=== PATIENT | female | born 1945 | race Caucasian/White ===

== ENCOUNTER 2017-02-15 16:37 | Inpatient (IN) | payer OTHER ==
[~2017-02-15] VITALS: Ht 154.9 cm; Wt 73.1 kg
[~2017-02-15 16:37] MED LIST: AMIO200T4 PO; CMD/1 PO; DVN80 PO; FRS/40 PO; METO50TA16 PO; POTA10CA28 PO
[2017-02-15 17:30] LABS: BASO % 0.3 %; BASO ABS # 0.03 K/uL (0-0.2); COMPLETE YES; EOS % 2.4 %; HEMATOCRIT 31.6 % (37-47); IG% 0.2 %; LYMPH % 18.1 %; LYMPH ABS # 1.87 K/uL (1.2-3.4); MEAN CORPUSCULAR HEMOGLOBIN 28.2 pg (25-34); MEAN CORPUSCULAR HGB CONC 31.6 g/dl (32-36); MEAN PLATELET VOLUME 8.8 fL (7.4-10.4); MONO % 8.9 %; NEUT % 70.1 %; PLATELET COUNT 267 K/uL (130-400); RED BLOOD COUNT 3.55 M/uL (4.2-5.4); WHITE BLOOD COUNT 10.35 K/uL (4.8-10.8)
--- NOTE | 2017-02-15 17:34 | DIAGNOSTIC IMAGING REPORT ---
CHEST ONE VIEW PORTABLE CLINICAL HISTORY: Shortness of breath on exertion. COMPARISON STUDY: 09/08/2016 FINDINGS: There are postsurgical changes of a midline sternotomy and valvular replacement. There is a left subclavian dual-chamber central venous pacemaker present. The heart is borderline enlarged. There is no focal pulmonary consolidation. There is no overt failure. No pleural effusions are visualized..[ IMPRESSION: No active disease in the chest. Electronically signed by: Nathan Chandler M.D. 02/15/2017 5:33 PM Dictated Date/Time: 02/15/2017 5:31 PM
[2017-02-15] MEDS ORDERED: ASPI81TA28 PO (17:37)
[2017-02-15] MEDS ORDERED: WARF1TAB6 PO (17:37)
[2017-02-15] MEDS ORDERED: CMD1 PO (17:37)
[2017-02-15 17:41] LABS: INR 1.8 (0.9-1.1); PARTIAL THROMBOPLASTIN RATIO 1.5; PROTHROMBIN TIME (PATIENT) 19.3 SECONDS (9.0-12.0)
[2017-02-15 17:50] LABS: BUN/CREATININE RATIO 21.6 (10-20); CREATININE 0.81 mg/dl (0.60-1.20)
[2017-02-15] MEDS ORDERED: ONDANSETRON INJ 2 MG/ML 2 ML VIAL IV PRN (19:15)
[2017-02-15] MEDS ORDERED: NITROGLYCERIN 0.4 MG SL PER TAB CHARGE SL PRN (19:15)
--- NOTE | 2017-02-15 19:44 | History and Physical ---
History & Physical Date & Time of Service: February 15, 2017 at 19:13 Chief Complaint: Sore Leg,Black &Blue Leg,On Danica,[place] Primary Care Physician: Desean Buenrostro M.D. History of Present Illness Source: patient, family, clinic records, hospital records Patient seen and examined. 71 year old female with PMHx of bioprosthetic AVR, PAF s/p cardioversion on Coumadin, SSS s/p pacemaker, diastolic CHF and other problems listed below, presents to the ED complaining of "black and blue right leg" x 4 days. Patient reports that she woke up four days ago and noticed a small bruise to her right hip. She called the Coumadin clinic and they said if it got worse to see her PCP or go to the ED. She states since then the area has slowly gotten larger and more painful. Today she started noticing ecchymosis on her calf and her pain was more severe so she decided to come to the ED for further evaluation. She describes the pain as "tight" and rates it as a 6/10. She denies any injury to the area. Patient also reports that today she has had WEBSTER. She states she feels flushed and just doesn't quite feel right. She states that the area over her pacemaker is sometimes tender but otherwise denies chest pain. She denies fevers, chills, URI symptoms, chest pain, nausea, vomiting, diarrhea, hematochezia, hematuria, dysuria, calf pain and edema. In the ED VS were stable, EKG showed wide QRS and previously seen LBBB, Troponin was 2.5, INR was 1.8. Patient will be admitted for further workup and treatment. Past Medical/Surgical History Medical Problems: (1) CHF (congestive heart failure) Status: Chronic (2) History of cardioversion Status: Chronic (3) History of left heart catheterization (LHC) Status: Chronic (4) HTN (hypertension) Status: Chronic (5) Neuropathy Status: Chronic (6) PAF (paroxysmal atrial fibrillation) Status: Chronic Surgical Problems: (1) H/O colonoscopy Status: Chronic (2) H/O hernia repair Status: Chronic (3) H/O: hysterectomy Status: Chronic (5) History of appendectomy Status: Chronic (7) History of tonsillectomy Status: Chronic (8) S/P AVR (aortic valve replacement) (bioprosthetic) Status: Chronic (9) S/P cholecystectomy Status: Chronic (10) S/P MVR (mitral valve repair) Status: Chronic Family History Diabetes mellitus Heart disease Hypertension Social History Smoking Status: Former Smoker Alcohol Use: none Drug Use: none Marital Status: Housing status: lives with family Occupational Status: retired Allergies Coded Allergies: No Known Allergies (Unverified , 02/15/17) Home Medications Scheduled Aspirin (Aspirin Ec), 81 MG PO DAILY Furosemide (Lasix), 80 MG PO DAILY Metoprolol Tartrate (Lopressor) (Lopressor), 25 MG PO BID Potassium Chloride (Micro-K Ext Rel), 20 MEQ PO DAILY Valsartan (Diovan), 80 MG PO QAM Warfarin Sod (Jantoven), 1 MG PO 2XWK Warfarin Sod (Coumadin), 2 MG PO 5XWK Review of Systems Constitutional: No chills, No fever, No sweats ENT: No nasal symptoms Respiratory: + dyspnea on exertion, No cough, No dyspnea at rest Cardiovascular: No chest pain, No edema, No palpitations Abdomen: No GI bleeding, No constipation, No diarrhea, No nausea, No pain, No vomiting Musculoskeletal: No calf pain, No swelling Genitourinary - Female: No dysuria, No hematuria Neurologic: No numbness/tingling, No vertigo Psychiatric: No anxiety Endocrine: No fatigue Hematologic / Lymphatic: + abnormal bleeding/bruising Integumentary: No itch, No rash Allergic / Immunologic: No environmental allergies Physical Exam Vital Signs Date Time Temp Pulse Resp B/P Pulse Ox O2 Delivery O2 Flow Rate FiO2 02/15/17 18:46 37.2 90 16 142/74 100 Room Air 02/15/17 16:45 37.3 69 20 131/54 95 Room Air General Appearance: + pertinent finding (Pleasant WD/WN 71 year old female lying in bed in NAD with family at bedside ) Head: normocephalic, atraumatic Eyes: PERRL, EOMI, sclerae normal ENT: hearing grossly normal, pharynx normal Neck: supple, no JVD Respiratory/Chest: lungs clear, normal breath sounds, no respiratory distress, no accessory muscle use, + pertinent finding (tenderness over pacemaker incertion, left chest - well healing no signs of infection ) Cardiovascular: regular rate, rhythm, no edema, no gallop, no JVD, normal peripheral pulses, + systolic murmur Abdomen/GI: normal bowel sounds, non tender, soft Back: normal inspection, no muscle spasm Extremities/Musculoskelatal: no calf tenderness, normal capillary refill, no pedal edema, + pertinent finding (ecchymosis noted to the lateral aspect of the left thigh extending below the knee, minimal ecchymosis to left calf, good distal pulses ) Neurologic/Psych: no motor/sensory deficits, alert, oriented x 3 Skin: normal color, warm/dry, no rash Lymphatic: no adenopathy Diagnostics Laboratory Results Results Past 24 Hours Test 02/15/17 17:15 Range/Units White Blood Count 10.35 4.8-10.8 K/uL Red Blood Count 3.55 4.2-5.4 M/uL Hemoglobin 10.0 12.0-16.0 g/dL Hematocrit 31.6 37-47 % Mean Corpuscular Volume 89.0 80-100 fL Mean Corpuscular Hemoglobin 28.2 25-34 pg Mean Corpuscular Hemoglobin Concent 31.6 32-36 g/dl Platelet Count 267 130-400 K/uL Mean Platelet Volume 8.8 7.4-10.4 fL Neutrophils (%) (Auto) 70.1 % Lymphocytes (%) (Auto) 18.1 % Monocytes (%) (Auto) 8.9 % Eosinophils (%) (Auto) 2.4 % Basophils (%) (Auto) 0.3 % Neutrophils # (Auto) 7.26 1.4-6.5 K/uL Lymphocytes # (Auto) 1.87 1.2-3.4 K/uL Monocytes # (Auto) 0.92 0.11-0.59 K/uL Eosinophils # (Auto) 0.25 0-0.5 K/uL Basophils # (Auto) 0.03 0-0.2 K/uL RDW Standard Deviation 47.2 36.4-46.3 fL RDW Coefficient of Variation 14.4 11.5-14.5 % Immature Granulocyte % (Auto) 0.2 % Immature Granulocyte # (Auto) 0.02 0.00-0.02 K/uL Prothrombin Time 19.3 9.0-12.0 SECONDS Prothromb Time International Ratio 1.8 0.9-1.1 Activated Partial Thromboplast Time 38.1 21.0-31.0 SECONDS Partial Thromboplastin Ratio 1.5 Sodium Level 141 136-145 mmol/L Potassium Level 4.0 3.5-5.1 mmol/L Chloride Level 104 98-107 mmol/L Carbon Dioxide Level 33 21-32 mmol/L Anion Gap 4.0 3-11 mmol/L Blood Urea Nitrogen 17 7-18 mg/dl Creatinine 0.81 0.60-1.20 mg/dl Est Creatinine Clear Calc Drug Dose 61.1 ml/min Estimated GFR () 85.9 Estimated GFR (Non- 74.1 BUN/Creatinine Ratio 21.6 10-20 Random Glucose 89 70-99 mg/dl Calcium Level 9.0 8.5-10.1 mg/dl Total Creatine Kinase 37 26-192 U/L Troponin I 2.590 0-0.045 ng/ml Diagnostic Radiology CXR Per radiologist read: IMPRESSION: No active disease in the chest. EKG Wide QRS 90 BPM, LBBB, QTc 506 Impression Assessment and Plan 71 year old female presents to the ED complaining of right leg pain, ecchymosis. Also complaining of WEBSTER. INR 1.8, Troponin 2.5 ELEVATED TROPONIN -Admit to tele -? cause, had cardiac cath in April 2016 prior to AVR with normal coronaries -Serial Klarissa, EKGs -Interrogate pacemaker -update echo -cardiology consult placed for further input - follows with [facility] in [place] -Continue BB -Aspirin, Coumadin on hold at this time- defer to attending risks versus benefits of anticoagulation in setting of elevated troponin and hematoma, please see addendum -CBC,PRP, Mg in AM RIGHT THIGH HEMATOMA -while on Coumadin INR 1.8 -good distal pulses, no other signs of active bleeding, platelet count 267 -hold Aspirin, Coumadin for now for bleeding - defer resuming to attending physician H/O BIOPROSTHETIC AORTIC VALVE REPLACEMENT, MITRAL VALVE REPAIR [place] [facility] [place] H/O PAROXYSMAL AFIB -INR 1.8 -continue BB -hold Coumadin for now, defer anticoagulation to attending in setting of hematoma H/O SICK SINUS SYNDROME -s/p pacemaker -interrogate pacemaker DIASTOLIC CHF -appears euvolemic -continue Lasix, Potassium HTN -stable -continue BB, Valsartan, Lasix -monitor in tele DVT PROPHYLAXIS: defer to attending CODE STATUS: FULL CODE DISPO:In my clinical judgment this beneficiary meets acute admission criteria, established by [facility], that includes being hospitalized through two midnights. Patient seen in collaboration with Dr. Gay VTE Prophylaxis VTE Risk Assessment Done? Y/N: Yes Risk Level: Moderate Given or contraindicated: SCD's Note ATTENDING ADDENDUM Record reviewed. Patient interviewed and examined. Care coordinated with Leida Noguera PA-C. Please refer to her documentation for patient's history. Briefly, 71 YO female with history of severe aortic stenosis, mitral regurgitation, paroxysmal atrial fibrillation / flutter, pacemaker for junctional rhythm, normal coronaries per cath April 2016. Bioprosthetic AVR and mitral valve repair [place] [facility] [place]. Developed bruising and pain in her right thigh a few days ago. No associated trauma. Also experiencing dyspnea on exertion without CP that started about 2 days ago. EXAM: General- no distress VS- as noted Neck- + JVD Lungs- clear to auscultation Heart- RRR, III/ systolic murmur at base; II/ systolic murmur at apex; no gallop appreciated Abdomen- + BS, soft, nontender Extremities- trace pretibial edema; no calf tenderness; large ecchymosis right lateral thigh extending to calf Neuro- alert, oriented DATA: INR 1.8. Hgb 10. POC troponin I = 2.59. Lab studies as noted. EKG performed at 17:06 reviewed and demonstrated regular rhythm (probable NSR) at 90 / minute, LBBB with associated repolarization abnormalities. CXR reviewed and demonstrated dual chamber pacemaker, postsurgical changes, normal cardiac silhouette, no infiltrates, effusions, or CHF. ASSESSMENT AND PLAN: DYSPNEA ON EXERTION / ELEVATED TROPONIN Serum troponin = 2.59. EKG shows probable NSR @ 90 / min with pre-existing LBBB. Cardiac cath in April 2016 demonstrated normal coronary arteries. Pulmonary embolism unlikely - O2 sat 100% RA, warfarin therapy (albeit currently subtherapeutic), low Wells score (1.5). Check serial cardiac markers + fasting lipid profile. Continue aspirin and metoprolol. Consult Cardiology. RIGHT THIGH HEMATOMA Large ecchymosis / probable hematoma right lateral thigh. No associated trauma. Last INR in clinic was 2.36 on 01/27. Skipped 1 dose of warfarin due to ecchymosis right thigh. INR today 1.8. Hgb 10.0 compared to baseline of 10.1-10.7 in Sep 2016. Hold warfarin. Follow H/H. Patient is on dual anti-thrombotic therapy with aspirin and warfarin. Indication for aspirin uncertain. Consider discontinuation after current cardiac evaluation in order to reduce bleeding risk. PAROXYSMAL ATRIAL FIBRILLATION / FLUTTER Rhythm at this time probable NSR. Continue warfarin. Hold warfarin as discussed above; resume when able. VTE PROPHYLAXIS No anticoagulants due to right thigh hematoma. SCD's. Ambulate. Please refer to MADIE Noguera's documentation for discussion of other issues. Steven Gay MD .
[2017-02-15 19:51] VITALS: BP 135/59; PULSE 61; TEMP 37.4; Ht 154.9 cm; Wt 73.1 kg
[2017-02-15] MEDS: METOPROLOL TARTRATE 50 MG TAB PO SCH (20:40)
--- NOTE | 2017-02-15 22:53 | EMERGENCY ROOM VISIT NOTE ---
History Report prepared by Presley: Nicolasa Gresham Under the Supervision of: Dr. Marco Trotter M.D. First contact with patient: 16:49 Chief Complaint: LEG PAIN,LEG INJURY Stated Complaint: SORE LEG,BLACK &BLUE LEG,ON CUMIDIN,SHORT OF BREAT History of Present Illness The patient is a 71 year old female who presents to the Emergency Room with complaints of an episode of leg pain starting three days ago. She currently rates her pain as a 6/10 in severity. She states that she woke up and there was a huge bruise on her right leg and hip. She denies any falls, bumping into anything, or sleeping on her side. She states that when she stands her whole right leg hurts. She notes that she is on Coumadin and called the clinic about it. She notes that she is due for a Coumadin check next week. She states that they told her to come to ED if it got worse. She reports that her right big toe is a little more purple than usual which resolved when she lays down. Also notes that she has started to become short of breath when she walks over the last few days. No recent antibiotics. Was recently on steroids and antibiotics for hip pain. The patient denies any recent use of antibiotics, hematochezia, melena, or chest pain. The patient states that she had a valve replacement and repair eight months ago. She states that she had a pacemaker installed five months ago. Source of History: patient Onset: three days ago Position: leg (right) Symptom Intensity: 6/10 Timing: other (episode) Modifying Factors (Worsening): other (standing) Associated Symptoms: + SOB, No chest pain, No hematochezia, No melena Review of Systems See HPI for pertinent positives & negatives. A total of 10 systems reviewed and were otherwise negative. Past Medical & Surgical Medical Problems: (1) CHF (congestive heart failure) (2) Elevated troponin (3) History of cardioversion (4) History of left heart catheterization (LHC) (5) HTN (hypertension) (6) Leg pain (7) Neuropathy (8) PAF (paroxysmal atrial fibrillation) Surgical Problems: (1) H/O colonoscopy (2) H/O hernia repair (3) H/O: hysterectomy (4) History of appendectomy (5) History of tonsillectomy (6) S/P AVR (aortic valve replacement) (7) S/P cholecystectomy (8) S/P MVR (mitral valve repair) Family History Diabetes mellitus Heart disease Hypertension Social History Smoking Status: Former Smoker Drug Use: none Marital Status: Housing Status: lives with family Occupation Status: retired Current/Historical Medications Scheduled Aspirin (Aspirin Ec), 81 MG PO DAILY Furosemide (Lasix), 80 MG PO DAILY Metoprolol Tartrate (Lopressor) (Lopressor), 25 MG PO BID Potassium Chloride (Micro-K Ext Rel), 20 MEQ PO DAILY Valsartan (Diovan), 80 MG PO QAM Warfarin Sod (Jantoven), 1 MG PO 2XWK Warfarin Sod (Coumadin), 2 MG PO 5XWK Allergies Coded Allergies: No Known Allergies (Unverified , 02/15/17) Physical Exam Vital Signs Date Time Temp Pulse Resp B/P Pulse Ox O2 Delivery O2 Flow Rate FiO2 02/15/17 18:46 37.2 90 16 142/74 100 Room Air 02/15/17 16:45 37.3 69 20 131/54 95 Room Air Physical Exam GENERAL: Patient is well appearing and in no acute distress. HEENT: No acute trauma, normocephalic atraumatic, mucous membranes moist, no nasal congestion, no scleral icterus. NECK: No stridor, no adenopathy, no meningismus, trachea is midline. LUNGS: No dyspnea. Clear to auscultation and equal bilaterally. No wheeze, no rhonchi. HEART: Regular rate and rhythm. No murmurs, rubs, gallops appreciated. ABDOMEN: Soft, nontender, bowel sounds positive, no masses appreciated, no peritonitis. BACK: No midline tenderness, no CVA tenderness EXTREMITIES: Normal motion all extremities, no cyanosis, no edema. Moderate area bruising extending lateral/posterior right buttock to right lateral knee and onto lateral calf. She has equal pulses bilaterally. Mild tenderness to palpation over point area right lateral thigh. NEUROLOGIC: Alert and oriented, no acute motor or sensory deficits, no focal weakness, cranial nerves grossly intact. SKIN: No rash, no jaundice, no diaphoresis. Medical Decision & Procedures ER Provider Diagnostic Interpretation: Radiology results and stated below per my review and radiologist interpretation: CHEST ONE VIEW PORTABLE CLINICAL HISTORY: Shortness of breath on exertion. COMPARISON STUDY: 09/08/2016 FINDINGS: There are postsurgical changes of a midline sternotomy and valvular replacement. There is a left subclavian dual-chamber central venous pacemaker present. The heart is borderline enlarged. There is no focal pulmonary consolidation. There is no overt failure. No pleural effusions are visualized..[ IMPRESSION: No active disease in the chest. Electronically signed by: Nathan Chandler M.D. 02/15/2017 5:33 PM Dictated Date/Time: 02/15/2017 5:31 PM Laboratory Results 02/15/17 17:15 Red Blood Count 3.55, Mean Corpuscular Volume 89.0, Mean Corpuscular Hemoglobin 28.2, Mean Corpuscular Hemoglobin Concent 31.6, Mean Platelet Volume 8.8, Neutrophils (%) (Auto) 70.1, Lymphocytes (%) (Auto) 18.1, Monocytes (%) (Auto) 8.9, Eosinophils (%) (Auto) 2.4, Basophils (%) (Auto) 0.3, Neutrophils # (Auto) 7.26, Lymphocytes # (Auto) 1.87, Monocytes # (Auto) 0.92, Eosinophils # (Auto) 0.25, Basophils # (Auto) 0.03 02/15/17 17:15 Test 02/15/17 17:15 White Blood Count 10.35 K/uL (4.8-10.8) Red Blood Count 3.55 M/uL (4.2-5.4) Hemoglobin 10.0 g/dL (12.0-16.0) Hematocrit 31.6 % (37-47) Mean Corpuscular Volume 89.0 fL (80-100) Mean Corpuscular Hemoglobin 28.2 pg (25-34) Mean Corpuscular Hemoglobin Concent 31.6 g/dl (32-36) Platelet Count 267 K/uL (130-400) Mean Platelet Volume 8.8 fL (7.4-10.4) Neutrophils (%) (Auto) 70.1 % Lymphocytes (%) (Auto) 18.1 % Monocytes (%) (Auto) 8.9 % Eosinophils (%) (Auto) 2.4 % Basophils (%) (Auto) 0.3 % Neutrophils # (Auto) 7.26 K/uL (1.4-6.5) Lymphocytes # (Auto) 1.87 K/uL (1.2-3.4) Monocytes # (Auto) 0.92 K/uL (0.11-0.59) Eosinophils # (Auto) 0.25 K/uL (0-0.5) Basophils # (Auto) 0.03 K/uL (0-0.2) RDW Standard Deviation 47.2 fL (36.4-46.3) RDW Coefficient of Variation 14.4 % (11.5-14.5) Immature Granulocyte % (Auto) 0.2 % Immature Granulocyte # (Auto) 0.02 K/uL (0.00-0.02) Prothrombin Time 19.3 SECONDS (9.0-12.0) Prothromb Time International Ratio 1.8 (0.9-1.1) Activated Partial Thromboplast Time 38.1 SECONDS (21.0-31.0) Partial Thromboplastin Ratio 1.5 Anion Gap 4.0 mmol/L (3-11) Est Creatinine Clear Calc Drug Dose 61.1 ml/min Estimated GFR () 85.9 Estimated GFR (Non- 74.1 BUN/Creatinine Ratio 21.6 (10-20) Calcium Level 9.0 mg/dl (8.5-10.1) Total Creatine Kinase 37 U/L (26-192) Troponin I 2.590 ng/ml (0-0.045) Laboratory results as reviewed by me. ECG Indication: SOB/dyspnea Rate (beats per minute): 90 Rhythm: sinus rhythm Findings: LBBB, other (Prolonged MS interval) ED Course 1650: The patient was evaluated in room A3. A complete history and physical exam was performed. 1728: The patient denied wanting a right femur x-ray. She states that she had right hip pain a month ago that was x-rayed and injected. She states that she was started on steroids for the pain. 1818: Upon reevaluation, the patient is resting comfortably. She agrees to coming into the hospital. Discussed results and treatment plan with the patient. She verbalized understanding and agreement with the treatment plan. The patient will be evaluated for further management. 1829: Discussed the patient's case with Dr. Youngblood from [facility]. The patient will be evaluated for further treatment and disposition. Medical Decision Differential diagnoses include anemia, compartment syndrome, elevated INR, renal failure. Pleasant 71 yr old female arrives with right lateral thigh bruising consistent with hematoma from Coumadin use. Notes discolored right toes though on exam they are same bilaterally, and has normal pulses both feet with her chronic decreased sensation. She does not have compartment syndrome by exam and her CK is normal. Given her reported increased WEBSTER went ahead with CXR, EKG, and TROP. With her INR at 1.8 I do not feel that CT PE indicated at this time as not SHOB at rest nor are vitals consistent with PE> CXR OK. EKG with LBBB. Trop elevated. No chest pain and already anticoagulated. Without clear cause of Trop (which may just be due to bruising) she will need to come in for further evaluation of her WEBSTER. She is stable throughout ED stay and not requiring pain medications. Consults Time Called: 1818 Consulting Physician: Dr. Ruby sharmaine Returned Call: 1828 Discussed the patient's case with Dr. Youngblood from [facility]. The patient will be evaluated for further treatment and disposition. Impression Primary Impression: Thigh hematoma Additional Impressions: Elevated troponin Dyspnea on exertion Scribe Attestation The scribe's documentation has been prepared under my direction and personally reviewed by me in its entirety. I confirm that the note above accurately reflects all work, treatment, procedures, and medical decision making performed by me. Departure Information Dispostion Being Evaluated By Hospitalist Referrals Desean Buenrostro M.D. (PCP) Patient Instructions My [facility] Problem Qualifiers Primary Impression: Thigh hematoma Encounter type: initial encounter Laterality: right Qualified Codes: S70.11XA - Contusion of right thigh, initial encounter
[2017-02-15 23:51] LABS: CKMB/CK RATIO 3.9 (0-3.0)
[2017-02-16] VITALS (11 sets, daily range): BP systolic 91–129; BP diastolic 46–75; PULSE 60–89; TEMP 36.8–37.7; O2SAT 92–97
[2017-02-16 05:40] LABS: HEMATOCRIT 27.5 % (37-47); MEAN CELL VOLUME 87.9 fL (80-100); MEAN CORPUSCULAR HEMOGLOBIN 27.2 pg (25-34); MEAN CORPUSCULAR HGB CONC 30.9 g/dl (32-36); MEAN PLATELET VOLUME 8.5 fL (7.4-10.4); PLATELET COUNT 211 K/uL (130-400); RED BLOOD COUNT 3.13 M/uL (4.2-5.4); WHITE BLOOD COUNT 7.61 K/uL (4.8-10.8)
[2017-02-16 06:04] LABS: BUN/CREATININE RATIO 23.9 (10-20); CALCIUM 8.2 mg/dl (8.5-10.1); CREATININE 0.77 mg/dl (0.60-1.20); MAGNESIUM 2.3 mg/dl (1.8-2.4); POTASSIUM 4.4 mmol/L (3.5-5.1)
[2017-02-16 06:13] LABS: INR 1.7 (0.9-1.1); PROTHROMBIN TIME (PATIENT) 18.4 SECONDS (9.0-12.0)
[2017-02-16 06:19] LABS: CHOLESTEROL/HDL RATIO 3.4; CKMB/CK RATIO 3.5 (0-3.0)
--- NOTE | 2017-02-16 07:11 | Progress Note ---
Internal Med Progress Note Date of Service: February 16, 2017. Provider Documentation: Made aware by RN of Hg drop from 10 to 8.5 px admitted for RLE ecchymosis as per records. trend HH hold home ASA for now resume ASA when Hg stable Will relay to AM provider. Vital Signs: Date Time Temp Pulse Resp B/P Pulse Ox O2 Delivery O2 Flow Rate FiO2 02/16/17 07:26 37.0 86 20 129/75 95 Room Air 02/16/17 04:00 36.8 80 18 116/69 96 Room Air 02/16/17 04:00 Room Air 02/16/17 00:04 37.0 60 18 122/67 96 Room Air 02/15/17 23:59 Room Air 02/15/17 20:10 Room Air 02/15/17 19:51 37.4 61 17 135/59 Room Air 02/15/17 18:46 37.2 90 16 142/74 100 Room Air 02/15/17 16:45 37.3 69 20 131/54 95 Room Air Lab Results: Results Past 24 Hours Test 02/15/17 17:15 02/15/17 23:07 02/16/17 05:23 Range/Units White Blood Count 10.35 7.61 4.8-10.8 K/uL Red Blood Count 3.55 3.13 4.2-5.4 M/uL Hemoglobin 10.0 8.5 12.0-16.0 g/dL Hematocrit 31.6 27.5 37-47 % Mean Corpuscular Volume 89.0 87.9 80-100 fL Mean Corpuscular Hemoglobin 28.2 27.2 25-34 pg Mean Corpuscular Hemoglobin Concent 31.6 30.9 32-36 g/dl Platelet Count 267 211 130-400 K/uL Mean Platelet Volume 8.8 8.5 7.4-10.4 fL Neutrophils (%) (Auto) 70.1 % Lymphocytes (%) (Auto) 18.1 % Monocytes (%) (Auto) 8.9 % Eosinophils (%) (Auto) 2.4 % Basophils (%) (Auto) 0.3 % Neutrophils # (Auto) 7.26 1.4-6.5 K/uL Lymphocytes # (Auto) 1.87 1.2-3.4 K/uL Monocytes # (Auto) 0.92 0.11-0.59 K/uL Eosinophils # (Auto) 0.25 0-0.5 K/uL Basophils # (Auto) 0.03 0-0.2 K/uL RDW Standard Deviation 47.2 46.4 36.4-46.3 fL RDW Coefficient of Variation 14.4 14.5 11.5-14.5 % Immature Granulocyte % (Auto) 0.2 % Immature Granulocyte # (Auto) 0.02 0.00-0.02 K/uL Prothrombin Time 19.3 18.4 9.0-12.0 SECONDS Prothromb Time International Ratio 1.8 1.7 0.9-1.1 Activated Partial Thromboplast Time 38.1 21.0-31.0 SECONDS Partial Thromboplastin Ratio 1.5 Sodium Level 141 144 136-145 mmol/L Potassium Level 4.0 4.4 3.5-5.1 mmol/L Chloride Level 104 107 98-107 mmol/L Carbon Dioxide Level 33 34 21-32 mmol/L Anion Gap 4.0 3.0 3-11 mmol/L Blood Urea Nitrogen 17 18 7-18 mg/dl Creatinine 0.81 0.77 0.60-1.20 mg/dl Est Creatinine Clear Calc Drug Dose 61.1 62.7 ml/min Estimated GFR () 85.9 91.3 Estimated GFR (Non- 74.1 78.8 BUN/Creatinine Ratio 21.6 23.9 10-20 Random Glucose 89 83 70-99 mg/dl Calcium Level 9.0 8.2 8.5-10.1 mg/dl Total Creatine Kinase 37 28 17 26-192 U/L Troponin I 2.590 2.370 2.220 0-0.045 ng/ml Creatine Kinase MB 1.1 0.6 0.5-3.6 ng/ml Creatine Kinase MB Ratio 3.9 3.5 0-3.0 Magnesium Level 2.3 1.8-2.4 mg/dl Triglycerides Level 78 0-150 mg/dl Cholesterol Level 141 0-200 mg/dl HDL Cholesterol 42 mg/dl LDL Cholesterol, Calculated 83 mg/dl VLDL Cholesterol, Calculated 16 mg/dl Cholesterol/HDL Ratio 3.4
[2017-02-16] MEDS: FUROSEMIDE 40 MG TAB PO SCH (08:06)
[2017-02-16] MEDS: VALSARTAN 80 MG TAB PO SCH (08:07)
[2017-02-16] MEDS: METOPROLOL TARTRATE 50 MG TAB PO SCH ×2 (08:07→19:58)
[2017-02-16] MEDS: POTASSIUM CHLORIDE 10 MEQ TABCR PO SCH (08:07)
[2017-02-16] MEDS ORDERED: ASPIRIN 81 MG ECTAB PO SCH (09:00)
--- NOTE | 2017-02-16 09:10 | ECHOCARDIOGRAM REPORT ---
*NOTICE TO RECEIVING DEMOCRAT AGENCY This information is strictly Confidential and protected under [place] law. [place] law prohibits you from making any further disclosure of this information unless further disclosure is expressly permitted by the written consent of the person to whom it pertains or is authorized by law. A general authorization for the release of medical or other information is not sufficient for this purpose. Hospital accepts no responsibility if the information is made available to any other person, INCLUDING THE PATIENT. Interpretation Summary * Name: MARCO A MOLINA Study Date: 02/16/2017 06:17 AM BP: 116/69 mmHg * Patient Location: C.2T\S\S236\S\1 HR: 80 * : 1945 (M/d/yyyy) Gender: Female Height: 61 in * Age: 71 yrs Ethnicity: CA Weight: 167 lb * Ordering Physician: Leida Noguera * Referring Physician: Self, Referred * Performed By: Jeanie Caldwell RDCS * * Reason For Study: Dyspnea, elevated troponin * BSA: 1.7 m2 * -- Conclusions -- * Normal LV chamber size with mild concentric LVH * Abnormal septal wall motion consistent with LBBB pattern, otherwise, no segmental left ventricular wall motion abnormalities are noted, EF 55-60%. * There is a bioprosthetic aortic valve. * The gradient is normal for this prosthetic aortic valve. * Doppler evidence of regurgitation is probably normal for this prosthetic aortic valve. * There is no mitral regurgitation noted. * There is no mitral valve stenosis. * An annuloplasty ring is noted in the mitral position. * . Procedure Details * A complete two-dimensional transthoracic echocardiogram was performed (2D, M-mode, Doppler and color flow Doppler). Left Ventricle * The left ventricle is normal in size. * There is mild concentric left ventricular hypertrophy. * Ejection Fraction = 55-60%. * Left ventricular systolic function is normal. * No segmental left ventricular wall motion abnormalities are noted. * The left ventricular wall motion is normal. * Septal motion is consistent with conduction abnormality. Right Ventricle * The right ventricular cavity size is normal (basal dimension <4.2 cm in right ventricular apical 4-chamber view). * There is a pacemaker lead in the right ventricle. * The right ventricular systolic function is normal as assessed by tricuspid annular plane systolic excursion (TAPSE) (normal >1.5 cm). Atria * The left atrial size is normal. * Right atrial size is normal. * No ASD detected; PFO is not assessed. Mitral Valve * There is no mitral valve stenosis. * There is no mitral regurgitation noted. * An annuloplasty ring is noted in the mitral position. Tricuspid Valve * The tricuspid valve is normal in structure and function. Aortic Valve * There is a bioprosthetic aortic valve. * The gradient is normal for this prosthetic aortic valve. * Doppler evidence of regurgitation is probably normal for this prosthetic aortic valve. Pulmonic Valve * The pulmonary valve is not well seen, but the Doppler examination is normal without significant regurgitation or stenosis. Great Vessels * The aortic root is normal size. Pericardium/Pleural * There is no pericardial effusion. MMode 2D Measurements and Calculations IVSd 1.3 cm LVIDd 4.5 cm LVIDs 3.1 cm LVPWd 1.2 cm IVS/LVPW 1.1 FS 31.3 % EDV(Teich) 91.3 ml ESV(Teich) 37.3 ml EF(Teich) 59.2 % EDV(cubed) 89.7 ml ESV(cubed) 29.2 ml EF(cubed) 67.5 % LV mass(C)d 201.3 grams LV mass(C)dI 115.0 grams/m\S\2 CO(Teich) 4.5 l/min CI(Teich) 2.6 l/min/m\S\2 SV(Teich) 54.1 ml SI(Teich) 30.9 ml/m\S\2 CO(cubed) 5.0 l/min CI(cubed) 2.9 l/min/m\S\2 SV(cubed) 60.6 ml SI(cubed) 34.6 ml/m\S\2 LA dimension 3.8 cm asc Aorta Diam 3.4 cm LVAd ap4 26.9 cm\S\2 LVLd ap4 6.8 cm EDV(MOD-sp4) 86.4 ml LVAs ap4 15.9 cm\S\2 LVLs ap4 5.6 cm ESV(MOD-sp4) 39.0 ml EF(MOD-sp4) 54.9 % LVAd ap2 35.5 cm\S\2 LVLd ap2 7.8 cm EDV(MOD-sp2) 142.0 ml LVAs ap2 22.5 cm\S\2 LVLs ap2 7.0 cm ESV(MOD-sp2) 61.2 ml EF(MOD-sp2) 56.9 % CO(MOD-sp4) 3.9 l/min CI(MOD-sp4) 2.2 l/min/m\S\2 SV(MOD-sp4) 47.4 ml SI(MOD-sp4) 27.1 ml/m\S\2 CO(MOD-sp2) 6.7 l/min CI(MOD-sp2) 3.8 l/min/m\S\2 SV(MOD-sp2) 80.8 ml SI(MOD-sp2) 46.2 ml/m\S\2 Doppler Measurements and Calculations MV E max francesco 173.8 cm/sec MV dec time 0.27 sec Ao V2 max 234.1 cm/sec Ao max PG 21.9 mmHg Ao max PG (full) 16.6 mmHg Ao V2 mean 165.3 cm/sec Ao mean PG 12.2 mmHg Ao V2 VTI 44.5 cm LV V1 max PG 5.3 mmHg LV V1 max 115.1 cm/sec PA V2 max 109.9 cm/sec PA max PG 4.8 mmHg PA acc slope 898.2 cm/sec\S\2 PA acc time 0.09 sec PI end-d francesco 179.2 cm/sec TR max francesco 180.5 cm/sec PA pr(Accel) 39.4 mmHg
--- NOTE | 2017-02-16 09:44 | Clinical Documentation Query ---
[facility]. [facility] : CLINICAL DOCUMENTATION QUERY Patient is a 71 year old female admitted for a right thigh hematoma in the setting of ASA and Coumadin and elevated troponin. Hemoglobin and hematocrit this a.m. (02/16) were 8.5 g/dl and 27.5%. Values 09/17 were 11.7 g/dl and 37.1%. She is being monitored with serial hematology. In your clinical opinion is this patient being managed for: ( + ) Acute blood loss anemia ( ) Other explanation of clinical findings (Please Explain) ( ) Unable to determine (Please Define) ( ) Need to Discuss ( ) Not Agree The medical record reflects the following clinical findings, treatment, and risk factors. Clinical Indicators: As above Treatment: Serial hematology, holding of ASA, Coumadin Risk Factors: ASA, Coumadin Please clarify and document your clinical opinion in the progress notes and discharge summary. Terms such as "probable", "suspected", "likely", "questionable", "possible", or "still to be ruled out" are acceptable. IF IN AGREEMENT, YOU MUST DOCUMENT ABOVE DIAGNOSTIC STATEMENT IN DAILY PROGRESS NOTES AND DISCHARGE SUMMARY. This document is not part of the patient's record. Thank You, Wil Johnson, NICKI [phone]
--- NOTE | 2017-02-16 11:21 | Cardiology Consultation ---
Cardiology Consultation Date of Consultation: February 16, 2017 Requesting Physician: Trena Attending Emergency Service Worker: J Luis (Quinton Neves PA-C) History of Present Illness Ms. Cardona is a pleasant 71 year old female who is being seen at the request of Dr. Gay. Reasons for consultation include elevated troponin and dyspnea. Ms. Cardona states "I came in because my leg got all black and blue." She notes first observing spontaneous ecchymosis of her right posterolateral hip three or four days ago. She called the [facility] and was advised to "keep an eye on it over the weekend." She notes that towards the end of the weekend the hematoma increased in size and became more painful. She eventually called her PCP and was referred to the ER for further evaluation and treatment. She denies injury. She was seen at the [place] ER on 01/22/2017 secondary to right hip pain and was prescribed Methylprednisolone and Tramadol on 01/25/2017 for acute low back pain with right-sided sciatica. Because of the increased dyspnea that patient underwent further cardiopulmonary evaluation in the ER. CXR showed no active disease in the chest as per Dr. Chandler. EKG revealed probable sinus with a left bundle branch block that is chronic. Troponin was elevated, trending down serially. The patient describes chronic stable dyspnea that may have increased somewhat over the past two days. She was not particularly concerned regarding the dyspnea, attributing it to the leg issue. She notes that her chest "feels weird," with her left chest/breast noted to be tender with palpation. No exertional chest pain. No pleuritic chest pain. She has chronic stable palpitations that she describes as "Feeling like my heart is beating fasting." (Quinton Neves PA-C) History Past Medical and Surgical History: ? Bicuspid aortic valve with severe aortic valve stenosis and mitral regurgitation April 12, 2016 Diagnostic Cardiac Catheterization ([facility]): The coronary arteries are angiographically normal. The right atrial pressures measured were normal. Pulmonary hypertension is not present. Pulmonary saturation is normal. The pulmonary wedge pressure was normal. The cardiac output was normal. Status post June 10, 2016 aortic valve replacement with a 23 Allan II bioprosthesis and mitral valve repair with a 26 physio II annuloplasty ring. 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 Chronic left bundle branch block. Hypertension Hyperlipidemia Migraine headaches GERD [id number] Neuropathy Osteoporosis Appendectomy Cholecystectomy T/A as a child. Lumbar spine surgery in 1995 Total hysterectomy Umbilical hernia repair, 06/2013 Family History: Father at 87. Mother at 90. She has three brothers and two sisters, one brother with CAD. Social History: Reformed smoker. Quit in 1985 after smoking 1/2 ppd x ~5 years. No alcohol. No illegal drug use. in 2006, (Lorenzo) with an NC at the age of 64. Three children. 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 (Quinton Neves PA-C) Review Of Systems General: No fevers. No chills. No night sweats. No trauma. HEENT: + headaches. No head trauma. Cardiovascular: See above. Pulmonary: See above. Gastrointestinal: No nausea, vomiting, or diarrhea. Skin: See above. No rash. Musculoskeletal: See above. Decreased mobility. Ambulation is via a cane. Arthritis. Neurological: Denies history of TIA, CVA, or seizures Complete review of systems is as stated above, negative, or noncontributory. (Quinton Neves PA-C) Allergies Coded Allergies: No Known Allergies (Unverified , 02/15/17) Medications Reported Home Medications Medications Dose Route/Sig Max Daily Dose Days Date Category Dose Instructions Aspirin Ec (Aspirin) 81 Mg Tab 81 Mg PO DAILY 02/15/17 Reported Coumadin (Warfarin Sod) 1 Mg Tab 2 Mg PO 5XWK 02/15/17 Reported TUESDAY,TUESDAY,TUESDAY,TUESDAY,TUESDAY Jantoven (Warfarin Sodium) 1 Mg Tab 1 Mg PO 2XWK 02/15/17 Reported TUESDAY AND TUESDAY Diovan (Valsartan) 80 Mg Tab 80 Mg PO QAM 30 09/08/16 Rx Lopressor (Metoprolol Tartrate) 50 Mg Tab 25 Mg PO BID 09/05/16 Reported Lasix (Furosemide) 40 Mg Tab 80 Mg PO DAILY 09/05/16 Reported Micro-K Ext Rel (Potassium Chloride) 10 Meq Capcr 20 Meq PO DAILY 09/05/16 Reported (Quinton Neves PA-C) Physical Exam Vital Signs (Last 8hrs): Last 8 Hrs Date Time Temp Pulse Resp B/P Pulse Ox O2 Delivery O2 Flow Rate FiO2 02/16/17 08:00 95 Room Air 02/16/17 07:26 37.0 86 20 129/75 95 Room Air 02/16/17 04:00 36.8 80 18 116/69 96 Room Air 02/16/17 04:00 Room Air General Appearance: Alert and Oriented x3. NAD. HEENT: Normocephalic Atraumatic. PER, EOMI, conjunctiva and sclera clear Neck: Supple. No carotid bruits noted. No JVD. No HJD. Respiratory: Breath sounds clear to auscultation bilaterally. No w/r/r. Cardiovascular: RRR, 80 bpm. + Gallop. Chest: Medial sternotomy. There is reproducible left breast and left chest wall discomfort with palpation. Abdomen: +BS. No abdominal bruits. Soft. Nontender. Extremities: There is a large hematoma/ecchymosis of the right lateral thigh extending to the knee. No distal edema. No clubbing. No cyanosis. Distal pulses 2/4 bilaterally. Neuro: No focal deficits. Psychiatric: Normal affect. (Quinton Neves PA-C) Data Last 24 Hours Test 02/15/17 17:15 02/15/17 23:07 02/16/17 05:23 White Blood Count 10.35 K/uL 7.61 K/uL Red Blood Count 3.55 M/uL 3.13 M/uL Hemoglobin 10.0 g/dL 8.5 g/dL Hematocrit 31.6 % 27.5 % Mean Corpuscular Volume 89.0 fL 87.9 fL Mean Corpuscular Hemoglobin 28.2 pg 27.2 pg Mean Corpuscular Hemoglobin Concent 31.6 g/dl 30.9 g/dl Platelet Count 267 K/uL 211 K/uL Mean Platelet Volume 8.8 fL 8.5 fL Neutrophils (%) (Auto) 70.1 % Lymphocytes (%) (Auto) 18.1 % Monocytes (%) (Auto) 8.9 % Eosinophils (%) (Auto) 2.4 % Basophils (%) (Auto) 0.3 % Neutrophils # (Auto) 7.26 K/uL Lymphocytes # (Auto) 1.87 K/uL Monocytes # (Auto) 0.92 K/uL Eosinophils # (Auto) 0.25 K/uL Basophils # (Auto) 0.03 K/uL RDW Standard Deviation 47.2 fL 46.4 fL RDW Coefficient of Variation 14.4 % 14.5 % Immature Granulocyte % (Auto) 0.2 % Immature Granulocyte # (Auto) 0.02 K/uL Prothrombin Time 19.3 SECONDS 18.4 SECONDS Prothromb Time International Ratio 1.8 1.7 Activated Partial Thromboplast Time 38.1 SECONDS Partial Thromboplastin Ratio 1.5 Sodium Level 141 mmol/L 144 mmol/L Potassium Level 4.0 mmol/L 4.4 mmol/L Chloride Level 104 mmol/L 107 mmol/L Carbon Dioxide Level 33 mmol/L 34 mmol/L Anion Gap 4.0 mmol/L 3.0 mmol/L Blood Urea Nitrogen 17 mg/dl 18 mg/dl Creatinine 0.81 mg/dl 0.77 mg/dl Est Creatinine Clear Calc Drug Dose 61.1 ml/min 62.7 ml/min Estimated GFR () 85.9 91.3 Estimated GFR (Non- 74.1 78.8 BUN/Creatinine Ratio 21.6 23.9 Random Glucose 89 mg/dl 83 mg/dl Calcium Level 9.0 mg/dl 8.2 mg/dl Total Creatine Kinase 37 U/L 28 U/L 17 U/L Troponin I 2.590 ng/ml 2.370 ng/ml 2.220 ng/ml Creatine Kinase MB 1.1 ng/ml 0.6 ng/ml Creatine Kinase MB Ratio 3.9 3.5 Magnesium Level 2.3 mg/dl Triglycerides Level 78 mg/dl Cholesterol Level 141 mg/dl HDL Cholesterol 42 mg/dl LDL Cholesterol, Calculated 83 mg/dl VLDL Cholesterol, Calculated 16 mg/dl Cholesterol/HDL Ratio 3.4 EKG dated and timed 15-FEB-2017 @ 17:06:17: Possible Sinus rhythm. Left bundle branch block. EKG dated and timed 16-FEB-2017 @ 06:14:34: Normal sinus rhythm. Left bundle branch block. February 16, 2017 TTE Interpretation Summary ([facility], Dr. Dietz): Normal LV chamber size with mild concentric LVH. Abnormal septal wall motion consistent with LBBB pattern, otherwise, no segmental left ventricular wall motion abnormalities are noted, EF 55-60%. There is a bioprosthetic aortic valve. The gradient is normal for this prosthetic aortic valve. Doppler evidence of regurgitation is probably normal for this prosthetic aortic valve. There is no mitral regurgitation noted. There is no mitral valve stenosis. An annuloplasty ring is noted in the mitral position. (Quinton Neves PA-C) Assessment & Plan Presentation with a large spontaneous painful right thigh hematoma See above. ASA and Coumadin held. H&H followed. Further management/treatment as per hospitalist. Exertional dyspnea Elevated troponin concentration Catheterization in April 2016 with normal coronaries. Symptoms and presentation not suggestive of an acute coronary syndrome PE appears unlikely. Volume status appears normovolemic No trauma. No symptoms to suggest pericarditis/myocarditis. Chart reviewed. Troponin elevated in June 2016, September 2016, and with this admission. ? Demand ischemia from an arrhythmia Interrogate device today Status post June 10, 2016 aortic valve replacement with a 23 Allan II bioprosthesis and mitral valve repair with a 26 physio II annuloplasty ring. 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 (Quinton Neves PA-C) Cardiology attending: Pt seen and examined, agree with findings and assessment as per Quinton Britt. Pt denies trauma to the area. Pedal pulse intact. No sign of vascular incident but would have a low threshold to have vascular surgery evaluate should clinical course change. Coumadin and asa on hold, on coumadin for PAF, currently in sinus. (Markos Dietz D.O.)
[2017-02-16 12:08] LABS: HEMATOCRIT 30.6 % (37-47)
--- NOTE | 2017-02-16 15:04 | Progress Note ---
Internal Med Progress Note Date of Service: February 16, 2017. Provider Documentation: SUBJECTIVE: The patient was seen and examined Spontaneous bleeding right lateral and posterior hip Increase overnight with stephenson Also SOB on exertion OBJECTIVE: Vital Signs-as noted below Exam: General-no distress at rest Eyes-normal ENT-normal Neck-supple Lungs-Clear to ausucltate bilaterally Heart-Regular,Prosthetic valve sound,2/6 ESM precordial area Abdomen-Benign,no masses Trace edema bilaterally Right Lower Extremity-Swelling with extensive bruising upper lateral and posterior part with Bruising going down as low as lateral calf Neuro-AAOx3 Lab data as noted below. ASSESSMENT & PLAN: SPONTANEOUS RIGHT UPPER THIGH HEMATOMA -while on Coumadin (INR 1.8 ) and on Aspirin -no hemodynamic instability -Normal platelet -Coumadin and Aspirin are on Hold -Repeat Hb 9.8 and will monitor -INR down to 1.7 ELEVATED TROPONIN -Doubt any ACS -Admit to tele -Likely cause, had cardiac cath in April 2016 prior to AVR with normal coronaries -Serial Klarissa,-minimally high EKGs -Interrogate pacemaker -ECHO::Normal LV chamber size with mild concentric LVH * Abnormal septal wall motion consistent with LBBB pattern, otherwise, no segmental left ventricular wall motion abnormalities are noted, EF 55-60%. * There is a bioprosthetic aortic valve. * The gradient is normal for this prosthetic aortic valve. * Doppler evidence of regurgitation is probably normal for this prosthetic aortic valve. * There is no mitral regurgitation noted. * There is no mitral valve stenosis. * An annuloplasty ring is noted in the mitral position. Appreciate cardiology input Likely to d/c Coumadin in future Will await further input H/O BIOPROSTHETIC AORTIC VALVE REPLACEMENT, MITRAL VALVE REPAIR -at [facility] in Jun 2016 -Inial advice was to continue Coumadin for 3 months -likely to be continued due to PAF -Now in SR H/O PAROXYSMAL AFIB -INR 1.8 -continue BB -hold Coumadin for now, defer anticoagulation to attending in setting of hematoma -Now in SR H/O SICK SINUS SYNDROME -s/p pacemaker -interrogate pacemaker DIASTOLIC CHF -appears euvolemic -continue Lasix, Potassium HTN -stable -continue BB, Valsartan, Lasix -monitor in tele DVT PROPHYLAXIS: defer to attending CODE STATUS: FULL CODE DISPO: Awaited Vital Signs: Date Time Temp Pulse Resp B/P Pulse Ox O2 Delivery O2 Flow Rate FiO2 02/16/17 12:00 96 Room Air 02/16/17 11:01 36.9 80 20 121/72 96 Room Air 02/16/17 08:00 95 Room Air 02/16/17 07:26 37.0 86 20 129/75 95 Room Air 02/16/17 04:00 36.8 80 18 116/69 96 Room Air 02/16/17 04:00 Room Air 02/16/17 00:04 37.0 60 18 122/67 96 Room Air 02/15/17 23:59 Room Air 02/15/17 20:10 Room Air 02/15/17 19:51 37.4 61 17 135/59 Room Air 02/15/17 18:46 37.2 90 16 142/74 100 Room Air 02/15/17 16:45 37.3 69 20 131/54 95 Room Air Lab Results: Results Past 24 Hours Test 02/15/17 17:15 02/15/17 23:07 02/16/17 05:23 02/16/17 11:44 Range/Units White Blood Count 10.35 7.61 4.8-10.8 K/uL Red Blood Count 3.55 3.13 4.2-5.4 M/uL Hemoglobin 10.0 8.5 9.8 12.0-16.0 g/dL Hematocrit 31.6 27.5 30.6 37-47 % Mean Corpuscular Volume 89.0 87.9 80-100 fL Mean Corpuscular Hemoglobin 28.2 27.2 25-34 pg Mean Corpuscular Hemoglobin Concent 31.6 30.9 32-36 g/dl Platelet Count 267 211 130-400 K/uL Mean Platelet Volume 8.8 8.5 7.4-10.4 fL Neutrophils (%) (Auto) 70.1 % Lymphocytes (%) (Auto) 18.1 % Monocytes (%) (Auto) 8.9 % Eosinophils (%) (Auto) 2.4 % Basophils (%) (Auto) 0.3 % Neutrophils # (Auto) 7.26 1.4-6.5 K/uL Lymphocytes # (Auto) 1.87 1.2-3.4 K/uL Monocytes # (Auto) 0.92 0.11-0.59 K/uL Eosinophils # (Auto) 0.25 0-0.5 K/uL Basophils # (Auto) 0.03 0-0.2 K/uL RDW Standard Deviation 47.2 46.4 36.4-46.3 fL RDW Coefficient of Variation 14.4 14.5 11.5-14.5 % Immature Granulocyte % (Auto) 0.2 % Immature Granulocyte # (Auto) 0.02 0.00-0.02 K/uL Prothrombin Time 19.3 18.4 9.0-12.0 SECONDS Prothromb Time International Ratio 1.8 1.7 0.9-1.1 Activated Partial Thromboplast Time 38.1 21.0-31.0 SECONDS Partial Thromboplastin Ratio 1.5 Sodium Level 141 144 136-145 mmol/L Potassium Level 4.0 4.4 3.5-5.1 mmol/L Chloride Level 104 107 98-107 mmol/L Carbon Dioxide Level 33 34 21-32 mmol/L Anion Gap 4.0 3.0 3-11 mmol/L Blood Urea Nitrogen 17 18 7-18 mg/dl Creatinine 0.81 0.77 0.60-1.20 mg/dl Est Creatinine Clear Calc Drug Dose 61.1 62.7 ml/min Estimated GFR () 85.9 91.3 Estimated GFR (Non- 74.1 78.8 BUN/Creatinine Ratio 21.6 23.9 10-20 Random Glucose 89 83 70-99 mg/dl Calcium Level 9.0 8.2 8.5-10.1 mg/dl Total Creatine Kinase 37 28 17 26-192 U/L Troponin I 2.590 2.370 2.220 0-0.045 ng/ml Creatine Kinase MB 1.1 0.6 0.5-3.6 ng/ml Creatine Kinase MB Ratio 3.9 3.5 0-3.0 Magnesium Level 2.3 1.8-2.4 mg/dl Triglycerides Level 78 0-150 mg/dl Cholesterol Level 141 0-200 mg/dl HDL Cholesterol 42 mg/dl LDL Cholesterol, Calculated 83 mg/dl VLDL Cholesterol, Calculated 16 mg/dl Cholesterol/HDL Ratio 3.4
[2017-02-16] MEDS: ACETAMINOPHEN 325 MG TAB PO PRN (19:57)
[2017-02-17] VITALS (9 sets, daily range): BP systolic 109–130; BP diastolic 64–73; PULSE 57–83; TEMP 36.5–37.1; O2SAT 93–98
[2017-02-17] MEDS: VALSARTAN 80 MG TAB PO SCH (07:50)
[2017-02-17] MEDS: POTASSIUM CHLORIDE 10 MEQ TABCR PO SCH (07:51)
[2017-02-17] MEDS: METOPROLOL TARTRATE 50 MG TAB PO SCH ×2 (07:51→20:56)
[2017-02-17] MEDS: FUROSEMIDE 40 MG TAB PO SCH (07:51)
[2017-02-17] MEDS: ACETAMINOPHEN 325 MG TAB PO PRN ×3 (08:24→23:41)
--- NOTE | 2017-02-17 10:09 | Cardiology Follow-Up ---
Subjective General Date of Service: February 17, 2017. Chief Complaint: Right thigh pain Pt evaluation today including: conversation w/ patient, physical exam, chart review, lab review, review of studies, review of inpatient medication list History of Present Illness Patient seen and examined. Slept well She does not believe there has been further propagation of the hematoma. Discomfort controlled with PRN acetaminophen. No chest pain. No palpitations. No dyspnea. No cough, orthopnea, PND, or lower extremity peripheral edema. EKG: ? Atrial fibrillation, left bundle branch block Telemetry: Currently irregular with a left bundle branch block pattern and intermittent ventricular pacing. Intermittently with AP-JAVA PROGRAMMING PROFESSOR. ? intermittent inappropriate pacing, ? undersensing atrial fibrillation/flutter. Pacemaker interrogation requested, completed by [employer] 02/16 (report not available for review) February 16, 2017 TTE Interpretation Summary ([facility], Dr. Dietz): Normal LV chamber size with mild concentric LVH. Abnormal septal wall motion consistent with LBBB pattern, otherwise, no segmental left ventricular wall motion abnormalities are noted, EF 55-60%. There is a bioprosthetic aortic valve. The gradient is normal for this prosthetic aortic valve. Doppler evidence of regurgitation is probably normal for this prosthetic aortic valve. There is no mitral regurgitation noted. There is no mitral valve stenosis. An annuloplasty ring is noted in the mitral position. Allergies Coded Allergies: No Known Allergies (Unverified , 02/15/17) Social History Smoking Status: Former Smoker Hx Tobacco Use In Past Year?: No Hx Alcohol Use - Type And Amou: No Hx Substance Use - Type And Am: No Problem List Medical Problems: (1) Acute coronary syndrome Status: Acute (2) Dyspnea on exertion Status: Acute (3) Thigh hematoma Status: Acute Physical Exam Vital Signs Last Vital Signs Documentation Date Time Temp Pulse Resp B/P Pulse Ox O2 Delivery O2 Flow Rate FiO2 02/17/17 08:00 Room Air 02/17/17 07:53 36.5 83 18 122/73 96 Physical Exam Constitutional: Level of Distress: NAD Psychiatric: Mental Status: active & alert Orientation: to time, to place, to person Memory: recent memory normal, remote memory normal Head: normocephalic, atraumatic Eyes: Pupils: PERRLA Neck: pertinent finding (Normal JVP) Lungs: Respiratory effort: no dyspnea Auscultation: breath sounds normal, no wheezing, no rales/crackles, no rhonchi Cardiovascular: Heart Auscultation: no rubs, II/ RICK, gallop, irregular rate rhythm Peripheral Pulses: Carotid Pulse: normal on the left, normal on the right Radial Pulse: normal on the left, normal on the right Dorsalis Pedis Pulse: normal on the left, normal on the right Abdomen: Bowel Sounds: normal Inspection & Palpation: soft, no tenderness, guarding & rebound, no masses Extremities: pertinent finding (There is a large right posterolateral thigh ecchymosis/hematoma with ecchymosis below the knee) Neurologic: Cranial Nerves: grossly intact Assessment and Plan Assessment and Plan Presentation with a large spontaneous painful right thigh hematoma ASA and Coumadin held. Hgb 10.0 -> 8.5 -> 9.8 Pain controlled with as needed acetaminophen No further propagation as per patient and examination. Exertional dyspnea Elevated troponin concentration Cardiac Catheterization in April 2016 with normal coronaries. Symptoms and presentation not suggestive of an acute coronary syndrome PE unlikely. Volume status is normovolemic No trauma. No symptoms to suggest pericarditis/myocarditis. Chart reviewed. Troponin elevated in June 2016, September 2016, and with this admission. ? Demand from paroxysmal atrial arrhythmias ? Paroxysmal atrial fibrillation. Will discuss with Dr. Dietz. Status post June 10, 2016 aortic valve replacement with a 23 Allan II bioprosthesis and mitral valve repair with a 26 physio II annuloplasty ring. 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 Cardiology attending: Pt seen and examined, agree with findings and assessment as per Quinton Britt. Hgb has remained stable, ecg reviewed believe it to be sinus. Coumadin held. would not restart but follow up with primary cardiology team as scheduled next week for further recommendation. Unclear troponin elevation source, does not appear to be ischemic and if peripheral muscle damage would expect cpk to be elevated as well. No further cardiac testing or intervention at this time. Laboratory Results Last 24 Hours Test 02/16/17 11:44 Hemoglobin 9.8 g/dL Hematocrit 30.6 %
--- NOTE | 2017-02-17 17:11 | Progress Note ---
Internal Med Progress Note Date of Service: February 17, 2017. Provider Documentation: SUBJECTIVE: The patient was seen and examined Spontaneous bleeding right lateral and posterior hip Increase overnight with pain and got admitted Also SOB on exertion Feels a lot better Leg pain is better and no increase in size OBJECTIVE: Vital Signs-as noted below Exam: General-no distress at rest Eyes-normal ENT-normal Neck-supple Lungs-Clear to ausucltate bilaterally Heart-Regular,Prosthetic valve sound,2/6 ESM precordial area Abdomen-Benign,no masses Trace edema bilaterally Right Lower Extremity-Swelling with extensive bruising upper lateral and posterior part with Bruising going down as low as lateral calf Swelling and tenseness are improved Bruising stable Neuro-AAOx3 Lab data as noted below. ASSESSMENT & PLAN: SPONTANEOUS RIGHT UPPER THIGH HEMATOMA -while on Coumadin (INR 1.8 ) and on Aspirin -no hemodynamic instability -Normal platelet -Coumadin and Aspirin are on Hold -Repeat Hb 9.8 and will monitor -INR down to 1.7 -Bleeding seems to be stable -will start PT/OT -No more Coumadin until evaluated by her E Commerce Marketing Analyst as an OP -Continue Aspirin on discharge -likely home tomorrow ELEVATED TROPONIN -Doubt any ACS -Admit to tele -Likely cause, had cardiac cath in April 2016 prior to AVR with normal coronaries -Serial Klarissa,-minimally high EKGs -Interrogate pacemaker -ECHO::Normal LV chamber size with mild concentric LVH * Abnormal septal wall motion consistent with LBBB pattern, otherwise, no segmental left ventricular wall motion abnormalities are noted, EF 55-60%. * There is a bioprosthetic aortic valve. * The gradient is normal for this prosthetic aortic valve. * Doppler evidence of regurgitation is probably normal for this prosthetic aortic valve. * There is no mitral regurgitation noted. * There is no mitral valve stenosis. * An annuloplasty ring is noted in the mitral position. Appreciate cardiology input Likely to d/c Coumadin in future Only Aspirin on discharge with OP cardiology follow up to decide further use of Coumadin H/O BIOPROSTHETIC AORTIC VALVE REPLACEMENT, MITRAL VALVE REPAIR -at [facility] [place] in Jun 2016 -Inial advice was to continue Coumadin for 3 months -likely to be continued due to PAF -Now in SR H/O PAROXYSMAL AFIB -INR 1.8 -continue BB -hold Coumadin for now, defer anticoagulation to attending in setting of hematoma -Now in SR H/O SICK SINUS SYNDROME -s/p pacemaker -interrogate pacemaker DIASTOLIC CHF -appears euvolemic -continue Lasix, Potassium HTN -stable -continue BB, Valsartan, Lasix -monitor in tele DVT PROPHYLAXIS: defer to attending CODE STATUS: FULL CODE DISPO: PT/OT eval Likely home tomorrow Vital Signs: Date Time Temp Pulse Resp B/P Pulse Ox O2 Delivery O2 Flow Rate FiO2 02/17/17 12:00 Room Air 02/17/17 11:00 37.1 63 20 122/69 93 Room Air 02/17/17 08:00 Room Air 02/17/17 07:53 36.5 83 18 122/73 96 02/17/17 04:15 96 Room Air 02/17/17 04:11 36.5 57 18 109/66 96 Room Air 02/17/17 00:00 94 Room Air 02/16/17 23:55 37.0 62 18 91/46 94 Room Air 02/16/17 20:00 93 Room Air 02/16/17 19:30 37.7 75 20 113/67 93 Room Air
[2017-02-18 04:00] VITALS: BP 116/56; PULSE 54; TEMP 37.1; O2SAT 98
[2017-02-18 06:20] LABS: HEMATOCRIT 26.5 % (37-47); MEAN CELL VOLUME 88.3 fL (80-100); MEAN CORPUSCULAR HEMOGLOBIN 28.3 pg (25-34); MEAN CORPUSCULAR HGB CONC 32.1 g/dl (32-36); MEAN PLATELET VOLUME 9.4 fL (7.4-10.4); PLATELET COUNT 174 K/uL (130-400); WHITE BLOOD COUNT 5.56 K/uL (4.8-10.8)
[2017-02-18 06:27] LABS: INR 1.2 (0.9-1.1); PROTHROMBIN TIME (PATIENT) 12.4 SECONDS (9.0-12.0)
[2017-02-18 06:48] LABS: BUN/CREATININE RATIO 26.3 (10-20); CALCIUM 8.2 mg/dl (8.5-10.1); CREATININE 0.81 mg/dl (0.60-1.20); POTASSIUM 3.7 mmol/L (3.5-5.1)
[2017-02-18 08:29] VITALS: BP 146/73; PULSE 86; TEMP 36.7; O2SAT 96
[2017-02-18] MEDS: METOPROLOL TARTRATE 50 MG TAB PO SCH (08:51)
[2017-02-18] MEDS: FUROSEMIDE 40 MG TAB PO SCH (08:51)
[2017-02-18] MEDS: POTASSIUM CHLORIDE 10 MEQ TABCR PO SCH (08:52)
[2017-02-18] MEDS: VALSARTAN 80 MG TAB PO SCH (08:52)
[2017-02-18 12:04] VITALS: BP 117/71; PULSE 61; TEMP 37; O2SAT 98
--- NOTE | 2017-02-18 12:10 | Progress Note ---
Medicine Progress Note Date & Time of Visit: February 18, 2017 at 11:50. Subjective Pt was seen and examined. Sitting in chair with no distress Pt said that she feels fine She said that her right upper thigh tenderness improved significantly Denies any chest pain, palpitation, dizziness and SOB Objective Last 8 Hrs Date Time Temp Pulse Resp B/P Pulse Ox O2 Delivery O2 Flow Rate FiO2 02/18/17 08:29 36.7 86 20 146/73 96 Room Air 02/18/17 08:15 Room Air 02/18/17 04:00 37.1 54 18 116/56 98 Room Air Physical Exam: General- No acute distress Head- atraumatic Eyes- PERRL, EOMI ENT- oropharynx clear Neck- supple, no JVD Lungs- clear to auscultation and percussion Heart- regular rhythm; no murmur Abdomen- normal bowel sounds, soft Extremities- no calf tenderness Neuro- alert, oriented x 3; PERRL, EOMI; no facial palsy Skin- warm & dry Laboratory Results: Last 24 Hours Test 02/18/17 05:55 White Blood Count 5.56 K/uL Red Blood Count 3.00 M/uL Hemoglobin 8.5 g/dL Hematocrit 26.5 % Mean Corpuscular Volume 88.3 fL Mean Corpuscular Hemoglobin 28.3 pg Mean Corpuscular Hemoglobin Concent 32.1 g/dl RDW Standard Deviation 47.0 fL RDW Coefficient of Variation 14.4 % Platelet Count 174 K/uL Mean Platelet Volume 9.4 fL Prothrombin Time 12.4 SECONDS Prothromb Time International Ratio 1.2 Sodium Level 142 mmol/L Potassium Level 3.7 mmol/L Chloride Level 106 mmol/L Carbon Dioxide Level 32 mmol/L Anion Gap 4.0 mmol/L Blood Urea Nitrogen 21 mg/dl Creatinine 0.81 mg/dl Est Creatinine Clear Calc Drug Dose 59.9 ml/min Estimated GFR () 85.9 Estimated GFR (Non- 74.1 BUN/Creatinine Ratio 26.3 Random Glucose 81 mg/dl Calcium Level 8.2 mg/dl Assessment & Plan SPONTANEOUS RIGHT UPPER THIGH HEMATOMA -while on Coumadin (INR 1.8 ) and on Aspirin -no hemodynamic instability -Normal platelet -Coumadin and Aspirin are on Hold -Hgb 8.5 -INR down to 1.2 -will start PT/OT -No Coumadin until evaluated by her Electrotyper as an OP -Continue Aspirin on discharge - Will check h/h at 1600 ELEVATED TROPONIN -Doubt any ACS -Likely cause, had cardiac cath in April 2016 prior to AVR with normal coronaries - Denies any Chest Pain - Troponin increased to 2.5 and trending down -Interrogate pacemaker -ECHO::Normal LV chamber size with mild concentric LVH * Abnormal septal wall motion consistent with LBBB pattern, otherwise, no segmental left ventricular wall motion abnormalities are noted, EF 55-60%. * There is a bioprosthetic aortic valve. * The gradient is normal for this prosthetic aortic valve. * Doppler evidence of regurgitation is probably normal for this prosthetic aortic valve. * There is no mitral regurgitation noted. * There is no mitral valve stenosis. * An annuloplasty ring is noted in the mitral position. Appreciate cardiology input Only Aspirin on discharge with OP cardiology follow up to decide further use of Coumadin H/O BIOPROSTHETIC AORTIC VALVE REPLACEMENT, MITRAL VALVE REPA[place] [facility] [place]Inial advice was to continue Coumadin for 3 months -likely to be continued due to PAF -Now in SR H/O PAROXYSMAL AFIB -INR 1.2 -continue BB -Continue holding Coumadin for now until seeing her cardiology -Now in SR H/O SICK SINUS SYNDROME -s/p pacemaker -interrogate pacemaker DIASTOLIC CHF -appears euvolemic -continue Lasix, Potassium HTN -stable -continue BB, Valsartan, Lasix -monitor in tele DVT PROPHYLAXIS:On SCDs CODE STATUS: FULL CODE Consultants: cardiology Current Inpatient Medications: Current Inpatient Medications Medications (Trade) Dose Ordered Sig/Jagdish Route Start Time Stop Time Status Last Admin Dose Admin Acetaminophen (Tylenol Tab) 650 mg Q4H PRN PO 02/15/17 19:15 03/17/17 19:14 02/17/17 23:41 650 MG Ondansetron HCl (Zofran Inj) 4 mg Q6H PRN IV 02/15/17 19:15 03/17/17 19:14 Nitroglycerin (Nitrostat Tab) 0.4 mg UD PRN SL 02/15/17 19:15 03/17/17 19:14 Furosemide (Lasix Tab) 80 mg DAILY PO 02/16/17 09:00 03/18/17 08:59 02/18/17 08:51 80 MG Metoprolol Tartrate (Lopressor Tab) 25 mg BID PO 02/15/17 21:00 03/17/17 20:59 02/18/17 08:51 25 MG Potassium Chloride (Klor-Con M10) 20 meq DAILY PO 02/16/17 09:00 03/18/17 08:59 02/18/17 08:52 20 MEQ Valsartan (Diovan Tab) 80 mg QAM PO 02/16/17 09:00 03/18/17 08:59 02/18/17 08:52 80 MG
[2017-02-18 15:22] LABS: HEMATOCRIT 28.6 % (37-47)
[2017-02-18 15:28] VITALS: BP 123/73; PULSE 60; TEMP 37.4; O2SAT 95
--- NOTE | 2017-02-18 19:16 | Discharge Instructions ---
Discharge Instructions Date of Service February 18, 2017. Admission Reason for Admission: Elevated Troponin, Leg Pain Discharge Discharge Diagnosis / Problem: SPONTANEOUS RIGHT UPPER THIGH HEMATOMA, ELEVATED TROPONIN, H/O P. AFIB Discharge Goals Goal(s): Decrease discomfort, Improve function, Improve disease control Activity Recommendations Activity Limitations: resume your previous activity ( TOLERATED) . Instructions / Follow-Up Instructions / Follow-Up Follow up appointment with your primary care physician Dr. Esquivel on 02/23 @ 1: 30 pm Follow up with your Cardiology on 02/22 Hold Coumadin for now until you see your cardiology. Your cardiology will decide if you need to restart the Coumadin. Ok to resume aspirin 81mg tomorrow Check BMP within 1 week Current Hospital Diet Patient's current hospital diet: AHA Diet (Heart Healthy) Discharge Diet Recommended Diet: AHA Diet (Heart Healthy) Pending Studies Studies pending at discharge: no Laboratory Results Lipid Panel Test 02/16/17 05:23 Range/Units Triglycerides Level 78 0-150 mg/dl Cholesterol Level 141 0-200 mg/dl HDL Cholesterol 42 mg/dl Cholesterol/HDL Ratio 3.4 LDL Cholesterol, Calculated 83 mg/dl Medical Emergencies . Who to Call and When: Medical Emergencies: If at any time you feel your situation is an emergency, please call 911 immediately. . Non-Emergent Contact Non-Emergency issues call your: Primary Care Provider Call Non-Emergent contact if: you have a fever, your pain is not controlled, you have any medication questions . . "Provider Documentation" section prepared by Beatriz Melo. . VTE Core Measure Inpt VTE Proph given/why not?: SCD's
[2017-02-18 19:23] VITALS: BP 123/73; PULSE 60; TEMP 37.4; O2SAT 95
--- NOTE | 2017-02-21 00:56 | Discharge Summary ---
Discharge Summary Date of Service February 21, 2017. Discharge Summary Admission Date: February 15, 2017 at 19:07 Discharge Date: February 18, 2017 Discharge Disposition: Home Principal Diagnosis: SPONTANEOUS RIGHT UPPER THIGH HEMATOMA Secondary Diagnoses/Problems: ELEVATED TROPONIN H/O P. AFIB DIASTOLIC CHF HTN H/O SICK SINUS SYNDROME Procedures: CHEST ONE VIEW PORTABLE CLINICAL HISTORY: Shortness of breath on exertion. COMPARISON STUDY: 09/08/2016 FINDINGS: There are postsurgical changes of a midline sternotomy and valvular replacement. There is a left subclavian dual-chamber central venous pacemaker present. The heart is borderline enlarged. There is no focal pulmonary consolidation. There is no overt failure. No pleural effusions are visualized..[ IMPRESSION: No active disease in the chest. Electronically signed by: Nathan Chandler M.D. 02/15/2017 5:33 PM Dictated Date/Time: 02/15/2017 5:31 PM Consultations: cardiology Medication Reconciliation Continued Medications: Aspirin (Aspirin Ec) 81 Mg Tab 81 MG PO DAILY Furosemide (Lasix) 40 Mg Tab 80 MG PO DAILY, TAB Metoprolol Tartrate (Lopressor) (Lopressor) 50 Mg Tab 25 MG PO BID, TAB Potassium Chloride (Micro-K Ext Rel) 10 Meq Capcr 20 MEQ PO DAILY, CAP Valsartan (Diovan) 80 Mg Tab 80 MG PO QAM for 30 Days, #30 TAB Discontinued Medications: Warfarin Sod (Jantoven) 1 Mg Tab 1 MG PO 2XWK, TAB TUESDAY AND TUESDAY Warfarin Sod (Coumadin) 1 Mg Tab 2 MG PO 5XWK TUESDAY,TUESDAY,TUESDAY,TUESDAY,TUESDAY Admission Information HPI (per Admitting provider): Patient seen and examined. 71 year old female with PMHx of bioprosthetic AVR, PAF s/p cardioversion on Coumadin, SSS s/p pacemaker, diastolic CHF and other problems listed below, presents to the ED complaining of "black and blue right leg" x 4 days. Patient reports that she woke up four days ago and noticed a small bruise to her right hip. She called the Coumadin clinic and they said if it got worse to see her PCP or go to the ED. She states since then the area has slowly gotten larger and more painful. Today she started noticing ecchymosis on her calf and her pain was more severe so she decided to come to the ED for further evaluation. She describes the pain as "tight" and rates it as a 6/10. She denies any injury to the area. Patient also reports that today she has had WEBSTER. She states she feels flushed and just doesn't quite feel right. She states that the area over her pacemaker is sometimes tender but otherwise denies chest pain. She denies fevers, chills, URI symptoms, chest pain, nausea, vomiting, diarrhea, hematochezia, hematuria, dysuria, calf pain and edema. In the ED VS were stable, EKG showed wide QRS and previously seen LBBB, Troponin was 2.5, INR was 1.8. Patient will be admitted for further workup and treatment. Physical Exam (per Admitting): General Appearance: + pertinent finding (Pleasant WD/WN 71 year old female lying in bed in NAD with family at bedside ) Head: normocephalic, atraumatic Eyes: PERRL, EOMI, sclerae normal ENT: hearing grossly normal, pharynx normal Neck: supple, no JVD Respiratory/Chest: lungs clear, normal breath sounds, no respiratory distress, no accessory muscle use, + pertinent finding (tenderness over pacemaker incertion, left chest - well healing no signs of infection ) Cardiovascular: regular rate, rhythm, no edema, no gallop, no JVD, normal peripheral pulses, + systolic murmur Abdomen/GI: normal bowel sounds, non tender, soft Back: normal inspection, no muscle spasm Extremities/Musculoskelatal: no calf tenderness, normal capillary refill, no pedal edema, + pertinent finding (ecchymosis noted to the lateral aspect of the left thigh extending below the knee, minimal ecchymosis to left calf, good distal pulses ) Neurologic/Psych: no motor/sensory deficits, alert, oriented x 3 Skin: normal color, warm/dry, no rash Lymphatic: no adenopathy Hospital Course SPONTANEOUS RIGHT UPPER THIGH HEMATOMA -while on Coumadin (INR 1.8 ) and on Aspirin -no hemodynamic instability -Normal platelet -Coumadin and Aspirin are on Hold -Hgb 8.5 -INR down to 1.2 -will start PT/OT -No Coumadin until evaluated by her Lubricating Machine Tender as an OP -Continue Aspirin on discharge - Will check h/h at 1600 ELEVATED TROPONIN -Doubt any ACS -Likely cause, had cardiac cath in April 2016 prior to AVR with normal coronaries - Denies any Chest Pain - Troponin increased to 2.5 and trending down -Interrogate pacemaker -ECHO::Normal LV chamber size with mild concentric LVH * Abnormal septal wall motion consistent with LBBB pattern, otherwise, no segmental left ventricular wall motion abnormalities are noted, EF 55-60%. * There is a bioprosthetic aortic valve. * The gradient is normal for this prosthetic aortic valve. * Doppler evidence of regurgitation is probably normal for this prosthetic aortic valve. * There is no mitral regurgitation noted. * There is no mitral valve stenosis. * An annuloplasty ring is noted in the mitral position. Appreciate cardiology input Only Aspirin on discharge with OP cardiology follow up to decide further use of Coumadin H/O BIOPROSTHETIC AORTIC VALVE REPLACEMENT, MITRAL VALVE REPAIR -at [place] in Jun 2016 -Inial advice was to continue Coumadin for 3 months -likely to be continued due to PAF -Now in SR H/O PAROXYSMAL AFIB -INR 1.2 -continue BB -Continue holding Coumadin for now until seeing her cardiology -Now in SR H/O SICK SINUS SYNDROME -s/p pacemaker -interrogate pacemaker DIASTOLIC CHF -appears euvolemic -continue Lasix, Potassium HTN -stable -continue BB, Valsartan, Lasix -monitor in tele DVT PROPHYLAXIS:On SCDs CODE STATUS: FULL CODE Total time spent on discharge = 35 MINUTES This includes examination of the patient, discharge planning, medication reconciliation, and communication with other providers. Discharge Instructions Discharge Instructions Date of Service February 18, 2017. Admission Reason for Admission: Elevated Troponin, Leg Pain Discharge Discharge Diagnosis / Problem: SPONTANEOUS RIGHT UPPER THIGH HEMATOMA, ELEVATED TROPONIN, H/O P. AFIB Discharge Goals Goal(s): Decrease discomfort, Improve function, Improve disease control Activity Recommendations Activity Limitations: resume your previous activity ( TOLERATED) . Instructions / Follow-Up Instructions / Follow-Up Follow up appointment with your primary care physician Dr. Esquivel on 02/23 @ 1: 30 pm Follow up with your Cardiology on 02/22 Hold Coumadin for now until you see your cardiology. Your cardiology will decide if you need to restart the Coumadin. Ok to resume aspirin 81mg tomorrow Check BMP within 1 week Current Hospital Diet Patient's current hospital diet: AHA Diet (Heart Healthy) Discharge Diet Recommended Diet: AHA Diet (Heart Healthy) Pending Studies Studies pending at discharge: no Laboratory Results Lipid Panel Test 02/16/17 05:23 Range/Units Triglycerides Level 78 0-150 mg/dl Cholesterol Level 141 0-200 mg/dl HDL Cholesterol 42 mg/dl Cholesterol/HDL Ratio 3.4 LDL Cholesterol, Calculated 83 mg/dl Medical Emergencies . Who to Call and When: Medical Emergencies: If at any time you feel your situation is an emergency, please call 911 immediately. . Non-Emergent Contact Non-Emergency issues call your: Primary Care Provider Call Non-Emergent contact if: you have a fever, your pain is not controlled, you have any medication questions . . "Provider Documentation" section prepared by Beatriz Melo. Discharge Goals Goal(s): Decrease discomfort, Improve function, Improve disease control Activity Recommendations Activity Limitations: resume your previous activity ( TOLERATED) . Additional Copies To Desean Buenrostro M.D.
== END 2017-02-18 19:40 | disposition home or self-care (01) | DRG 556 ==
LOC: ENRESERVTM → ENRESERVDT → C.EDB 16:40 → C.2T 19:07
PROVIDERS: ADMIT Hospitalist; ATTEND Internal Medicine
DX: M79.81 Nontraumatic hematoma of soft tissue (principal); I50.30 Unspecified diastolic (congestive) heart failure; Q23.1 Congenital insufficiency of aortic valve; T45.515A Adverse effect of anticoagulants, initial encounter; Z79.01 Long term (current) use of anticoagulants; I10 Essential (primary) hypertension; Z87.891 Personal history of nicotine dependence; I48.0 Paroxysmal atrial fibrillation; Z82.49 Family history of ischemic heart disease and other diseases of the circulatory system; R79.89 Other specified abnormal findings of blood chemistry; I44.7 Left bundle-branch block, unspecified; E78.5 Hyperlipidemia, unspecified; Z95.2 Presence of prosthetic heart valve; G60.0 Hereditary motor and sensory neuropathy; Z95.0 Presence of cardiac pacemaker; Y92.009 Unspecified place in unspecified non-institutional (private) residence as the place of occurrence of the external cause

== ENCOUNTER 2018-11-06 20:42 | Inpatient (IN) ==
[2018-11-06] MEDS ORDERED: ACETAMINOPHEN 325 MG TAB PO STA (21:12)
[2018-11-06] MEDS ORDERED: SODIUM CHLORIDE 0.9% 1000ML 1,000 ML IV ONE ×2 (21:12→23:33)
--- NOTE | 2018-11-06 21:35 | XRay Report ---
XR chest 1V portable HISTORY: 73 years-old Female Sepsis acute sepsis COMPARISON: Chest radiograph 09/06/2018 TECHNIQUE: Portable AP view of the chest FINDINGS: Cardiac silhouette is enlarged, unchanged. Prior median sternotomy with cardiac valvular prosthesis. Right subclavian pacer is new in the interval. Status post removal of the previously noted left subcl eyad pacer. No pneumothorax, pleural effusion or overt pulmonary edema. No focal airspace consolidat ion to suggest pneumonia. Degenerative changes of the shoulders and spine. Partially imaged fusion hardware about the lumbar sp ine. IMPRESSION: Cardiomegaly without acute process. The above report was generated using voice recognition software. It may contain grammatical, syntax o r spelling errors. Electronically signed by: Jace Petit M.D. 11/06/2018 9:34 PM
[2018-11-06 21:36] LABS: Basophils # (auto) 0.05 K/uL (0-0.2); Basophils % (auto) 0.2 %; Eosinophils # (auto) 1.01 K/uL (0-0.5); Eosinophils % (auto) 4.3 %; Hematocrit (blood only) 30.8 % (37-47); Hemoglobin 9.3 g/dL (12.0-16.0); Immature Granulocytes % (auto) 0.4 %; Lymphocytes # (auto) 1.93 K/uL (1.2-3.4); Lymphocytes % (auto) 8.3 %; Mean Corpuscular Hgb Conc 30.2 g/dL (32-36); Monocytes # (auto) 1.68 K/uL (0.11-0.59); Monocytes % (auto) 7.2 %; Neutrophils # (auto) 18.58 K/uL (1.4-6.5); Neutrophils % (auto) 79.6 %; Platelet Count 267 K/uL (130-400); RDW Coefficient of Variation 18.3 % (11.5-14.5); RDW Standard Deviation 58.4 fL (36.4-46.3); Red Blood Count 3.54 M/uL (4.2-5.4); White Blood Count 23.35 K/uL (4.8-10.8)
[2018-11-06 21:38] LABS: Appearance Urine Cloudy (Clear); Bacteria Urine Automated Negative (Negative); Bilirubin Urine Negative (Negative); Color Urine Yellow; Epithelial Cell Urine Auto >30 /lpf (0-5); Glucose Urine UA Negative (Negative); Ketones Urine Negative (Negative); Leukocyte Esterase Urine Negative (Negative); Nitrite Urine Negative (Negative); Protein Urine Negative (Negative); Specific Gravity Urine 1.018 (1.000-1.030); Urobilinogen Urine Negative (Negative)
[2018-11-06 21:42] LABS: INR 1.1 (0.9-1.1); Partial Thromboplastin Time 26.4 Seconds (21.0-31.0); Prothrombin Time 10.7 Seconds (9.0-12.0)
[2018-11-06 21:47] LABS: Albumin Level 3.1 gm/dl (3.4-5.0); BUN Creatinine Ratio 27.1 (10-20); Calcium 8.2 mg/dl (8.5-10.1); Creatinine Clr Calc Pharmacy 31.8 ml/min; Est GFR (African American) 42.2; Est GFR (Non-African American) 36.4
[2018-11-06 22:00] LABS: Albumin Globulin Ratio 0.7 (0.9-2); Bilirubin,Total 0.6 mg/dl (0.2-1); Globulin 4.5 gm/dl (2.5-4.0); Total Protein 7.6 gm/dl (6.4-8.2); Troponin I 0.139 ng/ml (0-0.045)
[2018-11-06] MEDS ORDERED: VANCOMYCIN CONSULT ACTIVE PRN (22:01)
[2018-11-06] MEDS ORDERED: VANCOMYCIN HCL 1,500 MG in SODIUM CHLORIDE 0.9% 500 ML IV ONE (22:01)
[2018-11-06] MEDS ORDERED: PIPERACILL/TAZOBAC CONSULT ACTIVE PRN (22:01)
[2018-11-06] MEDS ORDERED: PIPERACILLIN/TAZOBACTAM 4.5 GM/120 ML BAG IV ONE (22:01)
[2018-11-06 22:07] LABS: Influenza A virus by PCR Neg for Influ A (Neg); Influenza B virus by PCR Neg for Influ B (Neg)
[2018-11-06] MEDS ORDERED: IOVERSOL 100ml IV PRN (22:21)
--- NOTE | 2018-11-06 22:43 | CT Scan Report ---
ABDOMEN AND PELVIS CT WITH IV CONTRAST CT DOSE: 332.40 mGy.cm HISTORY: Acute low back and lower abdominal pain back pain TECHNIQUE: Multiaxial CT images of the abdomen and pelvis were performed following the use of intrave nous contrast. A dose lowering technique was utilized adhering to the principles of ALARA. COMPARISON STUDY: Ultrasound of the gallbladder 02/23/2018, CTA chest 09/07/2018 FINDINGS: Subsegmental bibasilar atelectasis. No pneumatosis or pneumoperitoneum. Imaged inferior car diac chambers are moderately enlarged. Partially imaged pacer leads. Prosthetic mitral valve. Prior cholecystectomy. Mild dilation of the common bile duct is likely on a postsurgical basis. Liver appears unremarkable. The hepatic and portal veins. Spleen, pancreas and right adrenal gland are unr emarkable. Mild thickening about the left adrenal gland. Kidneys and ureters are unremarkable. Partia lly decompressed bladder with mild wall thickening. Prior hysterectomy. No adnexal mass lesions. Exte nsive mixed plaque formation about the abdominal aorta without aneurysm. IVC is unremarkable. Mildly prominent iliac chain lymph nodes measure up to 7 mm in short axis, likely physiologic. No small bowel obstruction. Multiple scattered air-fluid levels noted within nondilated loops of smal l bowel are likely on a physiologic basis. Large bowel is also unremarkable. The appendix appears nor mal within the abdominal right lower quadrant. A lower right anterior abdominal wall hernia suggestiv e of Spigelian hernia noted with diastases 1.8 cm containing mesenteric fat and nonobstructed loop of ileum. No ascites or mesenteric inflammation. Soft tissues appear unremarkable. Bones appear mildly demineralized. Laminectomy changes with posterior interbody ericka and screw fusion L4-L5. 4 mm anteroli sthesis L4 on L5. Advanced intervertebral disc space narrowing is seen at several levels. Interverteb ral disc space narrowing with endplate lucencies and erosive changes at T11-T12 are new from 8. Moderate inflammatory stranding of the adjacent paraspinal tissues. Additionally, severe intervert ebral disc space narrowing with mild endplate irregularity at 2-L3, age-indeterminate without surroun ding inflammation. IMPRESSION: 1. Endplate erosive/lytic changes at the T11-T12 level are new from 09/07/2018 compatible with acute t o subacute discitis osteomyelitis. Moderate infiltration of the adjacent prevertebral tissues without drainable fluid collection identified. Infectious disease consultation is needed. 2. No acute intra-abdominal or intrapelvic abnormality identified. 3. Right-sided Spigelian hernia contains mesenteric fat and a nonobstructed loop of ileum. 4. Additional findings as above. Electronically signed by: Jace Petit M.D. 11/06/2018 10:41 PM
[2018-11-06 23:54] LABS: Magnesium 2.3 mg/dl (1.8-2.4)
[2018-11-07] MEDS ORDERED: SODIUM CHLORIDE 0.9% 1000ML 1,000 ML IV SCH (00:30)
[2018-11-07] MEDS ORDERED: DiphenhydrAMINE HCL 50 MG/ML VIAL IV STA ×2 (02:09→10:41)
[2018-11-07] MEDS ORDERED: EPINEPHrine INJ 1 MG/ML AMP IM STA (02:10)
[2018-11-07] MEDS ORDERED: DiphenhydrAMINE HCL 50 MG/ML VIAL ONE (02:11)
[2018-11-07] MEDS ORDERED: EPINEPHrine INJ 1 MG/ML AMP ONE (02:13)
[2018-11-07] MEDS ORDERED: methylPREDNISolone 125 MG/2 ML VIAL ONE (02:13)
[2018-11-07] MEDS ORDERED: METOPROLOL TARTRATE 50 MG TAB PO STA (02:45)
[2018-11-07] MEDS ORDERED: METOPROLOL TARTRATE 50 MG TAB PO ONE (02:47)
--- NOTE | 2018-11-07 03:08 | History & Physical Report ---
Date of Service November 07, 2018 Assessment & Plan (1) Severe sepsis: SIRS plus lactic acid elevation plus ARF Secondary to spinal osteomyelitis hx septic arthritis right shoulder, left knee, PPM infection (MSSA as per records) status post completion of recent antibiotic Rx chronic diastolic heart failure (EF 50%, DAYANA 2018), patient on the dry side SSS sp PPM placement status post Watchman device implantation currently off anticoagulation due to bleeding concerns as per records Paced rhythm chronic left bundle branch block history CAD as per records hx of bioprosthetic AVR/MVR hypertension, slight elevated Troponin elevation secondary to elevated BP and sepsis Chronic anemia, postop hemoglobin of 9 patient's new baseline History Bzegtwa-Ujgfc-Yifje neuropathy Medical telemetry CS, IV Daptomycin IVF, follow lactic acid ID consult RE spinal osteomyelitis Orthopedic spine consult RE spinal osteomyelitis (ER provider already in touch with Dr. Ramos. ) Lidoderm patch for back pain Daily renal function, hold home ARB until creatinine at baseline basal insulin, ISS BG goal 140-180 PT OT eval DVT prophylaxis. Heparin subcu Full code Total critical time was 45 minutes. History of Present Illness Chief Complaint: Back pain Primary Care Provider: Maria Del Carmen Matos, History obtained from patient and records. Medical history significant for chronic diastolic heart failure (EF 50%, DAYANA 2018) SSS sp PPM status post Watchman device implantation currently off anticoagulation due to bleeding concerns as per records, recent history septic arthritis (right shoulder, left knee)/PPM pocket infection status post PPM replacement (MSSA sp IV antibiotic Rx), chronic left bundle branch block, history CAD as per records, hx of bioprosthetic AVR/MVR, hypertension, Charcot- Megan-Tooth disease as per records Recent confinement September 2018 for MSSA bacteremia, possible endocarditis. Patient transferred to [facility] [place]. Patient confined at [facility] [place] from September 07, 2018 to October 06, 2018. Patient found to have a septic right shoulder, PPM pocket infection, septic left knee during confinement. Patient had right shoulder, left knee wash out procedures. PPM removed and subsequently replaced. Cultures grew MSSA. Patient eventually developed reactions to IV Cefazolin later outpatient IV vancomycin course. Subsequently completed IV Daptomycin Rx outpatient. Total treatment duration for MSSA infection with multiple antibiotics totaling 5 weeks (last dose 10/30/2018). PICC line removed at [facility] [place] last week after treatment completion. 2 days history of achy low back pain worse on lying down. Patient noted fever chills today. Denies incontinence, lower extremity numbness, weakness. Patient denies chest pain, SOB. At the ER, IV Vancomycin and Zosyn given for possible osteomyelitis of the spine. Patient developed respiratory distress and a truncal/back rash at the completion of IV vancomycin infusion. O2 sats 80s. IV Solu-Medrol, Benadryl; IM epinephrine given for presumptive anaphylactic reaction. Patient currently comfortable. 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 Allergies Allergy/AdvReac Type Severity Reaction Status Date / Time vancomycin Allergy Severe rash, Verified 11/07/18 02:25 shortness of breath cefazolin Allergy rash Verified 11/07/18 03:28 Home Medications Home Medications Medication Instructions Recorded Confirmed Type metoprolol tartrate 50 mg PO BID 09/06/18 11/06/18 History valsartan 80 mg PO QAM 09/06/18 11/06/18 History aspirin 325 mg PO QAM 11/06/18 11/06/18 History diphenhydramine HCl [Benadryl] 25 mg PO Q6 PRN 11/06/18 11/06/18 History ferrous sulfate 325 mg PO BID 11/06/18 11/06/18 History fexofenadine 180 mg PO DAILY 11/06/18 11/06/18 History furosemide 80 mg PO QAM 11/06/18 11/06/18 History potassium chloride [Klor-Con M10] 10 meq PO BID 11/06/18 11/06/18 History Past Med/Surg History Medical History Elevated troponin PAF (paroxysmal atrial fibrillation) (Chronic) CHF (congestive heart failure) (Chronic) HTN (hypertension) (Chronic) Neuropathy (Chronic) History of left heart catheterization (LHC) (Chronic) History of cardioversion (Chronic) Leg pain Surgical History History of appendectomy (Chronic) H/O colonoscopy (Chronic) S/P cholecystectomy (Chronic) History of tonsillectomy (Chronic) S/P AVR (aortic valve replacement) (Chronic) S/P MVR (mitral valve repair) (Chronic) H/O: hysterectomy (Chronic) H/O hernia repair (Chronic) Family History Other No significant family history Social History Current Living Situation: Family Current Living Situation Comment: "my son lives with me" Other Information That Helps Us Care for You: No Feels Safe at Home: Yes Safety Concerns: Feels Safe At This Time Smoking Status: Former smoker Do You Dip or Chew Tobacco: No Smoking End Date: 30 years ago Second Hand Exposure: No Tobacco Cessation Education Requested by Patient: No Hx Alcohol Use: No Hx Substance Use: No Beliefs That Will Affect Care: None Communication Ability: Effective Review of Systems As per HPI, all 10 systems reviewed, all other ROS negative Physical Exam 2 Vital Signs (Past 24 Hours): Last Vital Signs Temp 37.5 C 11/06/18 22:48 Pulse 86 11/07/18 02:19 Resp 24 11/07/18 02:19 BP 163/79 H 11/07/18 02:19 Pulse Ox 92 11/07/18 02:19 Physical Exam: GENERAL: uncomfortable, no respiratory distress, slightly anxious SKIN: Erythematous rash on the back, pallor , warm HEENT: Bespectacled, pale palpebral conjunctivae, no ptosis, dry buccal mucosa NECK : Supple, short, no tenderness CHEST : Decreased breath sounds, no tenderness HEART : RRR, systolic murmur ABDOMEN: Some distention, nontender BACK low back tenderness, negative straight leg raise test EXTREMITIES : minimal LE swelling, no tenderness, no other conspicuous deformities noted NEUROLOGIC : Coherent, no facial asymmetry, no other gross focality Results & Data Laboratory Results Laboratory Results WBC 23.35 K/uL (4.8-10.8) H 11/06/18 21:13 RBC 3.54 M/uL (4.2-5.4) L 11/06/18 21:13 Hgb 9.3 g/dL (12.0-16.0) L 11/06/18 21:13 Hct 30.8 % (37-47) L 11/06/18 21:13 MCV 87.0 fL (80-100) 11/06/18 21:13 MCH 26.3 pg (25-34) 11/06/18 21:13 MCHC 30.2 g/dL (32-36) L 11/06/18 21:13 RDW Std Deviation 58.4 fL (36.4-46.3) H 11/06/18 21:13 RDW Coeff of Christian 18.3 % (11.5-14.5) H 11/06/18 21:13 Plt Count 267 K/uL (130-400) 11/06/18 21:13 MPV 9.0 fL (7.4-10.4) 11/06/18 21:13 Immature Gran % (Auto) 0.4 % 11/06/18 21:13 Neut % (Auto) 79.6 % 11/06/18 21:13 Lymph % (Auto) 8.3 % 11/06/18 21:13 [place] % (Auto) 7.2 % 11/06/18 21:13 Eos % (Auto) 4.3 % 11/06/18 21:13 Baso % (Auto) 0.2 % 11/06/18 21:13 Immature Gran # (Auto) 0.10 K/uL (0.00-0.02) H 11/06/18 21:13 Neut # (Auto) 18.58 K/uL (1.4-6.5) H 11/06/18 21:13 Lymph # (Auto) 1.93 K/uL (1.2-3.4) 11/06/18 21:13 [place] # (Auto) 1.68 K/uL (0.11-0.59) H 11/06/18 21:13 Eos # (Auto) 1.01 K/uL (0-0.5) H 11/06/18 21:13 Baso # (Auto) 0.05 K/uL (0-0.2) 11/06/18 21:13 PT 10.7 Seconds (9.0-12.0) 11/06/18 21:13 INR 1.1 (0.9-1.1) 11/06/18 21:13 APTT 26.4 Seconds (21.0-31.0) 11/06/18 21:13 PTT Ratio 1.0 11/06/18 21:13 Sodium 136 mmol/L (136-145) 11/06/18 21:13 Potassium 4.0 mmol/L (3.5-5.1) 11/06/18 21:13 Chloride 101 mmol/L (98-107) 11/06/18 21:13 Carbon Dioxide 24 mmol/L (21-32) 11/06/18 21:13 Anion Gap 11.0 (3-11) 11/06/18 21:13 BUN 39 mg/dl (7-18) H 11/06/18 21:13 Creatinine 1.44 mg/dl (0.6-1.2) H 11/06/18 21:13 Est Cr Clr Drug Dosing 31.8 ml/min 11/06/18 21:13 Est GFR ( Amer) 42.2 11/06/18 21:13 Est GFR (Non-Af Amer) 36.4 11/06/18 21:13 BUN/Creatinine Ratio 27.1 (10-20) H 11/06/18 21:13 Glucose 147 mg/dl (70-99) H 11/06/18 21:13 Lactate 2.0 mmol/L (0.4-2.0) 11/06/18 23:59 Calcium 8.2 mg/dl (8.5-10.1) L 11/06/18 21:13 Magnesium 2.3 mg/dl (1.8-2.4) 11/06/18 21:13 Total Bilirubin 0.6 mg/dl (0.2-1) 11/06/18 21:13 AST 12 U/L (15-37) L 11/06/18 21:13 ALT 17 U/L (12-78) 11/06/18 21:13 Alkaline Phosphatase 69 U/L (45-117) 11/06/18 21:13 Troponin I 0.139 ng/ml (0-0.045) H* 11/06/18 21:13 Total Protein 7.6 gm/dl (6.4-8.2) 11/06/18 21:13 Albumin 3.1 gm/dl (3.4-5.0) L 11/06/18 21:13 Globulin 4.5 gm/dl (2.5-4.0) H 11/06/18 21:13 Albumin/Globulin Ratio 0.7 (0.9-2) L 11/06/18 21:13 Procalcitonin 0.14 ng/ml (0-0.5) 11/06/18 21:13 Urine Color Yellow 11/06/18 21:25 Urine Appearance Cloudy (Clear) H 11/06/18 21:25 Urine pH 5.0 (4.5-7.5) 11/06/18 21:25 Ur Specific [place] 1.018 (1.000-1.030) 11/06/18 21:25 Urine Protein Negative (Negative) 11/06/18 21:25 Urine Glucose (UA) Negative (Negative) 11/06/18 21: Urine Ketones Negative (Negative) 11/06/18 21:25 Urine Blood 3+ (Negative) H 11/06/18 21:25 Urine Nitrite Negative (Negative) 11/06/18 21:25 Urine Bilirubin Negative (Negative) 11/06/18 21:25 Urine Urobilinogen Negative (Negative) 11/06/18 21:25 Ur Leukocyte Esterase Negative (Negative) 11/06/18 21:25 Urine WBC (Auto) 1-5 /hpf (0-5) 11/06/18 21:25 Urine RBC (Auto) 10-30 /hpf (0-4) H 11/06/18 21:25 U Hyaline Cast (Auto) 1-5 /lpf (0-5) 11/06/18 21:25 U Epithel Cells (Auto) >30 /lpf (0-5) H 11/06/18 21:25 Urine Bacteria (Auto) Negative (Negative) 11/06/18 21:25 Influenza Type A (PCR) Neg for Influ A (Neg) 11/06/18 21:13 Influenza Type B (PCR) Neg for Influ B (Neg) 11/06/18 21:[address] Abdomen pelvis: 1. Endplate erosive/lytic changes at the T11-T12 level are new from 09/07/2018 compatible with acute to subacute discitis osteomyelitis. Moderate infiltration of the adjacent prevertebral tissues without drainable fluid collection identified. Infectious disease consultation is needed. 2. No acute intra-abdominal or intrapelvic abnormality identified. 3. Right-sided Spigelian hernia contains mesenteric fat and a nonobstructed loop of ileum. Chest x-ray: Cardiomegaly EKG as per my interpretation: Rate 65, paced rhythm
[2018-11-07] MEDS ORDERED: NITROGLYCERIN SL 0.4 MG/TAB TAB SL PRN (04:20)
[2018-11-07] MEDS ORDERED: PROCHLORPERAZINE 5 MG in SYRINGE 4 ML IV PRN (04:20)
[2018-11-07] MEDS ORDERED: SODIUM CHLORIDE 0.9% 1000ML 1,000 ML IV STA (04:20)
[2018-11-07] MEDS ORDERED: MoRPHine SULFATE 4 MG/ML 1 ML CARP\\VIAL IV PRN (04:20)
[2018-11-07] MEDS: LIDOCAINE 5% 1 PATCH TD SCH (05:49)
[2018-11-07] MEDS: DAPTOmycin 300 MG in SYRINGE 0 ML IV SCH (05:50)
[2018-11-07] MEDS ORDERED: KETOROLAC TROMETHAMINE 15 MG/ML VIAL IV STA (06:07)
[2018-11-07] MEDS ORDERED: ACETAMINOPHEN 325 MG TAB PO STA (06:08)
[2018-11-07 06:43] LABS: Hematocrit (blood only) 28.5 % (37-47); Hemoglobin 8.8 g/dL (12.0-16.0); Mean Corpuscular Hgb Conc 30.9 g/dL (32-36); Mean Corpuscular Volume 87.7 fL (80-100); Mean Platelet Volume 8.9 fL (7.4-10.4); Platelet Count 198 K/uL (130-400); RDW Coefficient of Variation 18.4 % (11.5-14.5); RDW Standard Deviation 58.9 fL (36.4-46.3); Red Blood Count 3.25 M/uL (4.2-5.4); White Blood Count 30.93 K/uL (4.8-10.8)
[2018-11-07 06:44] LABS: Basophils # (auto) 0.01 K/uL (0-0.2); Eosinophils # (auto) 0.06 K/uL (0-0.5); Eosinophils % (auto) 0.2 %; Immature Granulocytes # (auto) 0.19 K/uL (0.00-0.02); Immature Granulocytes % (auto) 0.6 %; Lymphocytes # (auto) 0.52 K/uL (1.2-3.4); Lymphocytes % (auto) 1.7 %; Monocytes # (auto) 0.57 K/uL (0.11-0.59); Monocytes % (auto) 1.8 %; Neutrophils # (auto) 29.58 K/uL (1.4-6.5); Neutrophils % (auto) 95.7 %; RBC Morphology Unremarkable
[2018-11-07 06:50] LABS: BUN Creatinine Ratio 27.7 (10-20); Calcium 7.8 mg/dl (8.5-10.1); Creatinine Clr Calc Pharmacy 37.4 ml/min; Est GFR (African American) 51.1; Est GFR (Non-African American) 44.1; Potassium 3.7 mmol/L (3.5-5.1)
[2018-11-07 06:58] LABS: Troponin I 0.146 ng/ml (0-0.045)
--- NOTE | 2018-11-07 07:07 | XRay Report ---
SINGLE VIEW CHEST CLINICAL HISTORY: Dyspnea. FINDINGS: An AP, portable, upright chest radiograph is compared to chest x-ray dictated 11/06/2018 and correlated with chest CT dated 09/07/2018. The examination is degraded by portable technique and patie nt rotation. A 2-lead cardiac pacemaker is unchanged in position and partially obscures the right up per chest. The patient is status post midline sternotomy and cardiac valve surgery. The heart is enla rged and there is atherosclerotic calcification of the thoracic aorta. The pulmonary vasculature is n oncongested. Chronic interstitial thickening is similar to previous. No airspace consolidation or lar ge pleural effusion is identified. Bibasilar atelectasis is noted. No pneumothorax is seen. The skele kylie structures are osteopenic. The bony thorax is grossly intact. IMPRESSION: 1. Cardiomegaly and cardiac pacemaker. There is no radiographic evidence of congestive failure. 2. No airspace consolidation or large pleural effusion is identified. Electronically signed by: Chadwick Alcaraz M.D. 11/07/2018 7:05 AM
--- NOTE | 2018-11-07 08:46 | CT Scan Report ---
CT SCAN OF THE THORACIC SPINE WITHOUT IV CONTRAST CLINICAL HISTORY: Thoracic back pain. COMPARISON STUDY: Chest CT dated 09/07/2018. Abdominal CT dated 11/06/2018. TECHNIQUE: CT scan of the thoracic spine is performed from the lower cervical spine to the upper lum bar spine. Images are reviewed in the axial, sagittal, and coronal planes. IV contrast was not admini stered for this examination. A dose lowering technique was utilized adhering to the principles of AL BROOKE. CT DOSE: 811.82 mGy.cm FINDINGS: The skeletal structures are osteopenic. There is no evidence of acute fracture or malalignm ent involving the thoracic spine. There is a minimal superior endplate compression deformity of T2. V ertebral body height is otherwise maintained throughout the thoracic spine. Mild scoliosis is observe d. There is endplate erosion seen at T11-T12, and this represents a significant change from the [address] There is significant paravertebral edema at this level, and the appearance is consiste nt with discitis/osteomyelitis. No similar appearing changes are seen at the remaining thoracic level s. No lytic or blastic lesion is identified. There is no evidence of large disc herniation or high-gr oliverio central canal stenosis by CT. A posterior disc osteophyte complex is noted at L1-L2. Disc bulge e ccentric to the right is suggested at T11-T12. As noted above, there is significant paravertebral doug ma at T11-T12. The paraspinous soft tissues are otherwise normal as imaged. There is no airspace cons olidation or pleural effusion. Scarring/atelectasis is noted at the left lung base. The heart appears enlarged. Pacemaker leads are noted. Postoperative change is also suggested in the left atrial appen dage. A small hiatal hernia is identified. Excreted IV contrast is present within the renal collectin g systems. IMPRESSION: 1. Again seen are findings of discitis/osteophytosis at T11-T12 with surrounding paravertebral edema. This is similar in appearance to the 11/06/[address], but new from 09/07/2018. 2. No similar-appearing findings are seen at the remaining thoracic levels. 3. Osteopenia and mild spondylotic change as above. Electronically signed by: Chadwick Alcaraz M.D. 11/07/2018 8:44 AM
[2018-11-07] MEDS: FERROUS SULFATE 325 MG TAB PO SCH ×2 (08:51→20:58)
[2018-11-07] MEDS: METOPROLOL TARTRATE 50 MG TAB PO SCH ×2 (08:51→20:58)
[2018-11-07] MEDS: ASPIRIN 325 MG ECTAB PO SCH (08:51)
[2018-11-07] MEDS ORDERED: HYDROmorphone INJ 0.5 MG/0.5 ML SYR IV PRN (08:52)
[2018-11-07] MEDS ORDERED: ENOXAPARIN INJ 30 MG/0.3 ML SYR SQ SCH (09:00)
[2018-11-07] MEDS ORDERED: FEXOFENADINE HCL 180 MG TAB PO SCH (09:00)
[2018-11-07] MEDS ORDERED: VALSARTAN 80 MG TAB PO SCH (09:00)
[2018-11-07] MEDS ORDERED: DAPTOMYCIN CONSULT ACTIVE PRN (09:00)
[2018-11-07] MEDS ORDERED: DiphenhydrAMINE HCL 50 MG/ML VIAL IV PRN (10:03)
--- NOTE | 2018-11-07 10:06 | Hospitalist Progress Note ---
Date of Service November 07, 2018 delayed entry date of service as noted above Assessment & Plan (1) Severe sepsis: SIRS plus lactic acid elevation plus ARF Secondary to spinal osteomyelitis hx septic arthritis right shoulder, left knee, PPM infection (MSSA as per records) status post completion of recent antibiotic Rx -- blood cultures: pending -- Ortho and ID consulted -- on empiric Dapto IV Vancomycin Reaction -- received 1 dose at the ER developed erythema, pruritis- epi, solumedrol, etc given -- still has diffuse erythema, pruritus -- continue Solumedrol at 40mg q12h change Mary to Cetirizine PRN Benadryl chronic diastolic heart failure (EF 50%, DAYANA 2018), patient on the dry side SSS sp PPM placement status post Watchman device implantation Atrial Fibrillation currently off anticoagulation due to bleeding concerns as per records Paced rhythm -- HR in the low 100s likey from infection -- pacemaker interrogation ordered -- on Metoprolol and Aspirin chronic left bundle branch block history CAD as per records -- no cardiac symptoms hx of bioprosthetic AVR/MVR hypertension, slight elevated -- monitor Troponin elevation secondary to elevated BP and sepsis Chronic anemia, postop hemoglobin of 9 patient's new baseline -- monitor History Nfmtpgu-Unado-Zrncc neuropathy PT OT eval DVT prophylaxis. Heparin subcu Full code Subjective ff up for sepsis, lumbar discitis seen resting in bed, not in distress states she still has back pain- worse with moving - manageable denies weakness/numbness, focal neuro deficits still has pruritis, redness on chest and face no other symptoms Physical Exam 2 Vital Signs (Past 24 Hours): Last Vital Signs Temp 36.4 C L 11/07/18 07:33 Pulse 104 H 11/07/18 07:33 Resp 16 11/07/18 07:33 BP 121/72 11/07/18 07:33 Pulse Ox 90 11/07/18 07:33 Physical Exam: General- oriented x 3, not in distress, speaks in sentences with no effort or accessory muscle use Face- (+) mild erythema Head- atraumatic Eyes- PERRL, EOMI, anicteric ENT- oropharynx clear Neck- supple, no JVD, no adenopathy, no thyromegaly; carotids +2/2, no bruits appreciated Lungs- (+) mild chest erythema- anterior clear to auscultation bilaterally, no rales/wheezes Heart- normal rate, regular rhythm; no murmur, no gallop, no rub appreciated Abdomen- normal bowel sounds, nondistended, soft, nontender, no masses or hepatosplenomegaly Extremities- (+) erythema on the arms-moderate (+) erythem on the lower extremities- mild no pretibial edema, no calf tenderness; peripheral pulses intact Neuro- alert, oriented x 3; CN 2-12 grossly intact; motor 5/5 bilaterally; sensation 100% on all extremities; no other gross focal neurologic deficits Skin- warm & dry Results & Data Laboratory Results all noted and reviewed
--- NOTE | 2018-11-07 10:42 | Infectious Disease Consult ---
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 Not clear whether this is seeding from previous infection, incomplete therapy, or new infection. Pending further culture results, patient to be continued on daptomycin and have added ertapenem to cover potential new infection. Await orthopedic evaluation but does not appear to have drainable collection. Will discuss with all involved. Will follow. (2) Discitis thoracic region: History of Present Illness Reason for Consultation: Osteomyelitis Attending Physician: Jeb Ling MD History of Present Illness 73-year-old female with history of heart block status post permanent pacemaker, aortic valve replacement, hypertension, who was hospitalized in September with staph aureus sepsis eventually transferred to [facility] where she had removal of pacemaker. Course complicated by development of septic arthritis of the right shoulder and left knee requiring washout procedures. Patient was initially treated with IV cefazolin, developed allergic reaction, changed to vancomycin but again had what appeared to be allergic reaction and so completed course of treatment October 30 with IV daptomycin. Over the last several days, patient has developed progressively worsening mid back pain making it impossible for her to lie down. Then developed fever and chills and was brought to the hospital for further management. CT scanning has revealed evidence of discitis and associated vertebral osteomyelitis involving the T11- 12 area. Patient currently on IV daptomycin. Blood cultures are pending. Allergies Allergy/AdvReac Type Severity Reaction Status Date / Time vancomycin Allergy Severe rash, Verified 11/07/18 02:25 shortness of breath cefazolin Allergy rash Verified 11/07/18 03:28 Home Medications Home Medications Medication Instructions Recorded Confirmed Type metoprolol tartrate 50 mg PO BID 09/06/18 11/06/18 History valsartan 80 mg PO QAM 09/06/18 11/06/18 History aspirin 325 mg PO QAM 11/06/18 11/06/18 History diphenhydramine HCl [Benadryl] 25 mg PO Q6 PRN 11/06/18 11/06/18 History ferrous sulfate 325 mg PO BID 11/06/18 11/06/18 History fexofenadine 180 mg PO DAILY 11/06/18 11/06/18 History furosemide 80 mg PO QAM 11/06/18 11/06/18 History potassium chloride [Klor-Con M10] 10 meq PO BID 11/06/18 11/06/18 History Patient History Medical History Elevated troponin PAF (paroxysmal atrial fibrillation) (Chronic) CHF (congestive heart failure) (Chronic) HTN (hypertension) (Chronic) Neuropathy (Chronic) History of left heart catheterization (LHC) (Chronic) History of cardioversion (Chronic) Leg pain Surgical History History of appendectomy (Chronic) H/O colonoscopy (Chronic) S/P cholecystectomy (Chronic) History of tonsillectomy (Chronic) S/P AVR (aortic valve replacement) (Chronic) S/P MVR (mitral valve repair) (Chronic) H/O: hysterectomy (Chronic) H/O hernia repair (Chronic) Family History Other No significant family history Social History Current Living Situation: Family Current Living Situation Comment: "my son lives with me" Other Information That Helps Us Care for You: No Feels Safe at Home: Yes Safety Concerns: Feels Safe At This Time Smoking Status: Former smoker Do You Dip or Chew Tobacco: No Smoking End Date: 30 years ago Second Hand Exposure: No Tobacco Cessation Education Requested by Patient: No Hx Alcohol Use: No Hx Substance Use: No Beliefs That Will Affect Care: None Preferred Language: Belarusian Communication Ability: Effective 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 Review of Systems All systems were reviewed and are negative except as per HPI Physical Exam 2 Vital Signs (Past 24 Hours): Last Vital Signs Temp 36.4 C L 11/07/18 07:33 Pulse 104 H 11/07/18 07:33 Resp 16 11/07/18 07:33 BP 121/72 11/07/18 07:33 Pulse Ox 90 11/07/18 07:33 Constitutional: WD/WN, vitals as above comfortable; no acute distress Eyes: PERRL, conjunctivae normal, anicteric sclerae ENMT: external ear and nose normal, oropharynx normal Neck: trachea midline, no thyromegaly neck nontender Respiratory: normal respiratory effort, lungs clear to auscultation normal percussion; does not use accessory muscles Cardiovascular: Rate/Rhythm: regular rate and regular rhythm Heart Sounds: normal S1, normal S2 and + murmur; no gallop and no cardiac rub Vessels: normal peripheral pulses; no JVD Gastrointestinal (Abdomen): normal bowel sounds, soft, nontender, no hepatosplenomegaly Musculoskeletal: Head/Neck/Chest: normocephalic, head atraumatic and neck supple Spine: + thoracic spinal tenderness Skin: no rashes, warm and dry normal turgor; no lesions Neurologic: patellar DTR's 2+ bilat, sensation intact no focal motor deficits Psychiatric: A+Ox3, euthymic affect Orientation: cooperative Lymphatic: no cervical or axillary lymphadenopathy no inguinal lymphadenopathy Results & Data Laboratory Results Short CBC 11/06/18 11/07/18 Range/Units 21:13 05:52 WBC 23.35 H 30.93 H* (4.8-10.8) K/uL Hgb 9.3 L 8.8 L (12.0-16.0) g/dL Hct 30.8 L 28.5 L (37-47) % Plt Count 267 198 (130-400) K/uL BMP 11/06/18 11/07/18 21:13 05:52 Sodium 136 138 Potassium 4.0 3.7 Chloride 101 105 Carbon Dioxide 24 25 BUN 39 H 34 H Creatinine 1.44 H 1.23 H Glucose 147 H 128 H Calcium 8.2 L 7.8 L Cardiac Enzymes 11/06/18 11/07/18 Range/Units 21:13 05:52 Total Creatine Kinase 20 L (26-192) U/L Troponin I 0.139 H* 0.146 H* (0-0.045) ng/ml Liver Function 11/06/18 Range/Units 21:13 Total Bilirubin 0.6 (0.2-1) mg/dl AST 12 L (15-37) U/L ALT 17 (12-78) U/L Alkaline Phosphatase 69 (45-117) U/L Albumin 3.1 L (3.4-5.0) gm/dl Urine 11/06/18 Range/Units 21:25 Urine Color Yellow Urine Appearance Cloudy H (Clear) Urine pH 5.0 (4.5-7.5) Ur Specific [place] 1.018 (1.000-1.030) Urine Protein Negative (Negative) Urine Glucose (UA) Negative (Negative) Diagnostic Findings CT SCAN OF THE THORACIC SPINE WITHOUT IV CONTRAST CLINICAL HISTORY: Thoracic back pain. COMPARISON STUDY: Chest CT dated 09/07/2018. Abdominal CT dated 11/06/2018. TECHNIQUE: CT scan of the thoracic spine is performed from the lower cervical spine to the upper lumbar spine. Images are reviewed in the axial, sagittal, and coronal planes. IV contrast was not administered for this examination. A dose lowering technique was utilized adhering to the principles of ALARA. CT DOSE: 811.82 mGy.cm FINDINGS: The skeletal structures are osteopenic. There is no evidence of acute fracture or malalignment involving the thoracic spine. There is a minimal superior endplate compression deformity of T2. Vertebral body height is otherwise maintained throughout the thoracic spine. Mild scoliosis is observed. There is endplate erosion seen at T11-T12, and this represents a significant change from the 09/07/[address] There is significant paravertebral edema at this level, and the appearance is consistent with discitis/osteomyelitis. No similar appearing changes are seen at the remaining thoracic levels. No lytic or blastic lesion is identified. There is no evidence of large disc herniation or high-grade central canal stenosis by CT. A posterior disc osteophyte complex is noted at L1-L2. Disc bulge eccentric to the right is suggested at T11-T12. As noted above, there is significant paravertebral edema at T11-T12. The paraspinous soft tissues are otherwise normal as imaged. There is no airspace consolidation or pleural effusion. Scarring/atelectasis is noted at the left lung base. The heart appears enlarged. Pacemaker leads are noted. Postoperative change is also suggested in the left atrial appendage. A small hiatal hernia is identified. Excreted IV contrast is present within the renal collecting systems. IMPRESSION: 1. Again seen are findings of discitis/osteophytosis at T11-T12 with surrounding paravertebral edema. This is similar in appearance to the 11/06/[address], but new from 09/07/2018. 2. No similar-appearing findings are seen at the remaining thoracic levels. 3. Osteopenia and mild spondylotic change as above. Electronically signed by: Chadwick Alcaraz M.D. 11/07/2018 8:44 AM Dictated: 11/07/18 0832 Transcribed: 11/07/18 0832
[2018-11-07] MEDS: methylPREDNISolone 40 MG in SYRINGE 0 ML IV SCH ×2 (11:32→22:38)
[2018-11-07] MEDS: ERTAPENEM SODIUM 1,000 MG in SODIUM CHLORIDE 0.9% 50 ML IV SCH (11:32)
--- NOTE | 2018-11-07 12:23 | Orthopedic Consultation ---
Date of Consultation November 07, 2018 Assessment & Plan (1) Discitis thoracic region: At this time she seems relatively comfortable. I would continue with observation only. Ideally antibiotics will eradicate the infection she will go on to autofusion across the levels of interest T11-T12. And states she will require serial imaging as we progressed. If it appears that she has not responded antibiotics throughout the thoracic spine she may require transfer to tertiary care facility for possible open debridement. In the interim she does not want to trial her brace. She should not lift to lift more than 5 pounds. Present on Admission?: Yes (2) Osteomyelitis of thoracic spine: Present on Admission?: Yes History of Present Illness Reason for Consultation: Thoracic back pain Attending Physician: Jeb Ling MD History of Present Illness This very pleasant 73-year-old female that is undergone a significant course after suffering an infection from a cardiac pacemaker. She presents to the ER yesterday with worsening pain and rule out infection imaging this suggests possible osteomyelitis involving T11 and T12. Today during our discussion she is sitting in the chair at the bedside. She denies any significant back pain unless she is lying perfectly supine. She tolerate sitting up in bed. She is tolerate standing and walking. She denies any loss of bowel or bladder function. She denies any numbness tingling or weakness to lower extremities. Allergies Allergy/AdvReac Type Severity Reaction Status Date / Time vancomycin Allergy Severe rash, Verified 11/07/18 02:25 shortness of breath cefazolin Allergy rash Verified 11/07/18 03:28 Home Medications Home Medications Medication Instructions Recorded Confirmed Type metoprolol tartrate 50 mg PO BID 09/06/18 11/06/18 History valsartan 80 mg PO QAM 09/06/18 11/06/18 History aspirin 325 mg PO QAM 11/06/18 11/06/18 History diphenhydramine HCl [Benadryl] 25 mg PO Q6 PRN 11/06/18 11/06/18 History ferrous sulfate 325 mg PO BID 11/06/18 11/06/18 History fexofenadine 180 mg PO DAILY 11/06/18 11/06/18 History furosemide 80 mg PO QAM 11/06/18 11/06/18 History potassium chloride [Klor-Con M10] 10 meq PO BID 11/06/18 11/06/18 History Patient History Medical History Elevated troponin PAF (paroxysmal atrial fibrillation) (Chronic) CHF (congestive heart failure) (Chronic) HTN (hypertension) (Chronic) Neuropathy (Chronic) History of left heart catheterization (LHC) (Chronic) History of cardioversion (Chronic) Leg pain Surgical History History of appendectomy (Chronic) H/O colonoscopy (Chronic) S/P cholecystectomy (Chronic) History of tonsillectomy (Chronic) S/P AVR (aortic valve replacement) (Chronic) S/P MVR (mitral valve repair) (Chronic) H/O: hysterectomy (Chronic) H/O hernia repair (Chronic) Family History Other No significant family history Social History Current Living Situation: Family Current Living Situation Comment: "my son lives with me" Other Information That Helps Us Care for You: No Feels Safe at Home: Yes Safety Concerns: Feels Safe At This Time Smoking Status: Former smoker Do You Dip or Chew Tobacco: No Smoking End Date: 30 years ago Second Hand Exposure: No Tobacco Cessation Education Requested by Patient: No Hx Alcohol Use: No Hx Substance Use: No Beliefs That Will Affect Care: None Preferred Language: Romanian Communication Ability: Effective 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 She has reasonable strength testing bilateral lower extremities. Sensory symmetric and intact. She appears comfortable.
[2018-11-07] MEDS: HEPARIN SOD 5,000 UNIT/0.5 ML VIAL SQ SCH ×2 (13:24→20:59)
--- NOTE | 2018-11-07 16:11 | Emergency Department Note ---
Entered by Yaniv Vega acting as a scribe for Huber Azul MD History of Present Illness General Chief complaint: Back Injury/Pain Stated complaint: BACK PAIN Time Seen by Provider: 11/06/18 20:47 Source: patient and old records reviewed History of Present Illness Onset (ago): day(s) (past couple) Location: back Pain Consistency: + intermittent Quality: + other ("horrible" lower back pain) Relieved By: + medication (Tylenol) Exacerbated By: + other (lying down) Associated symptoms: + other (fatigue, neck pain, fever of 103); no cough and no nausea/vomiting The patient is a 73 year old white female with a history of NSTEMI, CHF, and s/ p valve replacement who presents to the Emergency Room with complaints of intermittent �horrible� lower back pain beginning in the past couple of days. The patient reports that she her pain is exacerbated by lying down, stating that it is worst at night. She notes that it feels improved during the day and is alleviated with Tylenol, last taken at 13:00 today. She reports some neck pain, recent fatigue, and a fever of 103 today prior to arrival. She denies recent twisting/heavy lifting, changes in bowel movements or urination, cough, abdominal pain, or nausea/vomiting. She reports that she was recently hospitalized at [facility] for a month, and she had a pacemaker replaced , temporary infection of the right shoulder, and was placed on antibiotics as an outpatient that she finished six days ago. She states that she received a flu shot. Review of records shows that the patient was admitted for 29 days and discharged on October 06 with MSSA, bacteremia, as well as a septic right shoulder and left knee requiring wash-outs. She also had a pacemaker pocket infection, and the pacemaker was removed and replaced. The patient has been treated with outpatient antibiotics. Home Medications Home Medications Medication Instructions Recorded Confirmed Type metoprolol tartrate 50 mg PO BID 09/06/18 11/06/18 History valsartan 80 mg PO QAM 09/06/18 11/06/18 History aspirin 325 mg PO QAM 11/06/18 11/06/18 History diphenhydramine HCl [Benadryl] 25 mg PO Q6 PRN 11/06/18 11/06/18 History ferrous sulfate 325 mg PO BID 11/06/18 11/06/18 History fexofenadine 180 mg PO DAILY 11/06/18 11/06/18 History furosemide 80 mg PO QAM 11/06/18 11/06/18 History potassium chloride [Klor-Con M10] 10 meq PO BID 11/06/18 11/06/18 History Allergies Allergy/AdvReac Type Severity Reaction Status Date / Time vancomycin Allergy Severe rash, Verified 11/07/18 02:25 shortness of breath cefazolin Allergy rash Verified 11/07/18 03:28 Past Med/Surg History Medical History Elevated troponin PAF (paroxysmal atrial fibrillation) (Chronic) CHF (congestive heart failure) (Chronic) HTN (hypertension) (Chronic) Neuropathy (Chronic) History of left heart catheterization (LHC) (Chronic) History of cardioversion (Chronic) Leg pain Surgical History History of appendectomy (Chronic) H/O colonoscopy (Chronic) S/P cholecystectomy (Chronic) History of tonsillectomy (Chronic) S/P AVR (aortic valve replacement) (Chronic) S/P MVR (mitral valve repair) (Chronic) H/O: hysterectomy (Chronic) H/O hernia repair (Chronic) Family History Other No significant family history Social History Current Living Situation: Family Current Living Situation Comment: "my son lives with me" Other Information That Helps Us Care for You: No Feels Safe at Home: Yes Safety Concerns: Feels Safe At This Time Smoking Status: Former smoker Do You Dip or Chew Tobacco: No Smoking End Date: 30 years ago Second Hand Exposure: No Tobacco Cessation Education Requested by Patient: No Hx Alcohol Use: No Hx Substance Use: No Beliefs That Will Affect Care: None Communication Ability: Effective Review of Systems See HPI for pertinent positives & negatives. and A total of 10 systems reviewed and were otherwise negative Physical Exam Vital Signs Vital Signs - 24 hr 11/06/18 20:44 11/06/18 21:28 11/06/18 21:31 Temperature 37.5 C Temperature Source Oral Sepsis Recent Fever Within 48 Hours Yes Sepsis New/Unexplained Change in Mental Status Yes Sepsis Action Taken by Nursing No Action Required Pulse Rate - Sitting Pulse Rate 81 Pulse Rate [Right Finger] 64 63 Pulse Rhythm [Right Finger] Regular Regular Pulse Strength [Right Finger] Normal Normal Respiratory Rate 20 18 18 Respiratory Effort / Characteristics Non-Labored Non-Labored Spontaneous Non-Labored Spontaneous Respiratory Depth Normal Normal Normal Respiratory Pattern Blood Pressure 114/57 L Blood Pressure [Left Arm] Blood Pressure [Right Arm] 122/54 L 122/54 L Blood Pressure Mean 76 Blood Pressure Mean [Left Arm] Blood Pressure Mean [Right Arm] 76 76 Blood Pressure Position Sitting Blood Pressure Position [Left Arm] Blood Pressure Position [Right Arm] Pulse Oximetry 94 95 94 Oxygen Delivery Method Room Air Room Air Room Air Oxygen Flow Rate 11/06/18 22:48 11/07/18 00:35 11/07/18 02:19 Temperature 37.5 C Temperature Source Oral Sepsis Recent Fever Within 48 Hours Sepsis New/Unexplained Change in Mental Status Sepsis Action Taken by Nursing Pulse Rate - Sitting Pulse Rate Pulse Rate [Right Finger] 60 86 Pulse Rhythm [Right Finger] Regular Regular Pulse Strength [Right Finger] Normal Normal Respiratory Rate 18 18 24 Respiratory Effort / Characteristics Non-Labored Spontaneous Non-Labored Spontaneous Spontaneous Labored Respiratory Depth Normal Normal Normal Respiratory Pattern Regular Blood Pressure Blood Pressure [Left Arm] Blood Pressure [Right Arm] 111/46 L 128/60 163/79 H Blood Pressure Mean Blood Pressure Mean [Left Arm] Blood Pressure Mean [Right Arm] 67 82 107 Blood Pressure Position Blood Pressure Position [Left Arm] Blood Pressure Position [Right Arm] Pulse Oximetry 95 98 92 Oxygen Delivery Method Room Air Room Air Nasal Cannula Oxygen Flow Rate 3 11/07/18 03:40 11/07/18 04:50 11/07/18 07:33 Temperature 37.0 C 38 C H 36.4 C L Temperature Source Oral Oral Oral Sepsis Recent Fever Within 48 Hours Sepsis New/Unexplained Change in Mental Status Sepsis Action Taken by Nursing Pulse Rate - Sitting Pulse Rate Pulse Rate [Right Finger] 85 132 H 104 H Pulse Rhythm [Right Finger] Regular Regular Pulse Strength [Right Finger] Normal Normal Respiratory Rate 22 20 16 Respiratory Effort / Characteristics Spontaneous Labored Non-Labored Spontaneous Non-Labored Spontaneous Respiratory Depth Normal Normal Normal Respiratory Pattern Regular Regular Regular Blood Pressure Blood Pressure [Left Arm] 121/72 Blood Pressure [Right Arm] 104/52 L 122/54 L Blood Pressure Mean Blood Pressure Mean [Left Arm] 88 Blood Pressure Mean [Right Arm] 69 76 Blood Pressure Position Blood Pressure Position [Left Arm] Blood Pressure Position [Right Arm] Sitting Pulse Oximetry 96 90 Oxygen Delivery Method Nasal Cannula Nasal Cannula Room Air Oxygen Flow Rate 2 2 11/07/18 08:43 11/07/18 10:51 11/07/18 11:46 Temperature 36.8 C Temperature Source Oral Sepsis Recent Fever Within 48 Hours Sepsis New/Unexplained Change in Mental Status Sepsis Action Taken by Nursing Pulse Rate - Sitting Pulse Rate Pulse Rate [Right Finger] 61 Pulse Rhythm [Right Finger] Pulse Strength [Right Finger] Respiratory Rate 20 Respiratory Effort / Characteristics Non-Labored Respiratory Depth Normal Respiratory Pattern Regular Blood Pressure Blood Pressure [Left Arm] 122/68 Blood Pressure [Right Arm] Blood Pressure Mean Blood Pressure Mean [Left Arm] 86 Blood Pressure Mean [Right Arm] Blood Pressure Position Blood Pressure Position [Left Arm] Blood Pressure Position [Right Arm] Pulse Oximetry 94 Oxygen Delivery Method Room Air Room Air Oxygen Flow Rate 11/07/18 14:39 11/07/18 15:16 Temperature 36.9 C Temperature Source Oral Sepsis Recent Fever Within 48 Hours Sepsis New/Unexplained Change in Mental Status Sepsis Action Taken by Nursing Pulse Rate - Sitting 74 Pulse Rate Pulse Rate [Right Finger] 60 Pulse Rhythm [Right Finger] Pulse Strength [Right Finger] Respiratory Rate 18 Respiratory Effort / Characteristics Respiratory Depth Respiratory Pattern Blood Pressure Blood Pressure [Left Arm] 124/70 Blood Pressure [Right Arm] Blood Pressure Mean Blood Pressure Mean [Left Arm] 88 Blood Pressure Mean [Right Arm] Blood Pressure Position Blood Pressure Position [Left Arm] Left Lateral Blood Pressure Position [Right Arm] Pulse Oximetry 96 95 Oxygen Delivery Method Room Air Oxygen Flow Rate GENERAL: Well appearing, well nourished, NAD, non-toxic. EYE EXAM: Normal conjunctiva. PERRL, no anisocoria and EOM's grossly intact w/o pain. OROPHARYNX: No exudate, posterior pharynx is clear, no tonsillar/uvular deviation or swelling. CHEST: Right mid-clavicle pain, no overlying skin changes, crepitus, or fluctuance. Device in right chest, incisional site well-healed without overlying skin changes or crepitus. Scar in left chest is well-healed without overlying skin changes or crepitus. NECK: Supple, no nuchal rigidity, no adenopathy, non-tender. No signs of meningismus. LUNGS: Clear to auscultation bilaterally. Normal chest wall mechanics. HEART: NSR, no MRG. ABDOMEN: Abdomen soft, non-tender, normo-active bowel sounds, no masses, no rebound or guarding. BACK: No CVA TTP. No reproducible right lower back pain. SKIN: No rashes and no bruising. UPPER EXTREMITIES: Upper extremities are grossly normal. LOWER EXTREMITIES: No pitting edema. No calf pain. NEURO EXAM: Cranial nerves II-XII grossly intact, normal speech, 5/5 strength in b/l upper and lower extremities, moves all 4 extremities without issue on command, no saddle anesthesia. Course 2052: Past medical records reviewed. The patient was evaluated in room B7, and a complete history and physical examination were performed. 2300: I consulted Dr. Drea Muro. He states that he will see the patient if orthopedics is agreeable. 2305: I consulted Dr. Ramos � Orthopedics. He states that he will be happy to see the patient tomorrow and believes it is suitable for her to stay the night here. 2310: I spoke with the patient and her family, and they are agreeable to the plan. 2325: I consulted Dr. Drea Muro. He will reevaluate the patient for hospitalization. Consultations Consultation #1: I consulted Dr. Drea Muro. He states that he will see the patient if orthopedics is agreeable. Time: 23:00 Consultation #2: I consulted Dr. Ramos [facility]. He states that he will be happy to see the patient tomorrow and believes it is suitable for her to stay the night here. Time: 23:05 Consultation #3: I consulted Dr. Drea Muro. He will reevaluate the patient for hospitalization. Time: 23:25 Administered Medications Aspirin (Ecotrin) 325 mg PO QAM [facility] Stop: 12/07/18 08:59 Last Admin: 11/07/18 08:51 Dose: 325 mg Ferrous Sulfate (Feosol) 325 mg PO BID [facility] Stop: 12/07/18 08:59 Last Admin: 11/07/18 08:51 Dose: 325 mg Heparin Sodium (Porcine) (Heparin Sodium (Porcine)) 5,000 units SQ Q8 SIA Stop: 12/07/18 13:59 Last Admin: 11/07/18 13:24 Dose: 5,000 units Sodium Chloride (Nss 1000ml) 1,000 mls @ 75 mls/hr IV .[id number] STA Stop: 11/07/18 17:39 Last Admin: 11/07/18 05:46 Dose: 75 mls/hr Daptomycin 300 mg/ Syringe 6 mls @ 0 mls/min IV Q24H [facility]; Protocol Stop: 12/19/18 05:59 Last Admin: 11/07/18 05:50 Dose: 3 mls/min Methylprednisolone 40 mg/ (Syringe) 0.64 mls @ 1.5 mls/min IV Q12H [facility] Stop: 12/07/18 10:14 Last Admin: 11/07/18 11:32 Dose: 1.5 mls/min Ertapenem 1,000 mg/ Sodium (Chloride) 60 mls @ 100 mls/hr IV Q24H SIA Stop: 12/19/18 10:44 Last Infusion: 11/07/18 13:25 Dose: Admin: 11/07/18 11:32 Dose: 100 mls/hr Lidocaine (Lidoderm 5%) 1 patch TD QAM [facility] Stop: 12/07/18 04:19 Last Admin: 11/07/18 05:49 Dose: 1 patch Metoprolol Tartrate (Lopressor) 50 mg PO BID SIA Stop: 12/07/18 08:59 Last Admin: 11/07/18 08:51 Dose: 50 mg Discontinued Medications Acetaminophen (Tylenol) 650 mg PO NOW STA Stop: 11/06/18 21:13 Last Admin: 11/06/18 21:23 Dose: 650 mg Acetaminophen (Tylenol) 650 mg PO NOW STA Stop: 11/07/18 06:09 Last Admin: 11/07/18 06:35 Dose: 650 mg Diphenhydramine HCl (Benadryl) 12.5 mg IV NOW STA Stop: 11/07/18 02:10 Last Admin: 11/07/18 02:22 Dose: 12.5 mg Diphenhydramine HCl (Benadryl) Confirm Administered Dose 50 mg .ROUTE .STK-MED ONE Stop: 11/07/18 02:12 Last Admin: 11/07/18 02:23 Dose: Not Given Diphenhydramine HCl (Benadryl) 25 mg IV NOW STA Stop: 11/07/18 10:42 Last Admin: 11/07/18 11:34 Dose: 25 mg Epinephrine HCl (Epinephrine) 0.3 mg IM NOW STA Stop: 11/07/18 02:11 Last Admin: 11/07/18 02:22 Dose: 0.3 mg Epinephrine HCl (Epinephrine) Confirm Administered Dose 1 mg .ROUTE .STK-MED ONE Stop: 11/07/18 02:14 Last Admin: 11/07/18 02:23 Dose: Not Given Fexofenadine HCl (Mary) 180 mg PO DAILY SIA Stop: 12/07/18 08:59 Last Admin: 11/07/18 08:51 Dose: 180 mg Sodium Chloride (Nss 1000ml) 1,000 mls @ 999 mls/hr IV .Q1H1M ONE Stop: 11/06/18 22:12 Last Infusion: 11/06/18 22:32 Dose: 0 mls/hr Admin: 11/06/18 21:23 Dose: 999 mls/hr Vancomycin HCl 1,500 mg/ (Sodium Chloride) 530 mls @ 200 mls/hr IV NOW ONE Stop: 11/07/18 00:39 Last Infusion: 11/07/18 01:29 Dose: 0 mls/hr Admin: 11/06/18 22:46 Dose: 200 mls/hr Piperacillin Sod/Tazobactam Sod (Zosyn) 4.5 gm in 120 mls @ 240 mls/hr IV NOW ONE Stop: 11/06/18 22:30 Last Infusion: 11/06/18 22:43 Dose: 0 mls/hr Admin: 11/06/18 22:12 Dose: 240 mls/hr Sodium Chloride (Nss 1000ml) 1,000 mls @ 999 mls/hr IV .Q1H1M ONE Stop: 11/07/18 00:33 Last Infusion: 11/07/18 00:43 Dose: 0 mls/hr Admin: 11/06/18 23:41 Dose: 999 mls/hr Sodium Chloride (Nss 1000ml) 1,000 mls @ 80 mls/hr IV .[id number] SIA Stop: 12/07/18 00:29 Last Infusion: 11/07/18 13:59 Dose: 0 mls/hr Admin: 11/07/18 01:29 Dose: 80 mls/hr Ioversol (Optiray 320 100ml) 90 ml IV ONCE PRN PRN Reason: Interaction Checking Stop: 11/10/18 22:20 Last Admin: 11/06/18 22:21 Dose: 90 ml Methylprednisolone (Solumedrol) 20 mg IV NOW STA Stop: 11/07/18 02:11 Last Admin: 11/07/18 02:23 Dose: Not Given Methylprednisolone (Solumedrol) Confirm Administered Dose 125 mg .ROUTE .STK- MED ONE Stop: 11/07/18 02:14 Last Admin: 11/07/18 02:23 Dose: 20 mg Metoprolol Tartrate (Lopressor) 50 mg PO NOW STA Stop: 11/07/18 02:46 Last Admin: 11/07/18 02:51 Dose: Not Given Metoprolol Tartrate (Lopressor) Confirm Administered Dose 50 mg PO .STK-MED ONE Stop: 11/07/18 02:48 Last Admin: 11/07/18 02:48 Dose: 50 mg Medical Decision Making Medical Records Attestation: I reviewed the patient's medical records. Home Medications Current Medication List: was personally reviewed by me Laboratory Data Attestation: I reviewed the patient's lab results. Result diagrams: 11/07/18 05:52 11/07/18 05:52 Lab Results 11/06/18 11/06/18 11/06/18 Range/Units 21:13 21:13 21:13 WBC 23.35 H (4.8-10.8) K/uL RBC 3.54 L (4.2-5.4) M/uL Hgb 9.3 L (12.0-16.0) g/dL Hct 30.8 L (37-47) % MCV 87.0 (80-100) fL MCH 26.3 (25-34) pg MCHC 30.2 L (32-36) g/dL RDW Std Deviation 58.4 H (36.4-46.3) fL RDW Coeff of Christian 18.3 H (11.5-14.5) % Plt Count 267 (130-400) K/uL MPV 9.0 (7.4-10.4) fL Immature Gran % (Auto) 0.4 % Neut % (Auto) 79.6 % Lymph % (Auto) 8.3 % [place] % (Auto) 7.2 % Eos % (Auto) 4.3 % Baso % (Auto) 0.2 % Immature Gran # (Auto) 0.10 H (0.00-0.02) K/uL Neut # (Auto) 18.58 H (1.4-6.5) K/uL Lymph # (Auto) 1.93 (1.2-3.4) K/uL [place] # (Auto) 1.68 H (0.11-0.59) K/uL Eos # (Auto) 1.01 H (0-0.5) K/uL Baso # (Auto) 0.05 (0-0.2) K/uL RBC Morphology PT 10.7 (9.0-12.0) Seconds INR 1.1 (0.9-1.1) APTT 26.4 (21.0-31.0) Seconds PTT Ratio 1.0 Sodium 136 (136-145) mmol/L Potassium 4.0 (3.5-5.1) mmol/L Chloride 101 (98-107) mmol/L Carbon Dioxide 24 (21-32) mmol/L Anion Gap 11.0 (3-11) BUN 39 H (7-18) mg/dl Creatinine 1.44 H (0.6-1.2) mg/dl Est Cr Clr Drug Dosing 31.8 ml/min Est GFR ( Amer) 42.2 Est GFR (Non-Af Amer) 36.4 BUN/Creatinine Ratio 27.1 H (10-20) Glucose 147 H (70-99) mg/dl Lactate (0.4-2.0) mmol/L Calcium 8.2 L (8.5-10.1) mg/dl Magnesium 2.3 (1.8-2.4) mg/dl Total Bilirubin 0.6 (0.2-1) mg/dl AST 12 L (15-37) U/L ALT 17 (12-78) U/L Alkaline Phosphatase 69 (45-117) U/L Total Creatine Kinase (26-192) U/L Troponin I 0.139 H* (0-0.045) ng/ml Total Protein 7.6 (6.4-8.2) gm/dl Albumin 3.1 L (3.4-5.0) gm/dl Globulin 4.5 H (2.5-4.0) gm/dl Albumin/Globulin Ratio 0.7 L (0.9-2) Procalcitonin (0-0.5) ng/ml TSH 1.590 (0.300-4.500) uIu/ml Urine Color Urine Appearance (Clear) Urine pH (4.5-7.5) Ur Specific [place] (1.000-1.030) Urine Protein (Negative) Urine Glucose (UA) (Negative) Urine Ketones (Negative) Urine Blood (Negative) Urine Nitrite (Negative) Urine Bilirubin (Negative) Urine Urobilinogen (Negative) Ur Leukocyte Esterase (Negative) Urine WBC (Auto) (0-5) /hpf Urine RBC (Auto) (0-4) /hpf U Hyaline Cast (Auto) (0-5) /lpf U Epithel Cells (Auto) (0-5) /lpf Urine Bacteria (Auto) (Negative) Influenza Type A (PCR) (Neg) Influenza Type B (PCR) (Neg) Bld Cult Staph aureus PCR (Negative) Blood Culture MRSA PCR (Negative) 11/06/18 11/06/18 11/06/18 Range/Units 21:13 21:13 21:13 WBC (4.8-10.8) K/uL RBC (4.2-5.4) M/uL Hgb (12.0-16.0) g/dL Hct (37-47) % MCV (80-100) fL MCH (25-34) pg MCHC (32-36) g/dL RDW Std Deviation (36.4-46.3) fL RDW Coeff of Christian (11.5-14.5) % Plt Count (130-400) K/uL MPV (7.4-10.4) fL Immature Gran % (Auto) % Neut % (Auto) % Lymph % (Auto) % [place] % (Auto) % Eos % (Auto) % Baso % (Auto) % Immature Gran # (Auto) (0.00-0.02) K/uL Neut # (Auto) (1.4-6.5) K/uL Lymph # (Auto) (1.2-3.4) K/uL [place] # (Auto) (0.11-0.59) K/uL Eos # (Auto) (0-0.5) K/uL Baso # (Auto) (0-0.2) K/uL RBC Morphology PT (9.0-12.0) Seconds INR (0.9-1.1) APTT (21.0-31.0) Seconds PTT Ratio Sodium (136-145) mmol/L Potassium (3.5-5.1) mmol/L Chloride (98-107) mmol/L Carbon Dioxide (21-32) mmol/L Anion Gap (3-11) BUN (7-18) mg/dl Creatinine (0.6-1.2) mg/dl Est Cr Clr Drug Dosing ml/min Est GFR ( Amer) Est GFR (Non-Af Amer) BUN/Creatinine Ratio (10-20) Glucose (70-99) mg/dl Lactate 4.6 H* (0.4-2.0) mmol/L Calcium (8.5-10.1) mg/dl Magnesium (1.8-2.4) mg/dl Total Bilirubin (0.2-1) mg/dl AST (15-37) U/L ALT (12-78) U/L Alkaline Phosphatase (45-117) U/L Total Creatine Kinase (26-192) U/L Troponin I (0-0.045) ng/ml Total Protein (6.4-8.2) gm/dl Albumin (3.4-5.0) gm/dl Globulin (2.5-4.0) gm/dl Albumin/Globulin Ratio (0.9-2) Procalcitonin 0.14 (0-0.5) ng/ml TSH (0.300-4.500) uIu/ml Urine Color Urine Appearance (Clear) Urine pH (4.5-7.5) Ur Specific [place] (1.000-1.030) Urine Protein (Negative) Urine Glucose (UA) (Negative) Urine Ketones (Negative) Urine Blood (Negative) Urine Nitrite (Negative) Urine Bilirubin (Negative) Urine Urobilinogen (Negative) Ur Leukocyte Esterase (Negative) Urine WBC (Auto) (0-5) /hpf Urine RBC (Auto) (0-4) /hpf U Hyaline Cast (Auto) (0-5) /lpf U Epithel Cells (Auto) (0-5) /lpf Urine Bacteria (Auto) (Negative) Influenza Type A (PCR) Neg for Influ A (Neg) Influenza Type B (PCR) Neg for Influ B (Neg) Bld Cult Staph aureus PCR (Negative) Blood Culture MRSA PCR (Negative) 11/06/18 11/06/18 11/07/18 Range/Units 21:25 23:59 05:52 WBC (4.8-10.8) K/uL RBC (4.2-5.4) M/uL Hgb (12.0-16.0) g/dL Hct (37-47) % MCV (80-100) fL MCH (25-34) pg MCHC (32-36) g/dL RDW Std Deviation (36.4-46.3) fL RDW Coeff of Christian (11.5-14.5) % Plt Count (130-400) K/uL MPV (7.4-10.4) fL Immature Gran % (Auto) % Neut % (Auto) % Lymph % (Auto) % [place] % (Auto) % Eos % (Auto) % Baso % (Auto) % Immature Gran # (Auto) (0.00-0.02) K/uL Neut # (Auto) (1.4-6.5) K/uL Lymph # (Auto) (1.2-3.4) K/uL [place] # (Auto) (0.11-0.59) K/uL Eos # (Auto) (0-0.5) K/uL Baso # (Auto) (0-0.2) K/uL RBC Morphology PT (9.0-12.0) Seconds INR (0.9-1.1) APTT (21.0-31.0) Seconds PTT Ratio Sodium 138 (136-145) mmol/L Potassium 3.7 (3.5-5.1) mmol/L Chloride 105 (98-107) mmol/L Carbon Dioxide 25 (21-32) mmol/L Anion Gap 8.0 (3-11) BUN 34 H (7-18) mg/dl Creatinine 1.23 H (0.6-1.2) mg/dl Est Cr Clr Drug Dosing 37.4 ml/min Est GFR ( Amer) 51.1 Est GFR (Non-Af Amer) 44.1 BUN/Creatinine Ratio 27.7 H (10-20) Glucose 128 H (70-99) mg/dl Lactate 2.0 (0.4-2.0) mmol/L Calcium 7.8 L (8.5-10.1) mg/dl Magnesium (1.8-2.4) mg/dl Total Bilirubin (0.2-1) mg/dl AST (15-37) U/L ALT (12-78) U/L Alkaline Phosphatase (45-117) U/L Total Creatine Kinase 20 L (26-192) U/L Troponin I 0.146 H* (0-0.045) ng/ml Total Protein (6.4-8.2) gm/dl Albumin (3.4-5.0) gm/dl Globulin (2.5-4.0) gm/dl Albumin/Globulin Ratio (0.9-2) Procalcitonin (0-0.5) ng/ml TSH (0.300-4.500) uIu/ml Urine Color Yellow Urine Appearance Cloudy H (Clear) Urine pH 5.0 (4.5-7.5) Ur Specific [place] 1.018 (1.000-1.030) Urine Protein Negative (Negative) Urine Glucose (UA) Negative (Negative) Urine Ketones Negative (Negative) Urine Blood 3+ H (Negative) Urine Nitrite Negative (Negative) Urine Bilirubin Negative (Negative) Urine Urobilinogen Negative (Negative) Ur Leukocyte Esterase Negative (Negative) Urine WBC (Auto) 1-5 (0-5) /hpf Urine RBC (Auto) 10-30 H (0-4) /hpf U Hyaline Cast (Auto) 1-5 (0-5) /lpf U Epithel Cells (Auto) >30 H (0-5) /lpf Urine Bacteria (Auto) Negative (Negative) Influenza Type A (PCR) (Neg) Influenza Type B (PCR) (Neg) Bld Cult Staph aureus PCR (Negative) Blood Culture MRSA PCR (Negative) 11/07/18 11/07/18 Range/Units 05:52 21:13 WBC 30.93 H* (4.8-10.8) K/uL RBC 3.25 L (4.2-5.4) M/uL Hgb 8.8 L (12.0-16.0) g/dL Hct 28.5 L (37-47) % MCV 87.7 (80-100) fL MCH 27.1 (25-34) pg MCHC 30.9 L (32-36) g/dL RDW Std Deviation 58.9 H (36.4-46.3) fL RDW Coeff of Christian 18.4 H (11.5-14.5) % Plt Count 198 (130-400) K/uL MPV 8.9 (7.4-10.4) fL Immature Gran % (Auto) 0.6 % Neut % (Auto) 95.7 % Lymph % (Auto) 1.7 % [place] % (Auto) 1.8 % Eos % (Auto) 0.2 % Baso % (Auto) 0.0 % Immature Gran # (Auto) 0.19 H (0.00-0.02) K/uL Neut # (Auto) 29.58 H (1.4-6.5) K/uL Lymph # (Auto) 0.52 L (1.2-3.4) K/uL [place] # (Auto) 0.57 (0.11-0.59) K/uL Eos # (Auto) 0.06 (0-0.5) K/uL Baso # (Auto) 0.01 (0-0.2) K/uL RBC Morphology Unremarkable PT (9.0-12.0) Seconds INR (0.9-1.1) APTT (21.0-31.0) Seconds PTT Ratio Sodium (136-145) mmol/L Potassium (3.5-5.1) mmol/L Chloride (98-107) mmol/L Carbon Dioxide (21-32) mmol/L Anion Gap (3-11) BUN (7-18) mg/dl Creatinine (0.6-1.2) mg/dl Est Cr Clr Drug Dosing ml/min Est GFR ( Amer) Est GFR (Non-Af Amer) BUN/Creatinine Ratio (10-20) Glucose (70-99) mg/dl Lactate (0.4-2.0) mmol/L Calcium (8.5-10.1) mg/dl Magnesium (1.8-2.4) mg/dl Total Bilirubin (0.2-1) mg/dl AST (15-37) U/L ALT (12-78) U/L Alkaline Phosphatase (45-117) U/L Total Creatine Kinase (26-192) U/L Troponin I (0-0.045) ng/ml Total Protein (6.4-8.2) gm/dl Albumin (3.4-5.0) gm/dl Globulin (2.5-4.0) gm/dl Albumin/Globulin Ratio (0.9-2) Procalcitonin (0-0.5) ng/ml TSH (0.300-4.500) uIu/ml Urine Color Urine Appearance (Clear) Urine pH (4.5-7.5) Ur Specific [place] (1.000-1.030) Urine Protein (Negative) Urine Glucose (UA) (Negative) Urine Ketones (Negative) Urine Blood (Negative) Urine Nitrite (Negative) Urine Bilirubin (Negative) Urine Urobilinogen (Negative) Ur Leukocyte Esterase (Negative) Urine WBC (Auto) (0-5) /hpf Urine RBC (Auto) (0-4) /hpf U Hyaline Cast (Auto) (0-5) /lpf U Epithel Cells (Auto) (0-5) /lpf Urine Bacteria (Auto) (Negative) Influenza Type A (PCR) (Neg) Influenza Type B (PCR) (Neg) Bld Cult Staph aureus PCR Positive A (Negative) Blood Culture MRSA PCR Negative (Negative) Imaging Data Radiologist's Impression: Radiology results as stated below per my review and the radiologist's interpretation: ABDOMEN AND PELVIS CT WITH IV CONTRAST CT DOSE: 332.40 mGy.cm HISTORY: Acute low back and lower abdominal pain back pain TECHNIQUE: Multiaxial CT images of the abdomen and pelvis were performed following the use of intravenous contrast. A dose lowering technique was utilized adhering to the principles of ALARA. COMPARISON STUDY: Ultrasound of the gallbladder 02/23/2018, CTA chest 09/07/2018 FINDINGS: Subsegmental bibasilar atelectasis. No pneumatosis or pneumoperitoneum. Imaged inferior cardiac chambers are moderately enlarged. Partially imaged pacer leads. Prosthetic mitral valve. Prior cholecystectomy. Mild dilation of the common bile duct is likely on a postsurgical basis. Liver appears unremarkable. The hepatic and portal veins. Spleen, pancreas and right adrenal gland are unremarkable. Mild thickening about the left adrenal gland. Kidneys and ureters are unremarkable. Partially decompressed bladder with mild wall thickening. Prior hysterectomy. No adnexal mass lesions. Extensive mixed plaque formation about the abdominal aorta without aneurysm. IVC is unremarkable. Mildly prominent iliac chain lymph nodes measure up to 7 mm in short axis, likely physiologic. No small bowel obstruction. Multiple scattered air-fluid levels noted within nondilated loops of small bowel are likely on a physiologic basis. Large bowel is also unremarkable. The appendix appears normal within the abdominal right lower quadrant. A lower right anterior abdominal wall hernia suggestive of Spigelian hernia noted with diastases 1.8 cm containing mesenteric fat and nonobstructed loop of ileum. No ascites or mesenteric inflammation. Soft tissues appear unremarkable. Bones appear mildly demineralized. Laminectomy changes with posterior interbody ericka and screw fusion L4-L5. 4 mm anterolisthesis L4 on L5. Advanced intervertebral disc space narrowing is seen at several levels. Intervertebral disc space narrowing with endplate lucencies and erosive changes at T11-T12 are new from 09/07/2018. Moderate inflammatory stranding of the adjacent paraspinal tissues. Additionally, severe intervertebral disc space narrowing with mild endplate irregularity at 2-L3, age -indeterminate without surrounding inflammation. IMPRESSION: 1. Endplate erosive/lytic changes at the T11-T12 level are new from 09/07/2018 compatible with acute to subacute discitis osteomyelitis. Moderate infiltration of the adjacent prevertebral tissues without drainable fluid collection identified. Infectious disease consultation is needed. 2. No acute intra-abdominal or intrapelvic abnormality identified. 3. Right-sided Spigelian hernia contains mesenteric fat and a nonobstructed loop of ileum. 4. Additional findings as above. Electronically signed by: Jace Petit M.D. 11/06/2018 10:41 PM XR chest 1V portable HISTORY: 73 years-old Female Sepsis acute sepsis COMPARISON: Chest radiograph 09/06/2018 TECHNIQUE: Portable AP view of the chest FINDINGS: Cardiac silhouette is enlarged, unchanged. Prior median sternotomy with cardiac valvular prosthesis. Right subclavian pacer is new in the interval. Status post removal of the previously noted left subclavian pacer. No pneumothorax, pleural effusion or overt pulmonary edema. No focal airspace consolidation to suggest pneumonia. Degenerative changes of the shoulders and spine. Partially imaged fusion hardware about the lumbar spine. IMPRESSION: Cardiomegaly without acute process. The above report was generated using voice recognition software. It may contain grammatical, syntax or spelling errors. Electronically signed by: Jace Petit M.D. 11/06/2018 9:34 PM ECG Data Attestation: I personally reviewed and interpreted this ECG as follows: Indication: back/shoulder pain Rate (beats per minute): 63 Rhythm: other (atrial paced) Findings: + other (wide QRS) and + LBBB Blood Pressure Blood Pressure Findings: Low blood pressure Blood Pressure Disposition: further management by hospitalist [facility] Narrative Prior records/ancillary studies reviewed. Triage nursing notes reviewed. The patient is a 73 year old white female with a history of NSTEMI, CHF, and s/ p valve replacement who presents to the Emergency Room with complaints of intermittent lower back pain beginning in the past couple of days. Differential diagnosis: Etiologies such as musculoskeletal, disc herniation, fracture, aortic disease, metastatic disease, cord compression, discitis, infection, renal colic, gastrointestinal, acute exacerbation of chronic back pain, sciatica, cauda equina, as well as others were entertained. Patient was seen and evaluated the bedside. The patient was presenting with complaints of back pain and associated fever. The patient did have a recent admission which is approximately 1 month's time after being admitted here in transfer to [facility]. Patient subsequently suffered from a pacemaker pocket infection, septic right shoulder as well as a septic knee status post washout. The patient did have replacement of her pacemaker. Patient was sent home with IV antibiotics which is she self describes her likely administered via a tunneled subclavian catheter. Patient does complain of some back pain which is not elicited on exam. The patient does not have any distal lower extremity deficits and denies any saddle anesthesia recent heavy lifting or trauma. Patient did have blood work completed. The patient did have an elevated lactate and white count. The patient did have an elevated troponin but this appears chronic and is actually improved compared to prior. Patient does not complain of any chest pain or shortness of breath. The patient's chest x-ray was clear. The patient's urinalysis and this does not show evidence of infection. Patient is flu swab negative. Patient does have some mild AK I and was given fluids. The patient was feeling improved. The patient was started on broad-spectrum and ask as the patient had had MSSA bacteremia in the past. I did discuss with the patient as to whether or not they found any acute issues with the heart given her valve replacements. I did review the patient's prior discharge summary which made no mention of endocarditis. I did speak with the on-call spinal surgeon who agreed that the patient would be suitable for this hospital given that the patient does not have any drainable fluid collection but only evidence of osteomyelitis of the thoracic spine. I did speak with on- call hospitalist who agreed to further evaluate treat the patient. The patient was admitted to medicine service. Impression & Plan Osteomyelitis of thoracic spine, Fever, Back pain, Sepsis Critical Care Time I have personally spent greater than 75 minutes of critical care time in direct management of this patient. This includes bedside care, interpretation of diagnostic studies, and testing, discussion with consultants, patient, and family members, and other require inpatient management activities. This 75 minutes is in excess of all separately billable procedures. Critical Care Time: Yes Total Critical Care Time: 75 Discharge Plan Visit Data *Final* Discharge Date/Time: 11/07/18 03:39 Chief Complaint: Back Injury/Pain Stated Complaint: BACK PAIN ED Provider: Huber Azul Discharge Problem: Osteomyelitis of thoracic spine, Fever, Back pain, Sepsis Patient Disposition: Admitted As Inpatient Discharge Instructions Interventions: ED Discharge Assessment Last Done: 11/07/18 03:39 The scribe's documentation has been prepared under my direction and personally reviewed by me in its entirety. I confirm that the note above accurately reflects all work, treatment, procedures, and medical decision making performed by me.
[2018-11-08] MEDS: HEPARIN SOD 5,000 UNIT/0.5 ML VIAL SQ SCH ×3 (06:19→20:51)
[2018-11-08] MEDS: DAPTOmycin 300 MG in SYRINGE 0 ML IV SCH (06:20)
[2018-11-08] MEDS: METOPROLOL TARTRATE 50 MG TAB PO SCH ×2 (08:09→20:51)
[2018-11-08] MEDS: ASPIRIN 325 MG ECTAB PO SCH (08:10)
[2018-11-08] MEDS: CETIRIZINE HCL 10 MG TABLET PO SCH (08:10)
[2018-11-08] MEDS: LIDOCAINE 5% 1 PATCH TD SCH (08:10)
[2018-11-08] MEDS: FERROUS SULFATE 325 MG TAB PO SCH ×2 (08:10→20:51)
[2018-11-08] MEDS: ACETAMINOPHEN 325 MG TAB PO PRN (09:21)
[2018-11-08] MEDS: methylPREDNISolone 40 MG in SYRINGE 0 ML IV SCH ×2 (10:41→22:30)
[2018-11-08] MEDS: ERTAPENEM SODIUM 1,000 MG in SODIUM CHLORIDE 0.9% 50 ML IV SCH (10:41)
[2018-11-08 12:13] LABS: Hematocrit (blood only) 26.9 % (37-47); Hemoglobin 8.2 g/dL (12.0-16.0); Mean Corpuscular Hgb Conc 30.5 g/dL (32-36); Mean Corpuscular Volume 85.4 fL (80-100); Platelet Count 172 K/uL (130-400); RDW Coefficient of Variation 17.9 % (11.5-14.5); RDW Standard Deviation 55.8 fL (36.4-46.3); Red Blood Count 3.15 M/uL (4.2-5.4); White Blood Count 14.72 K/uL (4.8-10.8)
[2018-11-08 12:44] LABS: Immature Granulocytes # (auto) 0.04 K/uL (0.00-0.02); Immature Granulocytes % (auto) 0.3 %; Lymphocytes # (auto) 1.03 K/uL (1.2-3.4); Monocytes # (auto) 0.59 K/uL (0.11-0.59); Neutrophils # (auto) 13.06 K/uL (1.4-6.5); Neutrophils % (auto) 88.7 %
[2018-11-08 12:47] LABS: Albumin Level 2.7 gm/dl (3.4-5.0); BUN Creatinine Ratio 35.5 (10-20); Calcium 8.4 mg/dl (8.5-10.1); Creatinine Clr Calc Pharmacy 45.2 ml/min; Est GFR (African American) 64.9; Magnesium 2.6 mg/dl (1.8-2.4)
[2018-11-08 12:50] LABS: Albumin Globulin Ratio 0.6 (0.9-2); Bilirubin,Total 0.2 mg/dl (0.2-1); Globulin 4.3 gm/dl (2.5-4.0)
--- NOTE | 2018-11-08 19:17 | Hospitalist Progress Note ---
Date of Service November 08, 2018 Assessment & Plan (1) Sepsis: SIRS plus lactic acid elevation plus ARF Secondary to spinal osteomyelitis hx septic arthritis right shoulder, left knee, PPM infection (MSSA as per records) status post completion of recent antibiotic Rx (2) Osteomyelitis of thoracic spine: ID consult RE spinal osteomyelitis-appreciate input and recommendation Orthopedic spine consult RE spinal osteomyelitis-appreciate input and recommendation For conservative management Patient seems to be free of pain at rest (3) Staphylococcal sepsis: Has been on intravenous daptomycin and ertapenem as per ID Remains afebrile Blood culture is positive for staph (4) PAF (paroxysmal atrial fibrillation): SSS sp PPM placement status post Watchman device implantation currently off anticoagulation due to bleeding concerns as per records Paced rhythm Rate is controlled now and off any anticoagulation (5) HTN (hypertension): Has been getting metoprolol 50 mg twice daily Blood pressure is elevated Associated with headache We will add amlodipine 5 mg daily (6) CHF (congestive heart failure): chronic diastolic heart failure (EF 50%, DAYANA 2018), patient on the dry side chronic left bundle branch block history CAD as per records hx of bioprosthetic AVR/MVR (7) S/P AVR (aortic valve replacement): No acute symptoms PT OT eval DVT prophylaxis. Heparin subcu Full code Subjective She is a 73-year-old female with significant past medical history medical history of chronic diastolic heart failure (EF 50%, DAYANA 2018) SSS sp PPM status post Watchman device implantation currently off anticoagulation due to bleeding concerns as per records, recent history septic arthritis (right shoulder, left knee)/PPM pocket infection status post PPM replacement (MSSA sp IV antibiotic Rx ), chronic left bundle branch block, history CAD as per records, hx of bioprosthetic AVR/MVR, hypertension, Qkfvbgp-Izzsx-Xnsgr disease as per records was admitted with back pain and noted to have thoracic spine discitis secondary to infection. 11/08 The patient was seen and examined She has been complaining of episodic headache likely secondary to strong perfume induced by fellow patient Blood pressure noted to be high Back pain seems to be stable when she is not moving her Denies any other symptoms Physical Exam 2 Vital Signs (Past 24 Hours): Last Vital Signs Temp 36.6 C 11/08/18 18:47 Pulse 60 11/08/18 18:47 Resp 18 11/08/18 18:47 BP 175/81 H 11/08/18 18:47 Pulse Ox 96 11/08/18 18:47 Constitutional: WD/WN, vitals as above Eyes: PERRL, conjunctivae normal, anicteric sclerae ENMT: external ear and nose normal, oropharynx normal Neck: trachea midline, no thyromegaly Respiratory: normal respiratory effort; no respiratory distress Auscultation: lungs clear to auscultation bilaterally Cardiovascular: Rate/Rhythm: regular rate and regular rhythm Heart Sounds: normal S1 and normal S2 Gastrointestinal (Abdomen): Inspection/Auscultation: abdomen normal to inspection and + significant pannus Percussion/Palpation: abdomen soft Musculoskeletal: Spine: + thoracic spinal tenderness Neurologic: Alert, awake and oriented x3 Results & Data Laboratory Results Short CBC 11/08/18 Range/Units 12:03 WBC 14.72 H (4.8-10.8) K/uL Hgb 8.2 L (12.0-16.0) g/dL Hct 26.9 L (37-47) % Plt Count 172 (130-400) K/uL BMP 11/08/18 12:03 Sodium 138 Potassium 4.0 Chloride 107 Carbon Dioxide 23 BUN 36 H Creatinine 1.01 Glucose 174 H Calcium 8.4 L Liver Function 11/08/18 Range/Units 12:03 Total Bilirubin 0.2 (0.2-1) mg/dl AST 18 (15-37) U/L ALT 28 (12-78) U/L Alkaline Phosphatase 63 (45-117) U/L Albumin 2.7 L (3.4-5.0) gm/dl Medications Administered Current Inpatient Medications Acetaminophen (Tylenol) 650 mg PO Q4H PRN PRN Reason: Pain or Fever Stop: 12/07/18 04:19 Last Admin: 11/08/18 09:21 Dose: 650 mg Amlodipine Besylate (Norvasc) 5 mg PO [facility] Stop: 12/08/18 19:14 Aspirin (Ecotrin) [facility] [place] Stop: 12/07/18 08:59 Last Admin: 11/08/18 08:10 Dose: 325 mg Cetirizine HCl (Zyrtec) 10 mg PO [facility] Stop: 12/08/18 08:59 Last Admin: 11/08/18 08:10 Dose: 10 mg Diphenhydramine HCl (Benadryl) 12.5 mg IV Q6H PRN PRN Reason: Itching Stop: 12/07/18 10:02 Ferrous Sulfate (Feosol) 325 mg PO BID [facility] Stop: 12/07/18 08:59 Last Admin: 11/08/18 08:10 Dose: 325 mg Heparin Sodium (Porcine) (Heparin Sodium (Porcine)) 5,000 units SQ Q8 [facility] Stop: 12/07/18 13:59 Last Admin: 11/08/18 14:22 Dose: Not Given Hydromorphone HCl (Dilaudid) 0.5 mg IV Q3H PRN PRN Reason: Pain Stop: 11/21/18 08:51 Prochlorperazine 5 mg/ Syringe 5 mls @ 5 mls/min IV Q6H PRN PRN Reason: Nausea And Vomiting Stop: 12/07/18 04:19 Methylprednisolone 40 mg/ (Syringe) 0.64 mls @ 1.5 mls/min IV Q12H [facility] Stop: 12/07/18 10:14 Last Admin: 11/08/18 10:41 Dose: 1.5 mls/min Ertapenem 1,000 mg/ Sodium (Chloride) 60 mls @ 100 mls/hr IV Q24H [facility] Stop: 12/19/18 10:44 Last Infusion: 11/08/18 11:34 Dose: Infused Lidocaine (Lidoderm 5%) 1 patch TD QAM [facility] Stop: 12/07/18 04:19 Last Admin: 11/08/18 08:10 Dose: 1 patch Metoprolol Tartrate (Lopressor) 50 mg PO BID [facility] Stop: 12/07/18 08:59 Last Admin: 11/08/18 08:09 Dose: 50 mg Miscellaneous (Remove Lidoderm Patch) 1 ea N/A DAILY@2100 [facility] Stop: 12/07/18 20:59 Last Admin: 11/07/18 20:59 Dose: 1 ea Nitroglycerin (Nitrostat) 0.4 mg SL UD PRN PRN Reason: Chest Pain Stop: 12/07/18 04:19 Tramadol HCl (Ultram) 25 - 50 mg PO Q4H PRN PRN Reason: Pain Stop: 12/07/18 04:19 _ (1) Sepsis Sepsis type: sepsis due to unspecified organism Qualified Code(s): A41.9 - Sepsis, unspecified organism
[2018-11-08] MEDS: AMLODIPINE BESYLATE 5 MG TAB PO SCH (19:48)
--- NOTE | 2018-11-08 21:22 | Infectious Disease Progress Nt ---
Date of Service November 08, 2018 Assessment & Plan (1) Discitis thoracic region: Patient with thoracic diskitis and vertebral osteomyelitis with methicillin sensitive Staph aureus. Given allergies to vancomycin and cefazolin and tolerance of ertapenem, patient to be continued on IV ertapenem to allow easiest outpatient therapy. Will follow. (2) Osteomyelitis of thoracic spine: (3) Staphylococcal sepsis: Subjective Patient seen in follow-up for thoracic diskitis. Pain better controlled today. Blood cultures growing methicillin sensitive Staph aureus as before. Review of Systems All systems reviewed & are unremarkable except as noted in HPI & below Physical Exam 2 Vital Signs (Past 24 Hours): Last Vital Signs Temp 36.6 C 11/08/18 18:47 Pulse 60 11/08/18 18:47 Resp 18 11/08/18 18:47 BP 175/81 H 11/08/18 18:47 Pulse Ox 96 11/08/18 18:47 Results & Data Laboratory Results Short CBC 11/08/18 Range/Units 12:03 WBC 14.72 H (4.8-10.8) K/uL Hgb 8.2 L (12.0-16.0) g/dL Hct 26.9 L (37-47) % Plt Count 172 (130-400) K/uL BMP 11/08/18 12:03 Sodium 138 Potassium 4.0 Chloride 107 Carbon Dioxide 23 BUN 36 H Creatinine 1.01 Glucose 174 H Calcium 8.4 L Liver Function 11/08/18 Range/Units 12:03 Total Bilirubin 0.2 (0.2-1) mg/dl AST 18 (15-37) U/L ALT 28 (12-78) U/L Alkaline Phosphatase 63 (45-117) U/L Albumin 2.7 L (3.4-5.0) gm/dl Diagnostic Findings Microbiology 11/06/18 21:15 Blood Blood Culture - Preliminary Staphylococcus aureus 11/06/18 21:13 Blood Blood Culture - Preliminary Staphylococcus aureus
[2018-11-09] MEDS: HydrALAZINE 10 MG TAB PO PRN ×2 (00:14→16:13)
[2018-11-09] MEDS: HEPARIN SOD 5,000 UNIT/0.5 ML VIAL SQ SCH ×3 (05:48→22:24)
[2018-11-09 06:39] LABS: Mean Platelet Volume 9.3 fL (7.4-10.4); Platelet Count 226 K/uL (130-400)
[2018-11-09 06:44] LABS: Hematocrit (blood only) 26.1 % (37-47); Hemoglobin 8.1 g/dL (12.0-16.0); Mean Corpuscular Volume 85.6 fL (80-100); RDW Standard Deviation 56.2 fL (36.4-46.3); Red Blood Count 3.05 M/uL (4.2-5.4); White Blood Count 8.42 K/uL (4.8-10.8)
[2018-11-09 06:45] LABS: Immature Granulocytes # (auto) 0.02 K/uL (0.00-0.02); Immature Granulocytes % (auto) 0.2 %; Lymphocytes # (auto) 0.76 K/uL (1.2-3.4); Monocytes # (auto) 0.29 K/uL (0.11-0.59); Monocytes % (auto) 3.4 %; Neutrophils # (auto) 7.35 K/uL (1.4-6.5); Neutrophils % (auto) 87.4 %; Ovalocytes 1+
[2018-11-09 06:56] LABS: Alanine Aminotransferase 27 U/L (12-78); Albumin Level 2.7 gm/dl (3.4-5.0); Aspartate Aminotransferase 12 U/L (15-37); BUN Creatinine Ratio 36.6 (10-20); Bilirubin Direct < 0.1 mg/dl (0-0.2); Blood Urea Nitrogen 38 mg/dl (7-18); Calcium 8.2 mg/dl (8.5-10.1); Carbon Dioxide 24 mmol/L (21-32); Chloride 109 mmol/L (98-107); Creatinine Clr Calc Pharmacy 44.5 ml/min; Est GFR (African American) 63.3; Est GFR (Non-African American) 54.6; Glucose 163 mg/dl (70-99); Potassium 3.9 mmol/L (3.5-5.1); Sodium 140 mmol/L (136-145)
[2018-11-09 06:59] LABS: Alkaline Phosphatase 54 U/L (45-117); Bilirubin,Total 0.3 mg/dl (0.2-1); Phosphorus 2.8 mg/dl (2.5-4.9); Total Protein 6.9 gm/dl (6.4-8.2)
[2018-11-09] MEDS: LIDOCAINE 5% 1 PATCH TD SCH (08:30)
[2018-11-09] MEDS: FERROUS SULFATE 325 MG TAB PO SCH ×2 (08:30→22:22)
[2018-11-09] MEDS: AMLODIPINE BESYLATE 5 MG TAB PO SCH (08:30)
[2018-11-09] MEDS: CETIRIZINE HCL 10 MG TABLET PO SCH (08:30)
[2018-11-09] MEDS: ASPIRIN 325 MG ECTAB PO SCH (08:30)
[2018-11-09] MEDS: METOPROLOL TARTRATE 50 MG TAB PO SCH ×2 (08:31→22:22)
[2018-11-09] MEDS: methylPREDNISolone 40 MG in SYRINGE 0 ML IV SCH ×2 (10:42→22:24)
[2018-11-09] MEDS: ERTAPENEM SODIUM 1,000 MG in SODIUM CHLORIDE 0.9% 50 ML IV SCH (10:42)
[2018-11-09] MEDS: ACETAMINOPHEN 325 MG TAB PO PRN (15:15)
--- NOTE | 2018-11-09 17:02 | Hospitalist Progress Note ---
Date of Service November 09, 2018 Assessment & Plan (1) Severe sepsis: SIRS plus lactic acid elevation plus ARF Secondary to spinal osteomyelitis hx septic arthritis right shoulder, left knee, PPM infection (MSSA as per records) status post completion of recent antibiotic Rx -- blood cultures: pending -- Ortho and ID consulted -- on empiric Dapto IV Vancomycin Reaction -- received 1 dose at the ER developed erythema, pruritis- epi, solumedrol, etc given -- still has diffuse erythema, pruritus -- continue Solumedrol at 40mg q12h change Mary to Cetirizine PRN Benadryl chronic diastolic heart failure (EF 50%, DAYANA 2018), patient on the dry side SSS sp PPM placement status post Watchman device implantation Atrial Fibrillation currently off anticoagulation due to bleeding concerns as per records Paced rhythm -- HR in the low 100s likey from infection -- pacemaker interrogation ordered -- on Metoprolol and Aspirin chronic left bundle branch block history CAD as per records -- no cardiac symptoms hx of bioprosthetic AVR/MVR hypertension, slight elevated -- monitor Troponin elevation secondary to elevated BP and sepsis Chronic anemia, postop hemoglobin of 9 patient's new baseline -- monitor History Vnknoml-Xgmrs-Gpgyz neuropathy PT OT eval DVT prophylaxis. Heparin subcu Full code Subjective ff up for sepsis, lumbar discitis seen resting in bed, not in distress states she still has back pain- worse with moving - manageable denies weakness/numbness, focal neuro deficits still has pruritis, redness on chest and face no other symptoms Physical Exam 2 Vital Signs (Past 24 Hours): Last Vital Signs Temp 36.6 C 11/09/18 15:25 Pulse 60 11/09/18 15:36 Resp 18 11/09/18 15:36 BP 173/68 H 11/09/18 15:36 Pulse Ox 97 11/09/18 15:25 Constitutional: WD/WN, vitals as above Eyes: PERRL, conjunctivae normal, anicteric sclerae ENMT: external ear and nose normal, oropharynx normal Neck: trachea midline, no thyromegaly Respiratory: normal respiratory effort; no respiratory distress Auscultation: lungs clear to auscultation bilaterally Cardiovascular: Rate/Rhythm: regular rate and regular rhythm Heart Sounds: normal S1 and normal S2 Gastrointestinal (Abdomen): Inspection/Auscultation: abdomen normal to inspection and + significant pannus Percussion/Palpation: abdomen soft Musculoskeletal: Spine: + thoracic spinal tenderness
--- NOTE | 2018-11-09 17:18 | Hospitalist Progress Note ---
Date of Service November 09, 2018 Assessment & Plan (1) Sepsis: SIRS plus lactic acid elevation plus ARF Secondary to spinal osteomyelitis hx septic arthritis right shoulder, left knee, PPM infection (MSSA as per records) status post completion of recent antibiotic Rx Clinically better denies any fever and/or chills (2) Discitis thoracic region: (3) Osteomyelitis of thoracic spine: ID consult RE spinal osteomyelitis-appreciate input and recommendation Orthopedic spine consult RE spinal osteomyelitis-appreciate input and recommendation For conservative management Patient seems to be free of pain at rest We will continue current antibiotic as per ID recommendation (4) Staphylococcal sepsis: Has been on intravenous daptomycin and ertapenem as per ID Remains afebrile Blood culture is positive for staph Continue with intravenous ertapenem (5) PAF (paroxysmal atrial fibrillation): SSS sp PPM placement status post Watchman device implantation currently off anticoagulation due to bleeding concerns as per records Paced rhythm Rate is controlled now and off any anticoagulation (6) CHF (congestive heart failure): Chronic diastolic heart failure (EF 50%, DAYANA 2018), patient on the dry side chronic left bundle branch block history CAD as per records hx of bioprosthetic AVR/MVR (7) HTN (hypertension): Has been getting metoprolol 50 mg twice daily Blood pressure is elevated Associated with headache We will add amlodipine 5 mg daily Blood pressure remains in the upper side of normal (8) S/P AVR (aortic valve replacement): No symptoms reported DVT prophylaxis. Heparin subcu (9) Right lower quadrant abdominal pain: Has been complaining of right lower quadrant pain since this morning No associated symptoms of nausea and/or vomiting or diarrhea Has had colonoscopy prior to cardiac surgery about 2-3 years ago An ill-defined palpable mass noted on examination of the right lower quadrant We will get CT of the abdomen and pelvis without contrast to evaluate Subjective She is a 73-year-old female with significant past medical history medical history of chronic diastolic heart failure (EF 50%, DAYANA 2018) SSS sp PPM status post Watchman device implantation currently off anticoagulation due to bleeding concerns as per records, recent history septic arthritis (right shoulder, left knee)/PPM pocket infection status post PPM replacement (MSSA sp IV antibiotic Rx ), chronic left bundle branch block, history CAD as per records, hx of bioprosthetic AVR/MVR, hypertension, Arlwyqz-Npkyv-Jzmjb disease as per records was admitted with back pain and noted to have thoracic spine discitis secondary to infection. 11/08 The patient was seen and examined She has been complaining of episodic headache likely secondary to strong perfume induced by fellow patient Blood pressure noted to be high Back pain seems to be stable when she is not moving her Denies any other symptoms 11/09 The patient was seen and examined the medical unit She has been complaining of right lower quadrant pain since this morning Denies any nausea and/or vomiting associated with it No diarrhea Has had colonoscopy prior to cardiac surgery about 2-3 years ago Physical Exam 2 Vital Signs (Past 24 Hours): Last Vital Signs Temp 36.6 C 11/09/18 15:25 Pulse 60 11/09/18 15:36 Resp 18 11/09/18 15:36 BP 173/68 H 11/09/18 15:36 Pulse Ox 97 11/09/18 15:25 Physical Exam: Minimal distress at rest Constitutional: WD/WN, vitals as above + acute distress (Complains of minimal pain right lower quadrant) and + ill appearing Eyes: PERRL, conjunctivae normal, anicteric sclerae ENMT: external ear and nose normal, oropharynx normal Neck: trachea midline, no thyromegaly Respiratory: normal respiratory effort; no respiratory distress Auscultation: lungs clear to auscultation bilaterally Cardiovascular: Heart Sounds: normal S1, normal S2 and + abnormal opening sounds (Prosthetic valve sound) Gastrointestinal (Abdomen): Inspection/Auscultation: + abdomen distended ( Minimally distended) and normal bowel sounds Percussion/Palpation: + abdomen tender (Right lower quadrant with a palpable mass) Neurologic: PERRL, EOMI, accommodation nl, no face palsy, no dysarthria Results & Data Laboratory Results Short CBC 11/09/18 Range/Units 06:02 WBC 8.42 (4.8-10.8) K/uL Hgb 8.1 L (12.0-16.0) g/dL Hct 26.1 L (37-47) % Plt Count 226 (130-400) K/uL BMP 11/09/18 06:02 Sodium 140 Potassium 3.9 Chloride 109 H Carbon Dioxide 24 BUN 38 H Creatinine 1.03 Glucose 163 H Calcium 8.2 L Liver Function 11/09/18 Range/Units 06:02 Total Bilirubin 0.3 (0.2-1) mg/dl Direct Bilirubin < 0.1 (0-0.2) mg/dl AST 12 L (15-37) U/L ALT 27 (12-78) U/L Alkaline Phosphatase 54 (45-117) U/L Albumin 2.7 L (3.4-5.0) gm/dl Medications Administered Current Inpatient Medications Acetaminophen (Tylenol) 650 mg PO Q4H PRN PRN Reason: Pain or Fever Stop: 12/07/18 04:19 Last Admin: 11/09/18 15:15 Dose: 650 mg Amlodipine Besylate (Norvasc) 5 mg PO [facility] Stop: 12/08/18 19:14 Last Admin: 11/09/18 08:30 Dose: 5 mg Aspirin (Ecotrin) 325 mg PO [facility] Stop: 12/07/18 08:59 Last Admin: 11/09/18 08:30 Dose: 325 mg Cetirizine HCl (Zyrtec) 10 mg PO [facility] Stop: 12/08/18 08:59 Last Admin: 11/09/18 08:30 Dose: 10 mg Diphenhydramine HCl (Benadryl) 12.5 mg IV Q6H PRN PRN Reason: Itching Stop: 12/07/18 10:02 Ferrous Sulfate (Feosol) 325 mg PO BID [facility] Stop: 12/07/18 08:59 Last Admin: 11/09/18 08:30 Dose: 325 mg Heparin Sodium (Porcine) (Heparin Sodium (Porcine)) 5,000 units SQ Q8 [facility] Stop: 12/07/18 13:59 Last Admin: 11/09/18 13:53 Dose: Not Given Hydralazine HCl (Apresoline) 10 mg PO QID PRN PRN Reason: Hypertension Stop: 12/09/18 08:59 Last Admin: 11/09/18 16:13 Dose: 10 mg Hydromorphone HCl (Dilaudid) 0.5 mg IV Q3H PRN PRN Reason: Pain Stop: 11/21/18 08:51 Prochlorperazine 5 mg/ Syringe 5 mls @ 5 mls/min IV Q6H PRN PRN Reason: Nausea And Vomiting Stop: 12/07/18 04:19 Methylprednisolone 40 mg/ (Syringe) 0.64 mls @ 1.5 mls/min IV Q12H [facility] Stop: 12/07/18 10:14 Last Admin: 11/09/18 10:42 Dose: 1.5 mls/min Ertapenem 1,000 mg/ Sodium (Chloride) 60 mls @ 100 mls/hr IV Q24H [facility] Stop: 12/19/18 10:44 Last Infusion: 11/09/18 11:20 Dose: Infused Lidocaine (Lidoderm 5%) 1 patch TD QAM [facility] Stop: 12/07/18 04:19 Last Admin: 11/09/18 08:30 Dose: Not Given Metoprolol Tartrate (Lopressor) 50 mg PO BID [facility] Stop: 12/07/18 08:59 Last Admin: 11/09/18 08:31 Dose: Not Given Miscellaneous (Remove Lidoderm Patch) 1 ea N/A DAILY@2100 [facility] Stop: 12/07/18 20:59 Last Admin: 11/08/18 20:51 Dose: 1 ea Nitroglycerin (Nitrostat) 0.4 mg SL UD PRN PRN Reason: Chest Pain Stop: 12/07/18 04:19 Tramadol HCl (Ultram) 25 - 50 mg PO Q4H PRN PRN Reason: Pain Stop: 12/07/18 04:19 _ (1) Sepsis Sepsis type: sepsis due to unspecified organism Qualified Code(s): A41.9 - Sepsis, unspecified organism
--- NOTE | 2018-11-09 17:53 | CT Scan Report ---
CT abd pelvis wo con CT DOSE: 703.02 mGycm HISTORY: Pain. Mass. r/o RLQ mass TECHNIQUE: Multiaxial CT images of the abdomen and pelvis were performed without contrast. A dose lo wering technique was utilized adhering to the principles of ALARA. COMPARISON STUDY: 11/06/2017 FINDINGS: Lung bases are considered clear. Minimal dependent basilar atelectasis. Erosive changes of the T11-T12 level are similar. Discitis and secondary osteomyelitis is considered. Similar but less prominent findings are seen at L2-L3. Configuration of liver spleen and pancreas are unremarkable. Laminectomy and fusion changes of the lumbar spine are again noted. Bowel pattern is nonobstructive. There is a right-sided spiculation hernia which has been described p reviously. A mildly distended loop of terminal ileum is present. The distention is an interval findin g. Bladder is midline. No significant free fluid within the pelvic cul-de-sac. There are several scattered colonic diverticu li. IMPRESSION: 1. Right anterior/lateral spigelian hernia containing a moderately distended loop of small bowel. 2. This distention represents an interval change compared to the prior study. 3. Findings of discitis and underlying osteomyelitis again noted at T11-T12 with potential early king tional changes at L2-L3. The above report was generated using voice recognition software. It may contain grammatical, syntax or spelling errors. Electronically signed by: Quinton Monte M.D. 11/09/2018 5:52 PM
[2018-11-09] MEDS ORDERED: CLINDAMYCIN 900 MG in DEXTROSE 5% 100 ML IV STA (18:35)
--- NOTE | 2018-11-09 18:47 | Surgery Consultation ---
Date of Consultation November 09, 2018 Assessment & Plan (1) Incarcerated ventral hernia: Patient has an incarcerated Spigelian hernia with a loop of bowel which is dilated. My concern would be for continued strangulation. I do feel she requires urgent repair of this hernia. I would normally use mesh however with her positive blood culture think she is at risk for infection. We will proceed with primary open repair. She does understand potential complications of bleeding infection bowel resection. History of Present Illness Attending Physician: Girish Perez MD History of Present Illness Called to see patient for persistent right lower quadrant pain. CAT scan ordered and shows a dilated loop of small bowel within a spit Spigelian hernia with more proximal bowel dilated. Patient with evidence of an incarcerated hernia. Patient was admitted to the hospital and is being treated with IV antibiotics for spinal osteomyelitis. She apparently has had prostatic valves placed. He is not on any anticoagulants at this time. She has had a recent positive blood cultures for MSSA in the past 2 days. Allergies Allergy/AdvReac Type Severity Reaction Status Date / Time vancomycin Allergy Severe rash, Verified 11/07/18 02:25 shortness of breath cefazolin Allergy rash Verified 11/07/18 03:28 Home Medications Home Medications Medication Instructions Recorded Confirmed Type metoprolol tartrate 50 mg PO BID 09/06/18 11/06/18 History valsartan 80 mg PO QAM 09/06/18 11/06/18 History aspirin 325 mg PO QAM 11/06/18 11/06/18 History diphenhydramine HCl [Benadryl] 25 mg PO Q6 PRN 11/06/18 11/06/18 History ferrous sulfate 325 mg PO BID 11/06/18 11/06/18 History fexofenadine 180 mg PO DAILY 11/06/18 11/06/18 History furosemide 80 mg PO QAM 11/06/18 11/06/18 History potassium chloride [Klor-Con M10] 10 meq PO BID 11/06/18 11/06/18 History Patient History Medical History Elevated troponin PAF (paroxysmal atrial fibrillation) (Chronic) CHF (congestive heart failure) (Chronic) HTN (hypertension) (Chronic) Neuropathy (Chronic) History of left heart catheterization (LHC) (Chronic) History of cardioversion (Chronic) Leg pain Surgical History History of appendectomy (Chronic) H/O colonoscopy (Chronic) S/P cholecystectomy (Chronic) History of tonsillectomy (Chronic) S/P AVR (aortic valve replacement) (Chronic) S/P MVR (mitral valve repair) (Chronic) H/O: hysterectomy (Chronic) H/O hernia repair (Chronic) Family History Other No significant family history Social History Current Living Situation: Family Current Living Situation Comment: "my son lives with me" Other Information That Helps Us Care for You: No Feels Safe at Home: Yes Safety Concerns: Feels Safe At This Time Smoking Status: Former smoker Do You Dip or Chew Tobacco: No Smoking End Date: 30 years ago Second Hand Exposure: No Tobacco Cessation Education Requested by Patient: No Hx Alcohol Use: No Hx Substance Use: No Beliefs That Will Affect Care: None Communication Ability: Effective Physical Exam 2 Vital Signs (Past 24 Hours): Last Vital Signs Temp 36.6 C 11/09/18 15:25 Pulse 60 11/09/18 17:22 Resp 18 11/09/18 15:36 BP 184/76 H 11/09/18 17:22 Pulse Ox 97 11/09/18 15:25 On examination she is awake and alert she is in no distress but does complain of right lower quadrant pain and tenderness. Her neck is supple head atraumatic sclera anicteric. Her lungs show no evidence of respiratory distress. Her abdomen is soft he does have a palpable mass in the right lower quadrant which is extremely tender to palpation extremities are warm with no rashes
[2018-11-09] MEDS ORDERED: BUPIVACAINE 0.5 % 5 MG/1 ML MPF 30ML VIAL ONE (19:08)
[2018-11-09] MEDS ORDERED: CEFAZOLIN 250 MG/ML 1 GM VIAL ONE (19:08)
[2018-11-09] MEDS ORDERED: fentaNYL citrate 100 MCG/2 ML VIAL ONE ×3 (19:18→20:54)
--- NOTE | 2018-11-09 19:24 | Anesthesiology Consultation ---
Date of Service November 09, 2018 Assessment & Plan (1) Encounter for pre-operative examination: Chart Review Chart Review: Acceptable Risk for Surgery Consults Requested none NPO Date Last Intake of Fluids: 11/09/18 Time Last Intake of Fluids: 18:30 Date Last Intake of Solids: 11/09/18 Time Last Intake of Solids: 18:30 History Surgery Operation Date: 11/09/18 18:45 Proposed Procedures p Ventral Hernia Repair - Oswaldo Moyer MD, FACS Height/Weight Height: 5 ft 1 in Weight: 69.1 kg Allergies Allergy/AdvReac Type Severity Reaction Status Date / Time vancomycin Allergy Severe rash, Verified 11/07/18 02:25 shortness of breath cefazolin Allergy rash Verified 11/07/18 03:28 Medications Home Medications Medication Instructions Recorded Confirmed Last Taken metoprolol tartrate 50 mg PO BID 09/06/18 11/06/18 Unknown valsartan 80 mg PO QAM 09/06/18 11/06/18 Unknown aspirin 325 mg PO QAM 11/06/18 11/06/18 Unknown diphenhydramine HCl [Benadryl] 25 mg PO Q6 PRN 11/06/18 11/06/18 Unknown ferrous sulfate 325 mg PO BID 11/06/18 11/06/18 Unknown fexofenadine 180 mg PO DAILY 11/06/18 11/06/18 Unknown furosemide 80 mg PO QAM 11/06/18 11/06/18 Unknown potassium chloride [Klor-Con M10] 10 meq PO BID 11/06/18 11/06/18 Unknown Active Medications Generic Name Dose Route Start Last Admin Trade Name Freq PRN Reason Stop Dose Admin Acetaminophen 650 mg 11/07/18 04:20 11/09/18 15:15 Tylenol PO 12/07/18 04:19 650 mg Q4H PRN Administration Pain or Fever Amlodipine Besylate 5 mg 11/08/18 19:15 11/09/18 08:30 Norvasc PO 12/08/18 19:14 5 mg QAM SIA Administration Aspirin 325 mg 11/07/18 09:00 11/09/18 08:30 Ecotrin PO 12/07/18 08:59 325 mg QAM SIA Administration Cetirizine HCl 10 mg 11/08/18 09:00 11/09/18 08:30 Zyrtec PO 12/08/18 08:59 10 mg QAM SIA Administration Ferrous Sulfate 325 mg 11/07/18 09:00 11/09/18 08:30 Feosol PO 12/07/18 08:59 325 mg BID SIA Administration Heparin Sodium (Porcine) 5,000 units 11/07/18 14:00 11/09/18 13:53 Heparin Sodium (Porcine) SQ 12/07/18 13:59 Not Given Q8 SIA Hydralazine HCl 10 mg 11/08/18 22:47 11/09/18 16:13 Apresoline PO 12/09/18 08:59 10 mg QID PRN Administration Hypertension Methylprednisolone 40 mg/ 0.64 mls @ 1.5 mls/min 11/07/18 11:00 11/09/18 10: 42 Syringe IV 12/07/18 10:14 1.5 mls/min Q12H SIA Administration Ertapenem 1,000 mg/ Sodium 60 mls @ 100 mls/hr 11/07/18 11:00 11/09/18 11:20 Chloride IV 12/19/18 10:44 Infused Q24H SIA Infusion Lidocaine 1 patch 11/07/18 04:20 11/09/18 08:30 Lidoderm 5% TD 12/07/18 04:19 Not Given QAM SIA Metoprolol Tartrate 50 mg 11/07/18 09:00 11/09/18 08:31 Lopressor PO 12/07/18 08:59 Not Given BID SIA Miscellaneous 1 ea 11/07/18 21:00 11/08/18 20:51 Remove Lidoderm Patch N/A 12/07/18 20:59 1 ea DAILY@2100 SIA Administration Past Medical History Medical History Elevated troponin PAF (paroxysmal atrial fibrillation) (Chronic) CHF (congestive heart failure) (Chronic) HTN (hypertension) (Chronic) Neuropathy (Chronic) History of left heart catheterization (LHC) (Chronic) History of cardioversion (Chronic) Leg pain Past Family History Family History Other No significant family history Past Surgical History Surgical History History of appendectomy (Chronic) H/O colonoscopy (Chronic) S/P cholecystectomy (Chronic) History of tonsillectomy (Chronic) S/P AVR (aortic valve replacement) (Chronic) S/P MVR (mitral valve repair) (Chronic) H/O: hysterectomy (Chronic) H/O hernia repair (Chronic) Social History Smoking Status: Former smoker Do You Dip or Chew Tobacco: No Smoking End Date: 30 years ago Hx Alcohol Use: No Hx Substance Use: No substance use type: does not use Physical Exam Vital Signs Last Vital Signs Temp 36.6 C 11/09/18 15:25 Pulse 60 11/09/18 17:22 Resp 18 11/09/18 15:36 BP 184/76 H 11/09/18 17:22 Pulse Ox 97 11/09/18 15:25 Testing Laboratory Results 11/09/18 06:02 11/09/18 06:02 PT 10.7 Seconds (9.0-12.0) 11/06/18 21:13 INR 1.1 (0.9-1.1) 11/06/18 21:13 APTT 26.4 Seconds (21.0-31.0) 11/06/18 21:13 Urine Color Yellow 11/06/18 21:25 Urine Appearance Cloudy (Clear) H 11/06/18 21:25 Urine pH 5.0 (4.5-7.5) 11/06/18 21:25 Ur Specific Bath 1.018 (1.000-1.030) 11/06/18 21:25 Urine Protein Negative (Negative) 11/06/18 21:25 Urine Glucose (UA) Negative (Negative) 11/06/18 21:25 Urine Ketones Negative (Negative) 11/06/18 21:25 Urine Nitrite Negative (Negative) 11/06/18 21:25 Ur Leukocyte Esterase Negative (Negative) 11/06/18 21:25 Urine WBC (Auto) 1-5 /hpf (0-5) 11/06/18 21:25 Urine RBC (Auto) 10-30 /hpf (0-4) H 11/06/18 21:25 U Hyaline Cast (Auto) 1-5 /lpf (0-5) 11/06/18 21:25 U Epithel Cells (Auto) >30 /lpf (0-5) H 11/06/18 21:25 Urine Bacteria (Auto) Negative (Negative) 11/06/18 21:25 11/06/18 21:13 Blood Culture - Preliminary Blood Staphylococcus aureus 11/06/18 21:15 Blood Culture - Preliminary Blood Staphylococcus aureus 11/09/18 15:21 POC Glucose 250 H
[2018-11-09] MEDS ORDERED: ePHEDrine sulfate 50 MG/ML AMP IV PRN (19:27)
[2018-11-09] MEDS ORDERED: DEXAMETHASONE SOD INJ 4 MG/ML VIAL IV PRN (19:27)
[2018-11-09] MEDS ORDERED: ATROPINE SULFATE 0.1 MG/ML 10ML SYR IV PRN (19:27)
[2018-11-09] MEDS ORDERED: fentaNYL citrate 100 MCG/2 ML VIAL IV PRN (19:27)
[2018-11-09] MEDS ORDERED: ONDANSETRON INJ 2 MG/ML 2 ML VIAL IV PRN ×2 (19:27→20:21)
[2018-11-09] MEDS ORDERED: LIDOCAINE HCL 2% 2 ML VIAL/AMP(20MG/ML) INFIL ONE (19:55)
[2018-11-09] MEDS ORDERED: SUCCINYLCHOLINE 100MG/5ML SYR ONE (19:55)
[2018-11-09] MEDS ORDERED: PROPOFOL IV EMULSION 10 MG/ML 20 ML VIAL IV ONE (19:55)
[2018-11-09] MEDS ORDERED: ROCURONIUM BROMIDE 10 MG/ML 5 ML VIAL ONE (20:09)
[2018-11-09] MEDS ORDERED: ACETAMINOPHEN 1,000 MG/100 ML VIAL IV ONE (20:17)
--- NOTE | 2018-11-09 20:17 | Operative Report ---
Post Operative Report Pre & Post Diagnosis Operation Date: 11/09/18 18:45 Pre-Op Diagnosis: Right-sided Spigelian hernia contains mesenteric fat Post-Op Diagnosis: Right-sided Spigelian hernia contains mesenteric fat - incarcerated Spigelian hernia Procedure Operation Date: 11/09/18 18:45 Actual Procedures p Open Right Ventral Hernia Repair(Right) - Oswaldo Moyer MD, FACS same- Spigelian hernia repair Surgeon Oswaldo Moyer MD, FACS [employer] nurses Estimated Blood Loss 10 Findings Consistent with Post-Op Diagnosis Specimens sac Description of Procedure see dictated note I attest to the content of the Intraoperative Record and any orders documented therein. Any exceptions are noted below.
[2018-11-09] MEDS ORDERED: MoRPHine SULFATE 4 MG/ML 1 ML CARP\\VIAL IV PRN (20:20)
[2018-11-09] MEDS ORDERED: MoRPHine SULFATE 2 MG/ML CARP IV PRN (20:20)
[2018-11-09] MEDS ORDERED: PROMETHAZINE HCL 12.5 MG in SODIUM CHLORIDE 0.9% 50 ML IV PRN (20:21)
--- NOTE | 2018-11-09 20:41 | Infectious Disease Progress Nt ---
Date of Service November 09, 2018 Assessment & Plan (1) Discitis thoracic region: Patient with thoracic diskitis and vertebral osteomyelitis with methicillin sensitive Staph aureus. Patient now status post repair of incarcerated hernia. Patient continue on IV antibiotics as before. Will follow. (2) Staphylococcal sepsis: Subjective Patient seen in follow-up for thoracic diskitis and osteomyelitis with Staph. Patient developed acute abdominal pain, had evidence of incarcerated hernia, now status post repair. Patient awake postop, no obvious distress. Review of Systems All systems reviewed & are unremarkable except as noted in HPI & below Physical Exam 2 Vital Signs (Past 24 Hours): Last Vital Signs Temp 36.7 C 11/09/18 18:55 Pulse 60 11/09/18 18:55 Resp 18 11/09/18 18:55 BP 173/60 H 11/09/18 18:55 Pulse Ox 96 11/09/18 18:55 Constitutional: WD/WN, vitals as above comfortable; no acute distress Eyes: PERRL, conjunctivae normal, anicteric sclerae ENMT: external ear and nose normal, oropharynx normal Neck: trachea midline, no thyromegaly neck nontender Respiratory: normal respiratory effort, lungs clear to auscultation normal percussion; does not use accessory muscles Cardiovascular: Rate/Rhythm: regular rate and regular rhythm Heart Sounds: normal S1, normal S2 and + murmur; no gallop and no cardiac rub Vessels: normal peripheral pulses; no JVD Gastrointestinal (Abdomen): Inspection/Auscultation: + abdomen distended and + hypoactive bowel sounds Percussion/Palpation: + abdomen tender; no hepatosplenomegaly Surgical dressing intact Musculoskeletal: Head/Neck/Chest: normocephalic, head atraumatic and neck supple Spine: + thoracic spinal tenderness Skin: no rashes, warm and dry normal turgor; no lesions Neurologic: patellar DTR's 2+ bilat, sensation intact no focal motor deficits Psychiatric: A+Ox3, euthymic affect Orientation: cooperative Lymphatic: no cervical or axillary lymphadenopathy no inguinal lymphadenopathy Results & Data Laboratory Results Short CBC 11/09/18 Range/Units 06:02 WBC 8.42 (4.8-10.8) K/uL Hgb 8.1 L (12.0-16.0) g/dL Hct 26.1 L (37-47) % Plt Count 226 (130-400) K/uL BMP 11/09/18 06:02 Sodium 140 Potassium 3.9 Chloride 109 H Carbon Dioxide 24 BUN 38 H Creatinine 1.03 Glucose 163 H Calcium 8.2 L Liver Function 11/09/18 Range/Units 06:02 Total Bilirubin 0.3 (0.2-1) mg/dl Direct Bilirubin < 0.1 (0-0.2) mg/dl AST 12 L (15-37) U/L ALT 27 (12-78) U/L Alkaline Phosphatase 54 (45-117) U/L Albumin 2.7 L (3.4-5.0) gm/dl Diagnostic Findings Microbiology 11/06/18 21:13 Blood Blood Culture - Preliminary Staphylococcus aureus 11/06/18 21:15 Blood Blood Culture - Preliminary Staphylococcus aureus
[2018-11-09] MEDS ORDERED: ONDANSETRON INJ 2 MG/ML 2 ML VIAL ONE (20:49)
[2018-11-09] MEDS ORDERED: NEOSTIGMINE METHYLSULFATE 5 MG/5 ML SYR ONE (20:49)
[2018-11-09] MEDS ORDERED: GLYCOPYRROLATE 0.2 MG/ML VIAL ONE (20:50)
[2018-11-09] MEDS ORDERED: HYDROmorphone INJ 1 MG/ML SYRINGE ONE (21:13)
[2018-11-09] MEDS: HYDROmorphone INJ 1 MG/ML SYRINGE IV PRN ×3 (21:14→21:29)
--- NOTE | 2018-11-09 21:39 | Anesthesiology Progress Note ---
Date of Service November 09, 2018 Anesthesia Post Procedure Vital Signs Vital Signs: Temp Pulse Pulse Resp BP BP Pulse Ox 11/09/18 21:25 60 21 164/86 H 93 11/09/18 21:15 60 20 169/63 H 93 11/09/18 21:05 55 L 17 163/67 H 99 11/09/18 20:55 59 L 17 140/81 99 11/09/18 20:45 61 17 163/86 H 99 11/09/18 20:36 36.6 C 64 24 179/76 H 99 11/09/18 18:55 36.7 C 60 18 173/60 H 96 11/09/18 17:22 60 184/76 H 11/09/18 15:36 60 18 173/68 H 11/09/18 15:25 36.6 C 61 18 189/76 H 97 11/09/18 11:10 60 18 175/70 H 95 11/09/18 07:15 36.5 C 59 L 18 157/75 H 96 11/09/18 04:27 36.5 C 60 18 162/71 H 98 11/09/18 00:11 160/73 H 11/08/18 22:44 63 160/71 H 163/70 H 95 11/08/18 22:41 36.6 C 57 L 18 162/72 H 93 Pain Intensity Head: Pain Intensity: 4 Notes Mental Status: alert / awake / arousable and participated in evaluation Patient Amnestic to Procedure: Yes Nausea / Vomiting: adequately controlled Pain: adequately controlled Airway Patency, RR, SpO2: stable & adequate BP & HR: stable & adequate Hydration State: stable & adequate Anesthetic Complications: no major complications apparent
[2018-11-09] MEDS: SODIUM CHLORIDE 0.9% 1000ML 1,000 ML IV SCH (22:21)
--- NOTE | 2018-11-09 23:09 | Operative Report ---
DATE OF OPERATION: 11/09/2018 NAME OF OPERATION: Repair of incarcerated spigelian hernia. PREOPERATIVE DIAGNOSIS: Incarcerated spigelian hernia, right lower quadrant. POSTOPERATIVE DIAGNOSIS: Incarcerated spigelian hernia, right lower quadrant. STAFF SURGEON: Oswaldo Moyer MD MAKE UP EDITOR: Nurses. ANESTHESIA: General. DESCRIPTION OF PROCEDURE: The patient was brought in the operating room and placed on the operating table in supine position. Her right lower quadrant and lower abdomen were prepped and draped in usual fashion. Initially, she had a palpable mass in the right lower quadrant. After a paralyzing anesthesia, this did reduce. On CAT scan, there appeared to be a loop of bowel. Transverse incision was made over the area carrying dissection down through the external oblique fibers, identifying the hernia sac. The sac was opened and followed down to the fascia. The fascial defect was approximately 2 cm in diameter. The sac and surrounding tissue were dissected free and then the fascia reapproximated using interrupted #1 Ethibond suture. The external oblique fibers were then closed over the site using two #1 Ethibond sutures. Subcutaneous tissue reapproximated using 2-0 plain suture and the skin reapproximated using rosetta. There is some clear serous fluid, but no bloody ascites. I attest to the content of the Intraoperative Record and any orders documented therein. Any exception s are noted below.
[2018-11-10] MEDS: HEPARIN SOD 5,000 UNIT/0.5 ML VIAL SQ SCH ×3 (05:16→20:30)
[2018-11-10 06:03] LABS: Albumin Level 2.6 gm/dl (3.4-5.0); BUN Creatinine Ratio 39.6 (10-20); Calcium 8.3 mg/dl (8.5-10.1); Creatinine Clr Calc Pharmacy 54.6 ml/min; Est GFR (Non-African American) 69.9; Potassium 4.1 mmol/L (3.5-5.1)
[2018-11-10 06:06] LABS: Albumin Globulin Ratio 0.7 (0.9-2); Bilirubin,Total 0.3 mg/dl (0.2-1); Globulin 3.8 gm/dl (2.5-4.0); Phosphorus 3.2 mg/dl (2.5-4.9); Total Protein 6.4 gm/dl (6.4-8.2)
[2018-11-10] MEDS: ACETAMINOPHEN 325 MG TAB PO PRN (06:18)
--- NOTE | 2018-11-10 06:18 | Progress Note ---
Date of Service November 10, 2018 Assessment & Plan (1) Incarcerated ventral hernia: s/p repair incarcerated Spigelian hernia- no mesh with recent positive blood cultures. Cont prior atbx, adv diet as tolerated has rosetta- will remove in office Subjective pt feels better- had incarcerated small bowel w/n hernia some incisional pain Physical Exam 2 Vital Signs (Past 24 Hours): Last Vital Signs Temp 36.6 C 11/10/18 03:20 Pulse 60 11/10/18 03:20 Resp 16 11/10/18 03:20 BP 132/62 11/10/18 03:20 Pulse Ox 94 11/10/18 03:20 dressing intact- dry
--- NOTE | 2018-11-10 07:46 | Anesthesiology Progress Note ---
Date of Service November 10, 2018 Anesthesia Post Procedure Vital Signs Vital Signs: Temp Pulse Pulse Pulse Resp BP BP 11/10/18 06:46 36.6 C 60 18 154/68 H 11/10/18 03:20 36.6 C 60 16 132/62 11/10/18 01:15 36.3 C L 92 H 22 144/75 H 11/10/18 00:08 36.3 C L 60 20 148/72 H 11/09/18 23:10 36.5 C 60 18 149/67 H 11/09/18 23:00 60 11/09/18 22:40 36.4 C L 71 18 183/75 H 11/09/18 22:14 60 11/09/18 22:10 36.5 C 60 18 182/65 H 11/09/18 21:45 36.6 C 60 16 167/77 H 11/09/18 21:35 60 16 178/73 H 11/09/18 21:25 60 21 164/86 H 11/09/18 21:15 60 20 169/63 H 11/09/18 21:05 55 L 17 163/67 H 11/09/18 20:55 59 L 17 140/81 11/09/18 20:45 61 17 163/86 H 11/09/18 20:36 36.6 C 64 24 179/76 H 11/09/18 18:55 36.7 C 60 18 173/60 H 11/09/18 17:22 60 184/76 H 11/09/18 15:36 60 18 173/68 H 11/09/18 15:25 36.6 C 61 18 189/76 H 11/09/18 11:10 60 18 175/70 H Pulse Ox 11/10/18 06:46 94 11/10/18 03:20 94 11/10/18 01:15 94 11/10/18 00:08 98 11/09/18 23:10 95 11/09/18 23:00 11/09/18 22:40 95 11/09/18 22:14 11/09/18 22:10 96 11/09/18 21:45 100 11/09/18 21:35 100 11/09/18 21:25 93 11/09/18 21:15 93 11/09/18 21:05 99 11/09/18 20:55 99 11/09/18 20:45 99 11/09/18 20:36 99 11/09/18 18:55 96 11/09/18 17:22 11/09/18 15:36 11/09/18 15:25 97 11/09/18 11:10 95 Pain Intensity Head: Pain Intensity: 2 Notes Mental Status: alert / awake / arousable and participated in evaluation Patient Amnestic to Procedure: Yes Nausea / Vomiting: adequately controlled Pain: adequately controlled Airway Patency, RR, SpO2: stable & adequate BP & HR: stable & adequate Hydration State: stable & adequate Anesthetic Complications: no major complications apparent and Pt Satisfied with anesthetic care
[2018-11-10] MEDS: METOPROLOL TARTRATE 50 MG TAB PO SCH ×2 (08:05→20:30)
[2018-11-10] MEDS: LIDOCAINE 5% 1 PATCH TD SCH (08:05)
[2018-11-10] MEDS: CETIRIZINE HCL 10 MG TABLET PO SCH (08:05)
[2018-11-10] MEDS: ASPIRIN 325 MG ECTAB PO SCH (08:06)
[2018-11-10] MEDS: FERROUS SULFATE 325 MG TAB PO SCH ×2 (08:06→20:31)
[2018-11-10] MEDS: AMLODIPINE BESYLATE 5 MG TAB PO SCH (08:06)
[2018-11-10] MEDS: ERTAPENEM SODIUM 1,000 MG in SODIUM CHLORIDE 0.9% 50 ML IV SCH (10:46)
[2018-11-10] MEDS: TRAMADOL HCL 50 MG TABLET PO PRN ×2 (11:48→20:29)
[2018-11-10] MEDS: methylPREDNISolone 40 MG in SYRINGE 0 ML IV SCH ×2 (11:49→21:55)
--- NOTE | 2018-11-10 13:38 | Hospitalist Progress Note ---
Date of Service November 09, 2018 Assessment & Plan (1) Incarcerated ventral hernia: Noted to have obstructed spigelian hernia right lower quadrant in CT scan Appreciate surgery input and recommendation Status post surgical reduction of the ventral hernia Clinically much better today Management as per surgery (2) Sepsis: SIRS plus lactic acid elevation plus ARF Secondary to spinal osteomyelitis hx septic arthritis right shoulder, left knee, PPM infection (MSSA as per records) status post completion of recent antibiotic Rx Clinically better denies any fever and/or chills We will continue current antibiotic (3) Discitis thoracic region: (4) Osteomyelitis of thoracic spine: ID consult RE spinal osteomyelitis-appreciate input and recommendation Orthopedic spine consult RE spinal osteomyelitis-appreciate input and recommendation For conservative management Patient seems to be free of pain at rest We will continue current antibiotic as per ID recommendation Will need PICC line and possible placement on discharge (5) Staphylococcal sepsis: Has been on intravenous daptomycin and ertapenem as per ID Remains afebrile Blood culture is positive for staph Continue with intravenous ertapenem (6) PAF (paroxysmal atrial fibrillation): SSS sp PPM placement status post Watchman device implantation currently off anticoagulation due to bleeding concerns as per records Paced rhythm Rate is controlled now and off any anticoagulation Heart rate is controlled (7) CHF (congestive heart failure): Chronic diastolic heart failure (EF 50%, DAYANA 2018), patient on the dry side chronic left bundle branch block history CAD as per records hx of bioprosthetic AVR/MVR (8) HTN (hypertension): Has been getting metoprolol 50 mg twice daily Blood pressure is elevated Associated with headache We will add amlodipine 5 mg daily Blood pressure remains in the upper side of normal (9) S/P AVR (aortic valve replacement): No symptoms reported DVT prophylaxis. Heparin subcu (10) Right lower quadrant abdominal pain: Has been complaining of right lower quadrant pain since this morning No associated symptoms of nausea and/or vomiting or diarrhea Has had colonoscopy prior to cardiac surgery about 2-3 years ago An ill-defined palpable mass noted on examination of the right lower quadrant We will get CT of the abdomen and pelvis without contrast to evaluate As above Subjective She is a 73-year-old female with significant past medical history medical history of chronic diastolic heart failure (EF 50%, DAYANA 2018) SSS sp PPM status post Watchman device implantation currently off anticoagulation due to bleeding concerns as per records, recent history septic arthritis (right shoulder, left knee)/PPM pocket infection status post PPM replacement (MSSA sp IV antibiotic Rx ), chronic left bundle branch block, history CAD as per records, hx of bioprosthetic AVR/MVR, hypertension, Mmkljzu-Ncmuf-Hioxz disease as per records was admitted with back pain and noted to have thoracic spine discitis secondary to infection. 11/08 The patient was seen and examined She has been complaining of episodic headache likely secondary to strong perfume induced by fellow patient Blood pressure noted to be high Back pain seems to be stable when she is not moving her Denies any other symptoms 11/09 The patient was seen and examined the medical unit She has been complaining of right lower quadrant pain since this morning Denies any nausea and/or vomiting associated with it No diarrhea Has had colonoscopy prior to cardiac surgery about 2-3 years ago 11/10 The patient was seen and examined in telemetry Status post surgery for obstructed spigelian hernia Has been feeling a lot better with minimal pain at the operation site Physical Exam 2 Vital Signs (Past 24 Hours): Last Vital Signs Temp 36.6 C 11/09/18 15:25 Pulse 60 11/09/18 17:22 Resp 18 11/09/18 15:36 BP 184/76 H 11/09/18 17:22 Pulse Ox 97 11/09/18 15:25 Constitutional: WD/WN, vitals as above + ill appearing Eyes: PERRL, conjunctivae normal, anicteric sclerae ENMT: external ear and nose normal, oropharynx normal Neck: trachea midline, no thyromegaly Respiratory: normal respiratory effort; no respiratory distress Auscultation: lungs clear to auscultation bilaterally Cardiovascular: Heart Sounds: normal S1, normal S2 and + abnormal opening sounds (Prosthetic valve sound) Gastrointestinal (Abdomen): Inspection/Auscultation: + abdomen distended ( Minimally distended) and normal bowel sounds Percussion/Palpation: + abdomen tender (Right lower quadrant with a palpable mass) Neurologic: PERRL, EOMI, accommodation nl, no face palsy, no dysarthria Results & Data Laboratory Results [facility] 11/10/18 05:13 Sodium 141 Potassium 4.1 Chloride 111 H Carbon Dioxide 23 BUN 33 H Creatinine 0.84 Glucose 146 H Calcium 8.3 L Liver Function 11/10/18 Range/Units 05:13 Total Bilirubin 0.3 (0.2-1) mg/dl AST 8 L (15-37) U/L ALT 21 (12-78) U/L Alkaline Phosphatase 49 (45-117) U/L Albumin 2.6 L (3.4-5.0) gm/dl Medications Administered Current Inpatient Medications Acetaminophen (Tylenol) 650 mg PO Q4H PRN PRN Reason: Pain or Fever Stop: 12/07/18 04:19 Last Admin: 11/10/18 06:18 Dose: 650 mg [facility]ine [facility] Stop: 12/08/18 19:14 Last Admin: 11/10/18 08:06 Dose: 5 mg Aspirin (Ecotrin) 325 mg PO [facility] Stop: 12/07/18 08:59 Last Admin: 11/10/18 08:06 Dose: 325 mg Cetirizine HCl (Zyrtec) [facility] Stop: 12/08/18 08:59 Last Admin: 11/10/18 08:05 Dose: 10 mg Diphenhydramine HCl (Benadryl) 12.5 mg IV Q6H PRN PRN Reason: Itching Stop: 12/07/18 10:02 Ferrous Sulfate (Feosol) 325 mg PO BID [facility] Stop: 12/07/18 08:59 Last Admin: 11/10/18 08:06 Dose: 325 mg Heparin Sodium (Porcine) (Heparin Sodium (Porcine)) 5,000 units SQ Q8 [facility] Stop: 12/07/18 13:59 Last Admin: 11/10/18 05:16 Dose: 5,000 units Hydralazine HCl (Apresoline) 10 mg PO QID PRN PRN Reason: Hypertension Stop: 12/09/18 08:59 Last Admin: 11/09/18 16:13 Dose: 10 mg Hydromorphone HCl (Dilaudid) 0.5 mg IV Q3H PRN PRN Reason: Pain Stop: 11/21/18 08:51 Prochlorperazine 5 mg/ Syringe 5 mls @ 5 mls/min IV Q6H PRN PRN Reason: Nausea And Vomiting Stop: 12/07/18 04:19 Methylprednisolone 40 mg/ (Syringe) 0.64 mls @ 1.5 mls/min IV Q12H [facility] Stop: 12/07/18 10:14 Last Admin: 11/10/18 11:49 Dose: 1.5 mls/min Ertapenem 1,000 mg/ Sodium (Chloride) 60 mls @ 100 mls/hr IV Q24H [facility] Stop: 12/19/18 10:44 Last Infusion: 11/10/18 11:23 Dose: Infused Sodium Chloride (Nss 1000ml) 1,000 mls @ 50 mls/hr IV .Q20H [facility] Stop: 12/09/18 20:29 Last Infusion: 11/10/18 12:44 Dose: 50 mls/hr Promethazine HCl 12.5 mg/ (Sodium Chloride) 50.5 mls @ 204 mls/hr IV Q6H PRN PRN Reason: Nausea And Vomiting Stop: 12/09/18 20:20 Lidocaine (Lidoderm 5%) 1 patch TD QAM [facility] Stop: 12/07/18 04:19 Last Admin: 11/10/18 08:05 Dose: 1 patch Metoprolol Tartrate (Lopressor) 50 mg PO BID [facility] Stop: 12/07/18 08:59 Last Admin: 11/10/18 08:05 Dose: 50 mg Miscellaneous (Remove Lidoderm Patch) 1 ea N/A DAILY@2100 [facility] Stop: 12/07/18 20:59 Last Admin: 11/09/18 22:24 Dose: 1 ea Morphine Sulfate (Morphine Sulfate) 2 mg IV 4XDQ3H PRN PRN Reason: Pain Stop: 11/23/18 20:19 Nitroglycerin (Nitrostat) 0.4 mg SL UD PRN PRN Reason: Chest Pain Stop: 12/07/18 04:19 Ondansetron HCl (Zofran) 4 mg IV 4XDQ4H PRN PRN Reason: Nausea Stop: 12/09/18 20:20 Tramadol HCl (Ultram) 25 - 50 mg PO Q4H PRN PRN Reason: Pain Stop: 12/07/18 04:19 Last Admin: 11/10/18 11:48 Dose: 50 mg _ (1) Sepsis Sepsis type: sepsis due to unspecified organism Qualified Code(s): A41.9 - Sepsis, unspecified organism
[2018-11-11 05:58] LABS: Hemoglobin 7.6 g/dL (12.0-16.0); Immature Granulocytes # (auto) 0.07 K/uL (0.00-0.02); Immature Granulocytes % (auto) 1.2 %; Lymphocytes # (auto) 0.85 K/uL (1.2-3.4); Lymphocytes % (auto) 14.1 %; Mean Corpuscular Hgb Conc 30.4 g/dL (32-36); Mean Corpuscular Volume 86.5 fL (80-100); Mean Platelet Volume 9.2 fL (7.4-10.4); Monocytes # (auto) 0.29 K/uL (0.11-0.59); Monocytes % (auto) 4.8 %; Neutrophils # (auto) 4.83 K/uL (1.4-6.5); Neutrophils % (auto) 79.9 %; Platelet Count 203 K/uL (130-400); RDW Coefficient of Variation 17.4 % (11.5-14.5); RDW Standard Deviation 54.6 fL (36.4-46.3); Red Blood Count 2.89 M/uL (4.2-5.4); White Blood Count 6.04 K/uL (4.8-10.8)
[2018-11-11 06:23] LABS: BUN Creatinine Ratio 34.8 (10-20); Calcium 8.5 mg/dl (8.5-10.1); Creatinine Clr Calc Pharmacy 57.9 ml/min; Est GFR (African American) 84.7; Est GFR (Non-African American) 73.1; Magnesium 2.3 mg/dl (1.8-2.4); Potassium 4.1 mmol/L (3.5-5.1)
[2018-11-11 07:03] LABS: Estimated Average Glucose 108 mg/dl
[2018-11-11] MEDS: HEPARIN SOD 5,000 UNIT/0.5 ML VIAL SQ SCH ×3 (07:12→20:25)
[2018-11-11] MEDS: FERROUS SULFATE 325 MG TAB PO SCH ×2 (07:25→20:25)
[2018-11-11] MEDS: ASPIRIN 325 MG ECTAB PO SCH (07:26)
[2018-11-11] MEDS: METOPROLOL TARTRATE 50 MG TAB PO SCH ×2 (07:26→20:24)
[2018-11-11] MEDS: CETIRIZINE HCL 10 MG TABLET PO SCH (07:26)
[2018-11-11] MEDS: LIDOCAINE 5% 1 PATCH TD SCH (07:27)
[2018-11-11] MEDS: AMLODIPINE BESYLATE 5 MG TAB PO SCH (07:27)
[2018-11-11] MEDS: ACETAMINOPHEN 325 MG TAB PO PRN ×2 (08:09→17:09)
[2018-11-11] MEDS ORDERED: SODIUM CHLORIDE 0.9% 250 ML IV PRN (08:52)
[2018-11-11] MEDS: HydrALAZINE 10 MG TAB PO PRN (10:52)
[2018-11-11] MEDS ORDERED: HydrALAZINE HCL 20 MG/ML VIAL IV STA (11:30)
[2018-11-11] MEDS: methylPREDNISolone 40 MG in SYRINGE 0 ML IV SCH (11:49)
[2018-11-11] MEDS: ERTAPENEM SODIUM 1,000 MG in SODIUM CHLORIDE 0.9% 50 ML IV SCH (12:50)
[2018-11-11] MEDS: SODIUM CHLORIDE 0.9% 1000ML 1,000 ML IV SCH ×2 (12:50→14:52)
--- NOTE | 2018-11-11 15:12 | Hospitalist Progress Note ---
Date of Service November 11, 2018 Assessment & Plan (1) Incarcerated ventral hernia: Noted to have obstructed spigelian hernia right lower quadrant in CT scan Appreciate surgery input and recommendation Status post surgical reduction of the ventral hernia Management as per surgery Minimal pain at the surgery site Denies any other symptoms (2) Sepsis: SIRS plus lactic acid elevation plus ARF Secondary to spinal osteomyelitis hx septic arthritis right shoulder, left knee, PPM infection (MSSA as per records) status post completion of recent antibiotic Rx Clinically better denies any fever and/or chills We will continue current antibiotic (3) Discitis thoracic region: (4) Osteomyelitis of thoracic spine: ID consult RE spinal osteomyelitis-appreciate input and recommendation Orthopedic spine consult RE spinal osteomyelitis-appreciate input and recommendation For conservative management Patient seems to be free of pain at rest We will continue current antibiotic as per ID recommendation Will need PICC line and possible placement on discharge Denies any pain at rest No tenderness along the thoracic and lumbar spine (5) Staphylococcal sepsis: Has been on intravenous daptomycin and ertapenem as per ID Remains afebrile Blood culture is positive for staph Continue with intravenous ertapenem (6) PAF (paroxysmal atrial fibrillation): SSS sp PPM placement status post Watchman device implantation currently off anticoagulation due to bleeding concerns as per records Paced rhythm Rate is controlled now and off any anticoagulation Heart rate is controlled (7) CHF (congestive heart failure): Chronic diastolic heart failure (EF 50%, DAYANA 2018), patient on the dry side chronic left bundle branch block history CAD as per records hx of bioprosthetic AVR/MVR (8) HTN (hypertension): Has been getting metoprolol 50 mg twice daily Blood pressure is elevated Associated with headache We will add amlodipine 5 mg daily Blood pressure remains in the upper side of normal Blood pressure has been elevated Likely in part due to use of steroids for recent vancomycin allergy Will DC Solu-Medrol Hydralazine 25 mg 3 times daily added (9) S/P AVR (aortic valve replacement): No symptoms reported DVT prophylaxis. Heparin subcu (10) Right lower quadrant abdominal pain: Has been complaining of right lower quadrant pain since this morning No associated symptoms of nausea and/or vomiting or diarrhea Has had colonoscopy prior to cardiac surgery about 2-3 years ago An ill-defined palpable mass noted on examination of the right lower quadrant We will get CT of the abdomen and pelvis without contrast to evaluate As above Subjective She is a 73-year-old female with significant past medical history medical history of chronic diastolic heart failure (EF 50%, DAYANA 2018) SSS sp PPM status post Watchman device implantation currently off anticoagulation due to bleeding concerns as per records, recent history septic arthritis (right shoulder, left knee)/PPM pocket infection status post PPM replacement (MSSA sp IV antibiotic Rx ), chronic left bundle branch block, history CAD as per records, hx of bioprosthetic AVR/MVR, hypertension, Izvlypv-Cnwth-Pzcpa disease as per records was admitted with back pain and noted to have thoracic spine discitis secondary to infection. 11/08 The patient was seen and examined She has been complaining of episodic headache likely secondary to strong perfume induced by fellow patient Blood pressure noted to be high Back pain seems to be stable when she is not moving her Denies any other symptoms 11/09 The patient was seen and examined the medical unit She has been complaining of right lower quadrant pain since this morning Denies any nausea and/or vomiting associated with it No diarrhea Has had colonoscopy prior to cardiac surgery about 2-3 years ago 11/10 The patient was seen and examined in telemetry Status post surgery for obstructed spigelian hernia Has been feeling a lot better with minimal pain at the operation site 11/11 She has been feeling little better today She is out of bed on a chair without any acute symptoms Noted to have very high blood pressure Denies any chest pain and/or palpitation Physical Exam 2 Vital Signs (Past 24 Hours): Last Vital Signs Temp 36.7 C 11/11/18 14:44 Pulse 91 H 11/11/18 14:44 Resp 24 11/11/18 14:44 BP 186/70 H 11/11/18 14:44 Pulse Ox 98 11/11/18 14:44 Constitutional: WD/WN, vitals as above + acute distress (Complains of minimal pain right lower quadrant) and + ill appearing Eyes: PERRL, conjunctivae normal, anicteric sclerae ENMT: external ear and nose normal, oropharynx normal Neck: trachea midline, no thyromegaly Respiratory: normal respiratory effort; no respiratory distress Auscultation: lungs clear to auscultation bilaterally Cardiovascular: Heart Sounds: normal S1, normal S2 and + abnormal opening sounds (Prosthetic valve sound) Gastrointestinal (Abdomen): Inspection/Auscultation: + abdomen distended ( Minimally distended) and normal bowel sounds Percussion/Palpation: + abdomen tender (Right lower quadrant with a palpable mass) Neurologic: PERRL, EOMI, accommodation nl, no face palsy, no dysarthria Results & Data Laboratory Results Short CBC 11/11/18 Range/Units 05:35 WBC 6.04 (4.8-10.8) K/uL Hgb 7.6 L (12.0-16.0) g/dL Hct 25.0 L (37-47) % Plt Count 203 (130-400) K/uL BMP 11/11/18 05:35 Sodium 138 Potassium 4.1 Chloride 110 H Carbon Dioxide 25 BUN 28 H Creatinine 0.81 Glucose 149 H Calcium 8.5 Medications Administered Current Inpatient Medications Acetaminophen (Tylenol) 650 mg PO Q4H PRN PRN Reason: Pain or Fever Stop: 12/07/18 04:19 Last Admin: 11/11/18 08:09 Dose: 650 mg Amlodipine Besylate (Norvasc) 5 mg PO QAM [facility] Stop: 12/08/18 19:14 Last Admin: 11/11/18 07:27 Dose: 5 mg Aspirin (Ecotrin) 325 mg PO QAM [facility] Stop: 12/07/18 08:59 Last Admin: 11/11/18 07:26 Dose: 325 mg Cetirizine HCl (Zyrtec) 10 mg PO QAM [facility] Stop: 12/08/18 08:59 Last Admin: 11/11/18 07:26 Dose: 10 mg Diphenhydramine HCl (Benadryl) 12.5 mg IV Q6H PRN PRN Reason: Itching Stop: 12/07/18 10:02 Ferrous Sulfate (Feosol) 325 mg PO BID [facility] Stop: 12/07/18 08:59 Last Admin: 11/11/18 07:25 Dose: 325 mg Heparin Sodium (Porcine) (Heparin Sodium (Porcine)) 5,000 units SQ Q8 [facility] Stop: 12/07/18 13:59 Last Admin: 11/11/18 14:51 Dose: 5,000 units Hydralazine HCl (Apresoline) 25 mg PO TID [facility] Stop: 12/11/18 13:59 Last Admin: 11/11/18 14:51 Dose: 25 mg Hydromorphone HCl (Dilaudid) 0.5 mg IV Q3H PRN PRN Reason: Pain Stop: 11/21/18 08:51 Prochlorperazine 5 mg/ Syringe 5 mls @ 5 mls/min IV Q6H PRN PRN Reason: Nausea And Vomiting Stop: 12/07/18 04:19 Ertapenem 1,000 mg/ Sodium (Chloride) 60 mls @ 100 mls/hr IV Q24H [facility] Stop: 12/19/18 10:44 Last Infusion: 11/11/18 13:26 Dose: Infused Sodium Chloride (Nss 1000ml) 1,000 mls @ 50 mls/hr IV .Q20H [facility] Stop: 12/09/18 20:29 Last Admin: 11/11/18 14:52 Dose: Not Given Promethazine HCl 12.5 mg/ (Sodium Chloride) 50.5 mls @ 204 mls/hr IV Q6H PRN PRN Reason: Nausea And Vomiting Stop: 12/09/18 20:20 Sodium Chloride (Nss 250ml) 250 mls @ 15 mls/hr IV .[id number] PRN PRN Reason: For Transfusion Stop: 11/11/18 23:59 Lidocaine (Lidoderm 5%) 1 patch TD QAM [facility] Stop: 12/07/18 04:19 Last Admin: 11/11/18 07:27 Dose: 1 patch Metoprolol Tartrate (Lopressor) 50 mg PO BID [facility] Stop: 12/07/18 08:59 Last Admin: 11/11/18 07:26 Dose: 50 mg Miscellaneous (Remove Lidoderm Patch) 1 ea N/A DAILY@2100 [facility] Stop: 12/07/18 20:59 Last Admin: 11/10/18 20:31 Dose: 1 ea Morphine Sulfate (Morphine Sulfate) 2 mg IV 4XDQ3H PRN PRN Reason: Pain Stop: 11/23/18 20:19 Nitroglycerin (Nitrostat) 0.4 mg SL UD PRN PRN Reason: Chest Pain Stop: 12/07/18 04:19 Ondansetron HCl (Zofran) 4 mg IV 4XDQ4H PRN PRN Reason: Nausea Stop: 12/09/18 20:20 Tramadol HCl (Ultram) 25 - 50 mg PO Q4H PRN PRN Reason: Pain Stop: 12/07/18 04:19 Last Admin: 02 20:29 Dose: 50 mg _ (1) Sepsis Sepsis type: sepsis due to unspecified organism Qualified Code(s): A41.9 - Sepsis, unspecified organism
--- NOTE | 2018-11-11 15:23 | Surgery Progress Note ---
Date of Service November 11, 2018 Assessment & Plan (1) Incarcerated ventral hernia: POD # 2 s/p repair of incarcerated spigelian hernia -vitals stable, afebrile - H&H 7.6/25.0 this morning, s/p 1 unit of PRBCs - post op pain controlled - tolerating diet Plan: Continue heart healthy diet Continue pain mangement prn Continue medical management repeat cbc , monitor H&H s/p transfusion OOB to chair/ambulate SCDs for DVT prophylaxis Dr. Cartwright has seen and examined pt, agrees with above Subjective feeling well had one unit of blood earlier no nausea or vomiting, tolerating heart healthy diet + flatus but no bowel movement minimal pain, mostly when up and moving or walking Physical Exam 2 Vital Signs (Past 24 Hours): Last Vital Signs Temp 36.7 C 11/11/18 14:44 Pulse 91 H 11/11/18 14:44 Resp 24 11/11/18 14:44 BP 186/70 H 11/11/18 14:44 Pulse Ox 98 11/11/18 14:44 Constitutional: WD/WN, vitals as above + obese; not ill appearing Respiratory: no respiratory distress Gastrointestinal (Abdomen): Inspection/Auscultation: abdomen not distended and + abnormal bowel sounds Percussion/Palpation: + abdomen tender (RLQ at incision site, appropriate post op) and abdomen soft; no guarding and abdomen not rigid Skin: no rashes, warm and dry Psychiatric: A+Ox3, euthymic affect Results & Data Laboratory Results 11/11/18 11/11/18 11/11/18 Range/Units 05:35 05:35 05:35 WBC 6.04 (4.8-10.8) K/uL RBC 2.89 L (4.2-5.4) M/uL Hgb 7.6 L (12.0-16.0) g/dL Hct 25.0 L (37-47) % MCV 86.5 (80-100) fL MCH 26.3 (25-34) pg MCHC 30.4 L (32-36) g/dL RDW Std Deviation 54.6 H (36.4-46.3) fL RDW Coeff of Christian 17.4 H (11.5-14.5) % Plt Count 203 (130-400) K/uL MPV 9.2 (7.4-10.4) fL Immature Gran % (Auto) 1.2 % Neut % (Auto) 79.9 % Lymph % (Auto) 14.1 % Jasper % (Auto) 4.8 % Eos % (Auto) 0.0 % Baso % (Auto) 0.0 % Immature Gran # (Auto) 0.07 H (0.00-0.02) K/uL Neut # (Auto) 4.83 (1.4-6.5) K/uL Lymph # (Auto) 0.85 L (1.2-3.4) K/uL Jasper # (Auto) 0.29 (0.11-0.59) K/uL Eos # (Auto) 0.00 (0-0.5) K/uL Baso # (Auto) 0.00 (0-0.2) K/uL Sodium 138 (136-145) mmol/L Potassium 4.1 (3.5-5.1) mmol/L Chloride 110 H (98-107) mmol/L Carbon Dioxide 25 (21-32) mmol/L Anion Gap 3.0 (3-11) BUN 28 H (7-18) mg/dl Creatinine 0.81 (0.6-1.2) mg/dl Est Cr Clr Drug Dosing 57.9 ml/min Est GFR ( Amer) 84.7 Est GFR (Non-Af Amer) 73.1 BUN/Creatinine Ratio 34.8 H (10-20) Glucose 149 H (70-99) mg/dl Estimat Average Glucose 108 mg/dl Hemoglobin A1c 5.4 (4.5-5.6) % Calcium 8.5 (8.5-10.1) mg/dl Magnesium 2.3 (1.8-2.4) mg/dl Blood Type Antibody Screen Crossmatch 11/09/18 Range/Units 19:09 WBC (4.8-10.8) K/uL RBC (4.2-5.4) M/uL Hgb (12.0-16.0) g/dL Hct (37-47) % MCV (80-100) fL MCH (25-34) pg MCHC (32-36) g/dL RDW Std Deviation (36.4-46.3) fL RDW Coeff of Christian (11.5-14.5) % Plt Count (130-400) K/uL MPV (7.4-10.4) fL Immature Gran % (Auto) % Neut % (Auto) % Lymph % (Auto) % Jasper % (Auto) % Eos % (Auto) % Baso % (Auto) % Immature Gran # (Auto) (0.00-0.02) K/uL Neut # (Auto) (1.4-6.5) K/uL Lymph # (Auto) (1.2-3.4) K/uL Jasper # (Auto) (0.11-0.59) K/uL Eos # (Auto) (0-0.5) K/uL Baso # (Auto) (0-0.2) K/uL Sodium (136-145) mmol/L Potassium (3.5-5.1) mmol/L Chloride (98-107) mmol/L Carbon Dioxide (21-32) mmol/L Anion Gap (3-11) BUN (7-18) mg/dl Creatinine (0.6-1.2) mg/dl Est Cr Clr Drug Dosing ml/min Est GFR ( Amer) Est GFR (Non-Af Amer) BUN/Creatinine Ratio (10-20) Glucose (70-99) mg/dl Estimat Average Glucose mg/dl Hemoglobin A1c (4.5-5.6) % Calcium (8.5-10.1) mg/dl Magnesium (1.8-2.4) mg/dl Blood Type A Negative Antibody Screen NEGATIVE Crossmatch See Detail
[2018-11-11] MEDS: TRAMADOL HCL 50 MG TABLET PO PRN (20:23)
[2018-11-12] MEDS ORDERED: HydrALAZINE HCL 20 MG/ML VIAL IV STA (01:03)
[2018-11-12] MEDS: HEPARIN SOD 5,000 UNIT/0.5 ML VIAL SQ SCH (05:08)
[2018-11-12 06:24] LABS: Basophils # (auto) 0.01 K/uL (0-0.2); Basophils % (auto) 0.1 %; Hematocrit (blood only) 29.2 % (37-47); Hemoglobin 9.1 g/dL (12.0-16.0); Immature Granulocytes % (auto) 2.2 %; Lymphocytes # (auto) 1.45 K/uL (1.2-3.4); Lymphocytes % (auto) 16.3 %; Mean Corpuscular Hgb Conc 31.2 g/dL (32-36); Mean Corpuscular Volume 86.9 fL (80-100); Monocytes # (auto) 0.95 K/uL (0.11-0.59); Monocytes % (auto) 10.7 %; Neutrophils % (auto) 70.7 %; Nucleated RBC # (auto) 0.02 K/uL (0-0); Nucleated RBC % (auto) 0.2 %; Platelet Count 210 K/uL (130-400); RDW Coefficient of Variation 17.5 % (11.5-14.5); RDW Standard Deviation 54.9 fL (36.4-46.3); Red Blood Count 3.36 M/uL (4.2-5.4); White Blood Count 8.91 K/uL (4.8-10.8)
[2018-11-12 06:56] LABS: BUN Creatinine Ratio 35.4 (10-20); Calcium 8.4 mg/dl (8.5-10.1); Creatinine Clr Calc Pharmacy 68.6 ml/min; Est GFR (African American) 101.5; Est GFR (Non-African American) 87.6; Magnesium 2.2 mg/dl (1.8-2.4)
[2018-11-12] MEDS: ACETAMINOPHEN 325 MG TAB PO PRN ×2 (07:54→20:38)
[2018-11-12] MEDS: FERROUS SULFATE 325 MG TAB PO SCH ×2 (07:55→20:35)
[2018-11-12] MEDS: ASPIRIN 325 MG ECTAB PO SCH (07:55)
[2018-11-12] MEDS: AMLODIPINE BESYLATE 5 MG TAB PO SCH (07:55)
[2018-11-12] MEDS: LIDOCAINE 5% 1 PATCH TD SCH (07:56)
[2018-11-12] MEDS: METOPROLOL TARTRATE 50 MG TAB PO SCH ×2 (07:56→20:35)
[2018-11-12] MEDS: CETIRIZINE HCL 10 MG TABLET PO SCH (07:56)
[2018-11-12] MEDS: SODIUM CHLORIDE 0.9% 1000ML 1,000 ML IV SCH (09:43)
--- NOTE | 2018-11-12 09:49 | Hospitalist Progress Note ---
Date of Service November 12, 2018 Assessment & Plan (1) Incarcerated ventral hernia: Noted to have obstructed spigelian hernia right lower quadrant in CT scan Status post surgical reduction of the ventral hernia Hg improved to 9.1 after pRBC transfusion HOLD heparin for now until Hg stable, active bleeding ruled out, check FOBT add Protonix also on ASA 325mg daily has history of bleeding in the past with coumadin resume DVT proph tomorrow, consider Lovenox SC daily overall stable post surgery except for HTN management noted below (2) Sepsis: SIRS plus lactic acid elevation plus ARF Secondary to spinal osteomyelitis hx septic arthritis right shoulder, left knee, PPM infection (MSSA as per records) status post completion of recent antibiotic Rx -- afebrile continue Ertapenem (3) Discitis thoracic region: (4) Osteomyelitis of thoracic spine: no back pain continue Ertapenem (5) Staphylococcal sepsis: Blood culture is positive for staph Continue with intravenous ertapenem (6) PAF (paroxysmal atrial fibrillation): SSS sp PPM placement status post Watchman device implantation currently off anticoagulation due to bleeding concerns as per records Paced rhythm Heart rate is controlled (7) CHF (congestive heart failure): Chronic diastolic heart failure (EF 50%, DAYANA 2018), patient on the dry side chronic left bundle branch block history CAD as per records hx of bioprosthetic AVR/MVR -- patient is positive 9 liters fluid balance usually on Lasix 80mg daily, held initially for acute renal failure will d/c fluids give Lasix 40mg IV if crea stable, resume usual Lasix 80mg po tomorrow (8) HTN (hypertension): likely from volume overload, IV steroids Lasix 40mg IV ordered Amlodipine and Hydralazine PO started yesterday on usual Metoprolol monitor (9) S/P AVR (aortic valve replacement): No symptoms reported DVT prophylaxis. hold Heparin Subcu until Hg consistently stable, FOBT negative also, patient considered not a good coumadin candidate due to history of bleeding in the past Subjective ff up for s/p hernia surgery, discitis seen resting in bed, comfortable required IV Hydralazine overnight reports post surgical pain on the RLQ, improving gradually denies nausea, vomiting no back pain, fever/chills reports arm/legs are more edematous no chest pain, dyspnea, palpitations, dizziness no other symptoms Physical Exam 2 Vital Signs (Past 24 Hours): Last Vital Signs Temp 36.4 C L 11/12/18 04:20 Pulse 60 11/12/18 04:20 Resp 21 11/12/18 04:20 BP 145/67 H 11/12/18 04:20 Pulse Ox 97 11/12/18 04:20 Physical Exam: General- oriented x 3, not in distress, speaks in sentences with no effort or accessory muscle use Eyes- anicteric Neck- no JVD Lungs- clear breath sounds bilaterally, no rales/wheezes Heart- normal rate, regular rhythm; no murmurs Abdomen- normal bowel sounds, nondistended, soft, nontender RLQ: rosetta intact, wound healing well, no discharge/bleeding Extremities-grade 1 lower leg edema, no calf tenderness/erythema/warmth Neuro- alert, oriented x 3; no gross focal neurologic deficits Skin- warm & dry Results & Data Laboratory Results Laboratory Results - last 24 hr 11/09/18 11/12/18 11/12/18 19:09 05:47 05:47 WBC 8.91 RBC 3.36 L Hgb 9.1 L Hct 29.2 L MCV 86.9 MCH 27.1 MCHC 31.2 L RDW Std Deviation 54.9 H RDW Coeff of Christian 17.5 H Plt Count 210 MPV 9.0 Immature Gran % (Auto) 2.2 Neut % (Auto) 70.7 Lymph % (Auto) 16.3 Arthur % (Auto) 10.7 Eos % (Auto) 0.0 Baso % (Auto) 0.1 Immature Gran # (Auto) 0.20 H Neut # (Auto) 6.30 Lymph # (Auto) 1.45 Arthur # (Auto) 0.95 H Eos # (Auto) 0.00 Baso # (Auto) 0.01 Absolute Nucleated RBC 0.02 H Nucleated RBC % (auto) 0.2 Sodium 139 Potassium 4.0 Chloride 111 H Carbon Dioxide 25 Anion Gap 3.0 BUN 24 H Creatinine 0.69 Est Cr Clr Drug Dosing 68.6 Est GFR ( Amer) 101.5 Est GFR (Non-Af Amer) 87.6 BUN/Creatinine Ratio 35.4 H Glucose 108 H Calcium 8.4 L Magnesium 2.2 Blood Type A Negative Antibody Screen NEGATIVE Crossmatch See Detail _ (1) Sepsis Sepsis type: sepsis due to unspecified organism Qualified Code(s): A41.9 - Sepsis, unspecified organism
[2018-11-12] MEDS ORDERED: FUROSEMIDE 20 MG in SYRINGE 0 ML IV ONE (10:00)
[2018-11-12] MEDS ORDERED: FUROSEMIDE 40 MG in SYRINGE 0 ML IV ONE (10:15)
[2018-11-12] MEDS: ERTAPENEM SODIUM 1,000 MG in SODIUM CHLORIDE 0.9% 50 ML IV SCH (10:37)
--- NOTE | 2018-11-12 10:48 | Surgery Progress Note ---
Date of Service November 12, 2018 Assessment & Plan (1) Incarcerated ventral hernia: POD # 3 s/p repair of incarcerated spigelian hernia H&H of 9.1 and 29.2 noted after 1 unit blood transfusion Continue heart healthy diet Continue pain mangement prn OOB to chair/ambulate SCDs for DVT prophylaxis Present on Admission?: Yes Subjective Postoperative day #3 feeling well no nausea or vomiting, tolerating heart healthy diet Passing flatus and had bowel movement minimal pain, mostly when up and moving or walking Physical Exam 2 Vital Signs (Past 24 Hours): Last Vital Signs Temp 36.4 C L 11/12/18 04:20 Pulse 60 11/12/18 04:20 Resp 21 11/12/18 04:20 BP 145/67 H 11/12/18 04:20 Pulse Ox 97 11/12/18 04:20 Gastrointestinal (Abdomen): Inspection/Auscultation: normal bowel sounds and + abdominal surgical incision (Clean, dry and intact); abdomen not distended Percussion/Palpation: + abdomen tender (Incisional only) and abdomen soft
[2018-11-12] MEDS ORDERED: PANTOprazole 40 MG in SYRINGE 0 ML IV SCH (11:00)
[2018-11-12 13:18] LABS: Hematocrit (blood only) 31.9 % (37-47)
[2018-11-12] MEDS: PANTOprazole 40 MG in SYRINGE 0 ML IV SCH (20:36)
[2018-11-13] MEDS: ACETAMINOPHEN 325 MG TAB PO PRN ×2 (04:39→11:29)
[2018-11-13] MEDS: AMLODIPINE BESYLATE 5 MG TAB PO SCH (08:48)
[2018-11-13] MEDS: PANTOprazole 40 MG in SYRINGE 0 ML IV SCH ×2 (08:48→20:24)
[2018-11-13] MEDS: FERROUS SULFATE 325 MG TAB PO SCH ×2 (08:49→20:25)
[2018-11-13] MEDS: CETIRIZINE HCL 10 MG TABLET PO SCH (08:49)
[2018-11-13] MEDS: ASPIRIN 325 MG ECTAB PO SCH (08:49)
[2018-11-13] MEDS: LIDOCAINE 5% 1 PATCH TD SCH (08:49)
[2018-11-13] MEDS: METOPROLOL TARTRATE 50 MG TAB PO SCH ×2 (08:49→20:25)
[2018-11-13] MEDS: ERTAPENEM SODIUM 1,000 MG in SODIUM CHLORIDE 0.9% 50 ML IV SCH (12:27)
--- NOTE | 2018-11-13 13:24 | Gastrointestinal Consultation ---
Date of Consultation November 13, 2018 Assessment & Plan (1) Sepsis: Present on Admission?: Yes (2) Osteomyelitis of thoracic spine: Present on Admission?: Yes (3) Incarcerated ventral hernia: Present on Admission?: Yes (4) Fecal occult blood test positive: Present on Admission?: Yes (5) Anemia: Pt is a 73 y/o female currently admitted w sepsis, osteomyelitis of spine and 4 days s/p ventral hernia repair; seen for anemia and FOBT positive result. Noted pt's blood ct had been improving since her 1U PRBC transfusion on 11/09/18. She hasn't had any s/s of carlos GI bleeding. + abd pain but on surgical site. No N/V, tolerating diet well. - Monitor H/H and transfuse prn - No current indication for endoscopic evaluation for active GI bleed. If continues to be anemic, recommend EGD/colonoscopy evaluation in outpt setting eventually after DC to r/o source of GI bleeding. - Antibx management for osteomyelitis per primary team and Infectious Disease. - F/U per Surgery after ventral hernia repair - GI will monitor peripherally, call if new questions/concerns arise. Present on Admission?: Yes Supervising Physician Co-Signing Physician Notes Patient with a history of a recent ventral hernia repair for an incarcerated hernia. We are consulted with regard to a positive fecal occult blood. This most likely related to her presentation with a in a car serrated ventral hernia. We certainly could perform an outpatient colonoscopy in 8-12 weeks once she has recovered from her recent surgical procedure. Physical examination No obvious distress Scleral icterus Impression: Patient with a recent bowel obstruction requiring a ventral hernia repair. We are consulted for fecal occult blood being positive. We could certainly performed a colonoscopy as an outpatient. Please call to any distal shins or concerns during the remainder of the hospital admission. GI to sign off for the present time. History of Present Illness Reason for Consultation: Anemia, GI bleed Requesting Physician: Dr. Girish Perez Attending Physician: Dr. Marilia Wallis History of Present Illness Pt is a 73 y/o female w PMHx of chronic diastolic HF, s/p AVR and MVR, hx of internal bleeding while on anticoagulation now has an implantation of Watchmann device and on ASA 325mg daily, hx of septic arthritis, L BBB, CAD, HTN, MSSA endocarditis, Charcot Megan Tooth disease currently admitted for sepsis, osteomyelitis of spine. She is currently covered w Ertapenem IV antibx. She has an incarcerated ventral hernia s/p repair by Dr. Moyer on 11/09/18. GI consulted as she was anemic w H/H 7.03/27 s/p 1U PRBC transfusion , now 08/02. She also tested positive in her FOBT. She denies any abd pain other than on surgical site , but no n/v, last BM last night. She denies any signs of blood per rectum or dark tarry stools. Last colonoscopy 2011 w hx of diverticulosis. Never had EGD before. Allergies Allergy/AdvReac Type Severity Reaction Status Date / Time vancomycin Allergy Severe rash, Verified 11/07/18 02:25 shortness of breath cefazolin Allergy rash Verified 11/07/18 03:28 Home Medications Home Medications Medication Instructions Recorded Confirmed Type metoprolol tartrate 50 mg PO BID 09/06/18 11/06/18 History valsartan 80 mg PO QAM 09/06/18 11/06/18 History aspirin 325 mg PO QAM 11/06/18 11/06/18 History diphenhydramine HCl [Benadryl] 25 mg PO Q6 PRN 11/06/18 11/06/18 History ferrous sulfate 325 mg PO BID 11/06/18 11/06/18 History fexofenadine 180 mg PO DAILY 11/06/18 11/06/18 History furosemide 80 mg PO QAM 11/06/18 11/06/18 History potassium chloride [Klor-Con M10] 10 meq PO BID 11/06/18 11/06/18 History Patient History Medical History Elevated troponin PAF (paroxysmal atrial fibrillation) (Chronic) CHF (congestive heart failure) (Chronic) HTN (hypertension) (Chronic) Neuropathy (Chronic) History of left heart catheterization (LHC) (Chronic) History of cardioversion (Chronic) Leg pain Surgical History History of appendectomy (Chronic) H/O colonoscopy (Chronic) S/P cholecystectomy (Chronic) History of tonsillectomy (Chronic) S/P AVR (aortic valve replacement) (Chronic) S/P MVR (mitral valve repair) (Chronic) H/O: hysterectomy (Chronic) H/O hernia repair (Chronic) Family History Other No significant family history Social History Current Living Situation: Family Current Living Situation Comment: "my son lives with me" Other Information That Helps Us Care for You: No Feels Safe at Home: Yes Safety Concerns: Feels Safe At This Time Smoking Status: Former smoker Do You Dip or Chew Tobacco: No Smoking End Date: 30 years ago Hx Alcohol Use: No Hx Substance Use: No Beliefs That Will Affect Care: None Communication Ability: Effective Review of Systems Constitutional: as per Subjective / HPI Respiratory: no cough and no dyspnea Cardiovascular: no chest pain, no lightheadedness and no edema Gastrointestinal: as per Subjective / HPI and + abdominal pain; no nausea, no vomiting, no pain with swallowing and no melena Physical Exam 2 Vital Signs (Past 24 Hours): Last Vital Signs Temp 36.6 C 11/13/18 11:59 Pulse 66 11/13/18 11:59 Resp 19 11/13/18 11:59 BP 180/68 H 11/13/18 11:59 Pulse Ox 96 11/13/18 11:59 Constitutional: WD/WN, vitals as above well groomed, cooperative and comfortable Eyes: PERRL, conjunctivae normal, anicteric sclerae ENMT: external ear and nose normal, oropharynx normal Respiratory: normal respiratory effort, lungs clear to auscultation Cardiovascular: RRR, no murmur, no edema Gastrointestinal (Abdomen): Inspection/Auscultation: normal bowel sounds Percussion/Palpation: + abdomen tender (generalized; s/p ventral hernia repair, RLQ surgical wounds with rosetta intact. ) and abdomen soft Skin: no rashes, warm and dry no jaundice Neurologic: Motor/Sensory: no asterixis Psychiatric: A+Ox3, euthymic affect Lymphatic: no lymphedema Results & Data Laboratory Results Laboratory Results - last 48 hr 11/12/18 11/12/18 11/12/18 05:47 05:47 11:30 WBC 8.91 RBC 3.36 L Hgb 9.1 L Hct 29.2 L MCV 86.9 MCH 27.1 MCHC 31.2 L RDW Std Deviation 54.9 H RDW Coeff of Christian 17.5 H Plt Count 210 MPV 9.0 Immature Gran % (Auto) 2.2 Neut % (Auto) 70.7 Lymph % (Auto) 16.3 [place] % (Auto) 10.7 Eos % (Auto) 0.0 Baso % (Auto) 0.1 Immature Gran # (Auto) 0.20 H Neut # (Auto) 6.30 Lymph # (Auto) 1.45 [place] # (Auto) 0.95 H Eos # (Auto) 0.00 Baso # (Auto) 0.01 Absolute Nucleated RBC 0.02 H Nucleated RBC % (auto) 0.2 Sodium 139 Potassium 4.0 Chloride 111 H Carbon Dioxide 25 Anion Gap 3.0 BUN 24 H Creatinine 0.69 Est Cr Clr Drug Dosing 68.6 Est GFR ( Amer) 101.5 Est GFR (Non-Af Amer) 87.6 BUN/Creatinine Ratio 35.4 H Glucose 108 H Calcium 8.4 L Magnesium 2.2 Stool Occult Bld Scrn Positive H 11/12/18 13:02 WBC RBC Hgb 10.0 L Hct 31.9 L MCV MCH MCHC RDW Std Deviation RDW Coeff of Christian Plt Count MPV Immature Gran % (Auto) Neut % (Auto) Lymph % (Auto) [place] % (Auto) Eos % (Auto) Baso % (Auto) Immature Gran # (Auto) Neut # (Auto) Lymph # (Auto) [place] # (Auto) Eos # (Auto) Baso # (Auto) Absolute Nucleated RBC Nucleated RBC % (auto) Sodium Potassium Chloride Carbon Dioxide Anion Gap BUN Creatinine Est Cr Clr Drug Dosing Est GFR ( Amer) Est GFR (Non-Af Amer) BUN/Creatinine Ratio Glucose Calcium Magnesium Stool Occult Bld Scrn Diagnostic Findings CT abd/pelvis w contrast 11/06/18: CT DOSE: 332.40 mGy.cm HISTORY: Acute low back and lower abdominal pain back pain TECHNIQUE: Multiaxial CT images of the abdomen and pelvis were performed following the use of intravenous contrast. A dose lowering technique was utilized adhering to the principles of ALARA. COMPARISON STUDY: Ultrasound of the gallbladder 02/23/2018, CTA chest 09/07/2018 FINDINGS: Subsegmental bibasilar atelectasis. No pneumatosis or pneumoperitoneum. Imaged inferior cardiac chambers are moderately enlarged. Partially imaged pacer leads. Prosthetic mitral valve. Prior cholecystectomy. Mild dilation of the common bile duct is likely on a postsurgical basis. Liver appears unremarkable. The hepatic and portal veins. Spleen, pancreas and right adrenal gland are unremarkable. Mild thickening about the left adrenal gland. Kidneys and ureters are unremarkable. Partially decompressed bladder with mild wall thickening. Prior hysterectomy. No adnexal mass lesions. Extensive mixed plaque formation about the abdominal aorta without aneurysm. IVC is unremarkable. Mildly prominent iliac chain lymph nodes measure up to 7 mm in short axis, likely physiologic. No small bowel obstruction. Multiple scattered air-fluid levels noted within nondilated loops of small bowel are likely on a physiologic basis. Large bowel is also unremarkable. The appendix appears normal within the abdominal right lower quadrant. A lower right anterior abdominal wall hernia suggestive of Spigelian hernia noted with diastases 1.8 cm containing mesenteric fat and nonobstructed loop of ileum. No ascites or mesenteric inflammation. Soft tissues appear unremarkable. Bones appear mildly demineralized. Laminectomy changes with posterior interbody ericka and screw fusion L4-L5. 4 mm anterolisthesis L4 on L5. Advanced intervertebral disc space narrowing is seen at several levels. Intervertebral disc space narrowing with endplate lucencies and erosive changes at T11-T12 are new from 09/07/2018. Moderate inflammatory stranding of the adjacent paraspinal tissues. Additionally, severe intervertebral disc space narrowing with mild endplate irregularity at 2-L3, age -indeterminate without surrounding inflammation. IMPRESSION: 1. Endplate erosive/lytic changes at the T11-T12 level are new from 09/07/2018 compatible with acute to subacute discitis osteomyelitis. Moderate infiltration of the adjacent prevertebral tissues without drainable fluid collection identified. Infectious disease consultation is needed. 2. No acute intra-abdominal or intrapelvic abnormality identified. 3. Right-sided Spigelian hernia contains mesenteric fat and a nonobstructed loop of ileum. 4. Additional findings as above. _ (1) Sepsis Sepsis type: sepsis due to unspecified organism Qualified Code(s): A41.9 - Sepsis, unspecified organism
--- NOTE | 2018-11-13 15:12 | Hospitalist Progress Note ---
Date of Service November 13, 2018 Assessment & Plan (1) Incarcerated ventral hernia: Noted to have obstructed spigelian hernia right lower quadrant in CT scan Appreciate surgery input and recommendation Status post surgical reduction of the ventral hernia Management as per surgery Minimal pain at the surgery site Denies any other symptoms A lot better clinically, has been tolerating diet denies any significant symptoms (2) Sepsis: SIRS plus lactic acid elevation plus ARF Secondary to spinal osteomyelitis hx septic arthritis right shoulder, left knee, PPM infection (MSSA as per records) status post completion of recent antibiotic Rx Clinically better denies any fever and/or chills We will continue current antibiotic Staph aureus bacteremia Discussed with ID specialist-will need intravenous ertapenem for 6 weeks in total (3) Discitis thoracic region: (4) Osteomyelitis of thoracic spine: ID consult RE spinal osteomyelitis-appreciate input and recommendation Orthopedic spine consult RE spinal osteomyelitis-appreciate input and recommendation For conservative management Patient seems to be free of pain at rest We will continue current antibiotic as per ID recommendation Will need PICC line and possible placement on discharge Faint PICC line placement x2 Double Corner Cutter consulted per possible JACC line (5) Staphylococcal sepsis: Has been on intravenous daptomycin and ertapenem as per ID Remains afebrile Blood culture is positive for staph Continue with intravenous ertapenem Intravenous ertapenem for a total of 6 weeks (6) PAF (paroxysmal atrial fibrillation): SSS sp PPM placement status post Watchman device implantation currently off anticoagulation due to bleeding concerns as per records Paced rhythm Rate is controlled now and off any anticoagulation Heart rate is controlled (7) CHF (congestive heart failure): Chronic diastolic heart failure (EF 50%, DAYANA 2018), patient on the dry side chronic left bundle branch block history CAD as per records hx of bioprosthetic AVR/MVR (8) HTN (hypertension): Has been getting metoprolol 50 mg twice daily Blood pressure is elevated Associated with headache We will add amlodipine 5 mg daily Blood pressure remains in the upper side of normal Blood pressure has been elevated Likely in part due to use of steroids for recent vancomycin allergy Will DC Solu-Medrol Hydralazine 25 mg 3 times daily added (9) S/P AVR (aortic valve replacement): No symptoms reported DVT prophylaxis. Heparin subcu Likely to need placement following central line placement (10) Right lower quadrant abdominal pain: Has been complaining of right lower quadrant pain since this morning No associated symptoms of nausea and/or vomiting or diarrhea Has had colonoscopy prior to cardiac surgery about 2-3 years ago An ill-defined palpable mass noted on examination of the right lower quadrant We will get CT of the abdomen and pelvis without contrast to evaluate As above (11) Anemia: Hemoglobin dropped below 8 Multifactorial etiology including chronic disease contributed by acute infection and surgery Status post 2 units of blood transfusion so far Subjective She is a 73-year-old female with significant past medical history medical history of chronic diastolic heart failure (EF 50%, DAYANA 2018) SSS sp PPM status post Watchman device implantation currently off anticoagulation due to bleeding concerns as per records, recent history septic arthritis (right shoulder, left knee)/PPM pocket infection status post PPM replacement (MSSA sp IV antibiotic Rx ), chronic left bundle branch block, history CAD as per records, hx of bioprosthetic AVR/MVR, hypertension, Wllhehe-Ygywa-Zzgka disease as per records was admitted with back pain and noted to have thoracic spine discitis secondary to infection. 11/08 The patient was seen and examined She has been complaining of episodic headache likely secondary to strong perfume induced by fellow patient Blood pressure noted to be high Back pain seems to be stable when she is not moving her Denies any other symptoms 11/09 The patient was seen and examined the medical unit She has been complaining of right lower quadrant pain since this morning Denies any nausea and/or vomiting associated with it No diarrhea Has had colonoscopy prior to cardiac surgery about 2-3 years ago 11/10 The patient was seen and examined in telemetry Status post surgery for obstructed spigelian hernia Has been feeling a lot better with minimal pain at the operation site 11/11 She has been feeling little better today She is out of bed on a chair without any acute symptoms Noted to have very high blood pressure Denies any chest pain and/or palpitation 11/13-the patient was seen by Dr. Ling on The patient was seen and examined in telemetry unit Remains stable as of today Denies any symptoms and the back pain is much improved Minimal abdominal pain at the surgery site Physical Exam 2 Vital Signs (Past 24 Hours): Last Vital Signs Temp 36.6 C 11/13/18 11:59 Pulse 66 11/13/18 11:59 Resp 19 11/13/18 11:59 BP 180/68 H 11/13/18 11:59 Pulse Ox 96 11/13/18 11:59 Physical Exam: Out of bed on a chair without any symptoms Constitutional: WD/WN, vitals as above Eyes: PERRL, conjunctivae normal, anicteric sclerae ENMT: external ear and nose normal, oropharynx normal Neck: trachea midline, no thyromegaly Respiratory: normal respiratory effort; no respiratory distress Auscultation: lungs clear to auscultation bilaterally Cardiovascular: Heart Sounds: normal S1, normal S2 and + abnormal opening sounds (Prosthetic valve sound) Gastrointestinal (Abdomen): Inspection/Auscultation: normal bowel sounds Percussion/Palpation: + abdomen tender (At the surgical incision site) and abdomen soft Neurologic: PERRL, EOMI, accommodation nl, no face palsy, no dysarthria Results & Data Medications Administered Current Inpatient Medications Acetaminophen (Tylenol) 650 mg PO Q4H PRN PRN Reason: Pain or Fever Stop: 12/07/18 04:19 Last Admin: 11/13/18 11:29 Dose: 650 mg Amlodipine Besylate (Norvasc) 5 mg PO QAM [facility] Stop: 12/08/18 19:14 Last Admin: 11/13/18 08:48 Dose: 5 mg Aspirin (Ecotrin) 325 mg PO QAM [facility] Stop: 12/07/18 08:59 Last Admin: 11/13/18 08:49 Dose: 325 mg Cetirizine HCl (Zyrtec) 10 mg PO QAM [facility] Stop: 12/08/18 08:59 Last Admin: 11/13/18 08:49 Dose: 10 mg Diphenhydramine HCl (Benadryl) 12.5 mg IV Q6H PRN PRN Reason: Itching Stop: 12/07/18 10:02 Ferrous Sulfate (Feosol) 325 mg PO BID [facility] Stop: 12/07/18 08:59 Last Admin: 11/13/18 08:49 Dose: 325 mg Heparin Sodium (Porcine) (Heparin Sodium (Porcine)) 5,000 units SQ Q8 [facility] Stop: 12/07/18 13:59 Last Admin: 11/12/18 05:08 Dose: Not Given Hydralazine HCl (Apresoline) 25 mg PO TID [facility] Stop: 12/11/18 13:59 Last Admin: 11/13/18 14:33 Dose: 25 mg Hydromorphone HCl (Dilaudid) 0.5 mg IV Q3H PRN PRN Reason: Pain Stop: 11/21/18 08:51 Prochlorperazine 5 mg/ Syringe 5 mls @ 5 mls/min IV Q6H PRN PRN Reason: Nausea And Vomiting Stop: 12/07/18 04:19 Ertapenem 1,000 mg/ Sodium (Chloride) 60 mls @ 100 mls/hr IV Q24H [facility] Stop: 12/19/18 10:44 Last Infusion: 11/13/18 13:04 Dose: Infused Promethazine HCl 12.5 mg/ (Sodium Chloride) 50.5 mls @ 204 mls/hr IV Q6H PRN PRN Reason: Nausea And Vomiting Stop: 12/09/18 20:20 Pantoprazole Sodium 40 mg/ (Syringe) 10 mls @ 5 mls/min IV BID [facility] Stop: 12/12/18 20:59 Last Admin: 11/13/18 08:48 Dose: 5 mls/min Lidocaine (Lidoderm 5%) 1 patch TD QAM [facility] Stop: 12/07/18 04:19 Last Admin: 11/13/18 08:49 Dose: 1 patch Metoprolol Tartrate (Lopressor) 50 mg PO BID [facility] Stop: 12/07/18 08:59 Last Admin: 11/13/18 08:49 Dose: 50 mg Miscellaneous (Remove Lidoderm Patch) 1 ea N/A DAILY@2100 [facility] Stop: 12/07/18 20:59 Last Admin: 11/12/18 20:35 Dose: 1 ea Morphine Sulfate (Morphine Sulfate) 2 mg IV 4XDQ3H PRN PRN Reason: Pain Stop: 11/23/18 20:19 Nitroglycerin (Nitrostat) 0.4 mg SL UD PRN PRN Reason: Chest Pain Stop: 12/07/18 04:19 Ondansetron HCl (Zofran) 4 mg IV 4XDQ4H PRN PRN Reason: Nausea Stop: 12/09/18 20:20 Tramadol HCl (Ultram) 25 - 50 mg PO Q4H PRN PRN Reason: Pain Stop: 12/07/18 04:19 Last Admin: 11/11/18 20:23 Dose: 50 mg _ (1) Sepsis Sepsis type: sepsis due to unspecified organism Qualified Code(s): A41.9 - Sepsis, unspecified organism
[2018-11-13] MEDS ORDERED: LIDOCAINE HCL 1% 20 ML VIAL ONE (15:47)
--- NOTE | 2018-11-13 20:09 | Infectious Disease Progress Nt ---
Date of Service November 13, 2018 Assessment & Plan (1) Discitis thoracic region: Patient with thoracic diskitis and vertebral osteomyelitis with methicillin sensitive Staph aureus. Now status post repair of incarcerated hernia. Patient will be continued on IV antibiotics, minimum of 6 weeks. Will follow. (2) Staphylococcal sepsis: Subjective Patient seen in follow-up for thoracic diskitis and osteomyelitis with Methicillin sensitive Staph aureus. Patient developed acute abdominal pain, had evidence of incarcerated hernia, now status post repair. Patient appears comfortable, pain improved. Remains afebrile. Review of Systems All systems reviewed & are unremarkable except as noted in HPI & below Physical Exam 2 Vital Signs (Past 24 Hours): Last Vital Signs Temp 36.6 C 11/13/18 11:59 Pulse 69 11/13/18 15:15 Resp 19 11/13/18 11:59 BP 180/68 H 11/13/18 11:59 Pulse Ox 96 11/13/18 11:59 Constitutional: WD/WN, vitals as above comfortable; no acute distress Eyes: PERRL, conjunctivae normal, anicteric sclerae ENMT: external ear and nose normal, oropharynx normal Neck: trachea midline, no thyromegaly neck nontender Respiratory: normal respiratory effort, lungs clear to auscultation normal percussion; does not use accessory muscles Cardiovascular: Rate/Rhythm: regular rate and regular rhythm Heart Sounds: normal S1, normal S2 and + murmur; no gallop and no cardiac rub Vessels: normal peripheral pulses; no JVD Gastrointestinal (Abdomen): Inspection/Auscultation: abdomen normal to inspection and normal bowel sounds Percussion/Palpation: + abdomen tender; no hepatosplenomegaly and no abdominal mass Musculoskeletal: Head/Neck/Chest: normocephalic, head atraumatic and neck supple Spine: + thoracic spinal tenderness Skin: no rashes, warm and dry normal turgor; no lesions Surgical site without evidence of infection Neurologic: patellar DTR's 2+ bilat, sensation intact no focal motor deficits Psychiatric: A+Ox3, euthymic affect Orientation: cooperative Lymphatic: no cervical or axillary lymphadenopathy no inguinal lymphadenopathy Results & Data Laboratory Results Laboratory Results - last 48 hr 11/12/18 11/12/18 11/12/18 05:47 05:47 11:30 WBC 8.91 RBC 3.36 L Hgb 9.1 L Hct 29.2 L MCV 86.9 MCH 27.1 MCHC 31.2 L RDW Std Deviation 54.9 H RDW Coeff of Christian 17.5 H Plt Count 210 MPV 9.0 Immature Gran % (Auto) 2.2 Neut % (Auto) 70.7 Lymph % (Auto) 16.3 [place] % (Auto) 10.7 Eos % (Auto) 0.0 Baso % (Auto) 0.1 Immature Gran # (Auto) 0.20 H Neut # (Auto) 6.30 Lymph # (Auto) 1.45 [place] # (Auto) 0.95 H Eos # (Auto) 0.00 Baso # (Auto) 0.01 Absolute Nucleated RBC 0.02 H Nucleated RBC % (auto) 0.2 Sodium 139 Potassium 4.0 Chloride 111 H Carbon Dioxide 25 Anion Gap 3.0 BUN 24 H Creatinine 0.69 Est Cr Clr Drug Dosing 68.6 Est GFR ( Amer) 101.5 Est GFR (Non-Af Amer) 87.6 BUN/Creatinine Ratio 35.4 H Glucose 108 H Calcium 8.4 L Magnesium 2.2 Stool Occult Bld Scrn Positive H 11/12/18 13:02 WBC RBC Hgb 10.0 L Hct 31.9 L MCV MCH MCHC RDW Std Deviation RDW Coeff of Christian Plt Count MPV Immature Gran % (Auto) Neut % (Auto) Lymph % (Auto) [place] % (Auto) Eos % (Auto) Baso % (Auto) Immature Gran # (Auto) Neut # (Auto) Lymph # (Auto) [place] # (Auto) Eos # (Auto) Baso # (Auto) Absolute Nucleated RBC Nucleated RBC % (auto) Sodium Potassium Chloride Carbon Dioxide Anion Gap BUN Creatinine Est Cr Clr Drug Dosing Est GFR ( Amer) Est GFR (Non-Af Amer) BUN/Creatinine Ratio Glucose Calcium Magnesium Stool Occult Bld Scrn Diagnostic Findings Microbiology 11/06/18 21:15 Blood Blood Culture - Final Staphylococcus aureus 11/06/18 21:13 Blood Blood Culture - Final Staphylococcus aureus
[2018-11-14 05:42] LABS: Basophils # (auto) 0.01 K/uL (0-0.2); Basophils % (auto) 0.1 %; Eosinophils # (auto) 0.54 K/uL (0-0.5); Eosinophils % (auto) 5.9 %; Hematocrit (blood only) 31.3 % (37-47); Hemoglobin 9.6 g/dL (12.0-16.0); Immature Granulocytes % (auto) 2.2 %; Lymphocytes # (auto) 1.81 K/uL (1.2-3.4); Lymphocytes % (auto) 19.8 %; Mean Corpuscular Hgb Conc 30.7 g/dL (32-36); Mean Corpuscular Volume 88.2 fL (80-100); Mean Platelet Volume 8.9 fL (7.4-10.4); Monocytes # (auto) 0.43 K/uL (0.11-0.59); Monocytes % (auto) 4.7 %; Neutrophils # (auto) 6.17 K/uL (1.4-6.5); Neutrophils % (auto) 67.3 %; Platelet Count 209 K/uL (130-400); RDW Coefficient of Variation 19.2 % (11.5-14.5); RDW Standard Deviation 61.7 fL (36.4-46.3); Red Blood Count 3.55 M/uL (4.2-5.4); White Blood Count 9.16 K/uL (4.8-10.8)
[2018-11-14 06:15] LABS: BUN Creatinine Ratio 27.6 (10-20); Creatinine Clr Calc Pharmacy 66.8 ml/min; Est GFR (Non-African American) 87.2; Magnesium 2.1 mg/dl (1.8-2.4); Potassium 4.2 mmol/L (3.5-5.1)
--- NOTE | 2018-11-14 07:52 | Procedure Note ---
Procedure Note Date of Service November 13, 2018 Procedure date: Noted above Procedure: Central venous access Pre-procedure Diagnosis: Need for long-term IV antibiotics secondary to MSSA bacteremia Post-procedure Diagnosis: same as above Prior to Procedure: Informed Consent: The risks, benefits, indications, potential complications, and alternatives were explained to the patient and informed consent obtained. Attending Staff: Veronica Perales DO Resident/APC: Deepak Moyer Skin Prep: Chlorhexidine Anesthesia: 5 mL 1% lidocaine without epinephrine The identity of the patient was confirmed and a bedside time out was performed. Description of Procedure: After sterile prep and sterile drape utilizing standard sterile technique the superficial skin of the right internal jugular area was anesthetized. The target vessel was identified and entered with an 20- gauge needle. Significant difficulty was noted in passing a needle into the vessel. The vessel was entered 3 times, dark venous blood return was noted with each pass. A guidewire was inserted through the needle and into the vessel. The guidewire was not able to be inserted beyond 5 cm and significant pain was noted with each insertion so further attempts were discontinued. Complications: None Estimated blood loss: Trace Patient tolerated the procedure well. Impression: Patient has pacemaker in right chest, previous pacemaker in the left chest which had been removed due to infected wire. I was unable to pass a JACC catheter through the right IJ. We are temporary out of additional catheters therefore I did not attempt in the left internal jugular however given the history and the appearance under ultrasound I suspect the patient likely has a stenosis and would benefit from vascular surgery evaluation for temporary venous access. Procedure Date: November 13, 2018 Procedure: Procedural Ultrasound Indication: Central venous access Attending: Veronica Perales DO Resident/Physician Gaggerman: Deepak: Artery visualized: Yes Vein visualized: Yes Compressible Vein: Yes Vein patent: Yes Lung Sliding on side of attempt (if applicable): Present Impression: Positive lung sliding on right chest Images obtained are saved for permanent record
[2018-11-14] MEDS: FERROUS SULFATE 325 MG TAB PO SCH ×2 (09:11→19:54)
[2018-11-14] MEDS: CETIRIZINE HCL 10 MG TABLET PO SCH (09:11)
[2018-11-14] MEDS: AMLODIPINE BESYLATE 5 MG TAB PO SCH (09:11)
[2018-11-14] MEDS: METOPROLOL TARTRATE 50 MG TAB PO SCH ×2 (09:11→19:54)
[2018-11-14] MEDS: ASPIRIN 325 MG ECTAB PO SCH (09:11)
[2018-11-14] MEDS: PANTOprazole 40 MG in SYRINGE 0 ML IV SCH ×2 (09:12→19:54)
[2018-11-14] MEDS: LIDOCAINE 5% 1 PATCH TD SCH (09:12)
[2018-11-14] MEDS: ERTAPENEM SODIUM 1,000 MG in SODIUM CHLORIDE 0.9% 50 ML IV SCH (12:14)
--- NOTE | 2018-11-14 13:36 | Hospitalist Progress Note ---
Date of Service November 14, 2018 Assessment & Plan (1) Incarcerated ventral hernia: Noted to have obstructed spigelian hernia right lower quadrant in CT scan Appreciate surgery input and recommendation Status post surgical reduction of the ventral hernia Management as per surgery Minimal pain at the surgery site Denies any other symptoms A lot better clinically, has been tolerating diet denies any significant symptoms Surgery site remains stable (2) Sepsis: SIRS plus lactic acid elevation plus ARF Secondary to spinal osteomyelitis hx septic arthritis right shoulder, left knee, PPM infection (MSSA as per records) status post completion of recent antibiotic Rx Clinically better denies any fever and/or chills We will continue current antibiotic Staph aureus bacteremia Discussed with ID specialist-will need intravenous ertapenem for 6 weeks in total Will need intravenous antibiotic for a total of 6 weeks (3) Discitis thoracic region: As below (4) Osteomyelitis of thoracic spine: ID consult RE spinal osteomyelitis-appreciate input and recommendation Orthopedic spine consult RE spinal osteomyelitis-appreciate input and recommendation For conservative management Patient seems to be free of pain at rest We will continue current antibiotic as per ID recommendation Will need PICC line and possible placement on discharge Failed PICC line placement x2 Clinical [facility]etics [facility] Chief consulted per possible JACC line Failed JACC line placement by the filteration operator Vascular surgery consulted for vascular access to provide intravenous antibiotic as an outpatient (5) Staphylococcal sepsis: Has been on intravenous daptomycin and ertapenem as per ID Remains afebrile Blood culture is positive for staph Continue with intravenous ertapenem Intravenous ertapenem for a total of 6 weeks (6) PAF (paroxysmal atrial fibrillation): SSS sp PPM placement status post Watchman device implantation currently off anticoagulation due to bleeding concerns as per records Paced rhythm Rate is controlled now and off any anticoagulation Heart rate is controlled and denies any symptoms (7) CHF (congestive heart failure): Chronic diastolic heart failure (EF 50%, DAYANA 2018), patient on the dry side chronic left bundle branch block history CAD as per records hx of bioprosthetic AVR/MVR (8) HTN (hypertension): Has been getting metoprolol 50 mg twice daily Blood pressure is elevated Associated with headache We will add amlodipine 5 mg daily Blood pressure remains in the upper side of normal Blood pressure has been elevated Likely in part due to use of steroids for recent vancomycin allergy Will DC Solu-Medrol Hydralazine 25 mg 3 times daily added (9) S/P AVR (aortic valve replacement): No symptoms reported DVT prophylaxis. Heparin subcu Likely to need placement following central line placement (10) Right lower quadrant abdominal pain: Has been complaining of right lower quadrant pain since this morning No associated symptoms of nausea and/or vomiting or diarrhea Has had colonoscopy prior to cardiac surgery about 2-3 years ago An ill-defined palpable mass noted on examination of the right lower quadrant We will get CT of the abdomen and pelvis without contrast to evaluate As above (11) Anemia: Hemoglobin dropped below 8 Multifactorial etiology including chronic disease contributed by acute infection and surgery Status post 2 units of blood transfusion so far Hemoglobin remains stable more than 9 Appreciate GI input and recommendation-no EGD now Awaiting IV access and placement Subjective She is a 73-year-old female with significant past medical history medical history of chronic diastolic heart failure (EF 50%, DAYANA 2018) SSS sp PPM status post Watchman device implantation currently off anticoagulation due to bleeding concerns as per records, recent history septic arthritis (right shoulder, left knee)/PPM pocket infection status post PPM replacement (MSSA sp IV antibiotic Rx ), chronic left bundle branch block, history CAD as per records, hx of bioprosthetic AVR/MVR, hypertension, Kqpfmxn-Sqhxc-Ogtgc disease as per records was admitted with back pain and noted to have thoracic spine discitis secondary to infection. 11/08 The patient was seen and examined She has been complaining of episodic headache likely secondary to strong perfume induced by fellow patient Blood pressure noted to be high Back pain seems to be stable when she is not moving her Denies any other symptoms 11/09 The patient was seen and examined the medical unit She has been complaining of right lower quadrant pain since this morning Denies any nausea and/or vomiting associated with it No diarrhea Has had colonoscopy prior to cardiac surgery about 2-3 years ago 11/10 The patient was seen and examined in telemetry Status post surgery for obstructed spigelian hernia Has been feeling a lot better with minimal pain at the operation site 11/11 She has been feeling little better today She is out of bed on a chair without any acute symptoms Noted to have very high blood pressure Denies any chest pain and/or palpitation 11/13-the patient was seen by Dr. Ling on The patient was seen and examined in telemetry unit Remains stable as of today Denies any symptoms and the back pain is much improved Minimal abdominal pain at the surgery site 11/14 She has been stable for the last few days She generally weak but does not have any other symptoms Has been waiting for venous access to provide IV antibiotic as an outpatient Physical Exam 2 Vital Signs (Past 24 Hours): Last Vital Signs Temp 37.2 C 11/14/18 11:03 Pulse 60 11/14/18 11:03 Resp 20 11/14/18 11:03 BP 143/61 H 11/14/18 11:03 Pulse Ox 93 11/14/18 11:03 Constitutional: WD/WN, vitals as above + acute distress (Complains of minimal pain right lower quadrant) and + ill appearing Eyes: PERRL, conjunctivae normal, anicteric sclerae ENMT: external ear and nose normal, oropharynx normal Neck: trachea midline, no thyromegaly Respiratory: normal respiratory effort; no respiratory distress Auscultation: lungs clear to auscultation bilaterally Cardiovascular: Heart Sounds: normal S1, normal S2 and + abnormal opening sounds (Prosthetic valve sound) Gastrointestinal (Abdomen): Inspection/Auscultation: + abdomen distended ( Minimally distended) and normal bowel sounds Percussion/Palpation: + abdomen tender (At the surgical incision site) and abdomen soft Neurologic: PERRL, EOMI, accommodation nl, no face palsy, no dysarthria Results & Data Laboratory Results Short CBC 11/14/18 Range/Units 05:19 WBC 9.16 (4.8-10.8) K/uL Hgb 9.6 L (12.0-16.0) g/dL Hct 31.3 L (37-47) % Plt Count 209 (130-400) K/uL BMP 11/14/18 05:19 Sodium 140 Potassium 4.2 Chloride 109 H Carbon Dioxide 27 BUN 19 H Creatinine 0.70 Glucose 72 Calcium 8.0 L Medications Administered Current Inpatient Medications Acetaminophen (Tylenol) 650 mg PO Q4H PRN PRN Reason: Pain or Fever Stop: 12/07/18 04:19 Last Admin: 11/13/18 11:29 Dose: 650 mg Amlodipine Besylate (Norvasc) 5 mg PO [facility] Stop: 12/08/18 19:14 Last Admin: 11/14/18 09:11 Dose: 5 mg Aspirin (Ecotrin) 325 mg PO [facility] Stop: 12/07/18 08:59 Last Admin: 11/14/18 09:11 Dose: 325 mg Cetirizine HCl (Zyrtec) 10 mg PO QAM [facility] Stop: 12/08/18 08:59 Last Admin: 11/14/18 09:11 Dose: 10 mg Diphenhydramine HCl (Benadryl) 12.5 mg IV Q6H PRN PRN Reason: Itching Stop: 12/07/18 10:02 Ferrous Sulfate (Feosol) 325 mg PO BID [facility] Stop: 12/07/18 08:59 Last Admin: 11/14/18 09:11 Dose: 325 mg Heparin Sodium (Porcine) (Heparin Sodium (Porcine)) 5,000 units SQ Q8 [facility] Stop: 12/07/18 13:59 Last Admin: 11/12/18 05:08 Dose: Not Given Hydralazine HCl (Apresoline) 25 mg PO TID [facility] Stop: 12/11/18 13:59 Last Admin: 11/14/18 09:11 Dose: 25 mg Hydromorphone HCl (Dilaudid) 0.5 mg IV Q3H PRN PRN Reason: Pain Stop: 11/21/18 08:51 Last Admin: 11/13/18 17:27 Dose: 0.5 mg Prochlorperazine 5 mg/ Syringe 5 mls @ 5 mls/min IV Q6H PRN PRN Reason: Nausea And Vomiting Stop: 12/07/18 04:19 Ertapenem 1,000 mg/ Sodium (Chloride) 60 mls @ 100 mls/hr IV Q24H [facility] Stop: 12/19/18 10:44 Last Infusion: 11/14/18 13:01 Dose: Infused Promethazine HCl 12.5 mg/ (Sodium Chloride) 50.5 mls @ 204 mls/hr IV Q6H PRN PRN Reason: Nausea And Vomiting Stop: 12/09/18 20:20 Pantoprazole Sodium 40 mg/ (Syringe) 10 mls @ 5 mls/min IV BID [facility] Stop: 12/12/18 20:59 Last Admin: 11/14/18 09:12 Dose: 5 mls/min Lidocaine (Lidoderm 5%) 1 patch TD QAM [facility] Stop: 12/07/18 04:19 Last Admin: 11/14/18 09:12 Dose: 1 patch Metoprolol Tartrate (Lopressor) 50 mg PO BID [facility]IA Stop: 12/07/18 08:59 Last Admin: 11/14/18 09:11 Dose: 50 mg Miscellaneous (Remove Lidoderm Patch) 1 ea N/A DAILY@2100 [facility]IA Stop: 12/07/18 20:59 Last Admin: 11/13/18 20:24 Dose: 1 ea Morphine Sulfate (Morphine Sulfate) 2 mg IV 4XDQ3H PRN PRN Reason: Pain Stop: 11/23/18 20:19 Nitroglycerin (Nitrostat) 0.4 mg SL UD PRN PRN Reason: Chest Pain Stop: 12/07/18 04:19 Ondansetron HCl (Zofran) 4 mg IV 4XDQ4H PRN PRN Reason: Nausea Stop: 12/09/18 20:20 Tramadol HCl (Ultram) 25 - 50 mg PO Q4H PRN PRN Reason: Pain Stop: 12/07/18 04:19 Last Admin: 11/11/18 20:23 Dose: 50 mg _ (1) Sepsis Sepsis type: sepsis due to unspecified organism Qualified Code(s): A41.9 - Sepsis, unspecified organism
[2018-11-14] MEDS: ACETAMINOPHEN 325 MG TAB PO PRN (19:58)
[2018-11-15] MEDS: ASPIRIN 325 MG ECTAB PO SCH (08:24)
[2018-11-15] MEDS: PANTOprazole 40 MG in SYRINGE 0 ML IV SCH (08:25)
[2018-11-15] MEDS: FERROUS SULFATE 325 MG TAB PO SCH ×2 (08:25→19:55)
[2018-11-15] MEDS: AMLODIPINE BESYLATE 5 MG TAB PO SCH (08:25)
[2018-11-15] MEDS: CETIRIZINE HCL 10 MG TABLET PO SCH (08:25)
[2018-11-15] MEDS: METOPROLOL TARTRATE 50 MG TAB PO SCH ×2 (08:25→19:55)
[2018-11-15] MEDS: LIDOCAINE 5% 1 PATCH TD SCH (08:26)
[2018-11-15 11:13] LABS: BUN Creatinine Ratio 25.3 (10-20); Calcium 7.8 mg/dl (8.5-10.1); Creatinine Clr Calc Pharmacy 60.1 ml/min; Est GFR (African American) 88.6; Est GFR (Non-African American) 76.5; Potassium 4.1 mmol/L (3.5-5.1)
[2018-11-15] MEDS: ERTAPENEM SODIUM 1,000 MG in SODIUM CHLORIDE 0.9% 50 ML IV SCH (11:55)
--- NOTE | 2018-11-15 13:12 | Hospitalist Progress Note ---
Date of Service November 15, 2018 Assessment & Plan (1) Incarcerated ventral hernia: per Dr. Perez's notes: Has been complaining of right lower quadrant pain No associated symptoms of nausea and/or vomiting or diarrhea Has had colonoscopy prior to cardiac surgery about 2-3 years ago An ill-defined palpable mass noted on examination of the right lower quadrant Noted to have obstructed spigelian hernia right lower quadrant in CT scan Appreciate surgery input and recommendation Status post surgical reduction of the ventral hernia 11/09/18 -- wound healing well will request for Gen Surg routine re-eval (2) Sepsis: per Dr. Perez's note SIRS plus lactic acid elevation plus ARF Secondary to Vertebral osteomyelitis, Staph Bactermia hx septic arthritis right shoulder, left knee, PPM infection (MSSA as per records) status post completion of recent antibiotic Rx Discussed with ID specialist-will need intravenous ertapenem for 6 weeks in total Will need intravenous antibiotic for a total of 6 weeks (3) Discitis thoracic region: As below (4) Staphylococcus aureus bacteremia: (5) Osteomyelitis of thoracic spine: per Dr. Perez's notes: ID consult RE spinal osteomyelitis-appreciate input and recommendation Orthopedic spine consult RE spinal osteomyelitis-appreciate input and recommendation conservative management recommended ID consulted: recommend IV Ertepanem x 6 weeks difficult to obtain IV access for the course of IV abx treatment PICC line not successful Dr. Perales to attempt central line again today another option would be port placement discussed with Dr. Cam as Case Management reports patient's copay would be too expensive for the patient he will review the case and make further recommendations (6) Anemia: Hemoglobin dropped below 8 Multifactorial etiology including chronic disease contributed by acute infection and surgery Status post 2 units of blood transfusion so far Hemoglobin remains stable more than 9 Appreciate GI input and recommendation-no EGD now continue Protonix daily (7) PAF (paroxysmal atrial fibrillation): SSS sp PPM placement status post Watchman device implantation currently off anticoagulation due to bleeding concerns as per records Paced rhythm Rate is controlled now and off any anticoagulation Heart rate is controlled and denies any symptoms (8) CHF (congestive heart failure): Chronic diastolic heart failure (EF 50%, DAYANA 2018), patient on the dry side chronic left bundle branch block history CAD as per records hx of bioprosthetic AVR/MVR (9) HTN (hypertension): usual Valsartan held Hydralazine and Amlodipine ordered usual Metoprolol continued BP improving monitor (10) S/P AVR (aortic valve replacement): No symptoms reported DVT prophylaxis. Heparin subcu Likely to need placement following central line placement Subjective ff up with osteomyelitis, s/p hernia repair sitting up in chair, comfortable not in distress states she continues to feel better less RLQ pain no back pain denies abdominal pain no other symptoms Physical Exam 2 Vital Signs (Past 24 Hours): Last Vital Signs Temp 36.6 C 11/15/18 11:41 Pulse 60 11/15/18 11:41 Resp 19 11/15/18 11:41 BP 170/63 H 11/15/18 11:41 Pulse Ox 95 11/15/18 11:41 Physical Exam: General- oriented x 3, not in distress, speaks in sentences with no effort or accessory muscle use Eyes- anicteric Neck- no JVD Lungs- clear breath sounds bilaterally, no rales/wheezes Heart- normal rate, regular rhythm; no murmurs Abdomen- normal bowel sounds, nondistended, soft, nontender surgical site RLQ: rosetta in place, no discharge/bleeding, ecchymoses surrounding wound - fading Extremities- no pretibial edema, no calf tenderness Neuro- alert, oriented x 3; no gross focal neurologic deficits Skin- warm & dry Results & Data Laboratory Results Laboratory Results - last 24 hr 11/15/18 10:38 Sodium 137 Potassium 4.1 Chloride 107 Carbon Dioxide 27 Anion Gap 3.0 BUN 20 H Creatinine 0.78 Est Cr Clr Drug Dosing 60.1 Est GFR ( Amer) 88.6 Est GFR (Non-Af Amer) 76.5 BUN/Creatinine Ratio 25.3 H Glucose 96 Calcium 7.8 L _ (1) Sepsis Sepsis type: sepsis due to unspecified organism Qualified Code(s): A41.9 - Sepsis, unspecified organism
[2018-11-15] MEDS: FUROSEMIDE 40 MG TAB PO SCH (14:37)
[2018-11-15] MEDS: ACETAMINOPHEN 325 MG TAB PO PRN (19:54)
--- NOTE | 2018-11-16 06:50 | Progress Note ---
Date of Service November 16, 2018 Assessment & Plan (1) Incarcerated ventral hernia: overall - stable from incarcerated hernia- leave rosetta until next week- can remove in office or outside nurses I would not attempt port with difficulty by Dr Perales and prior access (Pacers) - possibly Dr Jacobsen could help or pt will need catheter placed via IR at [facility] or [place] Subjective pt tolerating diet some "pulling" sensation RLQ Physical Exam 2 Vital Signs (Past 24 Hours): Last Vital Signs Temp 36.6 C 11/16/18 04:01 Pulse 60 11/16/18 04:01 Resp 16 11/16/18 04:01 BP 138/60 11/16/18 04:01 Pulse Ox 97 11/16/18 04:01 incision intact- rosetta intact surrounding ecchymosis- no hematoma or evidence of active bleeding
[2018-11-16] MEDS: AMLODIPINE BESYLATE 5 MG TAB PO SCH (08:05)
[2018-11-16] MEDS: FUROSEMIDE 40 MG TAB PO SCH (08:06)
[2018-11-16] MEDS: CETIRIZINE HCL 10 MG TABLET PO SCH (08:06)
[2018-11-16] MEDS: METOPROLOL TARTRATE 50 MG TAB PO SCH ×2 (08:06→19:54)
[2018-11-16] MEDS: ASPIRIN 325 MG ECTAB PO SCH (08:06)
[2018-11-16] MEDS: FERROUS SULFATE 325 MG TAB PO SCH ×2 (08:06→19:54)
[2018-11-16] MEDS: PANTOprazole 40 MG TAB PO SCH (08:06)
--- NOTE | 2018-11-16 10:40 | Hospitalist Progress Note ---
Date of Service November 16, 2018 Assessment & Plan (1) Incarcerated ventral hernia: per Dr. Perez's notes: Has been complaining of right lower quadrant pain No associated symptoms of nausea and/or vomiting or diarrhea Has had colonoscopy prior to cardiac surgery about 2-3 years ago An ill-defined palpable mass noted on examination of the right lower quadrant Noted to have obstructed spigelian hernia right lower quadrant in CT scan Appreciate surgery input and recommendation Status post surgical reduction of the ventral hernia 11/09/18 -- wound healing well monitor closely (2) Sepsis: per Dr. Perez's note SIRS plus lactic acid elevation plus ARF Secondary to Vertebral osteomyelitis, Staph Bactermia hx septic arthritis right shoulder, left knee, PPM infection (MSSA as per records) status post completion of recent antibiotic Rx Discussed with ID specialist-will need intravenous ertapenem for 6 weeks in total Will need intravenous antibiotic for a total of 6 weeks -- discussed with Dr. Jacobsen who will eval patient for possible Abreu cath insertion (3) Discitis thoracic region: As below (4) Staphylococcus aureus bacteremia: (5) Osteomyelitis of thoracic spine: per Dr. Perez's notes: ID consult RE spinal osteomyelitis-appreciate input and recommendation Orthopedic spine consult RE spinal osteomyelitis-appreciate input and recommendation conservative management recommended ID consulted: recommend IV Ertepanem x 6 weeks difficult to obtain IV access for the course of IV abx treatment PICC line not successful evaluated by Gen Surg, recommended Vascular consult discussed with Dr. Jacobsen, he will eval patient for possible abreu cath placement (6) Anemia: Hemoglobin dropped below 8 Multifactorial etiology including chronic disease contributed by acute infection and surgery Status post 2 units of blood transfusion so far Hemoglobin remains stable more than 9 Appreciate GI input and recommendation-no EGD now continue Protonix daily (7) PAF (paroxysmal atrial fibrillation): SSS sp PPM placement status post Watchman device implantation currently off anticoagulation due to bleeding concerns as per records Paced rhythm Rate is controlled now and off any anticoagulation Heart rate is controlled and denies any symptoms (8) CHF (congestive heart failure): Chronic diastolic heart failure (EF 50%, DAYANA 2018), patient on the dry side chronic left bundle branch block history CAD as per records hx of bioprosthetic AVR/MVR (9) HTN (hypertension): usual Valsartan held Hydralazine and Amlodipine ordered usual Metoprolol continued BP improving monitor (10) S/P AVR (aortic valve replacement): No symptoms reported DVT prophylaxis. Heparin subcu Likely to need placement following central line placement Subjective ff up with osteomyelitis, s/p hernia repair resting in bed, comfortable RLQ Pain improving no back pain denies dyspnea, chest pain, palpitations no other symptoms Physical Exam 2 Vital Signs (Past 24 Hours): Last Vital Signs Temp 36.6 C 11/16/18 07:05 Pulse 60 11/16/18 08:03 Resp 21 11/16/18 07:05 BP 135/59 L 11/16/18 08:03 Pulse Ox 96 11/16/18 07:05 Physical Exam: General- oriented x 3, not in distress, speaks in sentences with no effort or accessory muscle use Eyes- anicteric Neck- no JVD small hematoma on the right anterolateral neck area no tenderness/edema Lungs- clear breath sounds bilaterally no rales Heart- normal rate, regular rhythm; no murmurs Abdomen- normal bowel sounds, nondistended, soft, nontender incision site: rosetta in place, no bleeding Extremities- no pretibial edema, no calf tenderness Neuro- alert, oriented x 3; no gross focal neurologic deficits Skin- warm & dry _ (1) Sepsis Sepsis type: sepsis due to unspecified organism Qualified Code(s): A41.9 - Sepsis, unspecified organism
[2018-11-16] MEDS: ERTAPENEM SODIUM 1,000 MG in SODIUM CHLORIDE 0.9% 50 ML IV SCH (11:43)
[2018-11-16] MEDS: LIDOCAINE 5% 1 PATCH TD SCH (11:44)
--- NOTE | 2018-11-16 14:36 | Infectious Disease Progress Nt ---
Date of Service November 16, 2018 Assessment & Plan (1) Discitis thoracic region: Patient with thoracic diskitis and vertebral osteomyelitis with methicillin sensitive Staph aureus. Now status post repair of incarcerated hernia. Patient will be continued on IV antibiotics, minimum of 6 weeks. Will follow. (2) Staphylococcal sepsis: Subjective Patient seen in follow-up for thoracic diskitis and osteomyelitis with Methicillin sensitive Staph aureus. Patient developed acute abdominal pain, had evidence of incarcerated hernia, now status post repair. Patient appears comfortable, pain improved. Remains afebrile. Physical Exam 2 Vital Signs (Past 24 Hours): Last Vital Signs Temp 36.9 C 11/16/18 11:47 Pulse 62 11/16/18 11:47 Resp 19 11/16/18 11:47 BP 154/54 H 11/16/18 13:27 Pulse Ox 98 11/16/18 11:47 Constitutional: WD/WN, vitals as above comfortable; no acute distress Eyes: PERRL, conjunctivae normal, anicteric sclerae ENMT: external ear and nose normal, oropharynx normal Neck: trachea midline, no thyromegaly neck nontender Respiratory: normal respiratory effort, lungs clear to auscultation normal percussion; does not use accessory muscles Cardiovascular: Rate/Rhythm: regular rate and regular rhythm Heart Sounds: normal S1, normal S2 and + murmur; no gallop and no cardiac rub Vessels: normal peripheral pulses; no JVD Gastrointestinal (Abdomen): normal bowel sounds, soft, nontender, no hepatosplenomegaly Inspection/Auscultation: abdomen normal to inspection, + abdomen distended, normal bowel sounds and + hypoactive bowel sounds Percussion/Palpation: + abdomen tender; no hepatosplenomegaly and no abdominal mass Musculoskeletal: Head/Neck/Chest: normocephalic, head atraumatic and neck supple Spine: + thoracic spinal tenderness Skin: no rashes, warm and dry normal turgor; no lesions Neurologic: patellar DTR's 2+ bilat, sensation intact no focal motor deficits Psychiatric: A+Ox3, euthymic affect Orientation: cooperative Lymphatic: no cervical or axillary lymphadenopathy no inguinal lymphadenopathy Results & Data Laboratory Results Laboratory Results - last 48 hr 11/15/18 10:38 Sodium 137 Potassium 4.1 Chloride 107 Carbon Dioxide 27 Anion Gap 3.0 BUN 20 H Creatinine 0.78 Est Cr Clr Drug Dosing 60.1 Est GFR ( Amer) 88.6 Est GFR (Non-Af Amer) 76.5 BUN/Creatinine Ratio 25.3 H Glucose 96 Calcium 7.8 L Diagnostic Findings Microbiology 11/06/18 21:15 Blood Blood Culture - Final Staphylococcus aureus 11/06/18 21:13 Blood Blood Culture - Final Staphylococcus aureus
--- NOTE | 2018-11-16 20:08 | Consultation ---
Date of Consultation November 16, 2018 Assessment & Plan (1) Lack of intravenous access: Will plan on placement of a abreu catheter on Tuesday. Will image her int jug veins prior to placement. I have discussed the risks options and benefits of the procedure with the patient. The patient understands the risks options and benefits and agrees to the procedure. History of Present Illness Reason for Consultation: Thoracic diskitits with methicillin reisistant staph. Attending Physician: Jeb Ling MD History of Present Illness This patient is a 73 year old female with thoracic diskitis with methicillin resistant staph. She needs 6 weeks of antibiotics and needs an access for this treatment. She had an infected pacer taken out of the left subclavian vein and a temporary followed by a permanent pacer placed on the right side. Allergies Allergy/AdvReac Type Severity Reaction Status Date / Time vancomycin Allergy Severe rash, Verified 11/07/18 02:25 shortness of breath cefazolin Allergy rash Verified 11/07/18 03:28 Home Medications Home Medications Medication Instructions Recorded Confirmed Type metoprolol tartrate 50 mg PO BID 09/06/18 11/06/18 History valsartan 80 mg PO QAM 09/06/18 11/06/18 History aspirin 325 mg PO QAM 11/06/18 11/06/18 History diphenhydramine HCl [Benadryl] 25 mg PO Q6 PRN 11/06/18 11/06/18 History ferrous sulfate 325 mg PO BID 11/06/18 11/06/18 History fexofenadine 180 mg PO DAILY 11/06/18 11/06/18 History furosemide 80 mg PO QAM 11/06/18 11/06/18 History potassium chloride [Klor-Con M10] 10 meq PO BID 11/06/18 11/06/18 History Patient History Medical History Elevated troponin PAF (paroxysmal atrial fibrillation) (Chronic) CHF (congestive heart failure) (Chronic) HTN (hypertension) (Chronic) Neuropathy (Chronic) History of left heart catheterization (LHC) (Chronic) History of cardioversion (Chronic) Leg pain Surgical History History of appendectomy (Chronic) H/O colonoscopy (Chronic) S/P cholecystectomy (Chronic) History of tonsillectomy (Chronic) S/P AVR (aortic valve replacement) (Chronic) S/P MVR (mitral valve repair) (Chronic) H/O: hysterectomy (Chronic) H/O hernia repair (Chronic) Family History Other No significant family history Social History Current Living Situation: Family Current Living Situation Comment: "my son lives with me" Other Information That Helps Us Care for You: No Feels Safe at Home: Yes Safety Concerns: Feels Safe At This Time Smoking Status: Former smoker Do You Dip or Chew Tobacco: No Smoking End Date: 30 years ago Hx Alcohol Use: No Hx Substance Use: No Beliefs That Will Affect Care: None Communication Ability: Effective Review of Systems Constitutional: no problem reported Respiratory: no problem reported Gastrointestinal: no problem reported Musculoskeletal: no problem reported Integumentary: no problem reported Neurologic: no problem reported Psychiatric: no problem reported Physical Exam 2 Vital Signs (Past 24 Hours): Last Vital Signs Temp 37.2 C 11/16/18 15:07 Pulse 60 11/16/18 16:00 Resp 19 11/16/18 15:07 BP 134/54 L 11/16/18 15:07 Pulse Ox 96 11/16/18 15:07 Constitutional: WD/WN, vitals as above no acute distress Respiratory: normal respiratory effort, lungs clear to auscultation Cardiovascular: RRR, no murmur, no edema Gastrointestinal (Abdomen): Inspection/Auscultation: abdomen normal to inspection; abdomen not distended Percussion/Palpation: abdomen soft; abdomen nontender Musculoskeletal: no cyanosis or clubbing, extremities motor strength 5/5 Neurologic: CN's II-XI intact bilaterally, moves all extremities and awake Psychiatric: A+Ox3, euthymic affect
--- NOTE | 2018-11-16 22:23 | Ultrasound Report ---
US venous doppler bilateral upper extremity CLINICAL HISTORY: checking patency of int jug veins and subclavian v. Preoperative evaluation. COMPARISON STUDY: None. FINDINGS: The visualized bilateral internal jugular veins and right subclavian vein are patent. Of no te, the distal right internal jugular vein was nonvisualized and may be hypoplastic. Linear echogenic focus within the proximal mid left subclavian vein best seen on image 50 which raises the possibilit y of chronic thrombus. No acute thrombus identified. Pacemaker wires are identified within the right subclavian and brachiocephalic vein. IMPRESSION: 1. No acute DVT within the internal jugular or subclavian veins. 2. Linear echogenic focus within the proximal to mid left subclavian vein which may represent a small nonocclusive chronic thrombus. 3. The distal right internal jugular vein was nonvisualized and may be hypoplastic. Electronically signed by: Derick Seymour M.D. 11/16/2018 10:22 PM
[2018-11-17] MEDS: ASPIRIN 325 MG ECTAB PO SCH (07:50)
[2018-11-17] MEDS: AMLODIPINE BESYLATE 5 MG TAB PO SCH (07:50)
[2018-11-17] MEDS: METOPROLOL TARTRATE 50 MG TAB PO SCH ×2 (07:50→20:23)
[2018-11-17] MEDS: PANTOprazole 40 MG TAB PO SCH (07:50)
[2018-11-17] MEDS: LIDOCAINE 5% 1 PATCH TD SCH (07:51)
[2018-11-17] MEDS: CETIRIZINE HCL 10 MG TABLET PO SCH (07:51)
[2018-11-17] MEDS: FERROUS SULFATE 325 MG TAB PO SCH ×2 (07:51→20:24)
[2018-11-17] MEDS: FUROSEMIDE 40 MG TAB PO SCH (07:51)
[2018-11-17] MEDS: ERTAPENEM SODIUM 1,000 MG in SODIUM CHLORIDE 0.9% 50 ML IV SCH (11:36)
[2018-11-17] MEDS ORDERED: FUROSEMIDE 40 MG TAB PO ONE (13:57)
--- NOTE | 2018-11-17 17:48 | Infectious Disease Progress Nt ---
Date of Service November 17, 2018 Assessment & Plan (1) Discitis thoracic region: Patient with thoracic diskitis and vertebral osteomyelitis with methicillin sensitive Staph aureus. Now status post repair of incarcerated hernia. Patient will be continued on IV antibiotics, minimum of 6 weeks. Will follow. (2) Staphylococcal sepsis: Subjective Patient seen in follow-up for thoracic diskitis and osteomyelitis with Methicillin sensitive Staph aureus. Patient developed acute abdominal pain, had evidence of incarcerated hernia, now status post repair. Patient appears comfortable, pain improved. Remains afebrile. Review of Systems All systems reviewed & are unremarkable except as noted in HPI & below Physical Exam 2 Vital Signs (Past 24 Hours): Last Vital Signs Temp 36.8 C 11/17/18 15:13 Pulse 62 11/17/18 15:13 Resp 20 11/17/18 15:13 BP 158/58 H 11/17/18 15:13 Pulse Ox 96 11/17/18 15:13 Constitutional: WD/WN, vitals as above comfortable; no acute distress Eyes: PERRL, conjunctivae normal, anicteric sclerae ENMT: external ear and nose normal, oropharynx normal Neck: trachea midline, no thyromegaly neck nontender Respiratory: normal respiratory effort, lungs clear to auscultation normal percussion; does not use accessory muscles Cardiovascular: Rate/Rhythm: regular rate and regular rhythm Heart Sounds: normal S1, normal S2 and + murmur; no gallop and no cardiac rub Vessels: normal peripheral pulses; no JVD Gastrointestinal (Abdomen): normal bowel sounds, soft, nontender, no hepatosplenomegaly Inspection/Auscultation: abdomen normal to inspection, + abdomen distended, normal bowel sounds and + hypoactive bowel sounds Percussion/Palpation: + abdomen tender; no hepatosplenomegaly and no abdominal mass Musculoskeletal: Head/Neck/Chest: normocephalic, head atraumatic and neck supple Spine: + thoracic spinal tenderness Skin: no rashes, warm and dry normal turgor; no lesions Neurologic: patellar DTR's 2+ bilat, sensation intact no focal motor deficits Psychiatric: A+Ox3, euthymic affect Orientation: cooperative Lymphatic: no cervical or axillary lymphadenopathy no inguinal lymphadenopathy Results & Data Diagnostic Findings Microbiology 11/06/18 21:15 Blood Blood Culture - Final Staphylococcus aureus 11/06/18 21:13 Blood Blood Culture - Final Staphylococcus aureus US venous doppler bilateral upper extremity CLINICAL HISTORY: checking patency of int jug veins and subclavian v. Preoperative evaluation. COMPARISON STUDY: None. FINDINGS: The visualized bilateral internal jugular veins and right subclavian vein are patent. Of note, the distal right internal jugular vein was nonvisualized and may be hypoplastic. Linear echogenic focus within the proximal mid left subclavian vein best seen on image 50 which raises the possibility of chronic thrombus. No acute thrombus identified. Pacemaker wires are identified within the right subclavian and brachiocephalic vein. IMPRESSION: 1. No acute DVT within the internal jugular or subclavian veins. 2. Linear echogenic focus within the proximal to mid left subclavian vein which may represent a small nonocclusive chronic thrombus. 3. The distal right internal jugular vein was nonvisualized and may be hypoplastic. Electronically signed by: Derick Seymour M.D. 11/16/2018 10:22 PM Dictated: 11/16/18 2218 Transcribed: 11/16/18 2218
[2018-11-18] MEDS: LIDOCAINE 5% 1 PATCH TD SCH (07:48)
[2018-11-18] MEDS: ASPIRIN 325 MG ECTAB PO SCH (07:50)
[2018-11-18] MEDS: AMLODIPINE BESYLATE 5 MG TAB PO SCH (07:50)
[2018-11-18] MEDS: FERROUS SULFATE 325 MG TAB PO SCH ×2 (08:05→20:42)
[2018-11-18] MEDS: PANTOprazole 40 MG TAB PO SCH (08:05)
[2018-11-18] MEDS: CETIRIZINE HCL 10 MG TABLET PO SCH (08:05)
[2018-11-18 08:06] LABS: Basophils # (auto) 0.01 K/uL (0-0.2); Basophils % (auto) 0.1 %; Eosinophils # (auto) 0.66 K/uL (0-0.5); Eosinophils % (auto) 8.6 %; Hematocrit (blood only) 31.7 % (37-47); Hemoglobin 9.9 g/dL (12.0-16.0); Immature Granulocytes # (auto) 0.03 K/uL (0.00-0.02); Immature Granulocytes % (auto) 0.4 %; Lymphocytes # (auto) 1.57 K/uL (1.2-3.4); Lymphocytes % (auto) 20.5 %; Mean Corpuscular Hgb Conc 31.2 g/dL (32-36); Mean Corpuscular Volume 87.8 fL (80-100); Mean Platelet Volume 8.7 fL (7.4-10.4); Monocytes % (auto) 7.8 %; Neutrophils % (auto) 62.6 %; Platelet Count 163 K/uL (130-400); RDW Coefficient of Variation 18.7 % (11.5-14.5); RDW Standard Deviation 60.8 fL (36.4-46.3); Red Blood Count 3.61 M/uL (4.2-5.4); White Blood Count 7.67 K/uL (4.8-10.8)
[2018-11-18] MEDS: METOPROLOL TARTRATE 50 MG TAB PO SCH ×2 (08:06→20:43)
[2018-11-18 08:41] LABS: BUN Creatinine Ratio 28.9 (10-20); Calcium 8.2 mg/dl (8.5-10.1); Creatinine Clr Calc Pharmacy 59.9 ml/min; Est GFR (African American) 88.6; Est GFR (Non-African American) 76.5; Potassium 3.8 mmol/L (3.5-5.1)
--- NOTE | 2018-11-18 08:45 | Hospitalist Progress Note ---
Date of Service November 18, 2018 Assessment & Plan (1) Incarcerated ventral hernia: per Dr. Perez's notes: Has been complaining of right lower quadrant pain No associated symptoms of nausea and/or vomiting or diarrhea Has had colonoscopy prior to cardiac surgery about 2-3 years ago An ill-defined palpable mass noted on examination of the right lower quadrant Noted to have obstructed spigelian hernia right lower quadrant in CT scan Appreciate surgery input and recommendation Status post surgical reduction of the ventral hernia 11/09/18 -- wound healing well monitor closely (2) Sepsis: per Dr. Perez's note SIRS plus lactic acid elevation plus ARF Secondary to Vertebral osteomyelitis, Staph Bactermia hx septic arthritis right shoulder, left knee, PPM infection (MSSA as per records) status post completion of recent antibiotic Rx Discussed with ID specialist-will need intravenous ertapenem for 6 weeks in total Will need intravenous antibiotic for a total of 6 weeks -- evaluated by Dr. Jacobsen for abreu cath placement on Tuesday (3) Discitis thoracic region: As below (4) Staphylococcus aureus bacteremia: (5) Osteomyelitis of thoracic spine: per Dr. Perez's notes: ID consult RE spinal osteomyelitis-appreciate input and recommendation Orthopedic spine consult RE spinal osteomyelitis-appreciate input and recommendation conservative management recommended ID consulted: recommend IV Ertepanem x 6 weeks difficult to obtain IV access for the course of IV abx treatment PICC line not successful evaluated by Gen Surg, recommended Vascular consult discussed with Dr. Jacobsen, for abreu cath placement on Tuesday (6) Anemia: Hemoglobin dropped below 8 Multifactorial etiology including chronic disease contributed by acute infection and surgery Status post 2 units of blood transfusion so far Hemoglobin remains stable more than 9 Appreciate GI input and recommendation-no EGD now continue Protonix daily (7) PAF (paroxysmal atrial fibrillation): SSS sp PPM placement status post Watchman device implantation currently off anticoagulation due to bleeding concerns as per records Paced rhythm Rate is controlled now and off any anticoagulation Heart rate is controlled and denies any symptoms (8) CHF (congestive heart failure): Chronic diastolic heart failure (EF 50%, DAYANA 2018), patient on the dry side chronic left bundle branch block history CAD as per records hx of bioprosthetic AVR/MVR (9) HTN (hypertension): usual Valsartan held Hydralazine and Amlodipine ordered usual Metoprolol continued monitor (10) S/P AVR (aortic valve replacement): No symptoms reported DVT prophylaxis. Heparin subcu Likely to need placement following central line placement Subjective ff up with osteomyelitis, s/p hernia repair resting comfortably RLQ pain improving denies SOB, chest pain no other symptoms Physical Exam 2 Vital Signs (Past 24 Hours): Last Vital Signs Temp 37.0 C 11/18/18 07:55 Pulse 22 L 11/18/18 07:55 Resp 20 11/18/18 07:55 BP 128/76 11/18/18 07:55 Pulse Ox 94 11/18/18 07:55 Physical Exam: General- oriented x 3, not in distress, speaks in sentences with no effort or accessory muscle use Eyes- anicteric Neck- no JVD Lungs- clear breath sounds bilaterally Heart- normal rate, regular rhythm; no murmurs Abdomen- normal bowel sounds, nondistended, soft, nontender incision: healing well Extremities-grade 1 lower leg edema, no calf tenderness Neuro- alert, oriented x 3; no gross focal neurologic deficits Skin- warm & dry Results & Data Laboratory Results noted and reviewed _ (1) Sepsis Sepsis type: sepsis due to unspecified organism Qualified Code(s): A41.9 - Sepsis, unspecified organism
[2018-11-18] MEDS: FUROSEMIDE 80 MG TAB PO SCH (08:46)
[2018-11-18] MEDS: ERTAPENEM SODIUM 1,000 MG in SODIUM CHLORIDE 0.9% 50 ML IV SCH (11:15)
--- NOTE | 2018-11-18 18:15 | Hospitalist Progress Note ---
Date of Service November 18, 2018 Assessment & Plan (1) Incarcerated ventral hernia: per Dr. Perez's notes: Has been complaining of right lower quadrant pain No associated symptoms of nausea and/or vomiting or diarrhea Has had colonoscopy prior to cardiac surgery about 2-3 years ago An ill-defined palpable mass noted on examination of the right lower quadrant Noted to have obstructed spigelian hernia right lower quadrant in CT scan Appreciate surgery input and recommendation Status post surgical reduction of the ventral hernia 11/09/18 -- wound healing well monitor closely (2) Sepsis: per Dr. Perez's note SIRS plus lactic acid elevation plus ARF Secondary to Vertebral osteomyelitis, Staph Bactermia hx septic arthritis right shoulder, left knee, PPM infection (MSSA as per records) status post completion of recent antibiotic Rx Discussed with ID specialist-will need intravenous ertapenem for 6 weeks in total Will need intravenous antibiotic for a total of 6 weeks -- evaluated by Dr. Jacobsen for abreu cath placement on Tuesday (3) Discitis thoracic region: As below (4) Staphylococcus aureus bacteremia: (5) Osteomyelitis of thoracic spine: per Dr. Perez's notes: ID consult RE spinal osteomyelitis-appreciate input and recommendation Orthopedic spine consult RE spinal osteomyelitis-appreciate input and recommendation conservative management recommended ID consulted: recommend IV Ertepanem x 6 weeks difficult to obtain IV access for the course of IV abx treatment PICC line not successful evaluated by Gen Surg, recommended Vascular consult discussed with Dr. Jacobsen, for abreu cath placement on Tuesday (6) Anemia: Hemoglobin dropped below 8 Multifactorial etiology including chronic disease contributed by acute infection and surgery Status post 2 units of blood transfusion so far Hemoglobin remains stable more than 9 Appreciate GI input and recommendation-no EGD now continue Protonix daily (7) PAF (paroxysmal atrial fibrillation): SSS sp PPM placement status post Watchman device implantation currently off anticoagulation due to bleeding concerns as per records Paced rhythm HR controlled (8) CHF (congestive heart failure): Chronic diastolic heart failure (EF 50%, DAYANA 2018), patient on the dry side chronic left bundle branch block history CAD as per records hx of bioprosthetic AVR/MVR -- on usual Lasix PO (9) HTN (hypertension): usual Valsartan held Hydralazine and Amlodipine ordered usual Metoprolol continued monitor (10) S/P AVR (aortic valve replacement): No symptoms reported DVT prophylaxis. Heparin subcu Likely to need placement following central line placement Subjective ff up for discitis, osteomyelitis seen resting in bed, sitting up having breakfast comfortable states she feels fine overall minimal RLQ pain no chest pain, dyspnea denies other symptoms Physical Exam 2 Vital Signs (Past 24 Hours): Last Vital Signs Temp 36.4 C L 11/18/18 15:40 Pulse 60 11/18/18 15:40 Resp 18 11/18/18 15:40 BP 136/56 L 11/18/18 15:40 Pulse Ox 97 11/18/18 15:40 Physical Exam: General- oriented x 3, not in distress, speaks in sentences with no effort or accessory muscle use Eyes- anicteric Neck- no JVD Lungs- clear breath sounds bilaterally Heart- normal rate, regular rhythm; no murmurs Abdomen- normal bowel sounds, nondistended, soft, nontender incision site: no signs of infection Extremities- trace lower leg edema no pretibial edema, no calf tenderness Neuro- alert, oriented x 3; no gross focal neurologic deficits Skin- warm & dry Results & Data Laboratory Results Laboratory Results - last 24 hr 11/18/18 11/18/18 07:47 07:47 WBC 7.67 RBC 3.61 L Hgb 9.9 L Hct 31.7 L MCV 87.8 MCH 27.4 MCHC 31.2 L RDW Std Deviation 60.8 H RDW Coeff of Christian 18.7 H Plt Count 163 MPV 8.7 Immature Gran % (Auto) 0.4 Neut % (Auto) 62.6 Lymph % (Auto) 20.5 Alger % (Auto) 7.8 Eos % (Auto) 8.6 Baso % (Auto) 0.1 Immature Gran # (Auto) 0.03 H Neut # (Auto) 4.80 Lymph # (Auto) 1.57 Alger # (Auto) 0.60 H Eos # (Auto) 0.66 H Baso # (Auto) 0.01 Sodium 139 Potassium 3.8 Chloride 105 Carbon Dioxide 29 Anion Gap 5.0 BUN 22 H Creatinine 0.78 Est Cr Clr Drug Dosing 59.9 Est GFR ( Amer) 88.6 Est GFR (Non-Af Amer) 76.5 BUN/Creatinine Ratio 28.9 H Glucose 77 Calcium 8.2 L _ (1) Sepsis Sepsis type: sepsis due to unspecified organism Qualified Code(s): A41.9 - Sepsis, unspecified organism
[2018-11-19] MEDS: AMLODIPINE BESYLATE 5 MG TAB PO SCH (08:26)
[2018-11-19] MEDS: FUROSEMIDE 80 MG TAB PO SCH (08:27)
[2018-11-19] MEDS: PANTOprazole 40 MG TAB PO SCH (08:27)
[2018-11-19] MEDS: METOPROLOL TARTRATE 50 MG TAB PO SCH ×2 (08:27→22:00)
[2018-11-19] MEDS: FERROUS SULFATE 325 MG TAB PO SCH ×2 (08:27→21:59)
[2018-11-19] MEDS: LIDOCAINE 5% 1 PATCH TD SCH (08:28)
[2018-11-19] MEDS: CETIRIZINE HCL 10 MG TABLET PO SCH (08:28)
[2018-11-19] MEDS: ASPIRIN 325 MG ECTAB PO SCH (08:28)
[2018-11-19] MEDS: ERTAPENEM SODIUM 1,000 MG in SODIUM CHLORIDE 0.9% 50 ML IV SCH (11:06)
--- NOTE | 2018-11-19 18:48 | Hospitalist Progress Note ---
Date of Service November 19, 2018 Assessment & Plan (1) Incarcerated ventral hernia: per Dr. Perez's notes: Has been complaining of right lower quadrant pain No associated symptoms of nausea and/or vomiting or diarrhea Has had colonoscopy prior to cardiac surgery about 2-3 years ago An ill-defined palpable mass noted on examination of the right lower quadrant Noted to have obstructed spigelian hernia right lower quadrant in CT scan Appreciate surgery input and recommendation Status post surgical reduction of the ventral hernia 11/09/18 -- wound healing well monitor closely will request Surgery to re-eval, possibly remove rosetta (2) Sepsis: per Dr. Perez's note SIRS plus lactic acid elevation plus ARF Secondary to Vertebral osteomyelitis, Staph Bactermia hx septic arthritis right shoulder, left knee, PPM infection (MSSA as per records) status post completion of recent antibiotic Rx Discussed with ID specialist-will need intravenous ertapenem for 6 weeks in total Will need intravenous antibiotic for a total of 6 weeks -- evaluated by Dr. Jacobsen for abreu cath placement tomorrow (3) Discitis thoracic region: As below (4) Staphylococcus aureus bacteremia: (5) Osteomyelitis of thoracic spine: per Dr. Perez's notes: ID consult RE spinal osteomyelitis-appreciate input and recommendation Orthopedic spine consult RE spinal osteomyelitis-appreciate input and recommendation conservative management recommended ID consulted: recommend IV Ertepanem x 6 weeks difficult to obtain IV access for the course of IV abx treatment PICC line not successful evaluated by Gen Surg, recommended Vascular consult discussed with Dr. Jacobsen, for abreu cath placement tomorrow (6) Anemia: Hemoglobin dropped below 8 Multifactorial etiology including chronic disease contributed by acute infection and surgery Status post 2 units of blood transfusion so far Hemoglobin remains stable more than 9 Appreciate GI input and recommendation-no EGD now continue Protonix daily (7) PAF (paroxysmal atrial fibrillation): SSS sp PPM placement status post Watchman device implantation currently off anticoagulation due to bleeding concerns as per records Paced rhythm HR controlled (8) CHF (congestive heart failure): Chronic diastolic heart failure (EF 50%, DAYANA 2018), patient on the dry side chronic left bundle branch block history CAD as per records hx of bioprosthetic AVR/MVR -- on usual Lasix PO (9) HTN (hypertension): usual Valsartan held Hydralazine and Amlodipine ordered usual Metoprolol continued monitor (10) S/P AVR (aortic valve replacement): No symptoms reported DVT prophylaxis. Heparin subcu (held for surgery tomorrow) Likely to need placement following central line placement Subjective ff up for osteomyelitis, discitis seen resting in bedside chair, in good spirits RLQ continues to improve, no fever/chills no back pain denies chest pain, dyspnea, palpitations no other symptom Physical Exam 2 Vital Signs (Past 24 Hours): Last Vital Signs Temp 36.7 C 11/19/18 15:29 Pulse 63 11/19/18 15:29 Resp 20 11/19/18 15:29 BP 121/58 L 11/19/18 15:29 Pulse Ox 96 11/19/18 15:29 Physical Exam: General- oriented x 3, not in distress, speaks in sentences with no effort or accessory muscle use Eyes- anicteric Neck- no JVD Lungs- clear breath sounds bilaterally Heart- normal rate, regular rhythm; no murmurs Abdomen- normal bowel sounds, nondistended, soft, nontender Extremities- no pretibial edema, no calf tenderness Neuro- alert, oriented x 3; no gross focal neurologic deficits Skin- warm & dry _ (1) Sepsis Sepsis type: sepsis due to unspecified organism Qualified Code(s): A41.9 - Sepsis, unspecified organism
[2018-11-20] MEDS ORDERED: CLINDAMYCIN 600 MG/54 ML BAG IV SCH (06:00)
[2018-11-20] MEDS ORDERED: MIDAZOLAM HCL 1 MG/ML 2ML VIAL ONE (07:44)
[2018-11-20] MEDS ORDERED: LIDOCAINE HCL 1% 20 ML VIAL ONE (07:44)
[2018-11-20] MEDS ORDERED: fentaNYL citrate 100 MCG/2 ML VIAL ONE (07:44)
--- NOTE | 2018-11-20 07:50 | History & Physical Bridge Note ---
Date of Service November 20, 2018 History & Physical Bridge Note Patient for insertion of tunneled central venous catheter. I have discussed the risks options and benefits of the procedure with the patient. The patient understands the risks options and benefits and agrees to the procedure. I have examined the patient, reviewed the History & Physical and in the interval since the performance of the History & Physical I have noted the following changes of clinical significance: no changes noted
--- NOTE | 2018-11-20 08:00 | Pre Anesthesia Assessment ---
Date of Service November 20, 2018 Pre Sedation Assessment Vital Signs Temp Pulse Pulse Resp BP BP Pulse Ox 11/20/18 07:42 36.8 C 60 18 114/54 L 96 11/20/18 07:39 37.4 C 61 20 148/62 H 92 11/20/18 03:17 36.7 C 80 17 139/59 L 95 11/19/18 23:33 36.8 C 65 17 165/65 H 95 11/19/18 19:27 36.8 C 62 20 132/61 94 11/19/18 15:29 36.7 C 63 20 121/58 L 96 11/19/18 11:27 36.8 C 60 16 129/46 L 95 Cardiovascular + regular rate and + regular rhythm Respiratory normal respiratory effort, lungs clear to auscultation Pre-Sedation Airway Assessment Smoking Status: Former smoker Hx Sleep Apnea: No Short, Thick Neck: No Thyromental Distance: > or= 3.5 Finger Breadths Oral Cavity: + WNL Mallampati Class: II ASA: ASA3 NPO Status Date of Last Intake of Fluids: 11/19/18 Time of Last Intake of Fluids: 21:00 Date of Last Intake of Solid Food: 11/19/18 Time of Last Intake of Solid Foods: 21:00 Procedure Planning Contraindications for Sedation: none Current Medications Reviewed: Yes Notes The planned sedation has been discussed with the patient. Informed Consent was obtained. I have identified the patient, determined the appropriateness of sedation and have assessed the patient immediately prior to the procedure. All medicine(s) and interventions are by my order.
--- NOTE | 2018-11-20 08:54 | Post Operative Brief Note ---
Immediate Post Op Note v1 Date of Surgery November 20, 2018 Pre & Post Diagnosis Operation Date: 11/09/18 18:45 Pre-Op Diagnosis: Right-sided Spigelian hernia contains mesenteric fat Post-Op Diagnosis: Right-sided Spigelian hernia contains mesenteric fat Operation Date: 11/20/18 08:00 Pre-Op Diagnosis: Lack of Venous Access Post-Op Diagnosis: Lack of Venous Access Procedure Operation Date: 11/09/18 18:45 Actual Procedures p Open Right Ventral Hernia Repair(Right) - Oswaldo Moyer MD, FACS Operation Date: 11/20/18 08:00 Actual Procedures p Insertion of Barrera Catheter, Fluoroscopy for positioning, ultrasound guided venous access, Moderate Sedation From 0833 to 0849 - Geoffrey Jacobsen MD Surgeon Geoffrey Jacobsen MD [employer] none Estimated Blood Loss 5 Findings Consistent with Post-Op Diagnosis Anesthesia Type RN Sedation Complications none Disposition Accompanied Patient To Recovery: No Disposition: Recovery Room
--- NOTE | 2018-11-20 08:58 | Operative Report ---
Post Operative Report Pre & Post Diagnosis Operation Date: 11/09/18 18:45 Pre-Op Diagnosis: Right-sided Spigelian hernia contains mesenteric fat Post-Op Diagnosis: Right-sided Spigelian hernia contains mesenteric fat Operation Date: 11/20/18 08:00 Pre-Op Diagnosis: Lack of Venous Access Post-Op Diagnosis: Lack of Venous Access Procedure Operation Date: 11/09/18 18:45 Actual Procedures p Open Right Ventral Hernia Repair(Right) - Oswaldo Moyer MD, FACS Operation Date: 11/20/18 08:00 Actual Procedures p Insertion of Barrera Catheter, Fluoroscopy for positioning, Ultrasound guided venous access, Moderate Sedation From 0833 to 0849 - Geoffrey Jacobsen MD Surgeon Geoffrey Jacobsen MD Procurement Manager none Estimated Blood Loss 5 Findings Consistent with Post-Op Diagnosis Specimens None Anesthesia Type RN Sedation Complications none Disposition Accompanied Patient To Recovery: No Disposition: Recovery Room Indications This is a 73-year-old female who had a infected pacer removed from the left side of her chest. She had a temporary followed by a permanent pacer placed in the right side. She now needs an access for 6 weeks of antibiotic therapy. Her peripheral veins are extremely poor. A left internal jugular vein Barrera catheter is recommended. I have discussed the risks options and benefits of the procedure with the patient. The patient understands the risks options and benefits and agrees to the procedure. Description of Procedure Patient was taken to the angio suite and placed in the supine position. The left side of the neck and chest wall were prepped and draped in a sterile manner. Local anesthesia was then administered to the appropriate areas of the neck and chest wall. Ultrasound was then used to locate the left internal jugular vein. The vein compressed easily, had no filing defects, and was patent. The vein was then punctured under direct ultrasound imaging. A guidewire was then passed centrally under fluoroscopic imaging. A stab wound was then made in the anterior chest wall and a Barrera catheter was passed from the stab wound on the chest wall to the puncture site on the neck. The puncture site was then dilated till the peel away sheath was inserted. The Barrera was then inserted through the sheath to a central position in the distal superior vena cava. The peel away sheath was then removed. The catheter was then sutured in place using a nylon suture. The puncture was then closed using a 4-0 Vicryl subcuticular suture. Dermabond was used for a dressing on the puncture site. Both ports aspirated and flushed easily and were then instilled with heparin. A sterile dressing was applied to the catheter. The patient left the angio suite in good condition and tolerated the procedure well. The patient left the operation room in satisfactory condition and tolerated the procedure well. All needle and sponge counts were correct at the end of the procedure. I attest to the content of the Intraoperative Record and any orders documented therein. Any exceptions are noted below.
[2018-11-20] MEDS: PANTOprazole 40 MG TAB PO SCH (09:52)
[2018-11-20] MEDS: FERROUS SULFATE 325 MG TAB PO SCH ×2 (09:52→20:37)
[2018-11-20] MEDS: CETIRIZINE HCL 10 MG TABLET PO SCH (09:52)
[2018-11-20] MEDS: AMLODIPINE BESYLATE 5 MG TAB PO SCH (09:53)
[2018-11-20] MEDS: METOPROLOL TARTRATE 50 MG TAB PO SCH ×2 (09:53→20:37)
[2018-11-20] MEDS: FUROSEMIDE 80 MG TAB PO SCH (09:53)
[2018-11-20] MEDS: LIDOCAINE 5% 1 PATCH TD SCH (10:12)
[2018-11-20] MEDS: ERTAPENEM SODIUM 1,000 MG in SODIUM CHLORIDE 0.9% 50 ML IV SCH (11:09)
[2018-11-20] MEDS: ACETAMINOPHEN 325 MG TAB PO PRN (14:03)
[2018-11-20] MEDS: HEPARIN SOD 5,000 UNIT/0.5 ML VIAL SQ SCH ×2 (14:18→20:39)
--- NOTE | 2018-11-21 03:56 | Hospitalist Progress Note ---
Date of Service November 21, 2018 Assessment & Plan (1) Incarcerated ventral hernia: per Dr. Perez's notes: Has been complaining of right lower quadrant pain No associated symptoms of nausea and/or vomiting or diarrhea Has had colonoscopy prior to cardiac surgery about 2-3 years ago An ill-defined palpable mass noted on examination of the right lower quadrant Noted to have obstructed spigelian hernia right lower quadrant in CT scan Appreciate surgery input and recommendation Status post surgical reduction of the ventral hernia 11/09/18 -- wound healing well monitor closely will request Surgery to re-eval, possibly remove rosetta (2) Sepsis: per Dr. Perez's note SIRS plus lactic acid elevation plus ARF Secondary to Vertebral osteomyelitis, Staph Bactermia hx septic arthritis right shoulder, left knee, PPM infection (MSSA as per records) status post completion of recent antibiotic Rx Discussed with ID specialist-will need intravenous ertapenem for 6 weeks in total Will need intravenous antibiotic for a total of 6 weeks -- evaluated by Dr. Jacobsen s/p abreu cath placement (3) Discitis thoracic region: As below (4) Staphylococcus aureus bacteremia: (5) Osteomyelitis of thoracic spine: per Dr. Perez's notes: ID consult RE spinal osteomyelitis-appreciate input and recommendation Orthopedic spine consult RE spinal osteomyelitis-appreciate input and recommendation conservative management recommended ID consulted: recommend IV Ertepanem x 6 weeks difficult to obtain IV access for the course of IV abx treatment PICC line not successful evaluated by Gen Surg, recommended Vascular consult s/p abreu cath placement (6) Anemia: Hemoglobin dropped below 8 Multifactorial etiology including chronic disease contributed by acute infection and surgery Status post 2 units of blood transfusion so far Hemoglobin remains stable more than 9 Appreciate GI input and recommendation-no EGD now continue Protonix daily (7) PAF (paroxysmal atrial fibrillation): SSS sp PPM placement status post Watchman device implantation currently off anticoagulation due to bleeding concerns as per records Paced rhythm HR controlled (8) CHF (congestive heart failure): Chronic diastolic heart failure (EF 50%, DAYANA 2018), patient on the dry side chronic left bundle branch block history CAD as per records hx of bioprosthetic AVR/MVR -- on usual Lasix PO (9) HTN (hypertension): usual Valsartan held Hydralazine and Amlodipine ordered usual Metoprolol continued monitor (10) S/P AVR (aortic valve replacement): No symptoms reported DVT prophylaxis. Heparin subcu (held for surgery) Subjective ff up for osteomyelitis, discitis seen resting in bedside chair, in good spirits s/p placement of abreu cath tolerated well denies pain no dyspnea, dizziness no other symptoms Physical Exam 2 Vital Signs (Past 24 Hours): Last Vital Signs Temp 36.7 C 11/21/18 03:45 Pulse 61 11/21/18 03:45 Resp 18 11/21/18 03:45 BP 122/50 L 11/21/18 03:45 Pulse Ox 90 11/21/18 03:45 Physical Exam: General- oriented x 3, not in distress, speaks in sentences with no effort or accessory muscle use Eyes- anicteric Neck- no JVD Lungs- clear breath sounds bilaterally, no rales/wheezes abreu cath on Left chest wall: no signs of hematoma/bleeding Heart- normal rate, regular rhythm; no murmurs Abdomen- normal bowel sounds, nondistended, soft, nontender incision site: rosetta in place, healing well Extremities- no pretibial edema, no calf tenderness Neuro- alert, oriented x 3; no gross focal neurologic deficits Skin- warm & dry Results & Data Laboratory Results all noted and reviewed _ (1) Sepsis Sepsis type: sepsis due to unspecified organism Qualified Code(s): A41.9 - Sepsis, unspecified organism
[2018-11-21] MEDS: HEPARIN SOD 5,000 UNIT/0.5 ML VIAL SQ SCH ×2 (06:23→14:07)
[2018-11-21] MEDS: ASPIRIN 325 MG ECTAB PO SCH (09:11)
[2018-11-21] MEDS: FERROUS SULFATE 325 MG TAB PO SCH (09:12)
[2018-11-21] MEDS: FUROSEMIDE 80 MG TAB PO SCH (09:13)
[2018-11-21] MEDS: METOPROLOL TARTRATE 50 MG TAB PO SCH (09:14)
[2018-11-21] MEDS: PANTOprazole 40 MG TAB PO SCH (09:17)
[2018-11-21] MEDS: CETIRIZINE HCL 10 MG TABLET PO SCH (09:18)
[2018-11-21] MEDS: LIDOCAINE 5% 1 PATCH TD SCH (09:19)
--- NOTE | 2018-11-21 10:02 | Infectious Disease Progress Nt ---
Date of Service November 21, 2018 Assessment & Plan (1) Discitis thoracic region: Patient with thoracic diskitis and vertebral osteomyelitis with methicillin sensitive Staph aureus. Now status post repair of incarcerated hernia. Patient will be continued on IV antibiotics, minimum of 6 weeks. Will follow. (2) Staphylococcal sepsis: Subjective Patient seen in follow-up for thoracic diskitis and osteomyelitis with Methicillin sensitive Staph aureus. Patient developed acute abdominal pain, had evidence of incarcerated hernia, status post repair. Implantation of Barrera catheter yesterday. Patient appears comfortable, pain improved. Remains afebrile. Review of Systems All systems reviewed & are unremarkable except as noted in HPI & below Physical Exam 2 Vital Signs (Past 24 Hours): Last Vital Signs Temp 37.8 C H 11/21/18 07:20 Pulse 63 11/21/18 08:00 Resp 20 11/21/18 07:20 BP 133/50 L 11/21/18 07:20 Pulse Ox 93 11/21/18 08:00 Constitutional: WD/WN, vitals as above comfortable; no acute distress Eyes: PERRL, conjunctivae normal, anicteric sclerae ENMT: external ear and nose normal, oropharynx normal Neck: trachea midline, no thyromegaly neck nontender Respiratory: normal respiratory effort, lungs clear to auscultation normal percussion; does not use accessory muscles Cardiovascular: Rate/Rhythm: regular rate and regular rhythm Heart Sounds: normal S1, normal S2 and + murmur; no gallop and no cardiac rub Vessels: normal peripheral pulses; no JVD Gastrointestinal (Abdomen): normal bowel sounds, soft, nontender, no hepatosplenomegaly Inspection/Auscultation: abdomen normal to inspection, + abdomen distended, normal bowel sounds and + hypoactive bowel sounds Percussion/Palpation: + abdomen tender; no hepatosplenomegaly and no abdominal mass Musculoskeletal: Head/Neck/Chest: normocephalic, head atraumatic and neck supple Spine: + thoracic spinal tenderness Skin: no rashes, warm and dry normal turgor; no lesions Neurologic: patellar DTR's 2+ bilat, sensation intact no focal motor deficits Psychiatric: A+Ox3, euthymic affect Orientation: cooperative Lymphatic: no cervical or axillary lymphadenopathy no inguinal lymphadenopathy Results & Data Diagnostic Findings Microbiology 11/06/18 21:15 Blood Blood Culture - Final Staphylococcus aureus 11/06/18 21:13 Blood Blood Culture - Final Staphylococcus aureus
[2018-11-21] MEDS: AMLODIPINE BESYLATE 5 MG TAB PO SCH (10:34)
[2018-11-21] MEDS: ERTAPENEM SODIUM 1,000 MG in SODIUM CHLORIDE 0.9% 50 ML IV SCH (11:03)
--- NOTE | 2018-11-22 14:12 | Hospitalist Progress Note ---
Date of Service November 22, 2018 delayed entry date of service 11/21/18 Assessment & Plan (1) Incarcerated ventral hernia: per Dr. Perez's notes: Has been complaining of right lower quadrant pain No associated symptoms of nausea and/or vomiting or diarrhea Has had colonoscopy prior to cardiac surgery about 2-3 years ago An ill-defined palpable mass noted on examination of the right lower quadrant Noted to have obstructed spigelian hernia right lower quadrant in CT scan Status post surgical reduction of the ventral hernia 11/09/[address] Oswaldo Moyer -- wound healing well -- discussed with General Surgery Service, rosetta to be removed 14 days post op (patient only at 12 days post op) ff up with Dr. Moyer's office this week for staple removal (2) Sepsis: SIRS plus lactic acid elevation plus ARF Secondary to Vertebral osteomyelitis, Thoracic Discitis, Staph Bactermia hx septic arthritis right shoulder, left knee, PPM infection (MSSA as per records) status post completion of recent antibiotic Rx Orthopedic spine Dr. Ramos consulted RE spinal osteomyelitis-conservative management recommended, no lifting more than 5 pounds consulted ID specialist Dr. Cam-will need intravenous ertapenem for 6 weeks in total PICC line or IJ cath unsuccessful, s/p abreu cath placement by Dr. Jacobsen patient to continue Ertapenem 1g IV daily x at least 4 more weeks via [facility] cath home health services arranged ff up with ID Clinic Dr. Cam in 1-2 weeks ff up with Ortho Spine Dr. Ramos in 1-2 weeks (3) Discitis thoracic region: management as noted above (4) Staphylococcus aureus bacteremia: management as noted above (5) Osteomyelitis of thoracic spine: management as noted above (6) Anemia: Hemoglobin dropped below 8 Multifactorial etiology including chronic disease contributed by acute infection and surgery Status post 2 units of blood transfusion so far Hemoglobin remains stable more than 9 Appreciate GI input and recommendation-no EGD for now continue Protonix daily monitor CBC (7) PAF (paroxysmal atrial fibrillation): SSS sp PPM placement status post Watchman device implantation currently off anticoagulation due to bleeding concerns as per records Paced rhythm HR controlled (8) CHF (congestive heart failure): Chronic diastolic heart failure (EF 50%, DAYANA 2018), patient on the dry side chronic left bundle branch block history CAD as per records hx of bioprosthetic AVR/MVR -- on usual Lasix PO (9) HTN (hypertension): usual Valsartan held Hydralazine and Amlodipine ordered usual Metoprolol continued monitor (10) S/P AVR (aortic valve replacement): No symptoms reported DVT prophylaxis. Heparin subcu (held for surgery) Disposition d/c home with home health services ff up with PCP in 3-5 days , date as per DC instructions ff up with ID Clinic Dr. Cam in 1-2 weeks ff up with Ortho Spine Dr. Ramos in 1-2 weeks Subjective ff up for discitis, OM seen resting in bed, comfortable in good spirits denies pain on the abreu cath site, back pain or RLQ pain states she feels much better overall denies other symptoms states she is ready and would like to be discharged Physical Exam 2 Vital Signs (Past 24 Hours): Last Vital Signs Temp 37.1 C 11/21/18 17:27 Pulse 60 11/21/18 17:27 Resp 19 11/21/18 17:27 BP 136/49 L 11/21/18 17:27 Pulse Ox 93 11/21/18 17:27 Physical Exam: Physical Exam: General- oriented x 3, not in distress, speaks in sentences with no effort or accessory muscle use Eyes- anicteric Neck- no JVD Lungs- clear breath sounds bilaterally, no crackles, or wheezing abreu cath on Left chest wall: no signs of hematoma/bleeding, no tenderness/ erythema Heart- normal rate, regular rhythm; no murmurs Abdomen- normal bowel sounds, nondistended, soft, nontender incision site: rosetta in place, healing well Extremities- no pretibial edema, no calf tenderness Neuro- alert, oriented x 3; no gross focal neurologic deficits Skin- warm & dry _ (1) Sepsis Sepsis type: sepsis due to unspecified organism Qualified Code(s): A41.9 - Sepsis, unspecified organism
--- NOTE | 2018-11-22 14:27 | Discharge Summary ---
Date of Service November 22, 2018 Admission HPI Per Admitting Provider History obtained from patient and records. Medical history significant for chronic diastolic heart failure (EF 50%, DAYANA 2017) SSS sp PPM status post Watchman device implantation currently off anticoagulation due to bleeding concerns as per records, recent history septic arthritis (right shoulder, left knee)/PPM pocket infection status post PPM replacement (MSSA sp IV antibiotic Rx), chronic left bundle branch block, history CAD as per records, hx of bioprosthetic AVR/MVR, hypertension, Charcot- Megan-Tooth disease as per records Recent confinement September 2018 for MSSA bacteremia, possible endocarditis. Patient transferred to [facility]. Patient confined at [facility] from September 07, 2018 to October 06, 2018. Patient found to have a septic right shoulder, PPM pocket infection, septic left knee during confinement. Patient had right shoulder, left knee wash out procedures. PPM removed and subsequently replaced. Cultures grew MSSA. Patient eventually developed reactions to IV Cefazolin later outpatient IV vancomycin course. Subsequently completed IV Daptomycin Rx outpatient. Total treatment duration for MSSA infection with multiple antibiotics totaling 5 weeks (last dose 10/30/2018). PICC line removed at [facility] last week after treatment completion. 2 days history of achy low back pain worse on lying down. Patient noted fever chills today. Denies incontinence, lower extremity numbness, weakness. Patient denies chest pain, SOB. At the ER, IV Vancomycin and Zosyn given for possible osteomyelitis of the spine. Patient developed respiratory distress and a truncal/back rash at the completion of IV vancomycin infusion. O2 sats 80s. IV Solu-Medrol, Benadryl; IM epinephrine given for presumptive anaphylactic reaction. Patient currently comfortable. 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 Admission Exam Per Admitting Provider Vital Signs (Past 24 Hours): Last Vital Signs Temp 37.5 C 11/06/18 22:48 Pulse 86 11/07/18 02:19 Resp 24 11/07/18 02:19 BP 163/79 H 11/07/18 02:19 Pulse Ox 92 11/07/18 02:19 Physical Exam: GENERAL: uncomfortable, no respiratory distress, slightly anxious SKIN: Erythematous rash on the back, pallor , warm HEENT: Bespectacled, pale palpebral conjunctivae, no ptosis, dry buccal mucosa NECK : Supple, short, no tenderness CHEST : Decreased breath sounds, no tenderness HEART : RRR, systolic murmur ABDOMEN: Some distention, nontender BACK low back tenderness, negative straight leg raise test EXTREMITIES : minimal LE swelling, no tenderness, no other conspicuous deformities noted NEUROLOGIC : Coherent, no facial asymmetry, no other gross focality Principal Diagnosis 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, THORACIC DISCITIS, STAPH AUREUS BACTEREMIA Discharge Exam Vital Signs (Past 24 Hours): Last Vital Signs Temp 37.1 C 11/21/18 17:27 Pulse 60 11/21/18 17:27 Resp 19 11/21/18 17:27 BP 136/49 L 11/21/18 17:27 Pulse Ox 93 11/21/18 17:27 Physical Exam: Physical Exam: General- oriented x 3, not in distress, speaks in sentences with no effort or accessory muscle use Eyes- anicteric Neck- no JVD Lungs- clear breath sounds bilaterally, no crackles, or wheezing barrera cath on Left chest wall: no signs of hematoma/bleeding, no tenderness/ erythema Heart- normal rate, regular rhythm; no murmurs Abdomen- normal bowel sounds, nondistended, soft, nontender incision site: rosetta in place, healing well Extremities- no pretibial edema, no calf tenderness Neuro- alert, oriented x 3; no gross focal neurologic deficits Skin- warm & dry Discharge Data Allergies Allergy/AdvReac Type Severity Reaction Status Date / Time vancomycin Allergy Severe rash, Verified 11/07/18 02:25 shortness of breath cefazolin Allergy rash Verified 11/07/18 03:28 Consultations 11/07/18 03:28 ED Decision to Admit Stat 11/07/18 04:20 Consult Case Management - Discharge Planning Routine Consult Infectious Diseases Routine Consult Orthopedic Surgery Routine 11/09/18 18:08 Consult General Surgery Routine 11/12/18 11:59 Consult Gastroenterology Routine 11/13/18 14:27 Consult Financial Compliance Manager Routine 11/16/18 09:38 Consult Vascular Surgery Routine Procedures Performed Operation Date: 11/09/18 18:45 Actual Procedures p Open Right Ventral Hernia Repair(Right) - Oswaldo Moyer MD, FACS Operation Date: 11/20/18 08:00 Actual Procedures p Insertion of Barrera Catheter, Moderate Sedation From 0833 to 0859.(Left) - Geoffrey Jacobsen MD Ordered Studies 11/06/18 21:12 CT abd pelvis IV con only Stat ABDOMEN AND PELVIS CT WITH IV CONTRAST CT DOSE: 332.40 mGy.cm HISTORY: Acute low back and lower abdominal pain back pain TECHNIQUE: Multiaxial CT images of the abdomen and pelvis were performed following the use of intravenous contrast. A dose lowering technique was utilized adhering to the principles of ALARA. COMPARISON STUDY: Ultrasound of the gallbladder 02/23/2018, CTA chest 09/07/2018 FINDINGS: Subsegmental bibasilar atelectasis. No pneumatosis or pneumoperitoneum. Imaged inferior cardiac chambers are moderately enlarged. Partially imaged pacer leads. Prosthetic mitral valve. Prior cholecystectomy. Mild dilation of the common bile duct is likely on a postsurgical basis. Liver appears unremarkable. The hepatic and portal veins. Spleen, pancreas and right adrenal gland are unremarkable. Mild thickening about the left adrenal gland. Kidneys and ureters are unremarkable. Partially decompressed bladder with mild wall thickening. Prior hysterectomy. No adnexal mass lesions. Extensive mixed plaque formation about the abdominal aorta without aneurysm. IVC is unremarkable. Mildly prominent iliac chain lymph nodes measure up to 7 mm in short axis, likely physiologic. No small bowel obstruction. Multiple scattered air-fluid levels noted within nondilated loops of small bowel are likely on a physiologic basis. Large bowel is also unremarkable. The appendix appears normal within the abdominal right lower quadrant. A lower right anterior abdominal wall hernia suggestive of Spigelian hernia noted with diastases 1.8 cm containing mesenteric fat and nonobstructed loop of ileum. No ascites or mesenteric inflammation. Soft tissues appear unremarkable. Bones appear mildly demineralized. Laminectomy changes with posterior interbody ericka and screw fusion L4-L5. 4 mm anterolisthesis L4 on L5. Advanced intervertebral disc space narrowing is seen at several levels. Intervertebral disc space narrowing with endplate lucencies and erosive changes at T11-T12 are new from 09/07/2018. Moderate inflammatory stranding of the adjacent paraspinal tissues. Additionally, severe intervertebral disc space narrowing with mild endplate irregularity at 2-L3, age -indeterminate without surrounding inflammation. IMPRESSION: 1. Endplate erosive/lytic changes at the T11-T12 level are new from 09/07/2018 compatible with acute to subacute discitis osteomyelitis. Moderate infiltration of the adjacent prevertebral tissues without drainable fluid collection identified. Infectious disease consultation is needed. 2. No acute intra-abdominal or intrapelvic abnormality identified. 3. Right-sided Spigelian hernia contains mesenteric fat and a nonobstructed loop of ileum. 4. Additional findings as above. 11/07/18 07:42 CT thoracic spine wo con Stat CT SCAN OF THE THORACIC SPINE WITHOUT IV CONTRAST CLINICAL HISTORY: Thoracic back pain. COMPARISON STUDY: Chest CT dated 09/07/2018. Abdominal CT dated 11/06/2018. TECHNIQUE: CT scan of the thoracic spine is performed from the lower cervical spine to the upper lumbar spine. Images are reviewed in the axial, sagittal, and coronal planes. IV contrast was not administered for this examination. A dose lowering technique was utilized adhering to the principles of ALARA. CT DOSE: 811.82 mGy.cm FINDINGS: The skeletal structures are osteopenic. There is no evidence of acute fracture or malalignment involving the thoracic spine. There is a minimal superior endplate compression deformity of T2. Vertebral body height is otherwise maintained throughout the thoracic spine. Mild scoliosis is observed. There is endplate erosion seen at T11-T12, and this represents a significant change from the 09/07/[address] There is significant paravertebral edema at this level, and the appearance is consistent with discitis/osteomyelitis. No similar appearing changes are seen at the remaining thoracic levels. No lytic or blastic lesion is identified. There is no evidence of large disc herniation or high-grade central canal stenosis by CT. A posterior disc osteophyte complex is noted at L1-L2. Disc bulge eccentric to the right is suggested at T11-T12. As noted above, there is significant paravertebral edema at T11-T12. The paraspinous soft tissues are otherwise normal as imaged. There is no airspace consolidation or pleural effusion. Scarring/atelectasis is noted at the left lung base. The heart appears enlarged. Pacemaker leads are noted. Postoperative change is also suggested in the left atrial appendage. A small hiatal hernia is identified. Excreted IV contrast is present within the renal collecting systems. IMPRESSION: 1. Again seen are findings of discitis/osteophytosis at T11-T12 with surrounding paravertebral edema. This is similar in appearance to the 11/06/[address], but new from 09/07/2018. 2. No similar-appearing findings are seen at the remaining thoracic levels. 3. Osteopenia and mild spondylotic change as above. Electronically signed by: Chadwick Alcaraz M.D. 11/07/2018 8:44 AM 11/09/18 16:50 CT abd pelvis wo con Urgent CT abd pelvis wo con CT DOSE: 703.02 mGycm HISTORY: Pain. Mass. r/o RLQ mass TECHNIQUE: Multiaxial CT images of the abdomen and pelvis were performed without contrast. A dose lowering technique was utilized adhering to the principles of ALARA. COMPARISON STUDY: 11/06/2017 FINDINGS: Lung bases are considered clear. Minimal dependent basilar atelectasis. Erosive changes of the T11-T12 level are similar. Discitis and secondary osteomyelitis is considered. Similar but less prominent findings are seen at L2- L3. Configuration of liver spleen and pancreas are unremarkable. Laminectomy and fusion changes of the lumbar spine are again noted. Bowel pattern is nonobstructive. There is a right-sided spiculation hernia which has been described previously. A mildly distended loop of terminal ileum is present. The distention is an interval finding. Bladder is midline. No significant free fluid within the pelvic cul-de-sac. There are several scattered colonic diverticuli. IMPRESSION: 1. Right anterior/lateral spigelian hernia containing a moderately distended loop of small bowel. 2. This distention represents an interval change compared to the prior study. 3. Findings of discitis and underlying osteomyelitis again noted at T11-T12 with potential early additional changes at L2-L3. The above report was generated using voice recognition software. It may contain grammatical, syntax or spelling errors. Electronically signed by: Quinton Monte M.D. 11/09/2018 5:52 PM 11/13/18 14:57 US point of care ultrasound Routine 11/16/18 20:17 US venous doppler UE BI Routine IMPRESSION: 1. No acute DVT within the internal jugular or subclavian veins. 2. Linear echogenic focus within the proximal to mid left subclavian vein which may represent a small nonocclusive chronic thrombus. 3. The distal right internal jugular vein was nonvisualized and may be hypoplastic. 11/20/18 07:28 EV cvc insert non tunnel Routine US guide vascular access Routine Hospital Course (1) Sepsis: Secondary to Vertebral osteomyelitis, Thoracic Discitis, Staph Bactermia SIRS plus lactic acid elevation plus ARF hx septic arthritis right shoulder, left knee, PPM infection (MSSA as per records) status post completion of recent antibiotic Rx Orthopedic spine Dr. Ramos consulted RE spinal osteomyelitis-conservative management recommended, no lifting more than 5 pounds consulted ID specialist Dr. Cam- recommend intravenous ertapenem for 6 weeks in total received IV Ertapenem x 2 weeks while admitted PICC line or IJ cath unsuccessful, s/p barrera cath placement by Dr. Jacobsen patient to continue Ertapenem 1g IV daily x at least 4 more weeks via Barrera cath home health services arranged ff up with ID Clinic Dr. Cam in 1-2 weeks ff up with Ortho Spine Dr. Ramos in 1-2 weeks (2) Discitis thoracic region: management as noted above (3) Staphylococcus aureus bacteremia: management as noted above (4) Osteomyelitis of thoracic spine: management as noted above (5) Incarcerated ventral hernia: during admission, patient developed right lower quadrant pain An ill-defined palpable mass noted on examination of the right lower quadrant Noted to have obstructed spigelian hernia right lower quadrant in CT scan Status post surgical reduction of the ventral hernia 11/09/[address] Oswaldo Moyer -- stable post op wound healing well -- discussed with General Surgery Service, rosetta to be removed 14 days post op (patient only at 12 days post op) ff up with Dr. Moyer's office this week for staple removal (6) Anemia: Hemoglobin dropped below 8 Multifactorial etiology including chronic disease contributed by acute infection and surgery Status post 2 units of blood transfusion so far Hemoglobin remains stable more than 9 Appreciate GI input and recommendation-no EGD for now continue Protonix daily monitor CBC (7) PAF (paroxysmal atrial fibrillation): SSS sp PPM placement status post Watchman device implantation currently off anticoagulation due to bleeding concerns as per records Paced rhythm HR controlled (8) CHF (congestive heart failure): Chronic diastolic heart failure (EF 50%, DAYANA 2018), patient on the dry side chronic left bundle branch block history CAD as per records hx of bioprosthetic AVR/MVR -- on usual Lasix PO (9) HTN (hypertension): usual Valsartan held due to elevated crea on admission Hydralazine and Amlodipine ordered usual Metoprolol continued -- resume Valsartan, monitor renal function closely continue usual Metoprolol added Amlodipine 5mg po daily for better BP control monitor BP (10) S/P AVR (aortic valve replacement): No symptoms reported Disposition d/c home with home health services ff up with PCP in 3-5 days , date as per DC instructions ff up with ID Clinic Dr. Cam in 1-2 weeks ff up with Ortho Spine Dr. Ramos in 1-2 weeks Total Time Total Time Spent Total Time Spent (In Minutes): 40 minutes Total Time Includes: Examination of the Patient, Discharge Planning, Medication Reconciliation, Communication With Other Providers and Other Discharge Plan Discharge Items Patient Disposition: Home - Home Health Services Reason For Visit: sepsis Discharge Diagnosis: SEPSIS SECONDARY TO THORACIC DISKITIS, VERTEBRAL OSTEOMYELITIS Discharge Goals: Diagnostic testing and Therapeutic intervention Activity: As commented below Activity Comment: light activity for 4 weeks Lifting: Wait until after follow-up appointment Bathing Comment: may shower Exercise Comment: wait 4 weeks Driving/Machine Use Comment: no driving Non-emergency contact: Primary Care Provider and Surgeon Call non-emergency contact if: you have any medication questions, your symptoms worsen, your pain is not controlled, your pain is worsening, your pain is unusual for you, your pain is concerning for you, you have a fever, your wound has increased redness, your wound has increased drainage and your wound pain has increased Follow-up/Referrals: Mitchell Cam MD [Physician] - Oswaldo Moyer MD, FACS [Surgeon] - Maria Del Carmen Matos DO [Primary Care Provider] - 11/24/18 12:45 pm Diet: Heart Healthy Add Provider Instructions: Please follow up with Primary Care Physician as noted above. Follow up with Infectious Disease Clinic Dr. Cam in 2 weeks. Please call his office for an appointment. Tel. No. Surgeon's recommendations: - change bandage daily - Call Dr Moyer's office to come in and have rosetta removed- [phone] Call Primary Care Physician or return to ER immediately if with recurrence/ worsening of symptoms, fever/chills, increasing back pain or pain the incision site, increasing redness /swelling or any discharge from wound site. Prescriptions: New amlodipine [Norvasc] 5 mg Tablet 5 mg PO QAM 30 Days Qty: 30 RF: 1 pantoprazole 40 mg Tablet,Delayed Release (Dr/Ec) 40 mg PO QAM 30 Days Qty: 30 RF: 0 ertapenem 1 gram recon soln 1 gm IV DAILY 28 Days Qty: 28 RF: 0 Continue aspirin 325 mg tablet,delayed release (DR/EC) 325 mg PO QAM RF: 0 ferrous sulfate 325 mg (65 mg iron) tablet 325 mg PO BID RF: 0 fexofenadine 180 mg tablet 180 mg PO DAILY RF: 0 furosemide 80 mg tablet 80 mg PO QAM RF: 0 potassium chloride 10 mEq tablet,ER particles/crystals 10 meq PO BID RF: 0 diphenhydramine HCl [Benadryl] 25 mg Capsule 25 mg PO Q6 PRN (Reason: Unknown) RF: 0 valsartan 80 mg tablet 80 mg PO QAM RF: 0 metoprolol tartrate 50 mg tablet 50 mg PO BID RF: 0 Stand-Alone Forms: [facility] Discharge Orders: Discharge Order (Routine); Ordered 11/21/18 Ordered By: Jeb Ling Admission Data Admit Date/Time: 11/07/18 03:10 Attending Provider: Jeb Ling Admit Provider: Rinku Shepard Primary Care Provider: Maria Del Carmen Matos Other Providers: Jeb Ling ; IRB Approved Study,Jese ; Girish Perez ; Rinku Sheaprd ; Mitchell Cam ; Maryse Greco ; Brad Ramos ; Oswaldo Moyer ; Heaven Cooper ; Altagracia Escamilla ; Raina Hernandez ; Reji Ulrich ; Marilia Wallis ; Harriet Dee ; Yadi Foster ; Kush Butterfield ; Angel Luis Up ; Kristie Wray ; Corrie Howe ; Cherry Hurst ; Sherri Austin ; Taniya Sanchez ; Wil Perales ; Simoni,Geoffrey J Service: Telemetry Other Interventions: Discharge Summary Assessment (RN) Last Done: 11/21/18 17:27 DC Date/Time DO NOT enter until pt leaves facility: 11/21/18 18:20
== END 2018-11-21 18:20 | disposition home health service (06) | DRG 854 ==
LOC: ED 20:42 → SUATTDRO 11-07 03:10 → 2S 11-07 03:10 → 2W 11-07 09:30 → 2E 11-09 20:17
DX: Z95.2 Presence of prosthetic heart valve; Z82.61 Family history of arthritis; Z87.891 Personal history of nicotine dependence; D63.8 Anemia in other chronic diseases classified elsewhere; Z79.82 Long term (current) use of aspirin; R78.89 Finding of other specified substances, not normally found in blood; Z79.899 Other long term (current) drug therapy; I25.10 Atherosclerotic heart disease of native coronary artery without angina pectoris; I48.0 Paroxysmal atrial fibrillation; L27.0 Generalized skin eruption due to drugs and medicaments taken internally; R65.20 Severe sepsis without septic shock; I50.32 Chronic diastolic (congestive) heart failure; Z86.19 Personal history of other infectious and parasitic diseases; A41.01 Sepsis due to Methicillin susceptible Staphylococcus aureus; Z82.0 Family history of epilepsy and other diseases of the nervous system; N17.9 Acute kidney failure, unspecified; G60.0 Hereditary motor and sensory neuropathy; T36.8X5A Adverse effect of other systemic antibiotics, initial encounter; R06.03 Acute respiratory distress; T88.6XXA Anaphylactic reaction due to adverse effect of correct drug or medicament properly administered, initial encounter; Z98.890 Other specified postprocedural states; K43.6 Other and unspecified ventral hernia with obstruction, without gangrene; Z88.1 Allergy status to other antibiotic agents; Z82.49 Family history of ischemic heart disease and other diseases of the circulatory system; M46.44 Discitis, unspecified, thoracic region; I11.0 Hypertensive heart disease with heart failure; I25.2 Old myocardial infarction; M46.24 Osteomyelitis of vertebra, thoracic region; Z95.0 Presence of cardiac pacemaker; R19.5 Other fecal abnormalities; Z51.81 Encounter for therapeutic drug level monitoring

== ENCOUNTER 2021-04-16 05:41 | Inpatient (IN) ==
[2021-04-16] MEDS ORDERED: SODIUM CHLORIDE 0.9% 1000ML 1,000 ML IV ONE (05:55)
[2021-04-16] MEDS ORDERED: ACETAMINOPHEN 500 MG TAB PO STA (05:55)
--- NOTE | 2021-04-16 05:59 | Emergency Department Note ---
Impression & Plan Hypoxia, Acute febrile illness ED Provider Note Name: MARCO A MOLINA Age: 75 Sex: F Arrives Via: Walk-In Informant: Patient ED Provider: Marco Trotter MD Chief Complaint: shortness of breath Impression: Hypoxia Acute Febrile Illness Medical Decision Makin yr old female with several days of illness and overnight worsening shortness of breath, cough and arrives febrile/hypoxic. She is dehydrated by examination and lung exam with some diffuse crackles. Given IV fluids and Tylenol in initially. EKG with LBBB and sinus tachy. CXR concerning for possible right perihilar infiltrate. With fevers/hypoxia treated with zosyn and will hold off on further coverage given vanco/cephalosporin allergies. Labs returning with mildly low WBC and some thrombocytopenia. Lactate ok and BP ok. She was monitored with stable O2 sats on NC. She with without abdominal TTP, has no nuchal ridgidity on exam, no clear cellulitis any where and no other acute fin dings. Patient clearly dehydrated on exam but with her CHF history and risks of rapid fluid overload she was initially given only 1 L NSS bolus which resulted in much improvement in HR. Hold off on further fluids given good HR and Blood pressure with normal lactate. Prior Medical Record and Triage/Nursing Notes reviewed by Me Additional history obtained from chart Differentials:Viral syndrome, otitis, pharyngitis, pneumonia, influenza, meningitis, urinary tract infection, sepsis, bacteremia, as well as other pathologies. Vital Signs: reviewed and remarkable for fever, hypoxia, tachy Interventions: saline lock, nss bolus, zosyn iv, vanco iv Labs:Reviewed and remarkable for mild leukocytosis Imaging:X ray results are stated below per my interpretation: Chest: 1 view: New right perihilar infiltrate compared to previous cxr EKG:Per My Interpretation: Indication fever/sob: Sinus tach 102 bpm, qtc 492 with LBBB. LBBB similar to previous EKG which in past (11/08/18) was atrial paced Cardiac/Tele Monitoring: Cardiac Monitoring: An Order was placed for continuous cardiac monitoring. The monitor shows a rate of 105 with a sinus tach rhythm. Consults:Anette Hospitalist Plan: Disposition:Hospitalization. Condition: Good History of Present Illness:75 yr old female arrives for evaluation of shortness of breath. Patient notes that she has had mild headache the last 2 to 3 days and just not feeling well. Overnight worsening cough. This morning noted she felt very short of breath. Worse with any exertion. Better with rest. Associated with feeling very dehydrated. Denies chest pain, syncope, palpations, leg swelling, abdominal pain, back pain, nausea, vomiting, urinary/bowel symptoms, vision changes, neuro deficits, neck pain nor other symptoms. Denies falls, trauma, injuries. No medications prior to arrival. Notes she has already had covid vaccinations. ROS: See above HPI for pertinent positives & negatives. A total of 10 systems reviewed and were otherwise negative. Past Medical History:See Below Past Surgical History:See Below Family History:See Below Social History:See Below Home Medications:See Below Allergies:vanco, cefazolin Vitals:Blood Pressure: 134/64, Pulse 103, RR 18, T 38.2C, O2 87% on RA Physical Exam: GENERAL: Patient is ill appearing and in moderate distress. Dehydrated appearing EYES: No scleral icterus, unremarkable pupils. ENT: Mucous membranes dry, no nasal congestion. NECK: No masses appreciated, nomeningismus, trachea is midline. RESPIRATORY: Tachypnea, dyspnea, crackles CARDIOVASCULAR: Tachy.No murmurs, rubs, gallops appreciated. GASTROINTESTINAL: Abdomen soft, non-tender, no peritonitis.Bowel sounds positive.No masses appreciated. BACK: No midline tenderness, no CVA tenderness EXTREMITIES: Normal motion all extremities, no cyanosis, no edema. NEUROLOGIC: Alert and oriented, no acute motor or sensory deficits, no focal weakness, cranial nerves grossly intact. SKIN: No rash, no jaundice, no diaphoresis. PSYCH: Appropriate GCS: 15 ED Course: Times/Reassessments: Much improved on NC O2. Comfortable with hospitalization Marco Trotter MD Past Med/Surg History Medical History Jigdrel-Kvwol-Mtlwb disease CHF (congestive heart failure) Elevated troponin History of cardioversion History of left heart catheterization (LHC) HTN (hypertension) Leg pain Neuropathy PAF (paroxysmal atrial fibrillation) Presence of Watchman left atrial appendage closure device Surgical History H/O colonoscopy H/O hernia repair H/O: hysterectomy History of appendectomy History of tonsillectomy S/P AVR (aortic valve replacement) S/P cholecystectomy S/P MVR (mitral valve repair) Family History Other Jtdrrbd-Frwmq-Tjxsc disease Heart disease Social History Smoking Status: Never smoker Second Hand Exposure: No; Do You Dip or Chew Tobacco: No; Tobacco Cessation Education Requested by Patient: No Hx Alcohol Use: No Hx Substance Use: No Preferred Language: Hungarian Communication Ability: Effective Home Improvement Advisor Required: No Beliefs That Will Affect Care: None Current Living Situation: Family Current Living Situation Comment: "my son lives with me" Other Information That Helps Us Care for You: No Feels Safe at Home: Yes Safety Concerns: Feels Safe At This Time Assistive Devices: Glasses and Walker Allergies Allergies Allergy/AdvReac Type Severity Reaction Status Date / Time vancomycin Allergy Severe rash, Verified 04/16/21 09:35 shortness of breath cefazolin Allergy rash Verified 04/16/21 09:35 Home Meds Home Medications Medication Instructions Recorded Confirmed metoprolol tartrate 50 mg tablet 50 mg PO BID 09/06/18 04/16/21 valsartan 80 mg tablet 80 mg PO QAM 09/06/18 04/16/21 aspirin 325 mg tablet,delayed 325 mg PO QAM 11/06/18 04/16/21 release furosemide 80 mg tablet 80 mg PO QAM 11/06/18 04/16/21 potassium chloride 10 mEq 10 meq PO BID 11/06/18 04/16/21 tablet,extended release(part/cryst) acetaminophen 500 mg tablet 500 mg PO Q6H PRN 04/16/21 04/16/21 (Tylenol Extra Strength) amlodipine 5 mg tablet 5 mg PO QAM 04/16/21 04/16/21 Results & Data (ED) Vital Signs Vital Signs - 24 hr 04/16/21 05:45 04/16/21 06:08 04/16/21 06:30 Temperature 38.2 C H Temperature Source Oral Pulse Rate 103 H 102 H Pulse Rate [Apical] Pulse Rate from SpO2 Sensor 102 H Pulse Rhythm [Apical] Pulse Strength [Apical] Respiratory Rate 18 41 H Respiratory Effort / Characteristics Respiratory Depth Normal Respiratory Pattern Blood Pressure 134/64 176/101 H Blood Pressure [Right Arm] Blood Pressure Mean 87 126 Blood Pressure Mean [Right Arm] Pulse Oximetry 90 97 98 Oxygen Delivery Method Room Air Nasal Cannula Nasal Cannula Oxygen Flow Rate 4 4 Sepsis Recent Fever Within 48 Hours Yes Sepsis New/Unexplained Change in Mental Status N/A Sepsis Action Taken by Nursing No Action Required 04/16/21 07:18 Temperature Temperature Source Pulse Rate Pulse Rate [Apical] 60 Pulse Rate from SpO2 Sensor Pulse Rhythm [Apical] Regular Pulse Strength [Apical] Normal Respiratory Rate 18 Respiratory Effort / Characteristics Non-Labored Respiratory Depth Normal Respiratory Pattern Regular Blood Pressure Blood Pressure [Right Arm] 147/72 H Blood Pressure Mean Blood Pressure Mean [Right Arm] 97 Pulse Oximetry 97 Oxygen Delivery Method Nasal Cannula Oxygen Flow Rate 4 Sepsis Recent Fever Within 48 Hours Sepsis New/Unexplained Change in Mental Status Sepsis Action Taken by Nursing Laboratory Data Result diagrams: 04/16/21 06:12 04/16/21 06:12 Lab Results 04/16/21 04/16/21 04/16/21 Range/Units 06:12 06:12 06:12 WBC (4.8-10.8) K/uL RBC (4.2-5.4) M/uL Hgb (12.0-16.0) g/dL Hct (37-47) % MCV (80-100) fL MCH (25-34) pg MCHC (32-36) g/dL RDW Std Deviation (36.4-46.3) fL RDW Coeff of Christian (11.5-14.5) % Plt Count (130-400) K/uL MPV (7.4-10.4) fL Immature Gran % (Auto) % Neut % (Auto) % Lymph % (Auto) % Pierce % (Auto) % Eos % (Auto) % Baso % (Auto) % Neut # (Auto) (1.4-6.5) K/uL Lymph # (Auto) (1.2-3.4) K/uL Pierce # (Auto) (0.11-0.59) K/uL Eos # (Auto) (0-0.5) K/uL Baso # (Auto) (0-0.2) K/uL Immature Gran # (Auto) (0.00-0.02) K/uL Platelet Estimate (Normal) Polychromasia PT 11.8 (9.0-12.0) Seconds INR 1.2 H (0.9-1.1) APTT 28.5 (21.0-31.0) Seconds PTT Ratio 1.1 Sodium 139 (136-145) mmol/L Potassium 3.2 L (3.5-5.1) mmol/L Chloride 107 (98-107) mmol/L Carbon Dioxide 25 (21-32) mmol/L Anion Gap 7.0 (3-11) BUN 15 (7-18) mg/dl Creatinine 0.70 (0.6-1.2) mg/dl Est Cr Clr Drug Dosing 63.6 ml/min Est GFR ( Amer) 99.6 ml/min Est GFR (Non-Af Amer) 86.0 ml/min BUN/Creatinine Ratio 21.0 H (10-20) Glucose 119 H (70-99) mg/dl Lactate 1.3 (0.4-2.0) mmol/L Calcium 8.5 (8.5-10.1) mg/dl Total Bilirubin 0.8 (0.2-1) mg/dl Direct Bilirubin 0.2 (0-0.2) mg/dl AST 48 H (15-37) U/L ALT 30 (12-78) U/L Alkaline Phosphatase 48 (45-117) U/L Troponin I 0.247 H* (0-0.045) ng/ml NT-Pro-B Natriuret Pep 6789 H (0-900) pg/ml Total Protein 7.4 (6.4-8.2) gm/dl Albumin 3.6 (3.4-5.0) gm/dl Lipase 121 (73-393) U/L Procalcitonin (0-0.5) ng/ml Anaplasma Smear 04/16/21 04/16/21 Range/Units 06:12 06:12 WBC 4.26 L (4.8-10.8) K/uL RBC 4.72 (4.2-5.4) M/uL Hgb 13.0 (12.0-16.0) g/dL Hct 39.6 (37-47) % MCV 83.9 (80-100) fL MCH 27.5 (25-34) pg MCHC 32.8 (32-36) g/dL RDW Std Deviation 42.1 (36.4-46.3) fL RDW Coeff of Christian 13.6 (11.5-14.5) % Plt Count 82 L (130-400) K/uL MPV 9.5 (7.4-10.4) fL Immature Gran % (Auto) 0.2 % Neut % (Auto) 84.7 % Lymph % (Auto) 8.0 % Pierce % (Auto) 6.6 % Eos % (Auto) 0.0 % Baso % (Auto) 0.5 % Neut # (Auto) 3.61 (1.4-6.5) K/uL Lymph # (Auto) 0.34 L (1.2-3.4) K/uL Pierce # (Auto) 0.28 (0.11-0.59) K/uL Eos # (Auto) 0.00 (0-0.5) K/uL Baso # (Auto) 0.02 (0-0.2) K/uL Immature Gran # (Auto) 0.01 (0.00-0.02) K/uL Platelet Estimate Decreased L (Normal) Polychromasia 1+ PT (9.0-12.0) Seconds INR (0.9-1.1) APTT (21.0-31.0) Seconds PTT Ratio Sodium (136-145) mmol/L Potassium (3.5-5.1) mmol/L Chloride (98-107) mmol/L Carbon Dioxide (21-32) mmol/L Anion Gap (3-11) BUN (7-18) mg/dl Creatinine (0.6-1.2) mg/dl Est Cr Clr Drug Dosing ml/min Est GFR ( Amer) ml/min Est GFR (Non-Af Amer) ml/min BUN/Creatinine Ratio (10-20) Glucose (70-99) mg/dl Lactate (0.4-2.0) mmol/L Calcium (8.5-10.1) mg/dl Total Bilirubin (0.2-1) mg/dl Direct Bilirubin (0-0.2) mg/dl AST (15-37) U/L ALT (12-78) U/L Alkaline Phosphatase (45-117) U/L Troponin I (0-0.045) ng/ml NT-Pro-B Natriuret Pep (0-900) pg/ml Total Protein (6.4-8.2) gm/dl Albumin (3.4-5.0) gm/dl Lipase (73-393) U/L Procalcitonin 0.54 H (0-0.5) ng/ml Anaplasma Smear See Comment Administered Medications Acetaminophen (Acetaminophen 500 Mg Tab) 500 mg PO Q6H PRN PRN Reason: Pain Stop: 05/16/21 14:19 Last Admin: 04/17/21 02:42 Dose: 500 mg Documented by: [id number] Admin: 04/16/21 17:01 Dose: 500 mg Documented by: [id number] Linezolid (Zyvox) 600 mg in 300 mls @ 200 mls/hr IV Q12H SIA; Protocol Stop: 04/23/21 10:29 Last Infusion: 04/17/21 00:01 Dose: 0 mls/hr Documented by: [id number] Admin: 04/16/21 22:30 Dose: 200 mls/hr Documented by: [id number] Infusion: 04/16/21 12:17 Dose: 0 mls/hr Documented by: [id number] Admin: 04/16/21 10:37 Dose: 200 mls/hr Documented by: [id number] Piperacillin Sod/Tazobactam (Sod 3.375 gm/ Dextrose) 115 mls @ 28.75 mls/hr IV Q8H SIA; Protocol Stop: 04/23/21 11:59 Last Admin: 04/17/21 04:09 Dose: 28.8 mls/hr Documented by: [id number] Infusion: 04/17/21 00:03 Dose: 0 mls/hr Documented by: [id number] Admin: 04/16/21 20:03 Dose: 28.8 mls/hr Documented by: [id number] Infusion: 04/16/21 16:19 Dose: 0 mls/hr Documented by: [id number] Admin: 04/16/21 12:19 Dose: 28.8 mls/hr Documented by: [id number] Metoprolol Tartrate (Metoprolol Tartrate 50 Mg Tab) 50 mg PO BID SIA Stop: 05/16/21 20:59 Last Admin: 04/16/21 20:04 Dose: 50 mg Documented by: [id number] Potassium Chloride (Potassium Chloride 10 Meq Tabcr) 10 meq PO [id number] SIA Stop: 05/16/21 16:59 Last Admin: 04/16/21 17:02 Dose: 10 meq Documented by: [id number] Discontinued Medications Acetaminophen (Acetaminophen 500 Mg Tab) 1,000 mg PO NOW STA Stop: 04/16/21 05:56 Last Admin: 04/16/21 06:09 Dose: 1,000 mg Documented by: [id number] Aspirin (Aspirin 325 Mg Ectab) 325 mg PO NOW STA Stop: 04/16/21 09:58 Last Admin: 04/16/21 10:37 Dose: 325 mg Documented by: [id number] Sodium Chloride (Nss 1000ml) 1,000 mls @ 999 mls/hr IV .Q1H1M ONE Stop: 04/16/21 06:55 Last Infusion: 04/16/21 07:17 Dose: 0 mls/hr Documented by: [id number] Admin: 04/16/21 06:10 Dose: 999 mls/hr Documented by: [id number] Piperacillin Sod/Tazobactam Sod (Zosyn) 4.5 gm in 120 mls @ 240 mls/hr IV NOW ONE Stop: 04/16/21 06:50 Last Infusion: 04/16/21 07:17 Dose: 0 mls/hr Documented by: [id number] Admin: 04/16/21 06:28 Dose: 240 mls/hr Documented by: [id number] Ioversol (Optiray 320 125ml) 120 ml IV ONCE ONE Stop: 04/16/21 10:11 Last Admin: 04/16/21 10:11 Dose: 120 ml Documented by: [id number] Lidocaine (Lidocaine 5% 1 Patch) 1 patch TD NOW STA Stop: 04/16/21 17:40 Last Admin: 04/16/21 20:03 Dose: 1 patch Documented by: [id number] Metoprolol Tartrate (Metoprolol Tartrate 50 Mg Tab) 50 mg PO NOW STA Stop: 04/16/21 09:58 Last Admin: 04/16/21 10:38 Dose: 50 mg Documented by: [id number] Potassium Chloride (Potassium Chloride Crtab 20 Meq Tabcr) 40 meq PO NOW STA Stop: 04/16/21 09:56 Last Admin: 04/16/21 10:38 Dose: 40 meq Documented by: [id number] Discharge Plan Visit Data Chief Complaint: Shortness of Breath/Dyspnea Stated Complaint: SOB ED Provider: Marco Trotter Discharge Problem: Hypoxia, Acute febrile illness Patient Disposition: Admitted As Inpatient Discharge Instructions Interventions: ED Discharge Assessment Last Done: 04/16/21 14:35
[2021-04-16] MEDS ORDERED: PIPERACILLIN/TAZOBACTAM 4.5 GM/120 ML BAG IV ONE (06:21)
[2021-04-16] MEDS ORDERED: PIPERACILL/TAZOBAC CONSULT ACTIVE PRN (06:21)
[2021-04-16 06:56] LABS: Hematocrit (blood only) 39.6 % (37-47); Mean Corpuscular Hemoglobin 27.5 pg (25-34); Mean Corpuscular Hgb Conc 32.8 g/dL (32-36); Mean Corpuscular Volume 83.9 fL (80-100); RDW Coefficient of Variation 13.6 % (11.5-14.5); RDW Standard Deviation 42.1 fL (36.4-46.3); Red Blood Count 4.72 M/uL (4.2-5.4); White Blood Count 4.26 K/uL (4.8-10.8)
[2021-04-16 07:05] LABS: Albumin Level 3.6 gm/dl (3.4-5.0); Bilirubin Direct 0.2 mg/dl (0-0.2); Calcium 8.5 mg/dl (8.5-10.1); Creatinine Clr Calc Pharmacy 63.6 ml/min; Est GFR (African American) 99.6 ml/min; Potassium 3.2 mmol/L (3.5-5.1)
[2021-04-16 07:19] LABS: Bilirubin,Total 0.8 mg/dl (0.2-1); Total Protein 7.4 gm/dl (6.4-8.2); Troponin I 0.247 ng/ml (0-0.045)
[2021-04-16 07:21] LABS: INR 1.2 (0.9-1.1); Partial Thromboplastin Ratio 1.1; Partial Thromboplastin Time 28.5 Seconds (21.0-31.0); Prothrombin Time 11.8 Seconds (9.0-12.0)
[2021-04-16 07:25] LABS: Basophils # (auto) 0.02 K/uL (0-0.2); Basophils % (auto) 0.5 %; Immature Granulocytes # (auto) 0.01 K/uL (0.00-0.02); Immature Granulocytes % (auto) 0.2 %; Lymphocytes # (auto) 0.34 K/uL (1.2-3.4); Mean Platelet Volume 9.5 fL (7.4-10.4); Monocytes # (auto) 0.28 K/uL (0.11-0.59); Monocytes % (auto) 6.6 %; Neutrophils # (auto) 3.61 K/uL (1.4-6.5); Neutrophils % (auto) 84.7 %; Platelet Count 82 K/uL (130-400); Platelet Estimate Decreased (Normal); Polychromasia 1+
--- NOTE | 2021-04-16 07:32 | XRay Report ---
XR chest 1V portable CLINICAL HISTORY: Shortness of breath COMPARISON STUDY: 11/07/2018 FINDINGS: There are postsurgical changes of midline sternotomy and valvular replacement. The heart is mildly enlarged. 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 There is no fail ure. There is no focal pulmonary consolidation. There are no pleural effusions.[Linear opacities in t he right perihilar region are likely atelectatic IMPRESSION: 1. Cardiomegaly 2. Linear opacities within the right perihilar region, statistically atelectatic ACT 112: Negative or not required by law. Electronically signed by: Nathan Chandler M.D. 04/16/2021 7:31 AM
--- NOTE | 2021-04-16 08:53 | History & Physical Report ---
Date of Service April 16, 2021 Assessment & Plan (1) Fever: (2) Acute respiratory failure with hypoxia: (3) Headache: (4) PAF (paroxysmal atrial fibrillation): (5) HTN (hypertension): (6) S/P MVR (mitral valve repair): (7) S/P AVR (aortic valve replacement): (8) Presence of Watchman left atrial appendage closure device: (9) Chronic diastolic heart failure: (10) Mfymvay-Kzlsm-Jrgxz disease: Plan: This is a 75-year-old female with a complex PMH of chronic diastolic heart failure, paroxysmal atrial fibrillation, SSS s/p PPM, s/p Watchman device implantation not on anticoagulation, LBBB, history of aortic valve replacement and mitral valve repair in 2016, history of MSSA bacteremia and septic arthritis (right shoulder, left knee)/PPM pocket infection status post PPM replacement 2018, Jkujtzu-Fnwxk-Eogkv disease and other medical problems listed below who presents from home after developing shortness of breath and fever overnight. Fever Possible sepsis Infection of unknown origin Developed SOB and fever early this morning, also tachycardic initially meeting SIRs criteria. Procal 0.54, troponin 0.247, lactate wnl Initial concern for PNA vs mild pulmonary edema on CXR, CTA chest Concern for infectious endocarditis given AV replacement, Watchman device - blood cultures obtained, started on Zosyn, Linezolid Also with presence of neck pain and headache in setting of fever - diagnostic LP ordered to r/o meningitis Considering tick borne illness given thrombocytopenia, viral sx - peripheral smear without e/o inclusion bodies. Lyme serology negative. Anaplasma DNA pending CT cervical spine without acute fracture or subluxation but degenerative changes as above History of MSSA bacteremia in 2019 due to vertebral osteomyelitis and thoracic discitis - no evidence of thoracic discitis on CTA chest today Acute hypoxic respiratory failure Sudden onset SOB early this morning, now saturating 98% on 4L NC (not on home O2) CT PE ordered - no evidence of PE or thoracic aortic dissection Continue empiric abx, supplemental O2 No overt evidence of volume overload on imaging or exam - will avoid diuretics today given load of IV contrast but monitor volume status closely Thrombus within the left atrial appendage closure device S/p Watchman device implantation in 2018 Per chart review, patient not on coumadin d/t patient's bleeding concerns CTA today revealing thrombus within the left atrial appendage closure device Unclear whether this is acute or chronic Discussed with Dr. Mayo - no need to anticoagulate at this time Appreciate cardiology recommendations Elevated troponin Initial troponin 0.247 - repeat 0.221 Chronic troponin elevated per chart review No chest pain EKG with paced rhythm, chronic LBBB, TWI in inferior leads Monitor on tele, trend troponin, 2D echo pending Cardiology consulted SSS s/p pacemaker implantation PM replaced in 2018 following PPM pocket infection prompting replacement of device Last interrogated in January 2021 Paroxysmal A Fib Continue Lopressor Chronic diastolic heart failure Appears euvolemic, CTA chest with e/o mild pulmonary edema Not given diuretics today given load of IV contrast but monitor volume status closely 2D echo pending 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 Patient seen in collaboration with Dr. Ling. Please see addendum. History of Present Illness Chief Complaint: Shortness of breath Primary Care Provider: Maria Del Carmen Matos DO This is a 75-year-old female with a complex PMH of chronic diastolic heart failure, paroxysmal atrial fibrillation, SSS s/p PPM, s/p Watchman device implantation not on anticoagulation, LBBB, history of aortic valve replacement and mitral valve repair in 2016, history of MSSA bacteremia and septic arthritis (right shoulder, left knee)/PPM pocket infection status post PPM replacement 2018, Ohluwlv-Epwtw-Sveme disease and other medical problems listed below who presents from home after developing shortness of breath overnight. Patient has been feeling poorly for 2 days, endorsing dull constant headache and subjective fever and chills. Woke up during the night after developing shortness of breath. [place] like she could not get a good breath in. Also endorsing pressure feeling in mid back between shoulder blades made worse with deep inspiration or movement. Associated with lightheadedness and dizziness with movement as well as sensitivity to light. Remote history of migraine headaches but none recently. Denies any chest pain, cough, congestion, wheezing. No vomiting, abdominal pain, dysuria, diarrhea or constipation. No known recent sick contacts. Did have prolonged hospital stay in [place] in Sep 2018-Oct 2018 due to staph bacteremia and septic arthritis (right shoulder, left knee) requiring washout procedures as well as PPM pocket infection status post PPM replacement. Was admitted the following month in 2018 for sepsis 2/2 vertebral osteomyelitis and thoracic discitis requiring continued IV abx. Follows with [facility] cardiology in [place]. Allergies Allergy/AdvReac Type Severity Reaction Status Date / Time vancomycin Allergy Severe rash, Verified 04/16/21 09:35 shortness of breath cefazolin Allergy rash Verified 04/16/21 09:35 Home Medications Medication Instructions Recorded Confirmed Type metoprolol tartrate 50 mg tablet 50 mg PO BID 09/06/18 04/16/21 History valsartan 80 mg tablet 80 mg PO QAM 09/06/18 04/16/21 History aspirin 325 mg tablet,delayed 325 mg PO QAM 11/06/18 04/16/21 History release furosemide 80 mg tablet 80 mg PO QAM 11/06/18 04/16/21 History potassium chloride 10 mEq 10 meq PO BID 11/06/18 04/16/21 History tablet,extended release(part/cryst) acetaminophen 500 mg tablet 500 mg PO Q6H PRN 04/16/21 04/16/21 History (Tylenol Extra Strength) amlodipine 5 mg tablet 5 mg PO QAM 04/16/21 04/16/21 History Past Med/Surg History Medical History Agcebyc-Ojsas-Xjqns disease CHF (congestive heart failure) Elevated troponin History of cardioversion History of left heart catheterization (LHC) HTN (hypertension) Leg pain Neuropathy PAF (paroxysmal atrial fibrillation) Presence of Watchman left atrial appendage closure device Surgical History H/O colonoscopy H/O hernia repair H/O: hysterectomy History of appendectomy History of tonsillectomy S/P AVR (aortic valve replacement) S/P cholecystectomy S/P MVR (mitral valve repair) Family History Other Wqqnref-Vgkqd-Rexlr disease Heart disease Social History Smoking Status: Never smoker Second Hand Exposure: No; Do You Dip or Chew Tobacco: No; Tobacco Cessation Education Requested by Patient: No Hx Alcohol Use: No Hx Substance Use: No Preferred Language: Georgian Communication Ability: Effective 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 Physical Exam Physical Exam: General Appearance: WD/WN, vitals as above, ill appearing, sitting up in bed, conversing easily Head: normocephalic, atraumatic Eyes: normal inspection, PERRL, conjunctivae normal, anicteric sclerae ENT: external ear and nose normal, oropharynx normal Neck: normal visual inspection, trachea midline, no thyromegaly Respiratory: normal respiratory effort, bibasilar crackles, no wheeze or rhonchi. No accessory muscle use Cardiovascular: regular rate, rhythm, systolic murmur, normal peripheral pulses, no BLE edema. Vessels: no JVD Chest: normal inspection of chest Abdomen/GI: normal bowel sounds, soft, nontender, no hepatosplenomegaly Extremities/Musculoskeletal: Pain to palpation spinous processes of cervical and thoracic spine. No deformities or rash noted. No cyanosis or clubbing, extremities motor strength 5/5 Neurologic: PERRL, EOMI, accommodation nl, no face palsy, no dysarthria, CN's II-XI intact bilaterally and moves all extremities Psychiatric: A+Ox3, euthymic affect Skin: no rashes, normal color, warm/dry Results & Data Results & Data ([facility]) Vital Signs (Past 12 Hours) Vital Signs Temp Pulse Pulse Resp BP BP Pulse Ox 04/16/21 07:18 60 18 147/72 H 97 04/16/21 06:30 102 H 41 H 176/101 H 98 04/16/21 06:08 97 04/16/21 05:45 38.2 C H 103 H 18 134/64 90 Laboratory Results Short CBC 04/16/21 Range/Units 06:12 WBC 4.26 L (4.8-10.8) K/uL Hgb 13.0 (12.0-16.0) g/dL Hct 39.6 (37-47) % Plt Count 82 L (130-400) K/uL BMP 04/16/21 06:12 Sodium 139 Potassium 3.2 L Chloride 107 Carbon Dioxide 25 BUN 15 Creatinine 0.70 Glucose 119 H Calcium 8.5 Cardiac Enzymes 04/16/21 Range/Units 06:12 Troponin I 0.247 H* (0-0.045) ng/ml Liver Function 04/16/21 Range/Units 06:12 Total Bilirubin 0.8 (0.2-1) mg/dl Direct Bilirubin 0.2 (0-0.2) mg/dl AST 48 H (15-37) U/L ALT 30 (12-78) U/L Alkaline Phosphatase 48 (45-117) U/L Albumin 3.6 (3.4-5.0) gm/dl Diagnostic Findings Chest X-Ray 04/16/21 05:50 XR chest 1V portable CLINICAL HISTORY: Shortness of breath COMPARISON STUDY: 11/07/2018 FINDINGS: There are postsurgical changes of midline sternotomy and valvular replacement. The heart is mildly enlarged. 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 There is no failure. There is no focal pulmonary consolidation. There are no pleural effusions.[Linear opacities in the right perihilar region are likely atelectatic IMPRESSION: 1. Cardiomegaly 2. Linear opacities within the right perihilar region, statistically atelectatic ACT 112: Negative or not required by law. Electronically signed by: Nathan Chandler M.D. 04/16/2021 7:[address] 04/16/21 09:50 CT cervical spine wo con CT DOSE: 1066.68 mGy.cm CLINICAL HISTORY: 75 years-old Female with neck pain. Acute neck pain. No reported trauma COMPARISON: CTA chest of same day, CT thoracic spine 11/07/2018 TECHNIQUE: Multiple axial CT images of the cervical spine were obtained without contrast. A dose lowering technique was utilized adhering to the principles of ALARA. FINDINGS: Demineralized appearance of the bones. Severe degeneration at C1-C2. Moderate intervertebral disc space narrowing and spondylitic spurring at C6-C7, unchanged from 2019. Moderate to severe multilevel facet arthrosis. Chronic mild superior endplate compression at T2. No acute fracture or subluxation. There is suggestion of multilevel neural foraminal narrowing. Right subclavian pacer. Trace right mastoid effusion. No prevertebral edema. Calcified plaque of the carotid bulbs. There is no pneumothorax. Streak artifact from left-sided earring. IMPRESSION: 1. No acute fracture or subluxation. 2. Degenerative changes as above. ACT 112: Negative or not required by law. The above report was generated using voice recognition software. It may contain grammatical, syntax or spelling errors. Electronically signed by: Aman Petit M.D. 04/16/2021 10:23 AM Chest CTA 04/16/21 09:50 CT ANGIOGRAPHY OF THE CHEST, PULMONARY EMBOLUS PROTOCOL CLINICAL HISTORY: Shortness of breath. Chest pain. Fever. COMPARISON STUDY: Chest CT September 07, 2018. Chest radiograph performed earlier today. TECHNIQUE: Following IV administration of 120 mL of Optiray, helical axial images of the chest were obtained utilizing the pulmonary embolus protocol. Maximal intensity projections and sagittal and coronal reformats were viewed on an independent 3D workstation. IV contrast was administered without complication. Automated exposure control was utilized for the study. A dose lowering technique was utilized adhering to the principles of ALARA. FINDINGS: No thoracic aortic dissection is noted although opacification of the descending thoracic aorta is suboptimal. There is no thoracic aortic aneurysm. Moderate cardiomegaly is noted. No pericardial effusion. A dual lead right subclavian pacemaker is in place. Prosthetic mitral and aortic valves are noted. Note is made of thrombus within the left atrial appendage close device. There is mild interlobular septal thickening within the lungs. Mild groundglass opacities within the lungs are noted. There is no consolidation. No pneumothorax or pleural effusion is noted. There is no evidence for acute discitis within the thoracic spine. Complete loss of the T11-T12 disc space is from previous episode of discitis/osteomyelitis IMPRESSION: 1. No thoracic aortic dissection. No pulmonary emboli. 2. Thrombus within the left atrial appendage closure device. 3. Mild groundglass opacities within the lungs with interlobular septal thickening. The findings favor mild pulmonary edema. An infectious process could appear similar although is considered less likely. 4. Cardiomegaly. ACT 112: Negative or not required by law. Electronically signed by: Lopez Tong M.D. 04/16/2021 10:48 AM Code Status & VTE Plan VTE Prophylaxis Plan VTE Prophylaxis will be ordered: Yes Supervising Physician Co-Signing Physician Notes Attending Addendum: care coordinated with MADIE Thomas please refer to her notes for full details, I agree with her notes patient seen and examined, records reviewed by myself as well on exam, patient seen resting in bed, comfortable, oriented x3, not in distress States she feels improved compared to admission Denies active shortness of breath, off oxygen supplementation when I seen her Denies cough, chest pain Reports pain in the occipital region of the head and posterior neck, worse with moving the neck no other symptoms VS noted and reviewed oriented x3, not in distress, speaks in sentences with no effort nor accessory muscle use No neck rigidity, but reports pain with head extension and flexion normal rate, regular rhythm, no murmurs Mild crackles at the bases, no wheezing non distended, soft, nontender no bipedal edema, erythema, warmth no neuro deficits WBC 4.2 Hg 13.0 Crea 0.7 ASSESSMENT AND PLAN Fever, with hypoxia possible pneumonia Rule out thoracic osteomyelitis/discitis Rule out bacteremia --CT chest negative for PE or dissection Lumbar puncture negative for meningitis --CT thoracic spine tomorrow Blood cultures pending --Continue linezolid plus Zosyn for now Posterior headache --Likely musculoskeletal etiology --We will get a CT head --Cervical spine CT degenerative disease Thrombus, left atrial appendage watchman closure device --Supervisor Unloading consulted --Recommend to initiate IV heparin if without contraindication if patient converts to atrial fibrillation Chronic diastolic heart failure BNP elevated but patient examines to be euvolemic to dry Monitor closely other diagnoses and plan of care as per MADIE Thomas's notes plan of care discussed with patient in detail and at length all questions answered She is understanding, agreeable, comfortable with the plan of care Jeb Ling MD (1) Fever Fever type: unspecified Qualified Code(s): R50.9 - Fever, unspecified
[2021-04-16] MEDS ORDERED: POTASSIUM CHLORIDE CRTAB 20 MEQ TABCR PO STA (09:55)
[2021-04-16] MEDS ORDERED: ASPIRIN 325 MG ECTAB PO STA (09:57)
[2021-04-16] MEDS ORDERED: METOPROLOL TARTRATE 50 MG TAB PO STA (09:57)
[2021-04-16] MEDS ORDERED: OPTIRAY 320 125ml IV ONE (10:10)
[2021-04-16] MEDS ORDERED: CONSULT PHARMACY PRN (10:15)
--- NOTE | 2021-04-16 10:24 | CT Scan Report ---
CT cervical spine wo con CT DOSE: 1066.68 mGy.cm CLINICAL HISTORY: 75 years-old Female with neck pain. Acute neck pain. No reported trauma COMPARISON: CTA chest of same day, CT thoracic spine 11/07/2018 TECHNIQUE: Multiple axial CT images of the cervical spine were obtained without contrast. A dose low ering technique was utilized adhering to the principles of ALARA. FINDINGS: Demineralized appearance of the bones. Severe degeneration at C1-C2. Moderate intervertebra l disc space narrowing and spondylitic spurring at C6-C7, unchanged from 2019. Moderate to severe mul tilevel facet arthrosis. Chronic mild superior endplate compression at T2. No acute fracture or sublu xation. There is suggestion of multilevel neural foraminal narrowing. Right subclavian pacer. Trace r ight mastoid effusion. No prevertebral edema. Calcified plaque of the carotid bulbs. There is no pneu mothorax. Streak artifact from left-sided earring. IMPRESSION: 1. No acute fracture or subluxation. 2. Degenerative changes as above. ACT 112: Negative or not required by law. The above report was generated using voice recognition software. It may contain grammatical, syntax o r spelling errors. Electronically signed by: Aman Petit M.D. 04/16/2021 10:23 AM
[2021-04-16] MEDS: LINEZOLID 600 MG/300 ML BAG IV SCH ×2 (10:37→22:30)
--- NOTE | 2021-04-16 10:49 | CT Scan Report ---
CT ANGIOGRAPHY OF THE CHEST, PULMONARY EMBOLUS PROTOCOL CLINICAL HISTORY: Shortness of breath. Chest pain. Fever. COMPARISON STUDY: Chest CT September 07, 2018. Chest radiograph performed earlier today. TECHNIQUE: Following IV administration of 120 mL of Optiray, helical axial images of the chest were o btained utilizing the pulmonary embolus protocol. Maximal intensity projections and sagittal and cor onal reformats were viewed on an independent 3D workstation. IV contrast was administered without co mplication. Automated exposure control was utilized for the study. A dose lowering technique was ut ilized adhering to the principles of ALARA. FINDINGS: No thoracic aortic dissection is noted although opacification of the descending thoracic a blas is suboptimal. There is no thoracic aortic aneurysm. Moderate cardiomegaly is noted. No pericard ial effusion. A dual lead right subclavian pacemaker is in place. Prosthetic mitral and aortic valves are noted. Note is made of thrombus within the left atrial appendage close device. There is mild int erlobular septal thickening within the lungs. Mild groundglass opacities within the lungs are noted. There is no consolidation. No pneumothorax or pleural effusion is noted. There is no evidence for acu te discitis within the thoracic spine. Complete loss of the T11-T12 disc space is from previous episo de of discitis/osteomyelitis IMPRESSION: 1. No thoracic aortic dissection. No pulmonary emboli. 2. Thrombus within the left atrial appendage closure device. 3. Mild groundglass opacities within the lungs with interlobular septal thickening. The findings favo r mild pulmonary edema. An infectious process could appear similar although is considered less likely . 4. Cardiomegaly. ACT 112: Negative or not required by law. Electronically signed by: Lopez Tong M.D. 04/16/2021 10:48 AM
[2021-04-16] MEDS: PIPERACILLIN/TAZOBACTAM 3.375 GM in DEXTROSE 5% 100 ML IV SCH ×2 (12:19→20:03)
[2021-04-16 12:42] LABS: Lyme Ab IgM w/WB Rflx Negative (Negative)
[2021-04-16 12:55] LABS: Lyme Ab IgG w/WB Rflx Negative (Negative)
[2021-04-16 14:01] LABS: CSF Count Tube # 3
[2021-04-16 14:02] LABS: Appearance CSF CLEAR; CSF Xanthrochromic NO; Color CSF COLORLESS; Red Blood Cell CSF (A) 1 /uL (0-); White Blood Cell CSF (A) 2 /uL (0-5)
[2021-04-16] MEDS ORDERED: LINEZOLID CONSULT ACTIVE PRN (14:09)
--- NOTE | 2021-04-16 14:10 | Fluoroscopy Report ---
FL lumbar puncture diagnostic CLINICAL HISTORY: Fever. Neck pain. Possible meningitis COMPARISON STUDY: None FLUOROSCOPY TIME: 12 seconds. NUMBER OF FLUOROSCOPIC IMAGES: 2 FINDINGS: A timeout was performed. The risks the procedure were explained the patient informed consent was obtained. The patient was prepped and draped in sterile fashion. The skin was anesthetized 1% lidocaine. Lumbar puncture was performed with fluoroscopic guidance at the L4 level utilizing a 20-gauge spinal needle. 6 cc of clear CSF was withdrawn under gravity drip and into 4 tubes. The fluid was sent for laboratory analysis as specified by the referring clinician. The patient was returned to the emergency room for observation. IMPRESSION: 1. Successful fluoroscopically guided diagnostic lumbar puncture performed at the L4 level. ACT 112: Negative or not required by law. Electronically signed by: Nathan Chandler M.D. 04/16/2021 2:08 PM
[2021-04-16 14:15] LABS: Base Excess ABG -0.7 mEq/L (-9-1.8); HCO3 ABG 23 mmol/L (19-24); Oxygen Saturation ABG 98.8 % (90-95); PCO2 ABG 35 mmHg (35-46); PO2 ABG 129 mmHg (80-95); pH ABG 7.44 (7.35-7.45)
[2021-04-16 14:16] LABS: Total Protein CSF 31.4 mg/dl (15-45)
[2021-04-16 14:22] LABS: Lactate CSF 1.7 mmol/L (0.6-2.2)
[2021-04-16 14:25] LABS: Allen Test Pos (Pos)
--- NOTE | 2021-04-16 15:10 | Cardiology Consultation ---
Date of Consultation April 16, 2021 Assessment & Plan (1) Headache: (2) Fever: (3) Presence of Watchman left atrial appendage closure device: (4) Chronic diastolic heart failure: (5) Slzmupg-Vaqgd-Fomzj disease: (6) Pacemaker: The patient has been started on antibiotics. Work-up is continuing in regard to her fever and labs are still pending. At this point the patient is stable from a cardiac standpoint. She does have a lot of hardware and a previous history of an infected pacemaker which had to be removed. Her pacemaker pocket today does not appear to be infected. We will follow along with you during her hospital stay. History of Present Illness Attending Physician: Jeb Ling MD History of Present Illness This is a 75-year-old female who usually follows at [facility]. She is status post aortic valve replacement and mitral valve repair in 2016. At that time she had a normal cardiac catheterization with normal coronary anatomy. She has a history of later that year presenting with atrial flutter and was started on amiodarone followed by a cardioversion to sinus rhythm. Several months later she presented to [place] with bradycardia and a junctional rhythm at which time she received a dual-chamber pacemaker. Then in 2018 she had a watchman left atrial closure device implanted. Its not clear to me if she had bleeding or other reasons why the watchman was placed at that time. Then approximately a year after the watchman was placed she had a pacemaker pocket infection that required treatment. The pacemaker was removed and she eventually had a new device implanted. The patient was in her usual state of health until the past 24 hours when she started with a headache and a sore neck. She began to have fever and chills. No dysuria. No cough. No joint pains. She had a spinal tap completed by radiology today and the results are pending. She has been admitted and placed on antibiotics. She is currently in a paced rhythm. Allergies Allergy/AdvReac Type Severity Reaction Status Date / Time vancomycin Allergy Severe rash, Verified 04/16/21 09:35 shortness of breath cefazolin Allergy rash Verified 04/16/21 09:35 Home Medications Medication Instructions Recorded Confirmed Type metoprolol tartrate 50 mg tablet 50 mg PO BID 09/06/18 04/16/21 History valsartan 80 mg tablet 80 mg PO QAM 09/06/18 04/16/21 History aspirin 325 mg tablet,delayed 325 mg PO QAM 11/06/18 04/16/21 History release furosemide 80 mg tablet 80 mg PO QAM 11/06/18 04/16/21 History potassium chloride 10 mEq 10 meq PO BID 11/06/18 04/16/21 History tablet,extended release(part/cryst) acetaminophen 500 mg tablet 500 mg PO Q6H PRN 04/16/21 04/16/21 History (Tylenol Extra Strength) amlodipine 5 mg tablet 5 mg PO QAM 04/16/21 04/16/21 History Patient History Medical History Ngocfco-Kxnmi-Xmliz disease CHF (congestive heart failure) Elevated troponin History of cardioversion History of left heart catheterization (LHC) HTN (hypertension) Leg pain Neuropathy PAF (paroxysmal atrial fibrillation) Presence of Watchman left atrial appendage closure device Surgical History H/O colonoscopy H/O hernia repair H/O: hysterectomy History of appendectomy History of tonsillectomy S/P AVR (aortic valve replacement) S/P cholecystectomy S/P MVR (mitral valve repair) Family History Other Fixvomc-Hyxst-Wptbr disease Heart disease Social History Smoking Status: Never smoker Second Hand Exposure: No; Do You Dip or Chew Tobacco: No; Tobacco Cessation Education Requested by Patient: No Hx Alcohol Use: No Hx Substance Use: No Preferred Language: Citizen Of [place] Communication Ability: Effective Sticker On Required: No Beliefs That Will Affect Care: None Current Living Situation: Family Current Living Situation Comment: "my son lives with me" Other Information That Helps Us Care for You: No Feels Safe at Home: Yes Safety Concerns: Feels Safe At This Time Assistive Devices: Glasses and Walker Review of Systems Review of Systems: Review of Systems: See HPI for pertinent positives. All other 10 point review of systems are negative. Physical Exam Physical Exam: General: no acute distress and stated age Head: normocephalic, no masses, lesions, tenderness or abnormalities Eyes: conjunctiva are pink and non-injected, sclera clear Neck: supple, no adenopathy, no bruits, normal jugular venous pulse, no hepatojugular reflux Chest: normal shape and normal respiratory effort Lungs: clear to auscultation and percussion Cardiac Exam: - regular rate & rhythm, no murmurs gallops or rubs - normal S1, normal S2 Pulses: 2(+) throughout Abdomen: abdomen soft, non-tender, no abnormal masses and no hepatosplenomegaly Musculoskeletal: no gait disturbance, no joint inflammation, no deforming arthritis Extremities: no edema and no cyanosis Neuro: grossly normal exam Results & Data ([facility]) Vital Signs (Past 12 Hours) Vital Signs Temp Pulse Pulse Resp BP BP Pulse Ox 04/16/21 11:16 60 18 136/83 98 04/16/21 10:09 90 18 165/75 H 98 04/16/21 09:00 61 18 143/75 H 99 04/16/21 07:18 60 18 147/72 H 97 04/16/21 06:30 102 H 41 H 176/101 H 98 04/16/21 06:08 97 04/16/21 05:45 38.2 C H 103 H 18 134/64 90 Pulse Ox 04/16/21 11:16 04/16/21 10:09 98 04/16/21 09:00 04/16/21 07:18 04/16/21 06:30 04/16/21 06:08 04/16/21 05:45 Laboratory Results Laboratory Results - last 24 hr 04/16/21 04/16/21 04/16/21 06:12 06:12 06:12 WBC RBC Hgb Hct MCV MCH MCHC RDW Std Deviation RDW Coeff of Christian Plt Count MPV Immature Gran % (Auto) Neut % (Auto) Lymph % (Auto) [place] % (Auto) Eos % (Auto) Baso % (Auto) Neut # (Auto) Lymph # (Auto) [place] # (Auto) Eos # (Auto) Baso # (Auto) Immature Gran # (Auto) Platelet Estimate Polychromasia Peripher Smr Path Cons PT 11.8 INR 1.2 H APTT 28.5 PTT Ratio 1.1 ABG pH ABG pCO2 ABG pO2 ABG HCO3 ABG O2 Saturation ABG Base Excess Raudel Test Barometric Pressure Oxygen Given Sodium 139 Potassium 3.2 L Chloride 107 Carbon Dioxide 25 Anion Gap 7.0 BUN 15 Creatinine 0.70 Est Cr Clr Drug Dosing 63.6 Est GFR ( Amer) 99.6 Est GFR (Non-Af Amer) 86.0 BUN/Creatinine Ratio 21.0 H Glucose 119 H Lactate 1.3 Calcium 8.5 Total Bilirubin 0.8 Direct Bilirubin 0.2 AST 48 H ALT 30 Alkaline Phosphatase 48 Troponin I 0.247 H* NT-Pro-B Natriuret Pep 6789 H Total Protein 7.4 Albumin 3.6 Lipase 121 Procalcitonin Fld Lyme DNA (PCR) Fluid Comment CSF Appearance CSF Color Xanthrochromic CSF WBC CSF RBC CSF Cell Count Tube # CSF Chemistry Tube # CSF Glucose CSF Lactate CSF Total Protein CSF Lyme IgG (Immblot) CSF Lyme IgG Bands Det CSF Lyme IgM (Immblot) CSF Lyme IgM Bands Det CSF West Nile IgM Ab Anaplasma Smear A. phagocytophilum DNA Lyme Specimen Source Lyme Disease IgG Ab Lyme Disease IgM Ab COVID-19 Eval Order SARS-CoV-2 (PCR) CMV Specimen Source CMV Qnt PCR IU/mL CMV Qnt PCR log IU/mL Enterovirus Source Enterovirus RNA RT-PCR EBV Source EBV DNA, Quant EBV DNA (PCR) Herpes Virus Source HSV I DNA PCR HSV II DNA PCR Herpesvirus 6 Source HHV-6 DNA (PCR) Varicella-Zoster Source VZV DNA (PCR) 04/16/21 04/16/21 04/16/21 06:12 06:12 11:44 WBC 4.26 L RBC 4.72 Hgb 13.0 Hct 39.6 MCV 83.9 MCH 27.5 MCHC 32.8 RDW Std Deviation 42.1 RDW Coeff of Christian 13.6 Plt Count 82 L MPV 9.5 Immature Gran % (Auto) 0.2 Neut % (Auto) 84.7 Lymph % (Auto) 8.0 [place] % (Auto) 6.6 Eos % (Auto) 0.0 Baso % (Auto) 0.5 Neut # (Auto) 3.61 Lymph # (Auto) 0.34 L [place] # (Auto) 0.28 Eos # (Auto) 0.00 Baso # (Auto) 0.02 Immature Gran # (Auto) 0.01 Platelet Estimate Decreased L Polychromasia 1+ Peripher Smr Path Cons PT INR APTT PTT Ratio ABG pH ABG pCO2 ABG pO2 ABG HCO3 ABG O2 Saturation ABG Base Excess Raudel Test Barometric Pressure Oxygen Given Sodium Potassium Chloride Carbon Dioxide Anion Gap BUN Creatinine Est Cr Clr Drug Dosing Est GFR ( Amer) Est GFR (Non-Af Amer) BUN/Creatinine Ratio Glucose Lactate Calcium Total Bilirubin Direct Bilirubin AST ALT Alkaline Phosphatase Troponin I 0.221 H* NT-Pro-B Natriuret Pep Total Protein Albumin Lipase Procalcitonin 0.54 H Fld Lyme DNA (PCR) Fluid Comment CSF Appearance CSF Color Xanthrochromic CSF WBC CSF RBC CSF Cell Count Tube # CSF Chemistry Tube # CSF Glucose CSF Lactate CSF Total Protein CSF Lyme IgG (Immblot) CSF Lyme IgG Bands Det CSF Lyme IgM (Immblot) CSF Lyme IgM Bands Det CSF West Nile IgM Ab Anaplasma Smear See Comment A. phagocytophilum DNA Lyme Specimen Source Lyme Disease IgG Ab Lyme Disease IgM Ab COVID-19 Eval Order SARS-CoV-2 (PCR) CMV Specimen Source CMV Qnt PCR IU/mL CMV Qnt PCR log IU/mL Enterovirus Source Enterovirus RNA RT-PCR EBV Source EBV DNA, Quant EBV DNA (PCR) Herpes Virus Source HSV I DNA PCR HSV II DNA PCR Herpesvirus 6 Source HHV-6 DNA (PCR) Varicella-Zoster Source VZV DNA (PCR) 04/16/21 04/16/21 04/16/21 11:44 11:44 11:44 WBC RBC Hgb Hct MCV MCH MCHC RDW Std Deviation RDW Coeff of Christian Plt Count MPV Immature Gran % (Auto) Neut % (Auto) Lymph % (Auto) [place] % (Auto) Eos % (Auto) Baso % (Auto) Neut # (Auto) Lymph # (Auto) [place] # (Auto) Eos # (Auto) Baso # (Auto) Immature Gran # (Auto) Platelet Estimate Polychromasia Peripher Smr Path Cons Cancelled PT INR APTT PTT Ratio ABG pH ABG pCO2 ABG pO2 ABG HCO3 ABG O2 Saturation ABG Base Excess Raudel Test Barometric Pressure Oxygen Given Sodium Potassium Chloride Carbon Dioxide Anion Gap BUN Creatinine Est Cr Clr Drug Dosing Est GFR ( Amer) Est GFR (Non-Af Amer) BUN/Creatinine Ratio Glucose Lactate Calcium Total Bilirubin Direct Bilirubin AST ALT Alkaline Phosphatase Troponin I NT-Pro-B Natriuret Pep Total Protein Albumin Lipase Procalcitonin Fld Lyme DNA (PCR) Fluid Comment CSF Appearance CSF Color Xanthrochromic CSF WBC CSF RBC CSF Cell Count Tube # CSF Chemistry Tube # CSF Glucose CSF Lactate CSF Total Protein CSF Lyme IgG (Immblot) CSF Lyme IgG Bands Det CSF Lyme IgM (Immblot) CSF Lyme IgM Bands Det CSF West Nile IgM Ab Anaplasma Smear A. phagocytophilum DNA Pending Lyme Specimen Source Lyme Disease IgG Ab Negative Lyme Disease IgM Ab Negative COVID-19 Eval Order SARS-CoV-2 (PCR) CMV Specimen Source CMV Qnt PCR IU/mL CMV Qnt PCR log IU/mL Enterovirus Source Enterovirus RNA RT-PCR EBV Source EBV DNA, Quant EBV DNA (PCR) Herpes Virus Source HSV I DNA PCR HSV II DNA PCR Herpesvirus 6 Source HHV-6 DNA (PCR) Varicella-Zoster Source VZV DNA (PCR) 04/16/21 04/16/21 04/16/21 13:32 13:32 13:32 WBC RBC Hgb Hct MCV MCH MCHC RDW Std Deviation RDW Coeff of Christian Plt Count MPV Immature Gran % (Auto) Neut % (Auto) Lymph % (Auto) [place] % (Auto) Eos % (Auto) Baso % (Auto) Neut # (Auto) Lymph # (Auto) [place] # (Auto) Eos # (Auto) Baso # (Auto) Immature Gran # (Auto) Platelet Estimate Polychromasia Peripher Smr Path Cons PT INR APTT PTT Ratio ABG pH ABG pCO2 ABG pO2 ABG HCO3 ABG O2 Saturation ABG Base Excess Raudel Test Barometric Pressure Oxygen Given Sodium Potassium Chloride Carbon Dioxide Anion Gap BUN Creatinine Est Cr Clr Drug Dosing Est GFR ( Amer) Est GFR (Non-Af Amer) BUN/Creatinine Ratio Glucose Lactate Calcium Total Bilirubin Direct Bilirubin AST ALT Alkaline Phosphatase Troponin I NT-Pro-B Natriuret Pep Total Protein Albumin Lipase Procalcitonin Fld Lyme DNA (PCR) Fluid Comment CSF Appearance CSF Color Xanthrochromic CSF WBC CSF RBC CSF Cell Count Tube # CSF Chemistry Tube # CSF Glucose CSF Lactate CSF Total Protein CSF Lyme IgG (Immblot) CSF Lyme IgG Bands Det CSF Lyme IgM (Immblot) CSF Lyme IgM Bands Det CSF West Nile IgM Ab Anaplasma Smear A. phagocytophilum DNA Lyme Specimen Source Lyme Disease IgG Ab Lyme Disease IgM Ab COVID-19 Eval Order SARS-CoV-2 (PCR) CMV Specimen Source Pending Cancelled CMV Qnt PCR IU/mL Pending Cancelled CMV Qnt PCR log IU/mL Pending Cancelled Enterovirus Source Cancelled Enterovirus RNA RT-PCR Cancelled EBV Source Cancelled EBV DNA, Quant Cancelled EBV DNA (PCR) Cancelled Herpes Virus Source Pending HSV I DNA PCR Pending HSV II DNA PCR Pending Herpesvirus 6 Source Cancelled HHV-6 DNA (PCR) Cancelled Varicella-Zoster Source Cancelled VZV DNA (PCR) Cancelled 04/16/21 04/16/21 04/16/21 13:32 13:32 13:32 WBC RBC Hgb Hct MCV MCH MCHC RDW Std Deviation RDW Coeff of Christian Plt Count MPV Immature Gran % (Auto) Neut % (Auto) Lymph % (Auto) [place] % (Auto) Eos % (Auto) Baso % (Auto) Neut # (Auto) Lymph # (Auto) [place] # (Auto) Eos # (Auto) Baso # (Auto) Immature Gran # (Auto) Platelet Estimate Polychromasia Peripher Smr Path Cons PT INR APTT PTT Ratio ABG pH ABG pCO2 ABG pO2 ABG HCO3 ABG O2 Saturation ABG Base Excess Raudel Test Barometric Pressure Oxygen Given Sodium Potassium Chloride Carbon Dioxide Anion Gap BUN Creatinine Est Cr Clr Drug Dosing Est GFR ( Amer) Est GFR (Non-Af Amer) BUN/Creatinine Ratio Glucose Lactate Calcium Total Bilirubin Direct Bilirubin AST ALT Alkaline Phosphatase Troponin I NT-Pro-B Natriuret Pep Total Protein Albumin Lipase Procalcitonin Fld Lyme DNA (PCR) Fluid Comment CSF Appearance CSF Color Xanthrochromic CSF WBC CSF RBC CSF Cell Count Tube # CSF Chemistry Tube # 1 CSF Glucose 67 CSF Lactate 1.7 CSF Total Protein 31.4 CSF Lyme IgG (Immblot) Cancelled CSF Lyme IgG Bands Det Cancelled CSF Lyme IgM (Immblot) Cancelled CSF Lyme IgM Bands Det Cancelled CSF West Nile IgM Ab Pending Anaplasma Smear A. phagocytophilum DNA Lyme Specimen Source Lyme Disease IgG Ab Lyme Disease IgM Ab COVID-19 Eval Order SARS-CoV-2 (PCR) CMV Specimen Source CMV Qnt PCR IU/mL CMV Qnt PCR log IU/mL Enterovirus Source Enterovirus RNA RT-PCR EBV Source EBV DNA, Quant EBV DNA (PCR) Herpes Virus Source HSV I DNA PCR HSV II DNA PCR Herpesvirus 6 Source HHV-6 DNA (PCR) Varicella-Zoster Source VZV DNA (PCR) 04/16/21 04/16/21 04/16/21 13:32 13:32 13:32 WBC RBC Hgb Hct MCV MCH MCHC RDW Std Deviation RDW Coeff of Christian Plt Count MPV Immature Gran % (Auto) Neut % (Auto) Lymph % (Auto) [place] % (Auto) Eos % (Auto) Baso % (Auto) Neut # (Auto) Lymph # (Auto) [place] # (Auto) Eos # (Auto) Baso # (Auto) Immature Gran # (Auto) Platelet Estimate Polychromasia Peripher Smr Path Cons PT INR APTT PTT Ratio ABG pH ABG pCO2 ABG pO2 ABG HCO3 ABG O2 Saturation ABG Base Excess Raudel Test Barometric Pressure Oxygen Given Sodium Potassium Chloride Carbon Dioxide Anion Gap BUN Creatinine Est Cr Clr Drug Dosing Est GFR ( Amer) Est GFR (Non-Af Amer) BUN/Creatinine Ratio Glucose Lactate Calcium Total Bilirubin Direct Bilirubin AST ALT Alkaline Phosphatase Troponin I NT-Pro-B Natriuret Pep Total Protein Albumin Lipase Procalcitonin Fld Lyme DNA (PCR) Fluid Comment CSF Appearance CLEAR CSF Color COLORLESS Xanthrochromic NO CSF WBC 2 CSF RBC 1 CSF Cell Count Tube # 3 CSF Chemistry Tube # Cancelled CSF Glucose Cancelled CSF Lactate Cancelled CSF Total Protein CSF Lyme IgG (Immblot) CSF Lyme IgG Bands Det CSF Lyme IgM (Immblot) CSF Lyme IgM Bands Det CSF [place] Nile IgM Ab Anaplasma Smear A. phagocytophilum DNA Lyme Specimen Source Lyme Disease IgG Ab Lyme Disease IgM Ab COVID-19 Eval Order SARS-CoV-2 (PCR) CMV Specimen Source CMV Qnt PCR IU/mL CMV Qnt PCR log IU/mL Enterovirus Source Enterovirus RNA RT-PCR EBV Source EBV DNA, Quant EBV DNA (PCR) Herpes Virus Source HSV I DNA PCR HSV II DNA PCR Herpesvirus 6 Source HHV-6 DNA (PCR) Varicella-Zoster Source VZV DNA (PCR) 04/16/21 04/16/21 04/16/21 13:32 13:32 13:58 WBC RBC Hgb Hct MCV MCH MCHC RDW Std Deviation RDW Coeff of Christian Plt Count MPV Immature Gran % (Auto) Neut % (Auto) Lymph % (Auto) [place] % (Auto) Eos % (Auto) Baso % (Auto) Neut # (Auto) Lymph # (Auto) [place] # (Auto) Eos # (Auto) Baso # (Auto) Immature Gran # (Auto) Platelet Estimate Polychromasia Peripher Smr Path Cons PT INR APTT PTT Ratio ABG pH 7.44 ABG pCO2 35 ABG pO2 129 H ABG HCO3 23 ABG O2 Saturation 98.8 H ABG Base Excess -0.7 Raudel Test Pos Barometric Pressure 734.8 Oxygen Given 4 L Sodium Potassium Chloride Carbon Dioxide Anion Gap BUN Creatinine Est Cr Clr Drug Dosing Est GFR ( Amer) Est GFR (Non-Af Amer) BUN/Creatinine Ratio Glucose Lactate Calcium Total Bilirubin Direct Bilirubin AST ALT Alkaline Phosphatase Troponin I NT-Pro-B Natriuret Pep Total Protein Albumin Lipase Procalcitonin Fld Lyme DNA (PCR) Cancelled Pending Fluid Comment CSF Appearance CSF Color Xanthrochromic CSF WBC CSF RBC CSF Cell Count Tube # CSF Chemistry Tube # CSF Glucose CSF Lactate CSF Total Protein CSF Lyme IgG (Immblot) Pending CSF Lyme IgG Bands Det Pending CSF Lyme IgM (Immblot) Pending CSF Lyme IgM Bands Det Pending CSF West Nile IgM Ab Anaplasma Smear A. phagocytophilum DNA Lyme Specimen Source Cancelled Pending Lyme Disease IgG Ab Lyme Disease IgM Ab COVID-19 Eval Order SARS-CoV-2 (PCR) CMV Specimen Source CMV Qnt PCR IU/mL CMV Qnt PCR log IU/mL Enterovirus Source Pending Enterovirus RNA RT-PCR Pending EBV Source Pending EBV DNA, Quant Pending EBV DNA (PCR) Pending Herpes Virus Source HSV I DNA PCR HSV II DNA PCR Herpesvirus 6 Source Pending HHV-6 DNA (PCR) Pending Varicella-Zoster Source Pending VZV DNA (PCR) Pending 04/16/21 04/16/21 Unknown Unknown WBC RBC Hgb Hct MCV MCH MCHC RDW Std Deviation RDW Coeff of Christian Plt Count MPV Immature Gran % (Auto) Neut % (Auto) Lymph % (Auto) [place] % (Auto) Eos % (Auto) Baso % (Auto) Neut # (Auto) Lymph # (Auto) [place] # (Auto) Eos # (Auto) Baso # (Auto) Immature Gran # (Auto) Platelet Estimate Polychromasia Peripher Smr Path Cons PT INR APTT PTT Ratio ABG pH ABG pCO2 ABG pO2 ABG HCO3 ABG O2 Saturation ABG Base Excess Raudel Test Barometric Pressure Oxygen Given Sodium Potassium Chloride Carbon Dioxide Anion Gap BUN Creatinine Est Cr Clr Drug Dosing Est GFR ( Amer) Est GFR (Non-Af Amer) BUN/Creatinine Ratio Glucose Lactate Calcium Total Bilirubin Direct Bilirubin AST ALT Alkaline Phosphatase Troponin I NT-Pro-B Natriuret Pep Total Protein Albumin Lipase Procalcitonin Fld Lyme DNA (PCR) Fluid Comment CSF Appearance CSF Color Xanthrochromic CSF WBC CSF RBC CSF Cell Count Tube # CSF Chemistry Tube # CSF Glucose CSF Lactate CSF Total Protein CSF Lyme IgG (Immblot) CSF Lyme IgG Bands Det CSF Lyme IgM (Immblot) CSF Lyme IgM Bands Det CSF [place] IgM Ab Anaplasma Smear A. phagocytophilum DNA Lyme Specimen Source Lyme Disease IgG Ab Lyme Disease IgM Ab COVID-19 Eval Order Covid19 at [facility] SARS-CoV-2 (PCR) NEGATIVE CMV Specimen Source CMV Qnt PCR IU/mL CMV Qnt PCR log IU/mL Enterovirus Source Enterovirus RNA RT-PCR EBV Source EBV DNA, Quant EBV DNA (PCR) Herpes Virus Source HSV I DNA PCR HSV II DNA PCR Herpesvirus 6 Source HHV-6 DNA (PCR) Varicella-Zoster Source VZV DNA (PCR) Diagnostic Findings I reviewed the patient's CT of the chest myself. I believe the watchman device is in an appropriate position Medications Administered Current Inpatient Medications Acetaminophen (Acetaminophen 500 Mg Tab) 500 mg PO Q6H PRN PRN Reason: Pain Stop: 05/16/21 14:19 Amlodipine Besylate (Amlodipine Besylate 5 Mg Tab) 5 mg PO QAM SIA Stop: 05/17/21 08:59 Aspirin (Aspirin 325 Mg Ectab) 325 mg PO QAM SIA Stop: 05/17/21 08:59 Furosemide (Furosemide 80 Mg Tab) 80 mg PO QAM SIA Stop: 05/17/21 08:59 Linezolid (Zyvox) 600 mg in 300 mls @ 200 mls/hr IV Q12H SIA; Protocol Stop: 04/23/21 10:29 Last Infusion: 04/16/21 12:17 Dose: Infused Documented by: Piperacillin Sod/Tazobactam (Sod 3.375 gm/ Dextrose) 115 mls @ 28.75 mls/hr IV Q8H SIA; Protocol Stop: 04/23/21 11:59 Last Admin: 04/16/21 12:19 Dose: 28.8 mls/hr Documented by: Metoprolol Tartrate (Metoprolol Tartrate 50 Mg Tab) 50 mg PO BID SIA Stop: 05/16/21 20:59 Miscellaneous Information (Piperacill/Tazobac Consult Active) 1 ea N/A UD PRN PRN Reason: Consult Stop: 05/16/21 06:20 Miscellaneous Information (Linezolid Consult Active) 1 ea N/A UD PRN PRN Reason: Consult Stop: 05/16/21 14:08 Potassium Chloride (Potassium Chloride 10 Meq Tabcr) 10 meq PO [id number] SIA Stop: 05/16/21 16:59 Valsartan (Valsartan 80 Mg Tab) 80 mg PO QAM SIA Stop: 05/17/21 08:59
[2021-04-16] MEDS: ACETAMINOPHEN 500 MG TAB PO PRN (17:01)
[2021-04-16] MEDS: POTASSIUM CHLORIDE 10 MEQ TABCR PO SCH (17:02)
[2021-04-16] MEDS ORDERED: LIDOCAINE 5% 1 PATCH TD STA (17:39)
[2021-04-16] MEDS: METOPROLOL TARTRATE 50 MG TAB PO SCH (20:04)
[2021-04-16 20:36] LABS: Appearance Urine Clear (Clear); Bacteria Urine Automated Negative (Negative); Blood Urine Trace (Negative); Color Urine Dark Yellow; Epithelial Cell Urine Auto >30 /lpf (0-5); Glucose Urine UA Negative (Negative); Ketones Urine Trace (Negative); Leukocyte Esterase Urine Negative (Negative); Nitrite Urine Negative (Negative); Protein Urine 1+ (Negative); Specific Gravity Urine > 1.045 (1.000-1.030); Urobilinogen Urine Negative (Negative)
[2021-04-16 20:38] LABS: Bilirubin Urine 1+ (Negative)
[2021-04-16 20:47] LABS: Cast Urine Automated 0 /lpf (0-5)
[2021-04-17] MEDS: ACETAMINOPHEN 500 MG TAB PO PRN (02:42)
[2021-04-17] MEDS: PIPERACILLIN/TAZOBACTAM 3.375 GM in DEXTROSE 5% 100 ML IV SCH ×2 (04:09→13:24)
[2021-04-17 05:11] LABS: Hemoglobin 10.8 g/dL (12.0-16.0); Mean Corpuscular Hemoglobin 27.5 pg (25-34); Mean Corpuscular Hgb Conc 32.7 g/dL (32-36); RDW Coefficient of Variation 13.7 % (11.5-14.5); RDW Standard Deviation 42.2 fL (36.4-46.3); Red Blood Count 3.93 M/uL (4.2-5.4)
[2021-04-17 05:25] LABS: Platelet Count 60 K/uL (130-400)
[2021-04-17 05:34] LABS: BUN Creatinine Ratio 22.6 (10-20); Calcium 7.7 mg/dl (8.5-10.1); Creatinine Clr Calc Pharmacy 72.2 ml/min; Est GFR (African American) 103.7 ml/min; Est GFR (Non-African American) 89.5 ml/min; Potassium 3.1 mmol/L (3.5-5.1)
--- NOTE | 2021-04-17 06:46 | CT Scan Report ---
CT head/brain wo con CLINICAL HISTORY: 75 years-old Female with posterior headache, r/o bleed. Acute headache TECHNIQUE: Multiple axial CT images of the head were obtained without contrast. A dose lowering tech nique was utilized adhering to the principles of ALARA. CT DOSE: 537.48 mGy.cm COMPARISON: None. FINDINGS: No acute intracranial hemorrhage, midline shift, intracranial mass, hydrocephalus, territorial ischem ia or abnormal extra-axial collection. Age-related involutional changes. Mild white matter hypodensit ies suggestive of chronic microvascular ischemic disease. Chronic lacunar infarct versus prominent pe rivascular spaces noted within the region of the inferior right lentiform nucleus. The calvarium is intact. The paranasal sinuses, mastoid air cells, and middle ear cavities are clear . IMPRESSION: No acute intracranial abnormality. ACT 112: Negative or not required by law. The above report was generated using voice recognition software. It may contain grammatical, syntax o r spelling errors. Electronically signed by: Aman Petit M.D. 04/17/2021 6:44 AM
[2021-04-17] MEDS: METOPROLOL TARTRATE 50 MG TAB PO SCH ×2 (08:05→21:16)
[2021-04-17] MEDS: amLODIPine BESYLATE 5 MG TAB PO SCH (08:05)
[2021-04-17] MEDS: POTASSIUM CHLORIDE 10 MEQ TABCR PO SCH ×2 (08:05→17:54)
[2021-04-17] MEDS: VALSARTAN 80 MG TAB PO SCH (08:44)
[2021-04-17] MEDS: ASPIRIN 325 MG ECTAB PO SCH (08:45)
[2021-04-17] MEDS ORDERED: FUROSEMIDE 80 MG TAB PO SCH (09:00)
[2021-04-17] MEDS ORDERED: POTASSIUM CHLORIDE CRTAB 20 MEQ TABCR PO STA (09:03)
[2021-04-17 10:02] LABS: Basophils # (auto) 0.02 K/uL (0-0.2); Basophils % (auto) 0.9 %; Eosinophils # (auto) 0.01 K/uL (0-0.5); Eosinophils % (auto) 0.5 %; Immature Granulocytes # (auto) 0.01 K/uL (0.00-0.02); Immature Granulocytes % (auto) 0.5 %; Lymphocytes % (auto) 22.8 %; Monocytes # (auto) 0.24 K/uL (0.11-0.59); Neutrophils # (auto) 1.41 K/uL (1.4-6.5); Neutrophils % (auto) 64.3 %
--- NOTE | 2021-04-17 10:47 | Cardiology Progress Note ---
Date of Service April 17, 2021 Assessment & Plan (1) Headache: (2) Fever: (3) Presence of Watchman left atrial appendage closure device: (4) Chronic diastolic heart failure: (5) [id number] disease: (6) Pacemaker: Plan: Cultures thus far negative. After being started on antibiotics however, the patient feels much improved. I reviewed her CT of the chest myself and with my colleagues. Are reading of the watchman device is that it is well-placed and the appearance is appropriate. Nothing additional needs to be done. No additional cardiac testing is indicated at this time. Admission and Anticipated Discharge Date Admission Date: April 16, 2021 Subjective The patient is sitting in a chair and feels better. No complaints today. Review of Systems Review of Systems: Review of Systems: See HPI for pertinent positives. All other 10 point review of systems are negative. Physical Exam Physical Exam: General: no acute distress and stated age Head: normocephalic, no masses, lesions, tenderness or abnormalities Eyes: conjunctiva are pink and non-injected, sclera clear Neck: supple, no adenopathy, no bruits, normal jugular venous pulse, no hepatojugular reflux Chest: normal shape and normal respiratory effort Lungs: clear to auscultation and percussion Cardiac Exam: - regular rate & rhythm, no murmurs gallops or rubs - normal S1, normal S2 Pulses: 2(+) throughout Abdomen: abdomen soft, non-tender, no abnormal masses and no hepatosplenomegaly Musculoskeletal: no gait disturbance, no joint inflammation, no deforming arthr itis Extremities: no edema and no cyanosis Neuro: grossly normal exam Results & Data ([facility]) Vital Signs (Past 12 Hours) Vital Signs Temp Pulse Pulse Resp BP BP Pulse Ox 04/17/21 08:00 36.8 C 63 22 159/57 H 94 04/17/21 03:44 37.5 C 60 18 116/60 96 04/17/21 02:45 59 L 22 157/59 H 98 04/17/21 01:44 60 24 144/58 H 98 04/17/21 00:44 36.8 C 59 L 29 H 152/61 H 91 04/16/21 23:59 60 04/16/21 23:44 60 28 H 131/53 L 93 04/16/21 22:44 60 31 H 134/47 L 96 Laboratory Results Laboratory Results - last 24 hr 04/16/21 04/16/21 04/16/21 06:12 11:44 11:44 WBC RBC Hgb Hct MCV MCH MCHC RDW Std Deviation RDW Coeff of Christian Plt Count MPV Immature Gran % (Auto) Neut % (Auto) Lymph % (Auto) Fleming % (Auto) Eos % (Auto) Baso % (Auto) Neut # (Auto) Lymph # (Auto) Fleming # (Auto) Eos # (Auto) Baso # (Auto) Immature Gran # (Auto) Peripher Smr Path Cons Cancelled ABG pH ABG pCO2 ABG pO2 ABG HCO3 ABG O2 Saturation ABG Base Excess Raudel Test Barometric Pressure Oxygen Given Sodium Potassium Chloride Carbon Dioxide Anion Gap BUN Creatinine Est Cr Clr Drug Dosing Est GFR ( Amer) Est GFR (Non-Af Amer) BUN/Creatinine Ratio Glucose POC Glucose Calcium Troponin I 0.221 H* Urine Color Urine Appearance Urine pH Ur Specific [place] Urine Protein Urine Glucose (UA) Urine Ketones Urine Blood Urine Nitrite Urine Bilirubin Urine Urobilinogen Ur Leukocyte Esterase Urine WBC (Auto) Urine RBC (Auto) U Hyaline Cast (Auto) U Epithel Cells (Auto) Urine Bacteria (Auto) Fld Lyme DNA (PCR) Fluid Comment CSF Appearance CSF Color Xanthrochromic CSF WBC CSF RBC CSF Cell Count Tube # CSF Chemistry Tube # CSF Glucose CSF Lactate CSF Total Protein CSF Lyme IgG (Immblot) CSF Lyme IgG Bands Det CSF Lyme IgM (Immblot) CSF Lyme IgM Bands Det CSF West Nile IgM Ab Nasal Screen MRSA (PCR) Anaplasma Smear See Comment A. phagocytophilum DNA Lyme Specimen Source Lyme Disease IgG Ab Lyme Disease IgM Ab CMV Specimen Source CMV Qnt PCR IU/mL CMV Qnt PCR log IU/mL Enterovirus Source Enterovirus RNA RT-PCR EBV Source EBV DNA, Quant EBV DNA (PCR) Herpes Virus Source HSV I DNA PCR HSV II DNA PCR Herpesvirus 6 Source HHV-6 DNA (PCR) Varicella-Zoster Source VZV DNA (PCR) 04/16/21 04/16/21 04/16/21 11:44 11:44 13:32 WBC RBC Hgb Hct MCV MCH MCHC RDW Std Deviation RDW Coeff of Christian Plt Count MPV Immature Gran % (Auto) Neut % (Auto) Lymph % (Auto) Fleming % (Auto) Eos % (Auto) Baso % (Auto) Neut # (Auto) Lymph # (Auto) Fleming # (Auto) Eos # (Auto) Baso # (Auto) Immature Gran # (Auto) Peripher Smr Path Cons ABG pH ABG pCO2 ABG pO2 ABG HCO3 ABG O2 Saturation ABG Base Excess Raudel Test Barometric Pressure Oxygen Given Sodium Potassium Chloride Carbon Dioxide Anion Gap BUN Creatinine Est Cr Clr Drug Dosing Est GFR ( Amer) Est GFR (Non-Af Amer) BUN/Creatinine Ratio Glucose POC Glucose Calcium Troponin I Urine Color Urine Appearance Urine pH Ur Specific [place] Urine Protein Urine Glucose (UA) Urine Ketones Urine Blood Urine Nitrite Urine Bilirubin Urine Urobilinogen Ur Leukocyte Esterase Urine WBC (Auto) Urine RBC (Auto) U Hyaline Cast (Auto) U Epithel Cells (Auto) Urine Bacteria (Auto) Fld Lyme DNA (PCR) Fluid Comment CSF Appearance CSF Color Xanthrochromic CSF WBC CSF RBC CSF Cell Count Tube # CSF Chemistry Tube # CSF Glucose CSF Lactate CSF Total Protein CSF Lyme IgG (Immblot) CSF Lyme IgG Bands Det CSF Lyme IgM (Immblot) CSF Lyme IgM Bands Det CSF [place] IgM Ab Nasal Screen MRSA (PCR) Anaplasma Smear A. phagocytophilum DNA Pending Lyme Specimen Source Lyme Disease IgG Ab Negative Lyme Disease IgM Ab Negative CMV Specimen Source Pending CMV Qnt PCR IU/mL Pending CMV Qnt PCR log IU/mL Pending Enterovirus Source Enterovirus RNA RT-PCR EBV Source EBV DNA, Quant EBV DNA (PCR) Herpes Virus Source Pending HSV I DNA PCR Pending HSV II DNA PCR Pending Herpesvirus 6 Source HHV-6 DNA (PCR) Varicella-Zoster Source VZV DNA (PCR) 04/16/21 04/16/21 04/16/21 13:32 13:32 13:32 WBC RBC Hgb Hct MCV MCH MCHC RDW Std Deviation RDW Coeff of Christian Plt Count MPV Immature Gran % (Auto) Neut % (Auto) Lymph % (Auto) Fleming % (Auto) Eos % (Auto) Baso % (Auto) Neut # (Auto) Lymph # (Auto) Fleming # (Auto) Eos # (Auto) Baso # (Auto) Immature Gran # (Auto) Peripher Smr Path Cons ABG pH ABG pCO2 ABG pO2 ABG HCO3 ABG O2 Saturation ABG Base Excess Raudel Test Barometric Pressure Oxygen Given Sodium Potassium Chloride Carbon Dioxide Anion Gap BUN Creatinine Est Cr Clr Drug Dosing Est GFR ( Amer) Est GFR (Non-Af Amer) BUN/Creatinine Ratio Glucose POC Glucose Calcium Troponin I Urine Color Urine Appearance Urine pH Ur Specific [place] Urine Protein Urine Glucose (UA) Urine Ketones Urine Blood Urine Nitrite Urine Bilirubin Urine Urobilinogen Ur Leukocyte Esterase Urine WBC (Auto) Urine RBC (Auto) U Hyaline Cast (Auto) U Epithel Cells (Auto) Urine Bacteria (Auto) Fld Lyme DNA (PCR) Fluid Comment CSF Appearance CSF Color Xanthrochromic CSF WBC CSF RBC CSF Cell Count Tube # CSF Chemistry Tube # 1 CSF Glucose 67 CSF Lactate 1.7 CSF Total Protein 31.4 CSF Lyme IgG (Immblot) CSF Lyme IgG Bands Det CSF Lyme IgM (Immblot) CSF Lyme IgM Bands Det CSF [place] IgM Ab Nasal Screen MRSA (PCR) Anaplasma Smear A. phagocytophilum DNA Lyme Specimen Source Lyme Disease IgG Ab Lyme Disease IgM Ab CMV Specimen Source Cancelled CMV Qnt PCR IU/mL Cancelled CMV Qnt PCR log IU/mL Cancelled Enterovirus Source Cancelled Enterovirus RNA RT-PCR Cancelled EBV Source Cancelled EBV DNA, Quant Cancelled EBV DNA (PCR) Cancelled Herpes Virus Source HSV I DNA PCR HSV II DNA PCR Herpesvirus 6 Source Cancelled HHV-6 DNA (PCR) Cancelled Varicella-Zoster Source Cancelled VZV DNA (PCR) Cancelled 04/16/21 04/16/21 04/16/21 13:32 13:32 13:32 WBC RBC Hgb Hct MCV MCH MCHC RDW Std Deviation RDW Coeff of Christian Plt Count MPV Immature Gran % (Auto) Neut % (Auto) Lymph % (Auto) Fleming % (Auto) Eos % (Auto) Baso % (Auto) Neut # (Auto) Lymph # (Auto) Fleming # (Auto) Eos # (Auto) Baso # (Auto) Immature Gran # (Auto) Peripher Smr Path Cons ABG pH ABG pCO2 ABG pO2 ABG HCO3 ABG O2 Saturation ABG Base Excess Raudel Test Barometric Pressure Oxygen Given Sodium Potassium Chloride Carbon Dioxide Anion Gap BUN Creatinine Est Cr Clr Drug Dosing Est GFR ( Amer) Est GFR (Non-Af Amer) BUN/Creatinine Ratio Glucose POC Glucose Calcium Troponin I Urine Color Urine Appearance Urine pH Ur Specific [place] Urine Protein Urine Glucose (UA) Urine Ketones Urine Blood Urine Nitrite Urine Bilirubin Urine Urobilinogen Ur Leukocyte Esterase Urine WBC (Auto) Urine RBC (Auto) U Hyaline Cast (Auto) U Epithel Cells (Auto) Urine Bacteria (Auto) Fld Lyme DNA (PCR) Fluid Comment CSF Appearance CSF Color Xanthrochromic CSF WBC CSF RBC CSF Cell Count Tube # CSF Chemistry Tube # Cancelled CSF Glucose Cancelled CSF Lactate CSF Total Protein CSF Lyme IgG (Immblot) Cancelled CSF Lyme IgG Bands Det Cancelled CSF Lyme IgM (Immblot) Cancelled CSF Lyme IgM Bands Det Cancelled CSF [place] IgM Ab Pending Nasal Screen MRSA (PCR) Anaplasma Smear A. phagocytophilum DNA Lyme Specimen Source Lyme Disease IgG Ab Lyme Disease IgM Ab CMV Specimen Source CMV Qnt PCR IU/mL CMV Qnt PCR log IU/mL Enterovirus Source Enterovirus RNA RT-PCR EBV Source EBV DNA, Quant EBV DNA (PCR) Herpes Virus Source HSV I DNA PCR HSV II DNA PCR Herpesvirus 6 Source HHV-6 DNA (PCR) Varicella-Zoster Source VZV DNA (PCR) 04/16/21 04/16/21 04/16/21 13:32 13:32 13:32 WBC RBC Hgb Hct MCV MCH MCHC RDW Std Deviation RDW Coeff of Christian Plt Count MPV Immature Gran % (Auto) Neut % (Auto) Lymph % (Auto) Fleming % (Auto) Eos % (Auto) Baso % (Auto) Neut # (Auto) Lymph # (Auto) Fleming # (Auto) Eos # (Auto) Baso # (Auto) Immature Gran # (Auto) Peripher Smr Path Cons ABG pH ABG pCO2 ABG pO2 ABG HCO3 ABG O2 Saturation ABG Base Excess Raudel Test Barometric Pressure Oxygen Given Sodium Potassium Chloride Carbon Dioxide Anion Gap BUN Creatinine Est Cr Clr Drug Dosing Est GFR ( Amer) Est GFR (Non-Af Amer) BUN/Creatinine Ratio Glucose POC Glucose Calcium Troponin I Urine Color Urine Appearance Urine pH Ur Specific [place] Urine Protein Urine Glucose (UA) Urine Ketones Urine Blood Urine Nitrite Urine Bilirubin Urine Urobilinogen Ur Leukocyte Esterase Urine WBC (Auto) Urine RBC (Auto) U Hyaline Cast (Auto) U Epithel Cells (Auto) Urine Bacteria (Auto) Fld Lyme DNA (PCR) Cancelled Fluid Comment CSF Appearance CLEAR CSF Color COLORLESS Xanthrochromic NO CSF WBC 2 CSF RBC 1 CSF Cell Count Tube # 3 CSF Chemistry Tube # CSF Glucose CSF Lactate Cancelled CSF Total Protein CSF Lyme IgG (Immblot) CSF Lyme IgG Bands Det CSF Lyme IgM (Immblot) CSF Lyme IgM Bands Det CSF [place] IgM Ab Nasal Screen MRSA (PCR) Anaplasma Smear A. phagocytophilum DNA Lyme Specimen Source Cancelled Lyme Disease IgG Ab Lyme Disease IgM Ab CMV Specimen Source CMV Qnt PCR IU/mL CMV Qnt PCR log IU/mL Enterovirus Source Enterovirus RNA RT-PCR EBV Source EBV DNA, Quant EBV DNA (PCR) Herpes Virus Source HSV I DNA PCR HSV II DNA PCR Herpesvirus 6 Source HHV-6 DNA (PCR) Varicella-Zoster Source VZV DNA (PCR) 04/16/21 04/16/21 04/16/21 13:32 13:58 16:36 WBC RBC Hgb Hct MCV MCH MCHC RDW Std Deviation RDW Coeff of Christian Plt Count MPV Immature Gran % (Auto) Neut % (Auto) Lymph % (Auto) Fleming % (Auto) Eos % (Auto) Baso % (Auto) Neut # (Auto) Lymph # (Auto) Fleming # (Auto) Eos # (Auto) Baso # (Auto) Immature Gran # (Auto) Peripher Smr Path Cons ABG pH 7.44 ABG pCO2 35 ABG pO2 129 H ABG HCO3 23 ABG O2 Saturation 98.8 H ABG Base Excess -0.7 Raudel Test Pos Barometric Pressure 734.8 Oxygen Given 4 L Sodium Potassium Chloride Carbon Dioxide Anion Gap BUN Creatinine Est Cr Clr Drug Dosing Est GFR ( Amer) Est GFR (Non-Af Amer) BUN/Creatinine Ratio Glucose POC Glucose 84 Calcium Troponin I Urine Color Urine Appearance Urine pH Ur Specific [place] Urine Protein Urine Glucose (UA) Urine Ketones Urine Blood Urine Nitrite Urine Bilirubin Urine Urobilinogen Ur Leukocyte Esterase Urine WBC (Auto) Urine RBC (Auto) U Hyaline Cast (Auto) U Epithel Cells (Auto) Urine Bacteria (Auto) Fld Lyme DNA (PCR) Pending Fluid Comment CSF Appearance CSF Color Xanthrochromic CSF WBC CSF RBC CSF Cell Count Tube # CSF Chemistry Tube # CSF Glucose CSF Lactate CSF Total Protein CSF Lyme IgG (Immblot) Pending CSF Lyme IgG Bands Det Pending CSF Lyme IgM (Immblot) Pending CSF Lyme IgM Bands Det Pending CSF [place] IgM Ab Nasal Screen MRSA (PCR) Anaplasma Smear A. phagocytophilum DNA Lyme Specimen Source Pending Lyme Disease IgG Ab Lyme Disease IgM Ab CMV Specimen Source CMV Qnt PCR IU/mL CMV Qnt PCR log IU/mL Enterovirus Source Pending Enterovirus RNA RT-PCR Pending EBV Source Pending EBV DNA, Quant Pending EBV DNA (PCR) Pending Herpes Virus Source HSV I DNA PCR HSV II DNA PCR Herpesvirus 6 Source Pending HHV-6 DNA (PCR) Pending Varicella-Zoster Source Pending VZV DNA (PCR) Pending 04/16/21 04/16/21 04/16/21 17:30 18:02 20:15 WBC RBC Hgb Hct MCV MCH MCHC RDW Std Deviation RDW Coeff of Christian Plt Count MPV Immature Gran % (Auto) Neut % (Auto) Lymph % (Auto) Fleming % (Auto) Eos % (Auto) Baso % (Auto) Neut # (Auto) Lymph # (Auto) Fleming # (Auto) Eos # (Auto) Baso # (Auto) Immature Gran # (Auto) Peripher Smr Path Cons ABG pH ABG pCO2 ABG pO2 ABG HCO3 ABG O2 Saturation ABG Base Excess Raudel Test Barometric Pressure Oxygen Given Sodium Potassium Chloride Carbon Dioxide Anion Gap BUN Creatinine Est Cr Clr Drug Dosing Est GFR ( Amer) Est GFR (Non-Af Amer) BUN/Creatinine Ratio Glucose POC Glucose Calcium Troponin I 0.247 H* Urine Color Dark Yellow Urine Appearance Clear Urine pH 6.0 Ur Specific [place] > 1.045 H Urine Protein 1+ H Urine Glucose (UA) Negative Urine Ketones Trace H Urine Blood Trace H Urine Nitrite Negative Urine Bilirubin 1+ H Urine Urobilinogen Negative Ur Leukocyte Esterase Negative Urine WBC (Auto) 1-5 Urine RBC (Auto) 10-30 H U Hyaline Cast (Auto) 0 U Epithel Cells (Auto) >30 H Urine Bacteria (Auto) Negative Fld Lyme DNA (PCR) Fluid Comment CSF Appearance CSF Color Xanthrochromic CSF WBC CSF RBC CSF Cell Count Tube # CSF Chemistry Tube # CSF Glucose CSF Lactate CSF Total Protein CSF Lyme IgG (Immblot) CSF Lyme IgG Bands Det CSF Lyme IgM (Immblot) CSF Lyme IgM Bands Det CSF [place] IgM Ab Nasal Screen MRSA (PCR) Negative Anaplasma Smear A. phagocytophilum DNA Lyme Specimen Source Lyme Disease IgG Ab Lyme Disease IgM Ab CMV Specimen Source CMV Qnt PCR IU/mL CMV Qnt PCR log IU/mL Enterovirus Source Enterovirus RNA RT-PCR EBV Source EBV DNA, Quant EBV DNA (PCR) Herpes Virus Source HSV I DNA PCR HSV II DNA PCR Herpesvirus 6 Source HHV-6 DNA (PCR) Varicella-Zoster Source VZV DNA (PCR) 04/17/21 04/17/21 04:53 04:53 WBC 2.10 L RBC 3.93 L Hgb 10.8 L Hct 33.0 L MCV 84.0 MCH 27.5 MCHC 32.7 RDW Std Deviation 42.2 RDW Coeff of Christian 13.7 Plt Count 60 L MPV 10.0 Immature Gran % (Auto) 0.5 Neut % (Auto) 64.3 Lymph % (Auto) 22.8 Fleming % (Auto) 11.0 Eos % (Auto) 0.5 Baso % (Auto) 0.9 Neut # (Auto) 1.41 Lymph # (Auto) 0.50 L Fleming # (Auto) 0.24 Eos # (Auto) 0.01 Baso # (Auto) 0.02 Immature Gran # (Auto) 0.01 Peripher Smr Path Cons ABG pH ABG pCO2 ABG pO2 ABG HCO3 ABG O2 Saturation ABG Base Excess Raudel Test Barometric Pressure Oxygen Given Sodium 138 Potassium 3.1 L Chloride 108 H Carbon Dioxide 30 Anion Gap 0 L BUN 14 Creatinine 0.62 Est Cr Clr Drug Dosing 72.2 Est GFR ( Amer) 103.7 Est GFR (Non-Af Amer) 89.5 BUN/Creatinine Ratio 22.6 H Glucose 96 POC Glucose Calcium 7.7 L Troponin I Urine Color Urine Appearance Urine pH Ur Specific [place] Urine Protein Urine Glucose (UA) Urine Ketones Urine Blood Urine Nitrite Urine Bilirubin Urine Urobilinogen Ur Leukocyte Esterase Urine WBC (Auto) Urine RBC (Auto) U Hyaline Cast (Auto) U Epithel Cells (Auto) Urine Bacteria (Auto) Fld Lyme DNA (PCR) Fluid Comment CSF Appearance CSF Color Xanthrochromic CSF WBC CSF RBC CSF Cell Count Tube # CSF Chemistry Tube # CSF Glucose CSF Lactate CSF Total Protein CSF Lyme IgG (Immblot) CSF Lyme IgG Bands Det CSF Lyme IgM (Immblot) CSF Lyme IgM Bands Det CSF [place] IgM Ab Nasal Screen MRSA (PCR) Anaplasma Smear A. phagocytophilum DNA Lyme Specimen Source Lyme Disease IgG Ab Lyme Disease IgM Ab CMV Specimen Source CMV Qnt PCR IU/mL CMV Qnt PCR log IU/mL Enterovirus Source Enterovirus RNA RT-PCR EBV Source EBV DNA, Quant EBV DNA (PCR) Herpes Virus Source HSV I DNA PCR HSV II DNA PCR Herpesvirus 6 Source HHV-6 DNA (PCR) Varicella-Zoster Source VZV DNA (PCR) Medications Administered Current Inpatient Medications Acetaminophen (Acetaminophen 500 Mg Tab) 500 mg PO Q6H PRN PRN Reason: Pain Stop: 05/16/21 14:19 Last Admin: 04/17/21 02:42 Dose: 500 mg Documented by: Amlodipine Besylate (Amlodipine Besylate 5 Mg Tab) [facility] [place] Stop: 05/17/21 08:59 Last Admin: 04/17/21 08:05 Dose: 5 mg Documented by: Aspirin (Aspirin 325 Mg Ectab) [facility] [place] Stop: 05/17/21 08:59 Last Admin: 04/17/21 08:45 Dose: 325 mg Documented by: Linezolid (Zyvox) 600 mg in 300 mls @ 200 mls/hr IV Q12H [facility]; Protocol Stop: 04/23/21 10:29 Last Infusion: 04/17/21 00:01 Dose: Infused Documented by: Piperacillin Sod/Tazobactam (Sod 3.375 gm/ Dextrose) 115 mls @ 28.75 mls/hr IV Q8H [facility]; Protocol Stop: 04/23/21 11:59 Last Infusion: 04/17/21 09:44 Dose: Infused Documented by: Metoprolol Tartrate (Metoprolol Tartrate 50 Mg Tab) 50 mg PO BID [facility] Stop: 05/16/21 20:59 Last Admin: 04/17/21 08:05 Dose: 50 mg Documented by: Miscellaneous Information (Piperacill/Tazobac Consult Active) 1 ea N/A UD PRN PRN Reason: Consult Stop: 05/16/21 06:20 Miscellaneous Information (Linezolid Consult Active) 1 ea N/A UD PRN PRN Reason: Consult Stop: 05/16/21 14:08 Potassium Chloride (Potassium Chloride 10 Meq Tabcr) 10 meq PO [id number] [facility] Stop: 05/16/21 16:59 Last Admin: 04/17/21 08:05 Dose: 10 meq Documented by: Valsartan (Valsartan 80 Mg Tab) 80 mg PO QAM [facility] Stop: 05/17/21 08:59 Last Admin: 04/17/21 08:44 Dose: 80 mg Documented by:
[2021-04-17] MEDS: LINEZOLID 600 MG/300 ML BAG IV SCH (10:52)
--- NOTE | 2021-04-17 14:05 | CT Scan Report ---
CT thoracic spine wo con HISTORY: 75 years-old Female upper back pain, r/o discitis/osteomyelitis acute upper back pain witho ut reported trauma COMPARISON: CTA chest 04/16/2021 TECHNIQUE: Multiple axial CT images of the thoracic spine were obtained without the use of IV contras t. A dose lowering technique was used consistent with the principals of [place]. FINDINGS: Multilevel and vertebral disc space narrowing with spondylitic spurring and facet arthrosis. 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 Chronic appearing T11 compression d eformity. No acute fracture, subluxation or endplate erosion identified. Mild sigmoidal scoliosis of the thoracic spine. The imaged ribs appear intact. Cardiomegaly with trace pleural effusions. Left at rial exclusion device. Partially imaged pacer leads. Coronary artery calcifications. Mild groundglass opacities with intralobular septal thickening suggestive of pulmonary edema. IMPRESSION: 1. No acute fracture or subluxation. 2. No endplate erosions to suggest discitis/osteomyelitis. 3. Cardiomegaly with suggested pulmonary edema and trace pleural effusions. ACT 112: Negative or not required by law. The above report was generated using voice recognition software. It may contain grammatical, syntax o r spelling errors. Electronically signed by: Aman Petit M.D. 04/17/2021 2:04 PM
[2021-04-17] MEDS ORDERED: diphenhydrAMINE 50 MG/ML VIAL IV STA (15:50)
[2021-04-17] MEDS ORDERED: diphenhydrAMINE 50 MG/ML VIAL ONE (15:52)
[2021-04-17] MEDS ORDERED: CEFEPIME 2,000 MG in SYRINGE 0 ML IV SCH (16:00)
[2021-04-17] MEDS ORDERED: DAPTOmycin 300 MG in SYRINGE 0 ML IV SCH (16:00)
--- NOTE | 2021-04-17 17:28 | Hospitalist Progress Note ---
Date of Service April 17, 2021 Assessment & Plan (1) Fever: (2) Acute respiratory failure with hypoxia: (3) Headache: (4) PAF (paroxysmal atrial fibrillation): (5) HTN (hypertension): (6) S/P MVR (mitral valve repair): (7) S/P AVR (aortic valve replacement): (8) Presence of Watchman left atrial appendage closure device: (9) Chronic diastolic heart failure: (10) Tkxammx-Wigrt-Hrgpp disease: Plan: This is a 75-year-old female with a complex PMH of chronic diastolic heart failure, paroxysmal atrial fibrillation, SSS s/p PPM, s/p Watchman device implantation not on anticoagulation, LBBB, history of aortic valve replacement and mitral valve repair in 2016, history of MSSA bacteremia and septic arthritis (right shoulder, left knee)/PPM pocket infection status post PPM replacement 2018, Opidaqv-Sfrai-Ngact disease and other medical problems listed below who presents from home after developing shortness of breath and fever overnight. Fever Possible sepsis Infection of unknown origin Per MADIE Thomas's notes: Developed SOB and fever early this morning, also tachycardic initially meeting SIRs criteria. Procal 0.54, troponin 0.247, lactate wnl Initial concern for PNA vs mild pulmonary edema on CXR, CTA chest Concern for infectious endocarditis given AV replacement, Watchman device - blood cultures obtained, started on Zosyn, Linezolid Also with presence of neck pain and headache in setting of fever - diagnostic LP ordered to r/o meningitis Considering tick borne illness given thrombocytopenia, viral sx - peripheral smear without e/o inclusion bodies. Lyme serology negative. Anaplasma DNA pending CT cervical spine without acute fracture or subluxation but degenerative changes as above History of MSSA bacteremia in 2019 due to vertebral osteomyelitis and thoracic discitis - no evidence of thoracic discitis on CTA chest today --Afebrile since last night CT thoracic spine: No signs of discitis Blood cultures: Pending Anaplasma PCR: Pending MRSA screen: Negative --At this time focusing infection appears to be pneumonia --Transition to doxycycline p.o. Possible drug reaction Patient noted to have erythema of the right arm and back around 4 PM No shortness of breath, lip or tongue swelling/edema Patient has known allergy to cefazolin, possible drug reaction secondary to Zosyn DC Zosyn and cefepime IV Benadryl and cetirizine ordered Acute hypoxic respiratory failure Per MADIE Thomas's notes: Sudden onset SOB early this morning, now saturating 98% on 4L NC (not on home O2) CT PE ordered - no evidence of PE or thoracic aortic dissection Continue empiric abx, supplemental O2 No overt evidence of volume overload on imaging or exam - will avoid diuretics today given load of IV contrast but monitor volume status closely --Likely secondary to pneumonia Weaned off oxygen Thrombus within the left atrial appendage closure device Per MADIE Thomas's notes: S/p Watchman device implantation in 2018 Per chart review, patient not on coumadin d/t patient's bleeding concerns CTA today revealing thrombus within the left atrial appendage closure device Unclear whether this is acute or chronic Discussed with Dr. Mayo - no need to anticoagulate at this time Appreciate cardiology recommendations --Discussed with Dr. Mayo, not cause of concern at this time Elevated troponin Initial troponin 0.247 - repeat 0.221 Chronic troponin elevated per chart review No chest pain EKG with paced rhythm, chronic LBBB, TWI in inferior leads Monitor on tele, trend troponin, 2D echo pending Cardiology consulted --Possible demand ischemia secondary to hypoxia, pneumonia SSS s/p pacemaker implantation PM replaced in 2018 following PPM pocket infection prompting replacement of device Last interrogated in January 2021 Paroxysmal A Fib Continue Lopressor Chronic diastolic heart failure Per MADIE Thomas's notes: Appears euvolemic, CTA chest with e/o mild pulmonary edema Not given diuretics today given load of IV contrast but monitor volume status closely 2D echo pending --Currently euvolemic Hold Lasix in light of IV contrast given twice 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 Admission and Anticipated Discharge Date Admission Date: April 16, 2021 Subjective Follow-up for fever, hypoxia, etc. Seen resting in chair, comfortable, off oxygen States she feels improved today but still feels somewhat weak Breathing is improved, has minimal dry cough, no chest pain, no shortness of breath Posterior headache also improving, as well as neck pain Upper back pain seems to be improving as well No other symptoms Review of Systems Review of Systems: All noted, negative except for above Physical Exam Physical Exam: General- oriented x 3, not in distress, speaks in sentences with no effort or accessory muscle use Eyes- anicteric Neck- no JVD Lungs-mild rales at the bases, no wheezing, good air entry bilaterally Heart- normal rate, regular rhythm; no murmurs Abdomen- normal bowel sounds, nondistended, soft, nontender Extremities- no pretibial edema, no calf tenderness Neuro- alert, oriented x 3; no gross focal neurologic deficits Skin- warm & dry Results & Data Results & Data ([facility]) Vital Signs (Past 12 Hours) Vital Signs Temp Pulse Pulse Pulse Resp BP Pulse Ox 04/17/21 16:00 62 04/17/21 15:47 37.1 C 65 20 140/70 94 04/17/21 08:00 36.8 C 63 22 159/57 H 94 all noted and reviewed including below (1) Fever Fever type: unspecified Qualified Code(s): R50.9 - Fever, unspecified
[2021-04-17] MEDS ORDERED: LOPERAMIDE HCL 2 MG CAP PO PRN (17:47)
[2021-04-17] MEDS ORDERED: diphenhydrAMINE Capsule 25 MG CAP PO PRN (19:23)
[2021-04-17] MEDS: CETIRIZINE HCL 10 MG TABLET PO SCH (20:12)
[2021-04-17] MEDS ORDERED: ALBUT/IPRATROP 3MG/0.5MG NEB 3 ML VIAL NEB STA (20:21)
--- NOTE | 2021-04-17 20:54 | XRay Report ---
XR chest 1V portable CLINICAL HISTORY: wheeze COMPARISON STUDY: Chest radiograph and chest CT April 16, 2021. FINDINGS: Dual lead right subclavian pacemaker, median sternotomy wires, prosthetic aortic and mitral valves and a left atrial appendage closure device are noted. Cardiomegaly is unchanged. There is no evidence for pneumonia or pulmonary edema. No pneumothorax or pleural effusion is noted. IMPRESSION: No acute cardiopulmonary findings. No change in appearance of the chest. ACT 112: Negative or not required by law. Electronically signed by: Lopez Tong M.D. 04/17/2021 8:53 PM
[2021-04-17] MEDS ORDERED: methylPREDNISolone 20 MG in SYRINGE 0 ML IV ONE (21:00)
[2021-04-17] MEDS: DOXYCYCLINE HYCLATE 100 MG CAP PO SCH (21:16)
[2021-04-18 06:29] LABS: Hematocrit (blood only) 31.6 % (37-47); Hemoglobin 10.5 g/dL (12.0-16.0); Mean Corpuscular Hemoglobin 27.4 pg (25-34); Mean Corpuscular Hgb Conc 33.2 g/dL (32-36); Mean Corpuscular Volume 82.5 fL (80-100); RDW Coefficient of Variation 13.7 % (11.5-14.5); RDW Standard Deviation 41.9 fL (36.4-46.3); Red Blood Count 3.83 M/uL (4.2-5.4)
[2021-04-18 06:30] LABS: Mean Platelet Volume 10.1 fL (7.4-10.4); Platelet Count 72 K/uL (130-400)
[2021-04-18 07:14] LABS: BUN Creatinine Ratio 18.8 (10-20); Calcium 8.1 mg/dl (8.5-10.1); Est GFR (Non-African American) 91.4 ml/min; Potassium 3.8 mmol/L (3.5-5.1)
[2021-04-18] MEDS: POTASSIUM CHLORIDE 10 MEQ TABCR PO SCH ×2 (08:32→16:42)
[2021-04-18] MEDS: METOPROLOL TARTRATE 50 MG TAB PO SCH ×2 (08:32→19:53)
[2021-04-18] MEDS: amLODIPine BESYLATE 5 MG TAB PO SCH (08:32)
[2021-04-18] MEDS: DOXYCYCLINE HYCLATE 100 MG CAP PO SCH ×2 (08:32→19:54)
[2021-04-18] MEDS: VALSARTAN 80 MG TAB PO SCH (08:33)
[2021-04-18] MEDS: ASPIRIN 325 MG ECTAB PO SCH (08:33)
--- NOTE | 2021-04-18 10:07 | Electrocardiogram Report ---
Test Reason : Blood Pressure : / mmHG Vent. Rate : 102 BPM Atrial Rate : 102 BPM P-R Int : 150 ms QRS Dur : 166 ms QT Int : 378 ms P-R-T Axes : -08 055 197 degrees QTc Int : 492 ms Probably Sinus tachycardia Left bundle branch block Abnormal ECG When compared with ECG of 08-NOV-2018 07:18, Sinus rhythm has replaced Electronic atrial pacemaker Vent. rate has increased BY 38 BPM Sinus tachycardia has replaced an atrial paced rhythm Confirmed by Aj Chow ([id number]) on 04/18/2021 10:06:49 AM Referred By: Confirmed By:Aj Chow
--- NOTE | 2021-04-18 17:55 | Hospitalist Progress Note ---
Date of Service April 18, 2021 Assessment & Plan (1) Fever: (2) Acute respiratory failure with hypoxia: (3) Headache: (4) PAF (paroxysmal atrial fibrillation): (5) HTN (hypertension): (6) S/P MVR (mitral valve repair): (7) S/P AVR (aortic valve replacement): (8) Presence of Watchman left atrial appendage closure device: (9) Chronic diastolic heart failure: (10) Doycfrt-Kpddu-Jirln disease: Plan: This is a 75-year-old female with a complex PMH of chronic diastolic heart failure, paroxysmal atrial fibrillation, SSS s/p PPM, s/p Watchman device implantation not on anticoagulation, LBBB, history of aortic valve replacement and mitral valve repair in 2016, history of MSSA bacteremia and septic arthritis (right shoulder, left knee)/PPM pocket infection status post PPM replacement 2018, Bshjuoe-Vlfnk-Itwvl disease and other medical problems listed below who presents from home after developing shortness of breath and fever overnight. Fever Possible sepsis secondary to Community Acquired Pneumonia Per MADIE Thomas's notes: Developed SOB and fever early this morning, also tachycardic initially meeting SIRs criteria. Procal 0.54, troponin 0.247, lactate wnl Initial concern for PNA vs mild pulmonary edema on CXR, CTA chest Concern for infectious endocarditis given AV replacement, Watchman device - blood cultures obtained, started on Zosyn, Linezolid Also with presence of neck pain and headache in setting of fever - diagnostic LP ordered to r/o meningitis Considering tick borne illness given thrombocytopenia, viral sx - peripheral smear without e/o inclusion bodies. Lyme serology negative. Anaplasma DNA pending CT cervical spine without acute fracture or subluxation but degenerative changes as above History of MSSA bacteremia in 2019 due to vertebral osteomyelitis and thoracic discitis - no evidence of thoracic discitis on CTA chest today --Afebrile since admission CT thoracic spine: No signs of discitis Blood cultures: negative so far Anaplasma PCR: Pending MRSA screen: Negative --At this time focus of infection appears to be pneumonia --Transitioned to doxycycline p.o. monitor closely Possible drug reaction, Zosyn Patient noted to have erythema of the right arm and back around 4 PM No shortness of breath, lip or tongue swelling/edema Patient has known allergy to cefazolin, possible drug reaction secondary to Zosyn DC Zosyn and cefepime IV Benadryl and cetirizine ordered -- resolved Acute hypoxic respiratory failure Per MADIE Thomas's notes: Sudden onset SOB early this morning, now saturating 98% on 4L NC (not on home O2) CT PE ordered - no evidence of PE or thoracic aortic dissection Continue empiric abx, supplemental O2 No overt evidence of volume overload on imaging or exam - will avoid diuretics today given load of IV contrast but monitor volume status closely --Likely secondary to pneumonia Weaned off oxygen Thrombus within the left atrial appendage closure device Per MADIE Thomas's notes: S/p Watchman device implantation in 2018 Per chart review, patient not on coumadin d/t patient's bleeding concerns CTA today revealing thrombus within the left atrial appendage closure device Unclear whether this is acute or chronic Discussed with Dr. Mayo - no need to anticoagulate at this time Appreciate cardiology recommendations --Discussed with Dr. Mayo, not cause of concern at this time Elevated troponin Initial troponin 0.247 - repeat 0.221 Chronic troponin elevated per chart review No chest pain EKG with paced rhythm, chronic LBBB, TWI in inferior leads Monitor on tele, trend troponin, 2D echo pending Cardiology consulted --Possible demand ischemia secondary to hypoxia, pneumonia SSS s/p pacemaker implantation PM replaced in 2018 following PPM pocket infection prompting replacement of device Last interrogated in January 2021 Paroxysmal A Fib Continue Lopressor Chronic diastolic heart failure Per MADIE Thomas's notes: Appears euvolemic, CTA chest with e/o mild pulmonary edema Not given diuretics today given load of IV contrast but monitor volume status closely 2D echo pending --Currently euvolemic resume Lasix 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 at baseline Fall precautions PT OT eval DVT Ppx: SQ heparin Code status: FULL PCP: Thalia Dispo: PT/OT eval, 2 step eval, anticipate d/c home when medically stable Admission and Anticipated Discharge Date Admission Date: April 16, 2021 Subjective ff up for pneumonia, etc seen resting in bed, comfortable sitting up, in good spirits states she feels improved day by day breathing continues to improve, minimal dry cough no chest pain, dizziness, palpitations headache and back pain resolving no other symptoms Review of Systems Review of Systems: all negative except above Physical Exam Physical Exam: General- oriented x 3, not in distress, speaks in sentences with no effort or accessory muscle use Eyes- anicteric Neck- no JVD Lungs- mild rhonchi at the bases, no wheezing Heart- normal rate, regular rhythm; no murmurs Abdomen- normal bowel sounds, nondistended, soft, nontender Extremities- no pretibial edema, no calf tenderness Neuro- alert, oriented x 3; no gross focal neurologic deficits Skin- warm & dry Results & Data Results & Data ([facility]) Vital Signs (Past 12 Hours) Vital Signs Temp Pulse Pulse Resp BP BP Pulse Ox 04/18/21 15:42 36.9 C 62 18 144/93 H 94 04/18/21 11:37 36.9 C 110 H 20 136/86 93 04/18/21 07:58 36.8 C 72 22 143/42 H 90 04/18/21 07:40 60 all noted and reviewed including below (1) Fever Fever type: unspecified Qualified Code(s): R50.9 - Fever, unspecified
[2021-04-18] MEDS: CETIRIZINE HCL 10 MG TABLET PO SCH (19:54)
[2021-04-19] MEDS ORDERED: LOPERAMIDE HCL 2 MG CAP PO PRN (08:25)
[2021-04-19] MEDS: DOXYCYCLINE HYCLATE 100 MG CAP PO SCH ×2 (08:40→20:34)
[2021-04-19] MEDS: ASPIRIN 325 MG ECTAB PO SCH (08:40)
[2021-04-19] MEDS: VALSARTAN 80 MG TAB PO SCH (08:40)
[2021-04-19] MEDS: METOPROLOL TARTRATE 50 MG TAB PO SCH ×2 (08:40→20:34)
[2021-04-19] MEDS: amLODIPine BESYLATE 5 MG TAB PO SCH (08:41)
[2021-04-19] MEDS: POTASSIUM CHLORIDE 10 MEQ TABCR PO SCH ×2 (08:41→16:55)
[2021-04-19] MEDS: FUROSEMIDE 80 MG TAB PO SCH (08:41)
[2021-04-19 09:29] LABS: Basophils # (auto) 0.03 K/uL (0-0.2); Basophils % (auto) 0.7 %; Eosinophils # (auto) 0.08 K/uL (0-0.5); Eosinophils % (auto) 1.8 %; Hematocrit (blood only) 33.9 % (37-47); Hemoglobin 10.8 g/dL (12.0-16.0); Immature Granulocytes # (auto) 0.01 K/uL (0.00-0.02); Immature Granulocytes % (auto) 0.2 %; Lymphocytes % (auto) 51.7 %; Mean Corpuscular Hemoglobin 27.1 pg (25-34); Mean Corpuscular Hgb Conc 31.9 g/dL (32-36); Mean Platelet Volume 10.1 fL (7.4-10.4); Monocytes # (auto) 0.41 K/uL (0.11-0.59); Monocytes % (auto) 9.2 %; Neutrophils # (auto) 1.62 K/uL (1.4-6.5); Neutrophils % (auto) 36.4 %; Platelet Count 112 K/uL (130-400); RDW Coefficient of Variation 14.1 % (11.5-14.5); RDW Standard Deviation 43.9 fL (36.4-46.3); Red Blood Count 3.99 M/uL (4.2-5.4); White Blood Count 4.45 K/uL (4.8-10.8)
[2021-04-19] MEDS: SACCHAROMYCES BOULARDII 250 MG CAP PO SCH (10:25)
--- NOTE | 2021-04-19 17:26 | Hospitalist Progress Note ---
Date of Service April 19, 2021 Assessment & Plan (1) Fever: (2) Acute respiratory failure with hypoxia: (3) Headache: (4) PAF (paroxysmal atrial fibrillation): (5) HTN (hypertension): (6) S/P MVR (mitral valve repair): (7) S/P AVR (aortic valve replacement): (8) Presence of Watchman left atrial appendage closure device: (9) Chronic diastolic heart failure: (10) Emwgecd-Pyclk-Mqxma disease: Plan: This is a 75-year-old female with a complex PMH of chronic diastolic heart failure, paroxysmal atrial fibrillation, SSS s/p PPM, s/p Watchman device implantation not on anticoagulation, LBBB, history of aortic valve replacement and mitral valve repair in 2016, history of MSSA bacteremia and septic arthritis (right shoulder, left knee)/PPM pocket infection status post PPM replacement 2018, Bfolicj-Xcmlz-Llwri disease and other medical problems listed below who presents from home after developing shortness of breath and fever overnight. Fever, Possible sepsis secondary to Community Acquired Pneumonia Per MADIE Thomas's notes: Developed SOB and fever early this morning, also tachycardic initially meeting SIRs criteria. Procal 0.54, troponin 0.247, lactate wnl Initial concern for PNA vs mild pulmonary edema on CXR, CTA chest Concern for infectious endocarditis given AV replacement, Watchman device - blood cultures obtained, started on Zosyn, Linezolid Also with presence of neck pain and headache in setting of fever - diagnostic LP ordered to r/o meningitis Considering tick borne illness given thrombocytopenia, viral sx - peripheral smear without e/o inclusion bodies. Lyme serology negative. Anaplasma DNA pendin g CT cervical spine without acute fracture or subluxation but degenerative changes as above History of MSSA bacteremia in 2019 due to vertebral osteomyelitis and thoracic discitis - no evidence of thoracic discitis on CTA chest today --Afebrile since admission CT thoracic spine: No signs of discitis Blood cultures: negative so far Anaplasma PCR: Pending MRSA screen: Negative --Significantly improved clinically --Has received linezolid and Zosyn IV --Continue with doxycycline p.o. monitor closely Possible drug reaction, Zosyn Patient noted to have erythema of the right arm and back around 4 PM No shortness of breath, lip or tongue swelling/edema Patient has known allergy to cefazolin, possible drug reaction secondary to Zosyn DC Zosyn and cefepime IV Benadryl and cetirizine ordered -- resolved Acute hypoxic respiratory failure Per MADIE Thomas's notes: Sudden onset SOB early this morning, now saturating 98% on 4L NC (not on home O2) CT PE ordered - no evidence of PE or thoracic aortic dissection Continue empiric abx, supplemental O2 No overt evidence of volume overload on imaging or exam - will avoid diuretics today given load of IV contrast but monitor volume status closely --Likely secondary to pneumonia Weaned off oxygen --We will perform two-step exercise test tomorrow in anticipation of discharge Diarrhea C. difficile negative Imodium as needed Probiotics ordered Thrombus within the left atrial appendage closure device Per MADIE Thomas's notes: S/p Watchman device implantation in 2018 Per chart review, patient not on coumadin d/t patient's bleeding concerns CTA today revealing thrombus within the left atrial appendage closure device Unclear whether this is acute or chronic Discussed with Dr. Mayo - no need to anticoagulate at this time Appreciate cardiology recommendations --Discussed with Dr. Mayo, not cause of concern at this time Elevated troponin Initial troponin 0.247 - repeat 0.221 Chronic troponin elevated per chart review No chest pain EKG with paced rhythm, chronic LBBB, TWI in inferior leads Monitor on tele, trend troponin, 2D echo pending Cardiology consulted --Possible demand ischemia secondary to hypoxia, pneumonia SSS s/p pacemaker implantation PM replaced in 2018 following PPM pocket infection prompting replacement of device Last interrogated in January 2021 Paroxysmal A Fib Continue Lopressor Chronic diastolic heart failure Per MADIE Thomas's notes: Appears euvolemic, CTA chest with e/o mild pulmonary edema Not given diuretics today given load of IV contrast but monitor volume status closely 2D echo pending --Currently euvolemic resumed Lasix 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 at baseline Fall precautions PT OT eval: Pending DVT Ppx: SQ heparin Code status: FULL PCP: Thalia Dispo: PT/OT eval, 2 step eval, anticipate d/c home when medically stable Admission and Anticipated Discharge Date Admission Date: April 16, 2021 Subjective Follow-up for pneumonia with hypoxia, etc. Seen sitting up in bed, comfortable, not in distress, in good spirits States she continues to feel better day by day Breathing much better since admission, minimal dyspnea with ambulation Minimal dry cough, but also improved No chest pain, palpitations, dizziness, nausea Positive diarrhea, but no abdominal pain, C. difficile negative No other symptoms Review of Systems Review of Systems: All noted and reviewed, negative except for above Physical Exam Physical Exam: General- oriented x 3, not in distress, speaks in sentences with no effort or accessory muscle use Eyes- anicteric Neck- no JVD Lungs-minimal crackles left lung base, clear on the right, no wheezing, good air entry bilaterally Heart- normal rate, regular rhythm; no murmurs Abdomen- normal bowel sounds, nondistended, soft, nontender Extremities- no pretibial edema, no calf tenderness Neuro- alert, oriented x 3; no gross focal neurologic deficits Skin- warm & dry; erythematous rash on the arms and back completely resolved Results & Data Results & Data ([facility]) Vital Signs (Past 12 Hours) Vital Signs Temp Pulse Pulse Resp BP Pulse Ox 04/19/21 16:00 63 04/19/21 15:32 37.3 C 60 24 155/61 H 93 04/19/21 11:33 37.0 C 61 20 155/74 H 96 04/19/21 07:20 36.5 C 61 18 141/64 H 95 04/19/21 07:15 60 all noted and reviewed including below (1) Fever Fever type: unspecified Qualified Code(s): R50.9 - Fever, unspecified
[2021-04-19] MEDS: CETIRIZINE HCL 10 MG TABLET PO SCH (20:34)
[2021-04-19 23:02] LABS: CMV DNA Qnt Real Time PCR <200 IU/mL (<200); CMV DNA Quant PCR <2.30 log IU/mL (<2.30); HSV Type 1 DNA Not Detected (Not Detected); HSV Type 1&2 DNA Source CSF; HSV Type 2 DNA Not Detected (Not Detected)
[2021-04-20] MEDS: SACCHAROMYCES BOULARDII 250 MG CAP PO SCH (08:28)
[2021-04-20] MEDS: VALSARTAN 80 MG TAB PO SCH (08:28)
[2021-04-20] MEDS: POTASSIUM CHLORIDE 10 MEQ TABCR PO SCH (08:28)
[2021-04-20] MEDS: METOPROLOL TARTRATE 50 MG TAB PO SCH (08:28)
[2021-04-20] MEDS: FUROSEMIDE 80 MG TAB PO SCH (08:29)
[2021-04-20] MEDS: DOXYCYCLINE HYCLATE 100 MG CAP PO SCH (08:29)
[2021-04-20] MEDS: ASPIRIN 325 MG ECTAB PO SCH (08:29)
[2021-04-20] MEDS: amLODIPine BESYLATE 5 MG TAB PO SCH (08:29)
--- NOTE | 2021-04-20 15:38 | Hospitalist Progress Note ---
Date of Service April 20, 2021 Assessment & Plan (1) Fever: (2) Acute respiratory failure with hypoxia: (3) Headache: (4) PAF (paroxysmal atrial fibrillation): (5) HTN (hypertension): (6) S/P MVR (mitral valve repair): (7) S/P AVR (aortic valve replacement): (8) Presence of Watchman left atrial appendage closure device: (9) Chronic diastolic heart failure: (10) Dguizgi-Dvhlv-Forpb disease: Plan: This is a 75-year-old female with a complex PMH of chronic diastolic heart failure, paroxysmal atrial fibrillation, SSS s/p PPM, s/p Watchman device implantation not on anticoagulation, LBBB, history of aortic valve replacement and mitral valve repair in 2016, history of MSSA bacteremia and septic arthritis (right shoulder, left knee)/PPM pocket infection status post PPM replacement 2018, Tjzomci-Hoxzu-Pomel disease and other medical problems listed below who presents from home after developing shortness of breath and fever overnight. Fever, Possible sepsis secondary to Community Acquired Pneumonia Per MADIE Thomas's notes: Developed SOB and fever early this morning, also tachycardic initially meeting SIRs criteria. Procal 0.54, troponin 0.247, lactate wnl Initial concern for PNA vs mild pulmonary edema on CXR, CTA chest Concern for infectious endocarditis given AV replacement, Watchman device - blood cultures obtained, started on Zosyn, Linezolid Also with presence of neck pain and headache in setting of fever - diagnostic LP ordered to r/o meningitis Considering tick borne illness given thrombocytopenia, viral sx - peripheral smear without e/o inclusion bodies. Lyme serology negative. Anaplasma DNA pendin g CT cervical spine without acute fracture or subluxation but degenerative changes as above History of MSSA bacteremia in 2019 due to vertebral osteomyelitis and thoracic discitis - no evidence of thoracic discitis on CTA chest today --Afebrile since admission CT thoracic spine: No signs of discitis Blood cultures: negative so far Anaplasma PCR: Pending MRSA screen: Negative --Significantly improved clinically --Has received linezolid and Zosyn IV --Continue with doxycycline p.o. x5 more days to complete 10 day antibiotic course monitor closely Possible drug reaction, Zosyn Patient noted to have erythema of the right arm and back around 4 PM No shortness of breath, lip or tongue swelling/edema Patient has known allergy to cefazolin, possible drug reaction secondary to Zosyn DC Zosyn and cefepime IV Benadryl and cetirizine ordered -- resolved Acute hypoxic respiratory failure Per MADIE Thomas's notes: Sudden onset SOB early this morning, now saturating 98% on 4L NC (not on home O2) CT PE ordered - no evidence of PE or thoracic aortic dissection Continue empiric abx, supplemental O2 No overt evidence of volume overload on imaging or exam - will avoid diuretics today given load of IV contrast but monitor volume status closely --Likely secondary to pneumonia Weaned off oxygen --two-step exercise test: does not need O2 with ambulation Diarrhea C. difficile negative Imodium as needed Probiotics ordered Thrombus within the left atrial appendage closure device Per MADIE Thomas's notes: S/p Watchman device implantation in 2018 Per chart review, patient not on coumadin d/t patient's bleeding concerns CTA today revealing thrombus within the left atrial appendage closure device Unclear whether this is acute or chronic Discussed with Dr. Mayo - no need to anticoagulate at this time Appreciate cardiology recommendations --Discussed with Dr. Mayo: "Our reading of the watchman device is that it is well-placed and the appearance is appropriate. Nothing additional needs to be done. No additional cardiac testing is indicated at this time." Elevated troponin Initial troponin 0.247 - repeat 0.221 Chronic troponin elevated per chart review No chest pain EKG with paced rhythm, chronic LBBB, TWI in inferior leads Monitor on tele, trend troponin, 2D echo pending Cardiology consulted --Possible demand ischemia secondary to hypoxia, pneumonia SSS s/p pacemaker implantation PM replaced in 2018 following PPM pocket infection prompting replacement of device Last interrogated in January 2021 Paroxysmal A Fib Continue Lopressor Chronic diastolic heart failure Per MADIE Thomas's notes: Appears euvolemic, CTA chest with e/o mild pulmonary edema Not given diuretics today given load of IV contrast but monitor volume status closely 2D echo pending --Currently euvolemic resumed Lasix 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 at baseline Fall precautions PT OT eval: Pending DVT Ppx: SQ heparin Code status: FULL PCP: Vásquez Dispo: PT/OT eval, 2 step eval, anticipate d/c home when medically stable plan of care discussed with patient in detail and at length all questions answered she is understanding, agreeable, comfortable with the plan of care Admission and Anticipated Discharge Date Admission Date: April 16, 2021 Subjective ff up for pneumonia, etc seen resting in bed, comfortable in good spirits states she feels much better overall no dyspnea minimal cough no chest pain no other symptoms states she is ready and would like to be discharged today Review of Systems Review of Systems: all noted and reviewed negative except above Physical Exam Physical Exam: General- oriented x 3, not in distress, speaks in sentences with no effort or accessory muscle use Eyes- anicteric Neck- no JVD Lungs- clear breath sounds bilaterally, no rales/wheezes Heart- normal rate, regular rhythm; no murmurs Abdomen- normal bowel sounds, nondistended, soft, nontender Extremities- no pretibial edema, no calf tenderness Neuro- alert, oriented x 3; no gross focal neurologic deficits Skin- warm & dry Results & Data Results & Data ([facility]) Vital Signs (Past 12 Hours) Vital Signs Temp Pulse Pulse Pulse Pulse Pulse Resp 04/20/21 13:25 73 82 70 04/20/21 08:55 36.9 C 60 18 04/20/21 08:00 65 Resp Resp Resp BP Pulse Ox Pulse Ox Pulse Ox 04/20/21 13:25 20 20 18 96 96 04/20/21 08:55 150/59 H 97 04/20/21 08:00 Pulse Ox 04/20/21 13:25 96 04/20/21 08:55 04/20/21 08:00 all noted and reviewed including below (1) Fever Fever type: unspecified Qualified Code(s): R50.9 - Fever, unspecified
--- NOTE | 2021-04-20 18:11 | Discharge Summary ---
Date of Service April 20, 2021 Admission HPI Per Admitting Provider This is a 75-year-old female with a complex PMH of chronic diastolic heart failure, paroxysmal atrial fibrillation, SSS s/p PPM, s/p Watchman device implantation not on anticoagulation, LBBB, history of aortic valve replacement and mitral valve repair in 2016, history of MSSA bacteremia and septic arthritis (right shoulder, left knee)/PPM pocket infection status post PPM replacement 2018, Qhvmcux-Bhrlf-Aejga disease and other medical problems listed below who presents from home after developing shortness of breath overnight. Patient has been feeling poorly for 2 days, endorsing dull constant headache and subjective fever and chills. Woke up during the night after developing shortness of breath. [place] like she could not get a good breath in. Also endorsing pressure feeling in mid back between shoulder blades made worse with deep inspiration or movement. Associated with lightheadedness and dizziness with movement as well as sensitivity to light. Remote history of migraine headaches but none recently. Denies any chest pain, cough, congestion, wheezing. No vomiting, abdominal pain, dysuria, diarrhea or constipation. No known recent sick contacts. Did have prolonged hospital stay in [place] in Sep 2018-Oct 2018 due to staph bacteremia and septic arthritis (right shoulder, left knee) requiring washout procedures as well as PPM pocket infection status post PPM replacement. Was admitted the following month in 2018 for sepsis 2/2 vertebral osteomyelitis and thoracic discitis requiring continued IV abx. Follows with [facility] cardiology in [place]. Admission Exam Per Admitting Provider General Appearance: WD/WN, vitals as above, ill appearing, sitting up in bed, conversing easily Head: normocephalic, atraumatic Eyes: normal inspection, PERRL, conjunctivae normal, anicteric sclerae ENT: external ear and nose normal, oropharynx normal Neck: normal visual inspection, trachea midline, no thyromegaly Respiratory: normal respiratory effort, bibasilar crackles, no wheeze or rhonchi. No accessory muscle use Cardiovascular: regular rate, rhythm, systolic murmur, normal peripheral pulses, no BLE edema. Vessels: no JVD Chest: normal inspection of chest Abdomen/GI: normal bowel sounds, soft, nontender, no hepatosplenomegaly Extremities/Musculoskeletal: Pain to palpation spinous processes of cervical and thoracic spine. No deformities or rash noted. No cyanosis or clubbing, extremities motor strength 5/5 Neurologic: PERRL, EOMI, accommodation nl, no face palsy, no dysarthria, CN's II-XI intact bilaterally and moves all extremities Psychiatric: A+Ox3, euthymic affect Skin: no rashes, normal color, warm/dry Principal Diagnosis Pneumonia with Hypoxia Discharge Exam General- oriented x 3, not in distress, speaks in sentences with no effort or accessory muscle use Eyes- anicteric Neck- no JVD Lungs- clear breath sounds bilaterally, no rales/wheezes Heart- normal rate, regular rhythm; no murmurs Abdomen- normal bowel sounds, nondistended, soft, nontender Extremities- no pretibial edema, no calf tenderness Neuro- alert, oriented x 3; no gross focal neurologic deficits Skin- warm & dry Discharge Data Allergies Allergy/AdvReac Type Severity Reaction Status Date / Time vancomycin Allergy Severe rash, Verified 04/16/21 09:35 shortness of breath cefazolin Allergy rash Verified 04/16/21 09:35 Consultations 04/16/21 07:42 ED Decision to Admit Stat 04/16/21 13:46 Consult Cardiology Routine Ordered Studies 04/16/21 09:50 CT angio chest PE protocol Stat FINDINGS: No thoracic aortic dissection is noted although opacification of the descending thoracic aorta is suboptimal. There is no thoracic aortic aneurysm. Moderate cardiomegaly is noted. No pericardial effusion. A dual lead right subclavian pacemaker is in place. Prosthetic mitral and aortic valves are noted. Note is made of thrombus within the left atrial appendage close device. There is mild interlobular septal thickening within the lungs. Mild groundglass opacities within the lungs are noted. There is no consolidation. No pneumothorax or pleural effusion is noted. There is no evidence for acute discitis within the thoracic spine. Complete loss of the T11-T12 disc space is from previous episode of discitis/osteomyelitis IMPRESSION: 1. No thoracic aortic dissection. No pulmonary emboli. 2. Thrombus within the left atrial appendage closure device. 3. Mild groundglass opacities within the lungs with interlobular septal thickening. The findings favor mild pulmonary edema. An infectious process could appear similar although is considered less likely. 4. Cardiomegaly. CT cervical spine wo con Stat FINDINGS: Demineralized appearance of the bones. Severe degeneration at C1-C2. Moderate intervertebral disc space narrowing and spondylitic spurring at C6-C7, unchanged from 2019. Moderate to severe multilevel facet arthrosis. Chronic mild superior endplate compression at T2. No acute fracture or subluxation. There is suggestion of multilevel neural foraminal narrowing. Right subclavian pacer. Trace right mastoid effusion. No prevertebral edema. Calcified plaque of the carotid bulbs. There is no pneumothorax. Streak artifact from left-sided earring. IMPRESSION: 1. No acute fracture or subluxation. 2. Degenerative changes as above. 04/16/21 12:29 FL lumbar puncture diagnostic Routine 04/16/21 19:59 CT head/brain wo con Stat FINDINGS: No acute intracranial hemorrhage, midline shift, intracranial mass, hydrocephalus, territorial ischemia or abnormal extra-axial collection. Age- related involutional changes. Mild white matter hypodensities suggestive of chronic microvascular ischemic disease. Chronic lacunar infarct versus prominent perivascular spaces noted within the region of the inferior right lentiform nucleus. The calvarium is intact. The paranasal sinuses, mastoid air cells, and middle ear cavities are clear. IMPRESSION: No acute intracranial abnormality. 04/17/21 10:35 CT thoracic spine wo con Routine FINDINGS: Multilevel and vertebral disc space narrowing with spondylitic spurring and facet arthrosis. Degenerative related partial bony fusion of the T11-T12 vertebral bodies. Chronic appearing T11 compression deformity. No acute fracture, subluxation or endplate erosion identified. Mild sigmoidal scoliosis of the thoracic spine. The imaged ribs appear intact. Cardiomegaly with trace pleural effusions. Left atrial exclusion device. Partially imaged pacer leads. Coronary artery calcifications. Mild groundglass opacities with intralobular septal thickening suggestive of pulmonary edema. IMPRESSION: 1. No acute fracture or subluxation. 2. No endplate erosions to suggest discitis/osteomyelitis. 3. Cardiomegaly with suggested pulmonary edema and trace pleural effusions. Hospital Course (1) Fever: (2) Acute respiratory failure with hypoxia: (3) Headache: (4) PAF (paroxysmal atrial fibrillation): (5) HTN (hypertension): (6) S/P MVR (mitral valve repair): (7) S/P AVR (aortic valve replacement): (8) Presence of Watchman left atrial appendage closure device: (9) Chronic diastolic heart failure: (10) Ivocwre-Hmpxz-Zovjq disease: This is a 75-year-old female with a complex PMH of chronic diastolic heart failure, paroxysmal atrial fibrillation, SSS s/p PPM, s/p Watchman device implantation not on anticoagulation, LBBB, history of aortic valve replacement and mitral valve repair in 2016, history of MSSA bacteremia and septic arthritis (right shoulder, left knee)/PPM pocket infection status post PPM replacement 2019, Wpmfusd-Ptwyu-Rsgeg disease and other medical problems listed below who presents from home after developing shortness of breath and fever overnight. Fever, Possible sepsis secondary to Community Acquired Pneumonia Per MADIE Thomas's notes: Developed SOB and fever early this morning, also tachycardic initially meeting SIRs criteria. Procal 0.54, troponin 0.247, lactate wnl Initial concern for PNA vs mild pulmonary edema on CXR, CTA chest Concern for infectious endocarditis given AV replacement, Watchman device - blood cultures obtained, started on Zosyn, Linezolid Also with presence of neck pain and headache in setting of fever - diagnostic LP ordered to r/o meningitis Considering tick borne illness given thrombocytopenia, viral sx - peripheral smear without e/o inclusion bodies. Lyme serology negative. Anaplasma DNA pending CT cervical spine without acute fracture or subluxation but degenerative changes as above History of MSSA bacteremia in 2019 due to vertebral osteomyelitis and thoracic discitis - no evidence of thoracic discitis on CTA chest today --Afebrile since admission CT thoracic spine: No signs of discitis Blood cultures: negative so far Anaplasma PCR: Pending MRSA screen: Negative --Significantly improved clinically --Has received linezolid and Zosyn IV --Continue with doxycycline p.o. x5 more days to complete 10 day antibiotic course monitor closely Possible drug reaction, Zosyn Patient noted to have erythema of the right arm and back around 4 PM No shortness of breath, lip or tongue swelling/edema Patient has known allergy to cefazolin, possible drug reaction secondary to Zosyn DC Zosyn and cefepime IV Benadryl and cetirizine ordered -- resolved Acute hypoxic respiratory failure Per MADIE Thomas's notes: Sudden onset SOB early this morning, now saturating 98% on 4L NC (not on home O2) CT PE ordered - no evidence of PE or thoracic aortic dissection Continue empiric abx, supplemental O2 No overt evidence of volume overload on imaging or exam - will avoid diuretics today given load of IV contrast but monitor volume status closely --Likely secondary to pneumonia Weaned off oxygen --two-step exercise test: does not need O2 with ambulation Diarrhea C. difficile negative Imodium as needed Probiotics ordered Thrombus within the left atrial appendage closure device Per MADIE Thomas's notes: S/p Watchman device implantation in 2018 Per chart review, patient not on coumadin d/t patient's bleeding concerns CTA today revealing thrombus within the left atrial appendage closure device Unclear whether this is acute or chronic Discussed with Dr. Mayo - no need to anticoagulate at this time Appreciate cardiology recommendations --Discussed with Dr. Mayo: "Our reading of the watchman device is that it is well-placed and the appearance is appropriate. Nothing additional needs to be done. No additional cardiac testing is indicated at this time." Abnormal CT head findings Chronic lacunar infarct versus prominent perivascular spaces noted within the region of the inferior right lentiform nucleus. --Already on aspirin --Outpatient work-up Elevated troponin Initial troponin 0.247 - repeat 0.221 Chronic troponin elevated per chart review No chest pain EKG with paced rhythm, chronic LBBB, TWI in inferior leads Monitor on tele, trend troponin, 2D echo pending Cardiology consulted --Possible demand ischemia secondary to hypoxia, pneumonia SSS s/p pacemaker implantation PM replaced in 2018 following PPM pocket infection prompting replacement of device Last interrogated in January 2021 Paroxysmal A Fib Continue Lopressor Chronic diastolic heart failure Per MADIE Thomas's notes: Appears euvolemic, CTA chest with e/o mild pulmonary edema Not given diuretics today given load of IV contrast but monitor volume status closely 2D echo pending --Currently euvolemic resumed Lasix 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 at baseline Fall precautions PT OT eval: Pending DVT Ppx: SQ heparin Code status: FULL PCP: Thalia Dispo: PT/OT eval, 2 step eval, anticipate d/c home when medically stable plan of care discussed with patient in detail and at length all questions answered she is understanding, agreeable, comfortable with the plan of care Total Time Total Time Spent Total Time Spent (In Minutes): 45 minutes Discharge Plan Discharge Items Patient Disposition: Home - Self-Care Reason For Visit: HYPOXIA,PNEUMONIA Discharge Diagnosis: PNEUMONIA Activity: As commented below Activity Comment: Resume activities gradually as tolerated Lifting: Wait until after follow-up appointment Exercise/Sports: Wait until after follow-up appointment Driving/Machine Use: No driving until reevaluated and allowed by primary care physician Non-emergency contact: Primary Care Provider Call non-emergency contact if: you have any medication questions, your symptoms worsen, your pain is not controlled, your pain is worsening, your pain is unusual for you, your pain is concerning for you and you have a fever Follow-up/Referrals: Maria Del Carmen Matos, [Primary Care Provider] - (Date & Time 04/28/2021 11:00 AM Provider Janina Vásquez MD [facility] ) Diet: Heart Healthy Addtl Attending Provider Instructions: Your new medication is doxycycline, antibiotic for pneumonia. Continue using the incentive spirometer at home. Include yogurt inn your daily diet. Follow-up with primary care physician as noted above. Call primary care physician or return to the ER immediately if with worsening symptoms. Pending Studies at Discharge: Yes Studies:: Final result of anaplasmosis PCR test. Stand-Alone Forms: [facility] [employer], Smoking Cessation Medications and DC Order Prescriptions: New doxycycline hyclate 100 mg Capsule 100 mg PO BID Qty: 10 RF: 0 Continued aspirin 325 mg tablet,delayed release (DR/EC) 325 mg PO QAM RF: 0 furosemide 80 mg tablet 80 mg PO QAM RF: 0 potassium chloride 10 mEq tablet,ER particles/crystals 10 meq PO BID RF: 0 valsartan 80 mg tablet 80 mg PO QAM RF: 0 metoprolol tartrate 50 mg tablet 50 mg PO BID RF: 0 amlodipine 5 mg tablet 5 mg PO QAM RF: 0 acetaminophen [Tylenol Extra Strength] 500 mg Tablet 500 mg PO Q6H PRN (Reason: Pain) RF: 0 Discharge Orders: Discharge Order (Routine); Ordered 04/20/21 Ordered By: Jeb Ling Admission Data Admit Date/Time: 04/16/21 07:45 Attending Provider: Jeb Ling Admit Provider: Jeb Ling Primary Care Provider: Maria Del Carmen Matos Other Providers: Jeb Ling ; Rodney Mayo Other Interventions: Discharge Summary Assessment (RN) Last Done: 04/20/21 15:55
[2021-04-24 03:18] LABS: EBV DNA Quant PCR <200 copies/mL (<200); EBV DNA Quant Source CSF; Enterovirus RNA by PCR Not Detected (Not Detected); Herpes Virus 6 (DNA) Not Detected (Not Detected); Herpes Virus 6 (DNA) Source CSF; Lyme DNA PCR CSF or Synovial Not detected (Not Detected); Lyme DNA Source CSF; Lyme IgG Band Pattern CSF DNR; Lyme IgG CSF NO BANDS DETECTED; Lyme IgM Band Pattern CSF DNR; Lyme IgM CSF NO BANDS DETECTED; VZ DNA Source CSF; Varicella Zoster Virus DNA PCR Not Detected (Not Detected)
== END 2021-04-20 17:28 | disposition home or self-care (01) | DRG 871 ==
LOC: ED 05:41 → EDINP 07:45 → 1E 14:35 → 2S 04-17 15:45

== ENCOUNTER 2024-05-04 12:20 | Inpatient (IN) ==
--- NOTE | 2024-05-04 12:54 | Emergency Department Note ---
History of Present Illness General Chief complaint: Shortness of Breath/Dyspnea Stated complaint: TROUBLE BREATHING, CHEST PAIN Time Seen by Provider: 05/04/24 12:34 Source: patient, family (Son who is at the bedside), RN notes reviewed and old records reviewed (04/20/21-discharge summary for when she was in for CHF) Mode of arrival: ambulatory Limitations: no limitations History of Present Illness Maximum Pain Intensity: 8 This patient is a 78-year-old female with history of valvular heart disease comes in after feeling short of breath. She had a cough with clear phlegm overnight she said it feels like there is something stuck in her throat she had no choking episodes. She has had no swelling the mouth lips or tongue or posterior oropharynx. She has had no rash. Denies facial swelling. No fever but she felt sweaty this morning she had some nausea slight chest pain at times. No lower extremity pain or swelling no fall or trauma or injury. Home Medications Medication Instructions Recorded Confirmed Type metoprolol tartrate 50 mg tablet 50 mg PO BID 09/06/18 05/04/24 History valsartan 80 mg tablet 80 mg PO QAM 09/06/18 05/04/24 History acetaminophen 500 mg tablet 500 mg PO Q6H PRN Pain 04/16/21 05/04/24 History (Tylenol Extra Strength) amlodipine 5 mg tablet 5 mg PO QAM 04/16/21 05/04/24 History cholecalciferol (vitamin D3) 25 25 mcg PO DAILY 09/14/21 05/04/24 History mcg (1,000 unit) capsule (Vitamin D3) aspirin 81 mg chewable tablet 81 mg PO QAM 05/04/24 05/04/24 History furosemide 40 mg tablet 80 mg PO QAM 05/04/24 05/04/24 History simvastatin 20 mg tablet 20 mg PO HS 05/04/24 05/04/24 History Allergies Allergy/AdvReac Type Severity Reaction Status Date / Time vancomycin Allergy Severe rash, Verified 05/04/24 15:39 shortness of breath cefazolin Allergy Intermediate rash Verified 05/04/24 15:39 Past Med/Surg History Problem List (Updated 05/04/24 @ 12:53 by Wil Ko MD) COVID (Acute) Elevated troponin (Acute) Chest pain (Acute) SOB (shortness of breath) (Acute) COVID-19 (Acute) Acute febrile illness (Acute) Hypoxia (Acute) Pacemaker Fever Acute respiratory failure with hypoxia Headache Chronic diastolic heart failure Presence of Watchman left atrial appendage closure device Brzcrnu-Zxzta-Wdjwg disease Lack of intravenous access Staphylococcus aureus bacteremia Anemia Fecal occult blood test positive Anemia Encounter for pre-operative examination Incarcerated ventral hernia Right lower quadrant abdominal pain Sepsis (Acute) Discitis thoracic region Severe sepsis Osteomyelitis of thoracic spine (Acute) Fever (Acute) Back pain (Acute) Chronic bundle branch block Right shoulder tendonitis Bacteremia Staphylococcal sepsis Leukocytosis Non-ST elevation AL (NSTEMI) (Acute) Sepsis (Acute) Acute kidney injury (Acute) Elevated troponin PAF (paroxysmal atrial fibrillation) (Chronic) CHF (congestive heart failure) (Chronic) HTN (hypertension) (Chronic) Neuropathy (Chronic) History of left heart catheterization (LHC) (Chronic) History of cardioversion (Chronic) Leg pain History of appendectomy (Chronic) H/O colonoscopy (Chronic) S/P cholecystectomy (Chronic) History of tonsillectomy (Chronic) S/P AVR (aortic valve replacement) (Chronic) S/P MVR (mitral valve repair) (Chronic) H/O: hysterectomy (Chronic) H/O hernia repair (Chronic) Family History Other Pisqdvv-Vxztn-Yukji disease Heart disease Social History Smoking Status: Never smoker Second Hand Exposure: No; Do You Dip or Chew Tobacco: No; Hx Alcohol Use: No Hx Substance Use: No Preferred Language: Czech Communication Ability: Effective Odd Shoe Examiner Required: No Beliefs That Will Affect Care: None Current Living Situation: Family Current Living Situation Comment: "my son lives with me" Other Information That Helps Us Care for You: No Feels Safe at Home: Yes Safety Concerns: Feels Safe At This Time Assistive Devices: Glasses Review of Systems A total of 10 systems reviewed and were otherwise negative Physical Exam Vital Signs Vital Signs - 24 hr 05/04/24 12:20 05/04/24 12:20 05/04/24 12:27 Temperature 37 C Temperature Source Oral Pulse Rate 67 Pulse Rate [Apical] 63 Pulse Rhythm Regular Pulse Strength Normal Respiratory Rate 16 24 Respiratory Effort / Characteristics Non-Labored Respiratory Depth Normal Respiratory Pattern Regular Blood Pressure 152/75 H Blood Pressure [Left Arm] 173/65 H Blood Pressure Mean 100 Blood Pressure Mean [Left Arm] 101 Blood Pressure Position Sitting Pulse Oximetry 95 96 95 Oxygen Delivery Method Room Air Room Air Sepsis Recent Fever Within 48 Hours No Sepsis New/Unexplained Change in Mental Status No Sepsis Action Taken by Nursing No Action Required 05/04/24 12:46 05/04/24 14:06 05/04/24 14:20 Temperature Temperature Source Pulse Rate 64 Pulse Rate [Apical] 63 Pulse Rhythm Pulse Strength Respiratory Rate 18 Respiratory Effort / Characteristics Respiratory Depth Respiratory Pattern Blood Pressure Blood Pressure [Left Arm] 162/86 H Blood Pressure Mean Blood Pressure Mean [Left Arm] 111 Blood Pressure Position Pulse Oximetry 96 94 Oxygen Delivery Method Room Air Sepsis Recent Fever Within 48 Hours Sepsis New/Unexplained Change in Mental Status Sepsis Action Taken by Nursing General: Well developed well nourished mildly anxious but otherwise rrj-sfa-clazwobdu in no acute respiratory distress, breathing comfortably on room air. Normal speech. No drooling. HEENT: Normal cephalic atraumatic. Pupils are equal round and reactive to light. Extraocular movements are intact. Oropharynx is pink with moist mucous membranes. No swelling of the mouth lips or tongue. Posterior oropharynx is wide open the floor the mouth is soft. There is no evidence that she has angioedema. Neck: Supple with a midline trachea. No meningeal signs or stiffness, no JVD or bruits. No Stridor. Chest: Clear to auscultation bilaterally. No wheezes or rhonchi. No increased work of breathing. Heart: Regular rate and rhythm without murmurs or gallops. Abdomen: Soft nontender, nondistended without rebound guarding or rigidity. Extremities: No cyanosis clubbing or edema. No calf tenderness or assymetry Spine/Back. Non tender to palpation. No CVA tenderness Skin: Good turgor without rashes. Neurologic exam: Cranial nerves two through 12 are intact. Motor and sensation are intact and symmetrical throughout. Course Administered Medications Discontinued Medications Ioversol (Optiray 320 125ml) 120 ml IV ONCE ONE Stop: 05/04/24 14:09 Last Admin: 05/04/24 14:08 Dose: 120 ml Documented By: KORTNEY Medical Decision Making Differential Diagnosis Pneumonia, angioedema, upper airway process, GERD, cardiac disease, sepsis, CHF, valvular heart disease, pneumothorax, PE Medical Records Attestation: I reviewed the patient's medical records. Home Medications Current Medication List: was personally reviewed by me Laboratory Data Attestation: I reviewed the patient's lab results. 05/04/24 12:38 05/04/24 12:38 Lab Results 05/04/24 05/04/24 05/04/24 Range/Units 12:38 13:10 13:19 WBC 6.05 (4.8-10.8) K/ul RBC 4.20 (4.20-5.40) M/uL Hgb 11.4 L (12.0-16.0) g/dl POC Hgb 11.2 L (12.0-16.0) g/dl Hct 35.2 L (37.0-47.0) % POC Hct 33 L (37-47) % MCV 83.8 (80.0-100.0) fL MCH 27.1 (25.0-34.0) pg MCHC 32.4 (32.0-36.0) g/dL RDW Std Deviation 42.6 (36.4-46.3) fL RDW Coeff of Christian 13.9 (11.5-14.5) % Plt Count 163 (130-400) K/uL MPV 9.3 L (9.4-12.4) fL Immature Gran % (Auto) 0.3 % Neut % (Auto) 62.0 % Lymph % (Auto) 19.0 % Webster % (Auto) 17.2 % Eos % (Auto) 0.8 % Baso % (Auto) 0.7 % Neut # (Auto) 3.75 (1.40-6.50) K/uL Lymph # (Auto) 1.15 L (1.20-3.40) K/uL Webster # (Auto) 1.04 H (0.11-0.59) K/uL Eos # (Auto) 0.05 (0.00-0.50) K/uL Baso # (Auto) 0.04 (0.00-0.20) K/uL Immature Gran # (Auto) 0.02 (0.01-0.20) K/uL POC Sodium 138 (135-144) mmol/L Sodium 138 (136-145) mmol/L POC Potassium 4.2 (3.3-5.0) mmol/L Potassium 4.2 (3.5-5.1) mmol/L POC Chloride 104 (101-112) mmol/L Chloride 106 (98-107) mmol/L Carbon Dioxide 27 (21-32) mmol/L POC Total CO2 23 L (24-31) mmol/L Anion Gap 5 (3-11) POC Anion Gap 16.0 (16-25) mmol/L POC BUN 20 H (7-18) mg/dl BUN 20 (6-23) mg/dl Creatinine 0.59 L (0.6-1.2) mg/dl POC Creatinine 0.6 (0.6-1.3) mg/dl Est Cr Clr Drug Dosing 72.0 ml/min Est GFR ( Amer) 103.2 ml/min Est GFR (Non-Af Amer) 89.0 ml/min BUN/Creatinine Ratio 33.9 H (10-20) Glucose 81 (70-99(Fasting)) mg/dl POC Glucose (other) 78 (70-99) mg/dl Calcium 9.0 (8.6-10.3) mg/dl POC Ioniz Calcium Brittany 1.21 (1.12-1.32) mmol/l Total Bilirubin 0.5 (0.2-1.0) mg/dl AST 19 (13-39) U/L ALT 10 (7-52) U/L Alkaline Phosphatase 42 (34-104) U/L Troponin I High Sens 45.6 H (0-14) pg/ml B-Natriuretic Peptide 212 H (0-100) pg/ml Total Protein 6.8 (6.0-8.3) gm/dl Albumin 4.3 (3.4-5.0) gm/dl Globulin 2.5 (2.5-4.0) gm/dl Albumin/Globulin Ratio 1.7 (0.9-2) Lipase 31 (11-82) U/L Adenovirus (PCR) Not Detected (NotDetected) B. pertussis DNA (PCR) Not Detected (NotDetected) B.parapertussis DNA PCR Not Detected (NotDetected) C. pneumoniae DNA (PCR) Not Detected (NotDetected) Coronavirus OC43 (PCR) Not Detected (NotDetected) Coronavirus HKU1 (PCR) Not Detected (NotDetected) Coronavirus 229E (PCR) Not Detected (NotDetected) SARS-CoV-2 (PCR) DETECTED A (NotDetected) Coronavirus NL63 (PCR) Not Detected (NotDetected) Human Metapneumovir PCR Not Detected (NotDetected) Influenza Type A (PCR) Not Detected (NotDetected) Influenza Type B (PCR) Not Detected (NotDetected) M. pneumoniae (PCR) Not Detected (NotDetected) Parainfluenza 1 (PCR) Not Detected (NotDetected) Parainfluenza 2 (PCR) Not Detected (NotDetected) Parainfluenza 3 (PCR) Not Detected (NotDetected) Parainfluenza 4 (PCR) Not Detected (NotDetected) RSV (PCR) Not Detected (NotDetected) Entero/Rhino (PCR) Not Detected (NotDetected) 05/04/24 Range/Units 14:48 WBC (4.8-10.8) K/ul RBC (4.20-5.40) M/uL Hgb (12.0-16.0) g/dl POC Hgb (12.0-16.0) g/dl Hct (37.0-47.0) % POC Hct (37-47) % MCV (80.0-100.0) fL MCH (25.0-34.0) pg MCHC (32.0-36.0) g/dL RDW Std Deviation (36.4-46.3) fL RDW Coeff of Christian (11.5-14.5) % Plt Count (130-400) K/uL MPV (9.4-12.4) fL Immature Gran % (Auto) % Neut % (Auto) % Lymph % (Auto) % Webster % (Auto) % Eos % (Auto) % Baso % (Auto) % Neut # (Auto) (1.40-6.50) K/uL Lymph # (Auto) (1.20-3.40) K/uL Webster # (Auto) (0.11-0.59) K/uL Eos # (Auto) (0.00-0.50) K/uL Baso # (Auto) (0.00-0.20) K/uL Immature Gran # (Auto) (0.01-0.20) K/uL POC Sodium (135-144) mmol/L Sodium (136-145) mmol/L POC Potassium (3.3-5.0) mmol/L Potassium (3.5-5.1) mmol/L POC Chloride (101-112) mmol/L Chloride (98-107) mmol/L Carbon Dioxide (21-32) mmol/L POC Total CO2 (24-31) mmol/L Anion Gap (3-11) POC Anion Gap (16-25) mmol/L POC BUN (7-18) mg/dl BUN (6-23) mg/dl Creatinine (0.6-1.2) mg/dl POC Creatinine (0.6-1.3) mg/dl Est Cr Clr Drug Dosing ml/min Est GFR ( Amer) ml/min Est GFR (Non-Af Amer) ml/min BUN/Creatinine Ratio (10-20) Glucose (70-99(Fasting)) mg/dl POC Glucose (other) (70-99) mg/dl Calcium (8.6-10.3) mg/dl POC Ioniz Calcium Brittany (1.12-1.32) mmol/l Total Bilirubin (0.2-1.0) mg/dl AST (13-39) U/L ALT (7-52) U/L Alkaline Phosphatase (34-104) U/L Troponin I High Sens 43.5 H (0-14) pg/ml B-Natriuretic Peptide (0-100) pg/ml Total Protein (6.0-8.3) gm/dl Albumin (3.4-5.0) gm/dl Globulin (2.5-4.0) gm/dl Albumin/Globulin Ratio (0.9-2) Lipase (11-82) U/L Adenovirus (PCR) (NotDetected) B. pertussis DNA (PCR) (NotDetected) B.parapertussis DNA PCR (NotDetected) C. pneumoniae DNA (PCR) (NotDetected) Coronavirus OC43 (PCR) (NotDetected) Coronavirus HKU1 (PCR) (NotDetected) Coronavirus 229E (PCR) (NotDetected) SARS-CoV-2 (PCR) (NotDetected) Coronavirus NL63 (PCR) (NotDetected) Human Metapneumovir PCR (NotDetected) Influenza Type A (PCR) (NotDetected) Influenza Type B (PCR) (NotDetected) M. pneumoniae (PCR) (NotDetected) Parainfluenza 1 (PCR) (NotDetected) Parainfluenza 2 (PCR) (NotDetected) Parainfluenza 3 (PCR) (NotDetected) Parainfluenza 4 (PCR) (NotDetected) RSV (PCR) (NotDetected) Entero/Rhino (PCR) (NotDetected) Imaging Data Attestation: I personally reviewed and interpreted this imaging study as follows: My Impression: Chest x-raycardiomegaly. There are some mild congestive changes. Radiologist's Impression: Chest X-Ray 05/04/24 12:46 XR chest 1V portable HISTORY: 78 years-old Female Chest pain, nonspecific COMPARISON: 03/25/2023 TECHNIQUE: AP view the chest FINDINGS: Cardiac silhouette is enlarged. Median sternotomy with cardiac valvular prosthesis. Probable left atrial occlusion device. Right-sided cardiac pacer. No pneumothorax or pleural effusion. Pulmonary vascular congestion suggested. Bones appear grossly intact. Severe right glenohumeral osteoarthritis. IMPRESSION: Cardiomegaly with pulmonary vascular congestion. ACT 112: Negative or not required by law. The above report was generated using voice recognition software. It may contain grammatical, syntax or spelling errors. Electronically signed by: Aman Petit M.D. 05/04/2024 1:30 PM Chest CTA 05/04/24 13:30 CHEST CTA for PULMONARY ARTERIES CT DOSE: 1116.37 mGy.cm HISTORY: Shortness of breath. TECHNIQUE: Multiaxial CT images of the chest were performed following the intravenous administration of contrast to evaluate the pulmonary arteries. 3D/Maximal intensity projection images were also obtained. Sagittal and coronal reformations were also reviewed. A dose lowering technique was utilized adhering to the principles of ALARA. COMPARISON STUDY: Chest CTA 04/16/2021 . FINDINGS: Chronic anterior wedging noted at T11 with complete loss of the T11- T12 disc space, unchanged. No acute fractures within the chest. There are poststernotomy changes. Degenerative changes again noted within the shoulders most pronounced on the right. There are moderate bilateral shoulder effusions. Limited views of the upper abdomen demonstrate a normal liver, spleen, and adrenal glands. There is retrograde opacification of contrast into the hepatic veins. Prior cholecystectomy. There is a right-sided dual-chamber pacemaker. Thrombus again noted within the atrial appendage closure device and the left coronary sinus. This remains unchanged. Cardiac valve prostheses are present. The heart remains mildly enlarged. No pleural or pericardial effusions. No mediastinal or hilar lymphadenopathy. Normal caliber thoracic aorta with no evidence for a dissection. No filling defects within the pulmonary arteries to suggest a pulmonary embolus. No pneumothorax. The central airways are patent. No evidence for pulmonary edema. Mild dependent changes seen within the lung bases. No focal lung consolidations to suggest pneumonia. IMPRESSION: 1. No evidence for a pulmonary embolus. 2. Stable mild cardiomegaly with chronic thrombus again noted within the left atrial appendage closure device. This remains unchanged. 3. No focal lung consolidations to suggest pneumonia. 4. Additional findings as described above. ACT 112: Negative or not required by law. Electronically signed by: Derick Seymour M.D. 05/04/2024 2:[address] 05/04/24 13:30 CT soft tissue neck w con CLINICAL HISTORY: sob, sensation of something in throat Technique: Axial CT images of the soft tissues of the neck were obtained following intravenous administration of 100 cc of Omnipaque 300. Automated dose lowering techniques and/or adjustment according to patient size were utilized for this exam. Comparison: None available at the time of this dictation. Findings: The oropharynx, hypopharynx, larynx, and trachea are patent. No enlarged lymph nodes are seen. The parotid and submandibular glands are normal. Subcentimeter nodules are seen in the thyroid which do not require further follow-up by ACR criteria. Imaged portions of the brain parenchyma are unremarkable. The paranasal sinuses and mastoid air cells are normal in appearance. Degenerative changes are seen in the cervical spine. Impression: No acute abnormality is seen. ACT 112: Negative or not required by law. Electronically signed by: Stu Kaba M.D. 05/04/2024 2:24 PM ECG Data Attestation: I personally reviewed and interpreted this ECG as follows: Indication: + chest pain and + SOB/dyspnea Rate (beats per minute): 65 Rhythm: + other (Atrial paced rhythm) ECG Intervals/blocks: + Left bundle branch block ECG [place]: + Left axis deviation ECG ST segments: + Normal ST segments ECG Findings: no PACs or no PVCs Comparison ECG Date: from (03/25/23) Change: no significant change MDM Narrative This patient comes in as scribed above she was placed on a quality assurance monitor chassis room A9. she has felt short of breath she had a cough she also feels like there is something stuck in her throat. On exam she is no facial swelling the posterior oropharynx does not appear to be swollen nor does the tongue. She has no hives or anything to suggest allergic reaction or anaphylaxis or angioedema thus far. She is no stridor she is speaking and swallowing without difficulty. She has a history of valvular heart disease they were chest x-ray EKG and multiple blood testing. Her vital signs are stable as well. Chest x-ray does suggest congestive heart failure BNP is elevated. Her initial troponin was also elevated at 45.6. This was trended and 2-hour troponin after that came back at 43.5 therefore she is not trending upward. EKG does not suggest acute coronary syndrome or arrhythmia. I did a CAT scan of her neck there is no evidence of airway compromise or foreign body seen. CT angiography of the chest shows no evidence of PE. Her COVID did come back positive which could be explaining her symptoms she says she feels like there is something in her throat and she feels hoarse at times. I think she does have a CHF component as well as COVID. She is not drooling she appears in no respiratory distress and there is no visible swelling. There is nothing she has anaphylaxis. I have discussed the case with the on-call [facility] hospitalist in consultation and they saw her in the ER and will admit/observe for these measures Continuous cardiac monitoring: Orders placed in EMR for continuous cardiac monitoring: Upon my evaluation patient noted to have a paced rhythm with a rate of 65 Impression & Plan Chest pain, S/P AVR (aortic valve replacement), S/P MVR (mitral valve repair), SOB (shortness of breath), Elevated troponin, COVID Discharge Plan Visit Data Chief Complaint: Shortness of Breath/Dyspnea Stated Complaint: TROUBLE BREATHING, CHEST PAIN ED Provider: Wil Ko Discharge Problem: Chest pain, S/P AVR (aortic valve replacement), S/P MVR (mitral valve repair), SOB (shortness of breath), Elevated troponin, COVID Patient Disposition: Admitted As Inpatient Discharge Instructions Interventions: ED Discharge Assessment Last Done: 05/04/24 17:22 Discharge Problem: Chest pain Qualifiers: Chest pain type: precordial pain Qualified Code(s): R07.2 - Precordial pain
[2024-05-04 13:22] LABS: Basophils # (auto) 0.04 K/uL (0.00-0.20); Basophils % (auto) 0.7 %; Eosinophils # (auto) 0.05 K/uL (0.00-0.50); Eosinophils % (auto) 0.8 %; Hematocrit (blood only) 35.2 % (37.0-47.0); Hemoglobin 11.4 g/dl (12.0-16.0); Immature Granulocytes # (auto) 0.02 K/uL (0.01-0.20); Immature Granulocytes % (auto) 0.3 %; Lymphocytes # (auto) 1.15 K/uL (1.20-3.40); Mean Corpuscular Hemoglobin 27.1 pg (25.0-34.0); Mean Corpuscular Hgb Conc 32.4 g/dL (32.0-36.0); Mean Corpuscular Volume 83.8 fL (80.0-100.0); Mean Platelet Volume 9.3 fL (9.4-12.4); Monocytes # (auto) 1.04 K/uL (0.11-0.59); Monocytes % (auto) 17.2 %; Neutrophils # (auto) 3.75 K/uL (1.40-6.50); Platelet Count 163 K/uL (130-400); RDW Coefficient of Variation 13.9 % (11.5-14.5); RDW Standard Deviation 42.6 fL (36.4-46.3); White Blood Count 6.05 K/ul (4.8-10.8)
[2024-05-04 13:24] LABS: iSTAT Creatinine 0.6 mg/dl (0.6-1.3); iSTAT Hemoglobin 11.2 g/dl (12.0-16.0); iSTAT Ionized Calcium 1.21 mmol/l (1.12-1.32); iSTAT Potassium 4.2 mmol/L (3.3-5.0)
--- NOTE | 2024-05-04 13:32 | XRay Report ---
XR chest 1V portable HISTORY: 78 years-old Female Chest pain, nonspecific COMPARISON: 03/25/2023 TECHNIQUE: AP view the chest FINDINGS: Cardiac silhouette is enlarged. Median sternotomy with cardiac valvular prosthesis. Probable left atr ial occlusion device. Right-sided cardiac pacer. No pneumothorax or pleural effusion. Pulmonary vascu lar congestion suggested. Bones appear grossly intact. Severe right glenohumeral osteoarthritis. IMPRESSION: Cardiomegaly with pulmonary vascular congestion. ACT 112: Negative or not required by law. The above report was generated using voice recognition software. It may contain grammatical, syntax o r spelling errors. Electronically signed by: Aman Petit M.D. 05/04/2024 1:30 PM
[2024-05-04 13:39] LABS: Albumin Globulin Ratio 1.7 (0.9-2); Albumin Level 4.3 gm/dl (3.4-5.0); BUN Creatinine Ratio 33.9 (10-20); Bilirubin,Total 0.5 mg/dl (0.2-1.0); Est GFR (African American) 103.2 ml/min; Globulin 2.5 gm/dl (2.5-4.0); Potassium 4.2 mmol/L (3.5-5.1); Total Protein 6.8 gm/dl (6.0-8.3)
[2024-05-04 13:54] LABS: Troponin I High Sensitivity 45.6 pg/ml (0-14)
[2024-05-04] MEDS: OPTIRAY 320 125ml IV ONE (14:08)
--- NOTE | 2024-05-04 14:26 | CT Scan Report ---
CT soft tissue neck w con CLINICAL HISTORY: sob, sensation of something in throat Technique: Axial CT images of the soft tissues of the neck were obtained following intravenous admini stration of 100 cc of Omnipaque 300. Automated dose lowering techniques and/or adjustment according t o patient size were utilized for this exam. Comparison: None available at the time of this dictation. Findings: The oropharynx, hypopharynx, larynx, and trachea are patent. No enlarged lymph nodes are seen. The pa rotid and submandibular glands are normal. Subcentimeter nodules are seen in the thyroid which do not require further follow-up by ACR criteria. Imaged portions of the brain parenchyma are unremarkable. The paranasal sinuses and mastoid air cell s are normal in appearance. Degenerative changes are seen in the cervical spine. Impression: No acute abnormality is seen. ACT 112: Negative or not required by law. Electronically signed by: Stu Kaba M.D. 05/04/2024 2:24 PM
--- NOTE | 2024-05-04 14:36 | CT Scan Report ---
CHEST CTA for PULMONARY ARTERIES CT DOSE: 1116.37 mGy.cm HISTORY: Shortness of breath. TECHNIQUE: Multiaxial CT images of the chest were performed following the intravenous administration of contrast to evaluate the pulmonary arteries. 3D/Maximal intensity projection images were also obta ined. Sagittal and coronal reformations were also reviewed. A dose lowering technique was utilized a dhering to the principles of ALARA. COMPARISON STUDY: Chest CTA 04/16/2021 . FINDINGS: Chronic anterior wedging noted at T11 with complete loss of the T11-T12 disc space, unchang ed. No acute fractures within the chest. There are poststernotomy changes. Degenerative changes again noted within the shoulders most pronounced on the right. There are moderate bilateral shoulder effus ions. Limited views of the upper abdomen demonstrate a normal liver, spleen, and adrenal glands. Ther e is retrograde opacification of contrast into the hepatic veins. Prior cholecystectomy. There is a r ight-sided dual-chamber pacemaker. Thrombus again noted within the atrial appendage closure device an d the left coronary sinus. This remains unchanged. Cardiac valve prostheses are present. The heart re kate mildly enlarged. No pleural or pericardial effusions. No mediastinal or hilar lymphadenopathy. Normal caliber thoracic aorta with no evidence for a dissection. No filling defects within the pulmon juan antonio arteries to suggest a pulmonary embolus. No pneumothorax. The central airways are patent. No evid ence for pulmonary edema. Mild dependent changes seen within the lung bases. No focal lung consolidat ions to suggest pneumonia. IMPRESSION: 1. No evidence for a pulmonary embolus. 2. Stable mild cardiomegaly with chronic thrombus again noted within the left atrial appendage closur e device. This remains unchanged. 3. No focal lung consolidations to suggest pneumonia. 4. Additional findings as described above. ACT 112: Negative or not required by law. Electronically signed by: Derick Seymour M.D. 05/04/2024 2:34 PM
[2024-05-04 14:41] LABS: Adenovirus PCR Not Detected (NotDetected); Bordetella parapertussis PCR Not Detected (NotDetected); Bordetella pertussis PCR Not Detected (NotDetected); Chlamydia pneumoniae PCR Not Detected (NotDetected); Coronavirus 229E PCR Not Detected (NotDetected); Coronavirus CoV-2 (COVID19)PCR DETECTED (NotDetected); Coronavirus HKU1 PCR Not Detected (NotDetected); Coronavirus NL63 PCR Not Detected (NotDetected); Coronavirus OC43PCR Not Detected (NotDetected); Human Metapneumovirus PCR Not Detected (NotDetected); Influenza A PCR Not Detected (NotDetected); Influenza B PCR Not Detected (NotDetected); Mycoplasma pneumoniae PCR Not Detected (NotDetected); Parainfluenza Virus 1 PCR Not Detected (NotDetected); Parainfluenza Virus 2 PCR Not Detected (NotDetected); Parainfluenza Virus 3 PCR Not Detected (NotDetected); Parainfluenza Virus 4 PCR Not Detected (NotDetected); Respiratory Syncytial VirusPCR Not Detected (NotDetected); Rhinovirus/Enterovirus PCR Not Detected (NotDetected)
--- NOTE | 2024-05-04 15:01 | History & Physical Report ---
Date of Service May 04, 2024 Assessment & Plan (1) COVID: (2) Ambulatory dysfunction: (3) SOB (shortness of breath): Plan: Patient is 78-year-old female with PMH Paroxysmal atrial fibrillation s/p Watchman procedure, HTN, history of mitral valve repair, history aortic valve bioprosthetic replacement, HFpEF, sick sinus syndrome s/p pacemaker, LBBB, GERD and others listed below presented to ER with complaint of shortness of breath and cough today, sore throat nasal congestion x 3 days. Generalized weakness ambulatory dysfunction Afebrile, Not hypoxic in ER, no leukocytosis. Positive SARS-CoV-2 PCR CXR: Cardiomegaly CTA chest: No PE, stable mild cardiomegaly, chronic thrombus noted in left atrial appendage closure device this remains unchanged. No focal lung consolidations Soft tissue neck CT: No acute abnormality seen Troponin: 45--> 43-->41. CP this morning reportedly only occurred with coughing episode. Denies CP in ER. If would get recurrent CP obtain EKG, repeat trop and consider echo. Do not suspect ACS at this time Hold on antibiotics as no signs of pneumonia. Patient not hypoxic Flonase, Mucinex, throat drops for symptomatic relief Airborne isolation Supplemental oxygen prn neb if needed Incentive spirometry, flutter valve Fall precautions Suspect worsening ambulatory dysfunction secondary to underlying illness with COVID-19 PT/OT eval CBC, BMP in am (4) Chronic heart failure with preserved ejection fraction (HFpEF): (5) S/P AVR (aortic valve replacement): (6) S/P MVR (mitral valve repair): Plan: Echo 05/06/2023: EF: 55-59%, normal LV wall motion, left atrium severely enlarged, presence of left atrial appendage watchman closure device, aortic valve prosthesis present with mild aortic valve prosthesis stenosis, moderate valvular aortic valve prosthesis regurgitation, evidence of prior mitral valve repair, mild mitral regurgitation, moderate-severe tricuspid regurgitation, pacemaker wire present in right ventricle, mild pulmonary regurgitation Appears euvolemic today Will continue Lasix (7) HTN (hypertension): Plan: Continue amlodipine, metoprolol tartrate, valsartan (8) PAF (paroxysmal atrial fibrillation): Plan: S/p Watchman procedure Not on anticoagulation. Continue daily aspirin, metoprolol tartrate (9) SSS (sick sinus syndrome): Plan: S/p pacemaker Pacemaker interrogation (10) HLD (hyperlipidemia): Plan: Continue simvastatin DVT Prophylaxis Lovenox SQ Admit med/tele Full code as per discussion with pt, however states would not want prolonged life support if poor prognosis Follows with Dr Lau for routine care Pt was seen and care coordinated with Dr Rivera. See addendum I spent a total of 75 minutes reviewing notes, outpatient records, labs, medication, coordinating, documenting and providing care for this patient excluding time spent in the performance of separately billed services. History of Present Illness Chief Complaint: SOB and cough Primary Care Provider: Mauro Lau MD Patient is 78-year-old female with PMH Paroxysmal atrial fibrillation s/p Watchman procedure, HTN, history of mitral valve repair, history aortic valve bioprosthetic replacement, HFpEF, sick sinus syndrome s/p pacemaker, LBBB, GERD and others listed below presented to ER with complaint of shortness of breath and cough today. States 3 days ago started with sore throat. States throat feels scratchy and sore and feels like something scratchy in throat with swallowing. Is able to eat and drink and swallow secretions. Denies known food bolus or choking. States also having nasal congestion. Past 2 days FINN, fatigue, generalized weakness. Walks with walker. Denies falls but states feeling unsteady with walking past day. Today had 2 coughing episodes that caused her to have SOB and some chest aching after coughing. States hasn't had coughing episodes since and denies any SOB or CP currently. Unaware of any fever/chills, ill contacts. Denies known fever/chills, diaphoresis, N/V/D/C, dizziness, syncope, vision changes, neck pain, orthopnea, palpitations, hemoptysis, choking, abdominal pain, paresthesias, extremity edema, rashes, urinary symptoms. Allergies Allergy/AdvReac Type Severity Reaction Status Date / Time vancomycin Allergy Severe rash, Verified 05/04/24 15:39 shortness of breath cefazolin Allergy Intermediate rash Verified 05/04/24 15:39 Home Medications Medication Instructions Recorded Confirmed Type metoprolol tartrate 50 mg tablet 50 mg PO BID 09/06/18 05/04/24 History valsartan 80 mg tablet 80 mg PO QAM 09/06/18 05/04/24 History acetaminophen 500 mg tablet 500 mg PO Q6H PRN Pain 04/16/21 05/04/24 History (Tylenol Extra Strength) amlodipine 5 mg tablet 5 mg PO QAM 04/16/21 05/04/24 History cholecalciferol (vitamin D3) 25 25 mcg PO DAILY 09/14/21 05/04/24 History mcg (1,000 unit) capsule (Vitamin D3) aspirin 81 mg chewable tablet 81 mg PO QAM 05/04/24 05/04/24 History furosemide 40 mg tablet 80 mg PO QAM 05/04/24 05/04/24 History simvastatin 20 mg tablet 20 mg PO HS 05/04/24 05/04/24 History Past Med/Surg History Problem List HLD (hyperlipidemia) SSS (sick sinus syndrome) Chronic heart failure with preserved ejection fraction (HFpEF) Ambulatory dysfunction COVID (Acute) Elevated troponin (Acute) Chest pain (Acute) SOB (shortness of breath) (Acute) COVID-19 (Acute) Acute febrile illness (Acute) Hypoxia (Acute) Pacemaker Fever Acute respiratory failure with hypoxia Headache Chronic diastolic heart failure Presence of Watchman left atrial appendage closure device Earttoo-Jntwh-Cjggj disease Lack of intravenous access Staphylococcus aureus bacteremia Anemia Fecal occult blood test positive Anemia Encounter for pre-operative examination Incarcerated ventral hernia Right lower quadrant abdominal pain Sepsis (Acute) Discitis thoracic region Severe sepsis Osteomyelitis of thoracic spine (Acute) Fever (Acute) Back pain (Acute) Chronic bundle branch block Right shoulder tendonitis Bacteremia Staphylococcal sepsis Leukocytosis Non-ST elevation MT (NSTEMI) (Acute) Sepsis (Acute) Acute kidney injury (Acute) Elevated troponin PAF (paroxysmal atrial fibrillation) (Chronic) CHF (congestive heart failure) (Chronic) HTN (hypertension) (Chronic) Neuropathy (Chronic) History of left heart catheterization (LHC) (Chronic) History of cardioversion (Chronic) Leg pain History of appendectomy (Chronic) H/O colonoscopy (Chronic) S/P cholecystectomy (Chronic) History of tonsillectomy (Chronic) S/P AVR (aortic valve replacement) (Chronic) S/P MVR (mitral valve repair) (Chronic) H/O: hysterectomy (Chronic) H/O hernia repair (Chronic) Family History Other Xrgobpm-Rkedg-Verhp disease Heart disease Social History Smoking Status: Never smoker Second Hand Exposure: No; Do You Dip or Chew Tobacco: No; Hx Alcohol Use: No Hx Substance Use: No Preferred Language: Portuguese Communication Ability: Effective Coil Winder Repair Required: No Beliefs That Will Affect Care: None Current Living Situation: Family Current Living Situation Comment: "my son lives with me" Other Information That Helps Us Care for You: No Feels Safe at Home: Yes Safety Concerns: Feels Safe At This Time Assistive Devices: Glasses Review of Systems Review of Systems: All systems reviewed & are unremarkable except as noted in HPI & below Physical Exam Physical Exam: General: no distress acute distress, non-toxic appearing, WDWN Head: normocephalic, atraumatic Eyes: conjunctiva non-injected, anicteric ENT: normal inspection external ears, nose, mucous membranes moist, pharynx without erythema or edema, uvula midline Neck: supple, trachea midline, non-tender Lungs: clear, no respiratory distress, no wheezing/rhonchi/rales CV: RRR, no pretibial edema Abd: normal BS, soft, non-tender Ext: no cyanosis, no calf tenderness Neuro: A&O x 3, no focal deficits noted, normal affect Skin: warm, dry Results & Data Results & Data Vital Signs (Past 12 Hours) Vital Signs Temp Pulse Pulse Resp BP BP Pulse Ox 05/04/24 14:20 63 18 162/86 H 94 05/04/24 14:06 64 05/04/24 12:46 96 05/04/24 12:27 37 C 67 24 152/75 H 95 05/04/24 12:20 63 16 173/65 H 96 05/04/24 12:20 95 O2 Del Method 05/04/24 14:20 Room Air 05/04/24 14:06 05/04/24 12:46 05/04/24 12:27 Room Air 05/04/24 12:20 05/04/24 12:20 Room Air Laboratory Results Short CBC 05/04/24 Range/Units 12:38 WBC 6.05 (4.8-10.8) K/ul Hgb 11.4 L (12.0-16.0) g/dl Hct 35.2 L (37.0-47.0) % Plt Count 163 (130-400) K/uL BMP 05/04/24 12:38 Sodium 138 Potassium 4.2 Chloride 106 Carbon Dioxide 27 BUN 20 Creatinine 0.59 L Glucose 81 Calcium 9.0 Liver Function 05/04/24 Range/Units 12:38 Total Bilirubin 0.5 (0.2-1.0) mg/dl AST 19 (13-39) U/L ALT 10 (7-52) U/L Alkaline Phosphatase 42 (34-104) U/L Albumin 4.3 (3.4-5.0) gm/dl Diagnostic Findings Chest X-Ray 05/04/24 12:46 XR chest 1V portable HISTORY: 78 years-old Female Chest pain, nonspecific COMPARISON: 03/25/2023 TECHNIQUE: AP view the chest FINDINGS: Cardiac silhouette is enlarged. Median sternotomy with cardiac valvular prosthesis. Probable left atrial occlusion device. Right-sided cardiac pacer. No pneumothorax or pleural effusion. Pulmonary vascular congestion suggested. Bones appear grossly intact. Severe right glenohumeral osteoarthritis. IMPRESSION: Cardiomegaly with pulmonary vascular congestion. ACT 112: Negative or not required by law. The above report was generated using voice recognition software. It may contain grammatical, syntax or spelling errors. Electronically signed by: Aman Petit M.D. 05/04/2024 1:30 PM Chest CTA 05/04/24 13:30 CHEST CTA for PULMONARY ARTERIES CT DOSE: 1116.37 mGy.cm HISTORY: Shortness of breath. TECHNIQUE: Multiaxial CT images of the chest were performed following the intravenous administration of contrast to evaluate the pulmonary arteries. 3D/Maximal intensity projection images were also obtained. Sagittal and coronal reformations were also reviewed. A dose lowering technique was utilized adhering to the principles of ALARA. COMPARISON STUDY: Chest CTA 04/16/2021 . FINDINGS: Chronic anterior wedging noted at T11 with complete loss of the T11- T12 disc space, unchanged. No acute fractures within the chest. There are poststernotomy changes. Degenerative changes again noted within the shoulders most pronounced on the right. There are moderate bilateral shoulder effusions. Limited views of the upper abdomen demonstrate a normal liver, spleen, and adre nal glands. There is retrograde opacification of contrast into the hepatic veins. Prior cholecystectomy. There is a right-sided dual-chamber pacemaker. Thrombus again noted within the atrial appendage closure device and the left coronary sinus. This remains unchanged. Cardiac valve prostheses are present. The heart remains mildly enlarged. No pleural or pericardial effusions. No mediastinal or hilar lymphadenopathy. Normal caliber thoracic aorta with no evidence for a dissection. No filling defects within the pulmonary arteries to suggest a pulmonary embolus. No pneumothorax. The central airways are patent. No evidence for pulmonary edema. Mild dependent changes seen within the lung bases. No focal lung consolidations to suggest pneumonia. IMPRESSION: 1. No evidence for a pulmonary embolus. 2. Stable mild cardiomegaly with chronic thrombus again noted within the left atrial appendage closure device. This remains unchanged. 3. No focal lung consolidations to suggest pneumonia. 4. Additional findings as described above. ACT 112: Negative or not required by law. Electronically signed by: Derick Seymour M.D. 05/04/2024 2:[address] 05/04/24 13:30 CT soft tissue neck w con CLINICAL HISTORY: sob, sensation of something in throat Technique: Axial CT images of the soft tissues of the neck were obtained following intravenous administration of 100 cc of Omnipaque 300. Automated dose lowering techniques and/or adjustment according to patient size were utilized for this exam. Comparison: None available at the time of this dictation. Findings: The oropharynx, hypopharynx, larynx, and trachea are patent. No enlarged lymph nodes are seen. The parotid and submandibular glands are normal. Subcentimeter nodules are seen in the thyroid which do not require further follow-up by ACR criteria. Imaged portions of the brain parenchyma are unremarkable. The paranasal sinuses and mastoid air cells are normal in appearance. Degenerative changes are seen in the cervical spine. Impression: No acute abnormality is seen. ACT 112: Negative or not required by law. Electronically signed by: Sut Kaba M.D. 05/04/2024 2:24 PM ECG Additional Comments: paced rhythm per my interpretation Supervising Physician Co-Signing Physician Notes Patient was seen and examined independently at bedside. Chart reviewed. Case discussed with Zuleika ALEJANDRA and agree with the documentation above. In summary, this is a 78 year old female who is being admitted for covid 19 infection. Does have some sore throat but no PNA, fever or hypoxia and does not meet criteria for antiviral or steroids. Symptomatic management. PT OT eval. Rest as per the note above.
--- OUTSIDE RECORDS SUMMARY | 2024-05-04 17:11 | External Medical Summary | Summary of Care ---
Author Name Unknown Organization [facility] Address [address] [place] [address] Phone [phone] Care Team Providers Care Sales Support Administrator Name Role Phone Mauro Alfredo MD Primary Care P rovider Reason for Visit * Reason Comments Outpatient Testing Encounter Details Date Type Department Care Team ([facility] st Contact Info) Description 03/01/2024 9:00 AM EDT Laboratory [facility] [phone] [address] Hypertensive heart disease with heart failure (HCC); Hyperparathyroidism (HCC); Coronary artery disease involving [place] heart without angina pectoris, unspecified vessel or lesion type Allergies Active Allergy Reactions Criticality Noted Date Comments Cefazolin Rash 09/30/2018 Vancomycin Rash 10/25/[address] Samuel Garcia @ [facility], discontinued this due to rash. documented as of this encounter (statuses as of 03/01/2024) Medications Medication Sig Dispensed Refills Start Date End Date Status Acetaminophen 325 MG Oral Tablet Take 1 Tablet by mouth every 6 hours as needed for Pain. Active Aspirin 81 MG Oral Tablet Chewable Take 1 Tablet by mouth in the morning. 34 Tablet 11 02/23/2022 Active amLODIPine Besylate 5 MG Oral Tablet (Norvasc)Indications: Essential hypertension Take 1 Tablet by mouth in the morning. 90 Tablet 3 03/03/2023 Active D 1000 25 MCG (1000 UT) Oral Capsule (Cholecalciferol) Take 1 Capsule by mouth in the morning. 90 Capsule 3 03/03/2023 Active Furosemide 40 MG Oral Tablet (Lasix) Take 2 Tablets by mouth in the morning. 180 Tablet 3 03/03/2023 Active Metoprolol Tartrate 50 MG Oral Tablet (Lopressor) Take 1 Tablet by mouth in the morning and 1 Tablet before bedtime. 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 90 Tablet 3 03/03/2023 Active Alendronate Sodium 70 MG Oral Tablet (Fosamax)Indications: Age-related osteoporosis without current pathological fracture Take 1 Tablet by mouth once a week. 12 Tablet 3 03/03/2023 Active Pantoprazole Sodium 40 MG Oral Tablet Delayed Release (Protonix)Indications :Gastroesophageal reflux disease without esophagitis TAKE 1 TABLET BY MOUTH EVERY DAY IN THE MORNING 90 Tablet 2 01/03/2024 Active documented as of this encounter (statuses as of 03/01/2024) Active Problems Problem Noted Date Diagnosed Date Presence of Watchman left atrial appendage closu re device 09/02/2023 PVD (peripheral vascular disease) 09/01/2022 Hypertensive heart disease with heart failure Vitamin D deficiency 01/22/2021 Hyperparathyroidism 01/22/2021 Benign hypertensive heart an d CKD, 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 Pepcid 20mg daily Eijcmzx-Rtnhr-Ffual disease 06/21/2016 Primary osteoarthritis involving multiple joints 06/21/2016 S/P aortic valve replacement 06/21/2016 Overview: Bioprosthetic- AVR 23 Allan II on 06/10 Continue coumadin - per pharmacy Continue aspirin 81mg Impaired mobility and ADLs 06/21/2016 Paroxysmal atrial fibrillation 06/16/2016 S/P mitral valve repair (aka S/P MITRAL VALVE RE PAIR) 06/10/2016 Overview: MVR 26 physio II annuloplasty on 06/10 Continue coumadin - per pharmacy LBBB (left bundle branch block) 04/06/2016 Overview: Present prior to her recent mitral valve repair/aortic valve replacement Chronic cholecystitis 06/27/2013 HTN, goal below 140/90 10/10/2001 Osteoporosis 10/10/2001 CLASSICAL MIGRAINE WITHOU MENTION OF INTRACTABLE MIGRAINE 10/10/2001 documented as of this encounter (statuses as of 03/01/2024) Resolved Problems Problem Noted Date Diagnosed Date Resolved Date Atrial fibrillation 02/18/2022 02/19/20 22 Thrombocytopenia 02/14/2019 08/11/2021 Rash and nonspecific skin eruption 09/30/2018 11/22/2018 Anemia 09/25/2018 02/18/2022 Overview: Required 1U pRBC x 2. Extensive workup, likely due to procedures and bone marrow suppression from infection. Infection of pacemaker pocket 09/16/2018 11/22/2018 Sepsis due to methicillin shea sceptible Staphylococcus aureus 09/08/2018 11/22/2018 Internal jugular vein thrombosis 07/03/2016 04/26/2019 Overview: Continue coumadin for now Typical atrial flutter 07/02/201602/18 Overview: S/p DAYANA-guided DCC --> junctional rhythm Antiarrhythmic therapy with amiodarone for approximately 6-12 weeks post op Bilateral pleural effusion 06/28/2016 0 04/28/2021 Overview: Moderate, from ADHF Generalized weakness 06/27/2016 016 HTN (hypertension) 06/26/2016 9 Overview: Metoprolol 12.5mg BID Continue aspirin 81mg Will restart hydralazine at 25 mg q8h on discharge Junctional rhythm 06/21/2016 06/28/2016 intermediate resident 06/21/20162018 Aortic valve stenosis 04/20/20162015 Mitral valve regurgitation 04/20/2016 0 06/26/2016 ADVANCE DIRECTIVE INFORMATION 03/06/2010 06/26/2016 Overview: Pt has a booklet at home, Generalized osteoarthritis 02/16/2008 0 02/18/2022 Polyneuropathy in other dise ases classified elsewhere 04/08/2004 08/11/2021 documented as of this encounter (statuses as of 03/01/2024) Immunizations Name Administration Dates Next Due COVID-19 mRNA, LNP-s, No Pre serve, 2-Dose Series ([facility]) 09/01/2021,01/21/2021,12/31/2020 COVID-19, LNP-s, No Preserve , Isra-sucrose, Ages 12+ (Pfizer) 02/26/2022 Pneumococcal Conjugate Vacc, 13 Valent (Prevnar) 11/14/2017 Pneumococcal Polysaccharide PPV23 (Pneumovax) 05/31/2013,07/30/2005 Seasonal Influenza, PF, 6 M & above, IM , (FluLaval or Fluzone) 07/08/2020,11/14/2017 Seasonal Influenza, Quadriva lent Hd (Fluzone Hd) 09/02/2023,07/08/2022,08/11/2021 Seasonal Influenza, Quadrivalent, ID 10/05/2018 Seasonal Influenza, Split, I IV3, With Preserve, Inj 06/30/2016,06/06/2015,08/03/2013,06/23,12/18/2009(Deferred: Patient Refused),08/21/2007,07/30/2005, 003 TDAP (age 10 and older)(Boostrix) 07/08/2022 TDAP, Age 7 and older, IM (Adacel) 04/10,12/18/2009(Deferred: Patient Refused - insurance issues) documented as of this encounter Social History Tobacco Use Types Packs/Day Years Used Date Smoking Tobacco: Former Cigarettes Q uit: 10/03/1995 Smokeless Tobacco: Never Alcohol Use Standard Drinks/Week Comments No 0 (1 standard drink = 0.6 oz pur e alcohol) PHQ-2 Answer Date Recorded PHQ Adult Total Score 0 03/03/2023 Hunger Vital Sign Answer Date Recorded Worried About Running Out of Food in the Last Ye ar Never true 06/03/2020 Ran Out of Food in the Last Year Never true 06/03/2020 Sex and Gender Information Value Date Recorded Sex Assigned at Female 02/14/2019 9:04 AM EDT Gender Identity Female 02/14/2019 9:04 AM EDT Sexual Orientation Straight 02/14/2019 9: 04 AM EDT Job Start Date Occupation Industry Not on file Not on file Not on file documented as of this encounter Functional Status Functional Status Response Date of Assess ment Are you deaf or do you have serious difficulty h earing? No 09/22/2018 Are you blind or do you have serious difficulty seeing, even when wearing glasses? No 09/22/2018 Do you have serious difficul ty walking or climbing stairs? (5 years old or older) Yes 09/22/2018 Do you have difficulty dress ing or bathing? (5 years old or older) No 09/22/2018 Because of a physical, menta l, or emotional condition, do you have difficulty doing errands alone such as visiting a doctor s office or shopping? (15 years old or older) No 09/22/20 18 Cognitive Status Response Date of Assessm ent Because of a physical, menta l, or emotional condition, do you have serious difficulty concentrating, remembering, or making decisions? (5 years old or older) No 09/22/2018 documented as of this encounter Plan of Treatment Upcoming Encounters Date Type Department Care Team (Late st Contact Info) Description 03/05/2024 11:00 AM EDT Office Visit Family [address] [phone] Mauro Alfredo MD [address] [place] [address] 03/12/2024 9:00 AM EDT Cardiac Studies Cardiac Studies [address] [place] [address] [place], Ekg [address] [place] [address] 03/16/2024 10:45 AM EDT Office Visit Podiatry [facility] [address] [place] [address] [place], ANIRUDH [address] [place], [place] [id number] 04/16/2024 11:00 AM EDT Appointment Radiology, [facility] [address] [place], [place] [phone] 05/29/2024 11:30 AM EDT Office Visit Cardiology [address] [place] [address] Scotty Parks CRNP [address] [place], [place] [phone] Pending Results Name Type Priority Associated Diagnoses Date /Time COMPREHENSIVE METABOLIC PANEL Lab Routine Hypertensive heart disease with heart failure (HCC) 03/01/2024 9:16 AM EDT CBC WITH WBC DIFFERENTIAL AND ANEMIA REFLEX WORKUP Lab Routine Hypertensive heart disease with heart failure (HCC) 03/01/2024 9:16 AM EDT 25-HYDROXY VITAMIN D Lab Routine Hyperparathyroidism ([facility]) 03/01/2024 9:16 AM EDT PTH Lab Routine Hyperparathyroidism ([facility]) 03/01/2024 9:16 AM EDT LIPID PANEL WITH DIRECT LDL IF TG IS HIGH Lab Routine Coronary artery disease involving [place] heart without angina pectoris, unspecified vessel or lesion type 03/01/2024 9:16 AM EDT ANEMIA CBC Lab Routine Hypertensive heart disease with heart failure (HCC) 03/01/2024 9:16 AM EDT DIFFERENTIAL, AUTOMATED Lab Routine Hypertensive heart disease with heart failure (HCC) 03/01/2024 9:16 AM EDT ANEMIA REFLEX CHEMISTRY HOLD Lab Routine Hypertensive heart disease with heart failure (HCC) 03/01/2024 9:16 AM EDT ALBUMIN / CREATININE RATIO, URINE Lab Routine Hypertensive heart disease with heart failure (HCC) 03/01/2024 11:47 AM EDT Health Maintenance Due Date Last Done Comments Zoster Vaccines (1 of 2) 1997 COVID-19 Vaccine ( season) 2023 02/26/2022, 09/01/2021, 01/21/2021, Additional history exists GFR 11/16/2023 05/16/2023, 02/01, 05/31/2022, Additional history exists Albumin/Creatinine Ratio 02/25/2024 02/24/2023, 01/31 CKD HGB USE SMARTSET 06567 02/25/202402/24, 02/24/2023, 02/18/2022, Additional history exists Depression Screening 03/03/2024 03/03/2023 DXA Scan 04/19/2024 04/19/2022, 08/03, 06/11/2014, Additional history exists CKD PHOS USE SMARTSET 84476 05/16/202405/03, 05/31/2022, 05/06/2022, Additional history exists DTaP,Tdap,and Td Vaccines (3 - Td or Tdap) 07/08/2032 07/08/2022, 04/10/2010 Colonoscopy Discontinued 05/19/2012, 05/19/2012 Colorectal Cancer Screening Discontinued Pneumococcal Vaccine: 65+ Years Completed 11/14/2017, 05/31/2013, 07/30/2005 VITAMIN D LEVEL ONCE IN A LIFETIME-USE SMARTSET# [id number] Completed 05/16/2023, 02/24/2023, 05/31/2022, Additional history exists Alpha-1 Antitrypsin Completed 08/23/2023 Influenza Vaccine (FLU shot) Completed 09/02/2023, 07/08/2022, 08/11/2021, Additional history exists Cologuard Discontinued Fecal Occult Blood Test Discontinued GARDASIL-HPV IMMUNIZATION SERIES Aged Out No longer eligible based on patient's age to complete this topic Hepatitis B Aged Out No longer eligi ble based on patient's age to complete this topic MENINGOCOCCAL (MENACTRA/MENVEO) Aged Out No longer eligible based on patient's age to complete this topic Sigmoidoscopy Discontinued documented as of this encounter Medical Devices Implanted Type 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 Device 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 Shelf Expiration Date Model / Serial / Lot Valve Aor Allan Ii 23mm T505 - [id number] Implanted:Qty : 1 on 06/10/2016 by Rodney Davis MD at [facility] [place] Tissue - Non Human N/A: Heart [employer] : CARDIAC SURGERY 05/12/2018 23-T505 / [id number] / Sut Steel 6 M654g - [id number] Implanted:Qty : 4 on 06/10/2016 by Rodney Davis MD at OR [facility] [place] JNJ : [employer] 03/02/2021 [id number] / / [id number] Ring Mitral 26mm [id number] - [id number] Implanted:Qty : 1 on 06/10/2016 by Rodney Davis MD at OR [facility] [place] N/A: Heart HEARD REAVES 01/27/2021 5200-26 / [id number] / documented as of this encounter Visit Diagnoses Diagnosis Hypertensive heart disease with heart failure (HCC) Unspecified hypertensive heart disease with heart failure Hyperparathyroidism (HCC) Hyperparathyroidism, unspecified Coronary artery disease involving [place] heart without angina pectoris, unspecified vessel or lesion type documented in this encounter Advance Directives * Full Code (Latest Code Status on File) Date Activated Date Inactivated Comments 09/07/2018 3:52 PM 10/06/2018 5:59 PM This order re flects the patients wishes and were consensually agreed upon. Question Answer Comments Discussion of Advance Directives occurred with: Patient * Full Code Date Activated Date Inactivated Comments 06/26/2016 3:02 PM 07/03/2016 8:28 PM This order r eflects the patients wishes and were consensually agreed upon. Question Answer Comments Discussion of Advance Directives occurred with: Patient * Full Code Date Activated Date Inactivated Comments 06/10/2016 2:44 PM 06/18/2016 8:02 PM This order re flects the patients wishes and were consensually agreed upon. Care Teams Sales Support Administrator Relationship Specialty Start Date End Date Mauro Alfredo MD [address] [place] [id number] PCP - General Family Medicine 02/18/22 documented as of this encounter
--- OUTSIDE RECORDS SUMMARY | 2024-05-04 17:11 | External Medical Summary | Summary of Care ---
Author Name Unknown Organization [facility] Address [address] [place] [address] Phone [phone] Care Team Providers Care Veterinarian Name Role Phone Mauro Alfredo MD Primary Care P rovider Reason for Visit * Reason Comments Cardiology Study Encounter Details Date Type Department Care Team (Latest Contact Info) Description 03/12/2024 9:00 AM EDT Cardiac Studies Cardiac Studies [facility] [address] [place], [place] [phone] [place], Ekg [address] [place], [place] [phone] Cardiac pacemaker in situ* Allergies Active Allergy Reactions Criticality Noted Date Comments Cefazolin Rash 09/30/2018 Vancomycin Rash 10/25/[address] Samuel Garcia @ [facility], discontinued this due to rash. documented as of this encounter (statuses as of 03/12/2024) Medications Medication Sig Dispensed Refills Start Date End Date Status Acetaminophen 325 MG Oral Tablet Take 1 Tablet by mouth every 6 hours as needed for Pain. Active D 1000 25 MCG (1000 UT) Oral Capsule (Cholecalciferol) Take 1 Capsule by mouth in the morning. 90 Capsule 3 03/03/2023 Active Pantoprazole Sodium 40 MG Oral Tablet Delayed Release (Protonix)Indication s:Gastroesophageal reflux disease without esophagitis TAKE 1 TABLET BY MOUTH EVERY DAY IN THE MORNING 90 Tablet 2 01/03/2024 Active Baclofen 10 MG Oral Tablet (Lioresal)Indication s:Trapezius muscle strain, left, initial encounter Take 1 Tablet by mouth at bedtime for 15 days. 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 90 Tablet 3 03/05/2024 Active Metoprolol Tartrate 50 MG Oral Tablet (Lopressor)Indicatio ns:Hypertensive heart disease with heart failure (HCC),Coronary artery disease involving [place] heart without angina pectoris, unspecified vessel or lesion type Take 1 Tablet by mouth in the morning and 1 Tablet before bedtime. 180 Tablet 3 03/05/2024 Active Furosemide 40 MG Oral Tablet (Lasix)Indications:H ypertensive heart disease with heart failure (HCC),Coronary artery disease involving [place] heart without angina pectoris, unspecified vessel or lesion type Take 2 Tablets by mouth in the morning. 180 Tablet 3 03/05/2024 Active Simvastatin 20 MG Oral Tablet (Zocor)Indications:C oronary artery disease involving [place] heart without angina pectoris, unspecified vessel or lesion type Take 1 Tablet by mouth every night at bedtime. 90 Tablet 3 03/05/2024 Active amLODIPine Besylate 5 MG Oral Tablet (Norvasc)Indications :Essential hypertension Take 1 Tablet by mouth in the morning. 90 Tablet 3 03/05/2024 Active Aspirin 81 MG Oral Tablet ChewableIndications: Coronary artery disease involving [place] heart without angina pectoris, unspecified vessel or lesion type Take 1 Tablet by mouth in the morning. 100 Tablet 3 03/05/2024 Active Doxycycline Hyclate 100 MG Oral CapsuleIndications:C ellulitis of right leg Take 1 Capsule by mouth in the morning and 1 Capsule before bedtime. Do all this for 7 days. Until gone.. 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 Extensive workup, likely due to procedures and bone marrow suppression from infection. Infection of pacemaker pocket 09/16/2018 11/22/2018 Sepsis due to methicillin shea sceptible Staphylococcus aureus 09/08/2018 11/22/2018 Coronary artery disease invo lving [place] heart without angina pectoris 11/14/2017 03/05/2024 Internal jugular vein thrombosis 07/03/2016 04/26/2019 Overview: [...] q8h on discharge Junctional rhythm 06/21/2016 06/28/2016 long-term resident 06/21/20162018 Aortic valve stenosis 04/20/20162015 Mitral valve regurgitation 04/20/2016 0 06/26/2016 ADVANCE DIRECTIVE INFORMATION 03/06/2010 06/26/2016 Overview: Pt has a booklet at home, Generalized osteoarthritis 02/16/2008 0 02/18/2022 Polyneuropathy in other dise ases classified elsewhere 04/08/2004 08/11/2021 documented as of this encounter (statuses as of 03/12/2024) Immunizations Name Administration Dates Next Due COVID-19 mRNA, LNP-s, No Pre serve, 2-Dose Series ([employer]) 09/01/2021,01/21/2021,12/31/2020 COVID-19, LNP-s, No Preserve , Isra-sucrose, Ages 12+ ([employer]) 02/26/2022 Pneumococcal Conjugate Vacc, 13 Valent (Prevnar) 11/14/2017 Pneumococcal Polysaccharide PPV23 (Pneumovax) 05/31/2013 Seasonal Influenza, PF, 6 M & above, IM , (FluLaval or Fluzone) 07/08/2020,11/14/2017 Seasonal Influenza, Quadriva lent Hd (Fluzone Hd) 09/02/2023,07/08/2022,08/11/2021 Seasonal Influenza, Quadrivalent, ID 10/05/2018 Seasonal Influenza, Split, I IV3, With Preserve, Inj 06/30/2016,06/06/2015,08/03/2013,06/23,12/18/2009(Deferred: Patient Refused),08/21/2007 TDAP (age 10 and older)(Boostrix) 07/08/2022 TDAP, [...] Answer Date Recorded PHQ Adult Total Score 1 03/05/2024 Hunger Vital Sign Answer Date Recorded Worried [...] Upcoming Encounters Date Type Department Care Team ([facility] Contact Info) Description 03/16/2024 10:45 AM EDT [facility] [address] [facility] [address] [place] [phone] [place], ANIRUDH [address] [place] [address] 04/16/2024 11:00 AM EDT Appointment Radiology, [facility] [address] [place], [place] [phone] 05/29/2024 11:30 AM EDT Office Visit [facility]iology [facility] [address] [facility] [address] [place] [phone] Scotty Parks CRNP [address] [place], [place] [phone] 09/05/2024 10:30 AM EST Office Visit [facility] [address] [place] [phone] Mauro Alfredo MD [address] [place] [address] Health Maintenance Due Date Last Done Comments Zoster Vaccines (1 of 2) 1997 COVID-19 Vaccine ( season) 2023 02/26/2022, 09/01/2021, 01/21/2021, Additional history exists *BISPHONATE OR OTHER ACCEPTABLE MEDICATION NEEDED FOR OSTEOPOROSIS (REFER TO SMARTSET #1146) 03/08/2024 DXA Scan 04/19/2024 04/19/2022, 08/03, 06/11/2014, Additional history exists CKD PHOS USE SMARTSET 66479 05/16/202405/03, 05/31/2022, 05/06/2022, Additional history exists GFR 09/01/2024 03/01/2024, 05/03, 02/24/2023, Additional history exists Albumin/Creatinine Ratio 03/01/2025 024, 02/24/2023, 02/18/2022 CKD HGB USE SMARTSET 88605 03/01/202503/01, 03/01/2024, 02/24/2023, Additional history exists Depression Screening 03/05/2025 03/05/2024 DTaP,Tdap,and Td Vaccines (3 - Td or Tdap) 07/08/2032 07/08/2022, 04/10/2010 Colonoscopy Discontinued 05/19/2012, 05/19/2012 Colorectal Cancer Screening Discontinued Pneumococcal Vaccine: 65+ Years Completed 11/14/2017, 05/31/2013, 07/30/2005 Influenza Vaccine (FLU shot) Completed 09/02/2023, 07/08/2022, 08/11/2021, Additional history exists VITAMIN D LEVEL ONCE IN A LIFETIME-USE SMARTSET# [id number] Completed 03/01/2024, 05/16/2023, 02/24/2023, Additional history exists Cologuard Discontinued Fecal Occult [...] this encounter Medical Devices Implanted Type Area Assistant Administrator Device Identifier Shelf Expiration Date Model / Serial / Lot Valve Aor Allan Ii 23mm T505 - [id number] Implanted:Qty : 1 on 06/10/2016 by Rodney Davis MD at OR [facility] [place] Tissue - Non Human N/A: Heart [employer] : CARDIAC SURGERY 05/12/2018 23-T505 / [id number] / Sut Steel 6 M654g - [id number] Implanted:Qty : 4 on 06/10/2016 by Rodnye Davis MD at OR [facility] [place] JNJ : [employer] 03/02/2021 M654G / / [id number] Ring Mitral 26mm [id number] - [id number] Implanted:Qty : 1 on 06/10/2016 by Rodney Davis MD at OR [facility] [place] N/A: Heart [employer] 01/27/2021 5200-26 / [id number] / documented as of this encounter Visit Diagnoses Diagnosis Cardiac pacemaker in situ- Primary documented in this encounter Advance Directives * [...] and were consensually agreed upon. Care Teams Veterinarian Relationship Specialty Start Date End Date Mauro Alfredo MD [address] [place] [phone] PCP - General Family Medicine 02/18/22 documented as of this encounter
--- OUTSIDE RECORDS SUMMARY | 2024-05-04 17:11 | External Medical Summary | Summary of Care ---
Author Name Unknown Organization [facility] Address [address] [place] [address] Phone [phone] Care Team Providers Care Rubber Goods Inspector Tester Name Role Phone Mauro Alfredo MD Primary Care P rovider Reason for Visit * Reason Comments Follow Up Nails Encounter Details Date Type Department Care Team ([facility] st Contact Info) Description 03/16/2024 10:45 AM EDT Office Visit Podiatry [address] [place] [address] Bon Fontaine, ANIRUDH [address] [place] [address] PVD (peripheral vascular disease) ([facility])*; Onychomycosis; Corns and callosities; Charcot Megan Tooth muscular atrophy Allergies Active Allergy Reactions Criticality Noted Date Comments Cefazolin Rash 09/30/2018 Vancomycin Rash 10/25/[address] Samuel Garcia @ [facility], discontinued this due to rash. documented as of this encounter (statuses as of 03/16/2024) Medications Medication Sig Dispensed Refills Start Date [...] with heart failure (HCC),Coronary artery disease involving [place] heart without angina pectoris, unspecified vessel or lesion type Take 1 Tablet by mouth in the morning and 1 Tablet before bedtime. 180 Tablet 3 03/05/2024 Active Furosemide 40 MG Oral Tablet (Lasix)Indications:H ypertensive heart disease with heart failure (HCC),Coronary artery disease involving [place] heart without angina pectoris, unspecified vessel or lesion type Take 2 Tablets by mouth in the morning. 180 Tablet 3 03/05/2024 Active Simvastatin 20 MG Oral Tablet (Zocor)Indications:C oronary artery disease involving [place] heart without angina pectoris, unspecified vessel or lesion type Take 1 Tablet by mouth every night at bedtime. 90 Tablet 3 03/05/2024 Active amLODIPine Besylate 5 MG Oral Tablet (Norvasc)Indications :Essential hypertension Take 1 Tablet by mouth in the morning. 90 Tablet 3 03/05/2024 Active Aspirin 81 MG Oral Tablet ChewableIndications: Coronary artery disease involving [place] heart without angina pectoris, unspecified vessel or lesion type Take 1 Tablet by mouth in the morning. 100 Tablet 3 03/05/2024 Active documented as of this encounter (statuses as of 03/16/2024) Active Problems Problem Noted Date Diagnosed Date [...] flutter. 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 Pepcid 20mg daily Nocitrm-Dvzft-Ynpuh disease 06/21/2016 Primary osteoarthritis involving multiple joints [...] as of this encounter (statuses as of 03/16/2024) Resolved Problems Problem Noted Date Diagnosed Date [...] 09/08/2018 11/22/2018 Coronary artery disease invo lving guid[place] heart without angina pectoris 11/14/2017 03/05/2024 Internal [...] q8h on discharge Junctional rhythm 06/21/2016 06/28/2016 snf resident 06/21/20162018 Aortic valve stenosis 04/20/20162015 Mitral valve regurgitation 04/20/2016 0 06/26/2016 ADVANCE DIRECTIVE INFORMATION 03/06/2010 06/26/2016 Overview: Pt has a booklet at home, Generalized osteoarthritis 02/16/2008 0 02/18/2022 Polyneuropathy in other dise ases classified elsewhere 04/08/2004 08/11/2021 documented as of this encounter (statuses as of 03/16/2024) Immunizations Name Administration Dates Next Due COVID-19 mRNA, LNP-s, No Pre serve, 2-Dose Series (Real Time Translation) 09/01/2021,01/21/2021,12/31/2020 COVID-19, LNP-s, No Preserve , Isra-sucrose, Ages 12+ (Real Time Translation) 02/26/2022 Pneumococcal Conjugate Vacc, 13 Valent (Prevnar) [...] No 09/22/2018 documented as of this encounter Progress Notes * Bon Fontaine, ANIRUDH - 03/16/2024 10:45 AM EDT Subjective: Patient presents in office today for mycotic painful nails and thick calluses. HISTORY Past Medical History: Diagnosis Date CLASSICAL MIGRAINE WITHOU MENTION OF INTRACTABLE MIGRAINE 10/10/2001 HTN, goal below 140/90 NEUROPATHY IN OTHER DIS 04/08/2004 OSTEOPOROSIS NOS 10/10/2001 Other and unspecified hyperlipidemia Hypercholesterolemia Past Surgical History: Procedure Laterality Date APPENDECTOMY W/OTHER PROCEDURE with hysterectomy BONE DEBRIDEMENT, FIRST 20 CM2 Right 09/09/2018 DEBRIDEMENT SKIN SUBCUTANEOUS TISSUE MUSCLE AND BONE performed by Alton Davila MD at [facility] BONE DEBRIDEMENT, FIRST 20 CM2 Left 10/01/2018 DEBRIDEMENT SKIN SUBCUTANEOUS TISSUE MUSCLE AND BONE performed by Ari Moscoso Jr., MD at [facility] COLONOSCOPY, DIAGNOSTIC (RECTUM) 05/19/2012 COLONOSCOPY FLEXIBLE PROXIMAL DIAGNOSTIC performed by Kush Butterfield MD at ENDOSCOPY [facility] CORONARY ANGIOGRAPHY W/RIGHT+LEFT CATH 04/12/2016 CORONARY ANGIOGRAPHY W/RIGHT+LEFT CATH performed by Melania Carmen MD at [facility] FLUORO MISCELLANEOUS N/A 10/28/2017 FLUOROSCOPY EXAM MISC performed by Sherri Zayas IV, MD at [facility] HEART ELECTROCONVERSION, EXTERNAL 07/02/2016 DC CARDIOVERSION performed by Naveed Martinez MD at [facility] INFORMATION 1993 MMK with NEGRO in 1993 INSERT/REPLACE PACEMAKER,ATRIAL/VENTRICULAR 09/18/2018 NEW DDD PACEMAKER IMPLANT performed by Naveed Martinez MD at [facility] INSERT/REPLACE PACEMAKER,ATRIAL/VENTRICULAR Right 09/25/2018 NEW DDD PACEMAKER IMPLANT performed by Naveed Martinez MD at [facility] LAPAROSCOPY; CHOLECYSTECTOMY 06/22/2013 06/22/2013 at [facility], laparoscopic cholecystectomy Dr. Up with accounts receivable assistant Bon Jacobsen PA-C PERC CLOSURE TRANSCATH LEFT ATRIAL APPENDAGE W/ENDOCARDIAL IMPLANT Bilateral 10/27/2017 PERCUTANEOUS CLOSURE LEFT ATRIAL APPENDAGE IMPLANT performed by Sherri Zayas IV, MD at [facility] REMOVE PACEMAKER ELECTRODE, DUAL N/A 09/12/2018 2 OR MORE LEAD EXTRACTION performed by Naveed Martinez MD at [facility] REMOVE PACEMAKER ELECTRODE, DUAL N/A 09/12/2018 2 OR MORE LEAD EXTRACTION performed by Shashi Ulloa MD at [facility] REMOVE TONSILS & ADENOIDS, UNDER 12 T & A, age<12 REMOVE VERTEBRAL BODY, LOW BACK 1995 REPLACE MITRAL VALVE W/BYPASS 06/10/2016 REPLACEMENT MITRAL VALVE performed by Rodney Davis MD at [facility] REPLACEMENT AORTIC VALVE, BYPASS WITH PROSTHETIC VALVE N/A 06/10/2016 REPLACEMENT AORTIC VALVE performed by Rodney Davis MD at [facility] RIGHT HEART CATH W/ O2 SAT AND CO Right 07/01/2016 RIGHT HEART CATH W/ O2 SAT AND CO performed by Emir Carrizales MD at [facility] SHOULDER ARTHROSCOPY, DX Right 09/09/2018 ARTHROSCOPY SHOULDER DIAGNOSTIC performed by Alton Davila MD at [facility] TOTAL HYSTERECTOMY 1993 Dr. Gann UMBIL HERNIA REPAIR (REDUCIBLE) AGE 5+YR 06/22/2013 06/22/2013 at [facility], repair of umbilical hernia Dr. 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 Ari from [place] age 64 Social Determinants of Health Financial Resource Strain: Not on file Food Insecurity: No Food Insecurity (06/03/2020) Hunger Vital Sign Worried About Running Out of Food in the Last Year: Never true Ran Out of Food in the Last Year: Never true Transportation Needs: Not on file Physical Activity: Not on file Stress: Not on file Social Connections: Not on file Intimate Partner Violence: Not on file Housing Stability: Not on file Current Outpatient Medications Medication Sig Dispense Refill Acetaminophen 325 MG Oral Tablet Take 1 Tablet by mouth every 6 hours as needed for Pain. D 1000 25 MCG (1000 UT) Oral Capsule (Cholecalciferol) Take 1 Capsule by mouth in the morning. 90 Capsule 3 Pantoprazole Sodium 40 MG Oral Tablet Delayed Release (Protonix) TAKE 1 TABLET BY MOUTH EVERY DAY IN THE MORNING 90 Tablet 2 Baclofen 10 MG Oral Tablet (Lioresal) Take 1 Tablet by mouth at bedtime for 15 days. 15 Tablet 0 Valsartan 80 MG Oral Tablet (Diovan) Take 1 Tablet by mouth in the morning. 90 Tablet 3 Metoprolol Tartrate 50 MG Oral Tablet (Lopressor) Take 1 Tablet by mouth in the morning and 1 Tablet before bedtime. 180 Tablet 3 Furosemide 40 MG Oral Tablet (Lasix) Take 2 Tablets by mouth in the morning. 180 Tablet 3 Simvastatin 20 MG Oral Tablet (Zocor) Take 1 Tablet by mouth every night at bedtime. 90 Tablet 3 amLODIPine Besylate 5 MG Oral Tablet (Norvasc) Take 1 Tablet by mouth in the morning. 90 Tablet 3 Aspirin 81 MG Oral Tablet Chewable Take 1 Tablet by mouth in the morning. 100 Tablet 3 No current facility-administered medications for this visit. ROS EXAM: CONSTITUTIONAL: No change in weight, No weakness, No fatigue and No fevers, sweats, or chills EXTREMITIES: No pain, redness or swelling on the joints SKIN/INTEGUMENTARY: No edema, No rash and No itching NEUROLOGIC: Poor balance, No headaches, No seizures CMT Objective: Vascular examination: DP 1/4 bilateral PT 0/4 bilateral SPVFT 4sec No digital hair, thin atrophic skin, feet are cold to touch Dermatological examination: nails appear thickened mycotic x 10. . 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). Diagnoses of Onychomycosis, Corns and callosities, and Charcot Megan Tooth muscular atrophy were also pertinent to this visit. Plan: 1. Debridement of multiple mycotic nails x 10 2. Debridement of thick calluses sub met 5 bilateral documented in this encounter Nursing Notes * Elva Guadarrama LPN - 03/16/2024 10:29 AM EDT Pt presents for routine foot care, no pain in feet. documented in this encounter Plan of Treatment Upcoming Encounters Date Type Department Care Team (Late st Contact Info) Description 04/16/2024 11:00 AM EDT Appointment Radiology, [facility] [address] [place] [address] 05/29/2024 11:30 AM EDT Office Visit Cardiology [address] [phone] Scotty Parks CRNP [address] [place] [address] 06/15/2024 10:45 AM EDT Office Visit Podiatry [address] [phone] Bon Fontaine DPM [address] [place] [address] 09/05/2024 10:30 AM EST Office Visit Family Practice [address] [phone] Mauro Alfredo MD [address] [place] [phone] Scheduled Orders Name Type Priority Associated Diagnoses Orde r Schedule DEBRIDEMENT OF NAILS 6 OR MORE Procedures Routine PVD (peripheral vascular disease) ([facility]) Onychomycosis Ordered: 03/16/2024 PARING/CUT BENIGN HYPERKERATOTIC LESION, 2-4 Procedures Routine PVD (peripheral vascular disease) ([facility]) Corns and callosities Ordered: 03/16/2024 Health Maintenance Due Date Last Done Comments Zoster Vaccines (1 of 2) 1997 COVID-19 Vaccine ( season) 2023 02/26/2022, 09/01/2021, 01/21/2021, Additional history exists *BISPHONATE OR OTHER ACCEPTABLE MEDICATION NEEDED FOR OSTEOPOROSIS (REFER TO SMARTSET #1146) 03/08/2024 DXA Scan 04/19/2024 04/19/2022, 08/03, 06/11/2014, Additional history exists CKD PHOS USE SMARTSET 37113 05/16/202405/03, 05/31/2022, 05/06/2022, Additional history exists GFR 09/01/2024 03/01/2024, 05/03, 02/24/2023, Additional history exists Albumin/Creatinine Ratio 03/01/2025 024, 02/24/2023, 02/18/2022 CKD HGB USE SMARTSET 07293 03/01/202503/01, 03/01/2024, 02/24/2023, Additional history exists Depression Screening 03/05/2025 03/05/2024 DTaP,Tdap,and Td Vaccines (3 - Td or Tdap) 07/08/2032 07/08/2022, 04/10/2010 Colonoscopy Discontinued 05/19/2012, 05/19/2012 Colorectal Cancer Screening Discontinued Pneumococcal Vaccine: 65+ Years Completed 11/14/2017, 05/31/2013, 07/30/2005 Influenza Vaccine (FLU shot) Completed 09/02/2023, 07/08/2022, 08/11/2021, Additional history exists VITAMIN D LEVEL ONCE IN A LIFETIME-USE SMARTSET# [id number] Completed 03/01/2024, 05/16/2023, 02/24/2023, Additional history exists [...] this encounter Medical Devices Implanted Type Area Registered Nurse Nursery Device Identifier Shelf Expiration Date Model / Serial / Lot Valve Aor Allan Ii 23mm T505 - [id number] Implanted:Qty : 1 on 06/10/2016 by Rodney Davis MD at [facility] Tissue - Non Human N/A: Heart [employer] : CARDIAC SURGERY 05/12/2018 23-T505 / [id number] / Sut Steel 6 M654g - [id number] Implanted:Qty : 4 on 06/10/2016 by Rodney Davis MD at [facility] JNJ : [employer] 03/02/2021 [id number] / / [id number] Ring Mitral 26mm [id number] - [id number] Implanted:Qty : 1 on 06/10/2016 by Rodney Davis MD at [facility] N/A: Heart [employer]ES 01/27/2021 [id number] / [id number] / documented as of this encounter Visit Diagnoses Diagnosis PVD (peripheral vascular disease) (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 Care Teams Rubber Goods Inspector Tester Relationship Specialty Start Date End Date Mauro Alfredo MD [address] [place] [phone] PCP - General Family Medicine 02/18/22 documented as of this encounter
--- OUTSIDE RECORDS SUMMARY | 2024-05-04 17:11 | External Medical Summary | Summary of Care ---
Author Name Unknown Organization [facility] Address [address] [place] [address] Phone [phone] Care Team Providers Care Associate Professor Of Radiology Name Role Phone Mauro Alfredo MD Primary Care P rovider Reason for Visit * Reason Comments Status Check Encounter Details Date Type Department Care Team (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 Samuel Garcia @ [facility], discontinued this due to rash. documented as of this encounter (statuses as of 03/05/2024) Medications Medication Sig Dispensed Refills Start Date End Date Status Acetaminophen 325 MG Oral Tablet Take 1 Tablet by mouth every 6 hours as needed for Pain. Active D 1000 25 MCG (1000 UT) Oral Capsule (Cholecalciferol) Take 1 Capsule by mouth in the morning. 90 Capsule 3 03/03/2023 Active Pantoprazole Sodium 40 MG Oral Tablet Delayed Release (Protonix)Indicati ons:Gastroesophage al reflux disease without esophagitis TAKE 1 TABLET BY MOUTH EVERY DAY IN THE MORNING 90 Tablet 2 01/03/2024 Active Baclofen 10 MG Oral Tablet (Lioresal)Indicati ons:Trapezius muscle strain, left, initial encounter Take 1 Tablet by mouth at bedtime for 15 days. 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 90 Tablet 3 03/05/2024 Active Metoprolol Tartrate 50 MG Oral Tablet (Lopressor)Indicat ions:Hypertensive heart disease with heart failure (HCC),Coronary artery disease involving soboba heart without angina pectoris, unspecified vessel or lesion type Take 1 Tablet by mouth in the morning and 1 Tablet before bedtime. 180 Tablet 3 03/05/2024 Active Furosemide 40 MG Oral Tablet (Lasix)Indications :Hypertensive heart disease with heart failure (HCC),Coronary artery disease involving soboba heart without angina pectoris, unspecified vessel or lesion type Take 2 Tablets by mouth in the morning. 180 Tablet 3 03/05/2024 Active Simvastatin 20 MG Oral Tablet (Zocor)Indications :Coronary artery disease involving soboba heart without angina pectoris, unspecified vessel or lesion type Take 1 Tablet by mouth every night at bedtime. 90 Tablet 3 03/05/2024 Active amLODIPine Besylate 5 MG Oral Tablet (Norvasc)Indicatio ns:Essential hypertension Take 1 Tablet by mouth in the morning. 90 Tablet 3 03/05/2024 Active Aspirin 81 MG Oral Tablet ChewableIndication s:Coronary artery disease involving soboba heart without angina pectoris, unspecified vessel or lesion type Take 1 Tablet by mouth in the morning. 100 Tablet 3 03/05/2024 Active Doxycycline Hyclate 100 MG Oral CapsuleIndications :Cellulitis of right leg Take 1 Capsule by mouth in the morning and 1 Capsule before bedtime. Do all this for 7 days. Until gone.. 14 Capsule 03/05/2024 03/12/2024 Active Aspirin 81 MG Oral Tablet Chewable Take 1 Tablet by mouth in the morning. 34 Tablet 11 02/23/2022 03/05/2024 Discontinued (Refill) amLODIPine Besylate 5 MG Oral Tablet (Norvasc)Indicatio ns:Essential hypertension Take 1 Tablet by mouth in the morning. 90 Tablet 3 03/03/2023 03/05/2024 Discontinued (Refill) Furosemide 40 MG Oral Tablet (Lasix) Take 2 Tablets by mouth in the morning. 180 Tablet 3 03/03/2023 03/05/2024 Discontinued (Refill) Metoprolol Tartrate 50 MG Oral Tablet (Lopressor) Take 1 Tablet by mouth in the morning and 1 Tablet before bedtime. 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 90 Tablet 3 03/03/2023 03/05/2024 Discontinued (Refill) Alendronate Sodium 70 MG Oral Tablet (Fosamax)Indicatio ns:Age-related osteoporosis without current pathological fracture Take 1 Tablet by mouth once a week. 12 Tablet 3 03/03/2023 03/05/2024 Discontinued (Patient preference/d iscontinuati on) documented as of this encounter (statuses as of 03/05/2024) Active Problems Problem Noted Date Diagnosed Date [...] flutter. 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 04/26/2019 Overview: Continue coumadin for now Typical atrial flutter 07/02/201602/18 Overview: S/p DAYANA-guided DCC --> junctional rhythm Antiarrhythmic therapy with amiodarone for approximately 6-12 weeks post op Bilateral pleural effusion 06/28/2016 0 04/28/2021 Overview: Moderate, from ADHF Generalized weakness 06/27/2016 016 HTN (hypertension) 06/26/2016 05/ 9 Overview: Metoprolol 12.5mg BID Continue aspirin 81mg Will restart hydralazine at 25 mg q8h on discharge Junctional rhythm 06/21/2016 06/28/2016 assisted resident 06/21/20162018 Aortic valve stenosis 04/20/20162015 Mitral valve regurgitation 04/20/2016 0 06/26/2016 ADVANCE DIRECTIVE INFORMATION 03/06/2010 06/26/2016 Overview: Pt has a booklet at home, Generalized osteoarthritis 02/16/2008 0 02/18/2022 Polyneuropathy in other dise ases classified elsewhere 04/08/2004 08/11/2021 documented as of this encounter (statuses as of 03/05/2024) Immunizations Name Administration Dates Next Due COVID-19 mRNA, LNP-s, No Pre serve, 2-Dose Series (Milk A Deal) 09/01/2021,01/21/2021,12/31/2020 COVID-19, LNP-s, No Preserve , Isra-sucrose, Ages 12+ (Milk A Deal) 02/26/2022 Pneumococcal Conjugate Vacc, 13 Valent (Prevnar) [...] on file documented as of this encounter Last Filed Vital Signs Vital Sign Reading Time Taken Comments Blood Pressure 112/72 03/05/2024 10:57 AM EDT Pulse 71 03/05/2024 10:57 AM EDT Temperature 36.9 C (98.4 F) 03/05/2024 10:57 AM E DT Respiratory Rate 16 03/05/2024 10:57 AM EDT Oxygen Saturation 97% 03/05/2024 10:57 AM EDT Inhaled Oxygen Concentration - - Weight 63.6 kg (140 lb 3.2 oz) 03/05/2024 10:57 AM EDT Height 154.9 cm (5' 1") 03/05/2024 10:57 AM EDT Body Mass Index 26.49 03/05/2024 10:57 AM EDT documented in this encounter Functional Status Functional Status Response [...] as of this encounter Progress Notes * Mauro Alfredo MD - 03/05/2024 11:21 AM EDT Subjective: Kimberly Cardona is a 78 year old female. Chief Complaint Patient presents with Status Check HPI: Patient is in the office to follow-up chronic medical problems. Neck feels very stiff lately. Takes Tylenol as needed. Has trouble turning head to left side and feels stiff on left trapezius. Has been having pain leading to FINN and also radiated to left arm. Last fall was visiting a friend, about 1 mo ago, fell backwards. She fell over grass. Has been having lesion on right distal leg that is painful and warm for the last 12 months. Lesion was bleeding. It looks better with OTC triple antibiotic. Denies past hx of MRSA. Regarding hypertension/ CAD/ heart failure:To take aspirin 81 mg daily, furosemide 40 mg daily, amlodipine 5 mg daily, metoprolol tartrate 50 mg twice a day and valsartan 80 mg daily. Denies chest pain, dyspnea on exertion, shortness of breath, fatigue, dizziness or headaches. Has a pacemaker in place. Occasionally feels like she is going to fall backwards. Weights at home 137. She follows up with [facility] cardiology. Currently not taking any statins. Was treated with simvastatin and atorvastatin years ago. Had to stop; whole milk gives cramps. Has history of PVD and has been followed by Podiatry. Denies claudication. She wears a brace on left foot. Has been noticing more swelling Recent labs discussed with patient. CBC unremarkable. Hemoglobin 12.3. Serum creatinine 0.7, GFR over 90. Fasting BG 91. LFTs remain normal. Total cholesterol 214, HDL 67, LDL 136, triglycerides 56. Vitamin-D level is insufficient at 28. PTH 111 Underwent aortic valve replacement and mitral valve repair but does not need any long-term anticoagulation. Follows up with [facility] cardiology. Regarding GERD: Taking pantoprazole 40 mg every morning. Denies heartburn or dysphagia. Regarding osteoporosis: Has not been taking alendronate 70 mg every week. Does take vitamin-D 1000 units daily. Denies abdominal pain or indigestion. She has history of hyperparathyroidism and also Charcot Megan tooth disease. Follows up with [facility] Endocrinology. Declines Shingrix. PMH: Patient Active Problem List Diagnosis HTN, goal below 140/90 Osteoporosis CLASSICAL MIGRAINE WITHOU MENTION OF INTRACTABLE MIGRAINE Chronic cholecystitis LBBB (left bundle branch block) S/P mitral valve repair (aka S/P MITRAL VALVE REPAIR) Lweezzp-Ixnov-Wjbpd disease Primary osteoarthritis involving multiple joints S/P aortic valve replacement Impaired mobility and ADLs Heart failure, diastolic, chronic (HCC) GERD (gastroesophageal reflux disease) Paroxysmal atrial fibrillation (HCC) Coronary artery disease involving soboba heart without angina pectoris Joint effusion of shoulder region, right Presence of cardiac pacemaker 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 100 Tablet 3 Acetaminophen 325 MG Oral Tablet Take 1 Tablet by mouth every 6 hours as needed for Pain. D 1000 25 MCG (1000 UT) Oral Capsule (Cholecalciferol) Take 1 Capsule by mouth in the morning. 90 Capsule 3 Pantoprazole Sodium 40 MG Oral Tablet Delayed Release (Protonix) TAKE 1 TABLET BY MOUTH EVERY DAY IN THE MORNING 90 Tablet 2 No current facility-administered medications for this visit. Past Medical History: Diagnosis Date CLASSICAL MIGRAINE WITHOU MENTION OF INTRACTABLE MIGRAINE 10/10/2001 HTN, goal below 140/90 NEUROPATHY IN OTHER DIS 04/08/2004 OSTEOPOROSIS NOS 10/10/2001 Other and unspecified hyperlipidemia Hypercholesterolemia Past Surgical History: Procedure Laterality Date APPENDECTOMY W/OTHER PROCEDURE with hysterectomy BONE DEBRIDEMENT, FIRST 20 CM2 Right 09/09/2018 DEBRIDEMENT SKIN SUBCUTANEOUS TISSUE MUSCLE AND BONE performed by Alton Davila MD at [facility] BONE DEBRIDEMENT, FIRST 20 CM2 Left 10/01/2018 DEBRIDEMENT SKIN SUBCUTANEOUS TISSUE MUSCLE AND BONE performed by Ari Moscoso Jr., MD at [facility] COLONOSCOPY, DIAGNOSTIC (RECTUM) 05/19/2012 COLONOSCOPY FLEXIBLE PROXIMAL DIAGNOSTIC performed by Kush Butterfield MD at [facility] CORONARY ANGIOGRAPHY W/RIGHT+LEFT CATH 04/12/2016 CORONARY ANGIOGRAPHY W/RIGHT+LEFT CATH performed by Melania Carmen MD at [facility] FLUORO MISCELLANEOUS N/A 10/28/2017 FLUOROSCOPY EXAM MISC performed by Sherri Zayas IV, MD at [facility] HEART ELECTROCONVERSION, EXTERNAL 07/02/2016 DC CARDIOVERSION performed by Naveed Martinez MD at [facility] INFORMATION 1993 MMK with NEGRO in 1993 INSERT/REPLACE PACEMAKER,ATRIAL/VENTRICULAR 09/18/2018 NEW DDD PACEMAKER IMPLANT performed by Naveed Martinez MD at [facility] INSERT/REPLACE PACEMAKER,ATRIAL/VENTRICULAR Right 09/25/2018 NEW DDD PACEMAKER IMPLANT performed by Naveed Martinez MD at [facility] LAPAROSCOPY; CHOLECYSTECTOMY 06/22/2013 06/22/2013 at [facility], laparoscopic cholecystectomy Dr. Up with assistant chief engineer Bon Jacobsen PA-C PERC CLOSURE TRANSCATH LEFT ATRIAL APPENDAGE W/ENDOCARDIAL IMPLANT Bilateral 10/27/2017 PERCUTANEOUS CLOSURE LEFT ATRIAL APPENDAGE IMPLANT performed by Sherri Zayas IV, MD at [facility] REMOVE PACEMAKER ELECTRODE, DUAL N/A 09/12/2018 2 OR MORE LEAD EXTRACTION performed by Naveed Martinez MD at [facility] REMOVE PACEMAKER ELECTRODE, DUAL N/A 09/12/2018 2 OR MORE LEAD EXTRACTION performed by Shashi Ulloa MD at [facility] REMOVE TONSILS & ADENOIDS, UNDER 12 T & A, age<12 REMOVE VERTEBRAL BODY, LOW BACK 1995 REPLACE MITRAL VALVE W/BYPASS 06/10/2016 REPLACEMENT MITRAL VALVE performed by Rodney Davis MD at [facility] REPLACEMENT AORTIC VALVE, BYPASS WITH PROSTHETIC VALVE N/A 06/10/2016 REPLACEMENT AORTIC VALVE performed by Rodney Davis MD at [facility] RIGHT HEART CATH W/ O2 SAT AND CO Right 07/01/2016 RIGHT HEART CATH W/ O2 SAT AND CO performed by Emir Carrizales MD at [facility] SHOULDER ARTHROSCOPY, DX Right 09/09/2018 ARTHROSCOPY SHOULDER DIAGNOSTIC performed by Alton Davila MD at [facility] TOTAL HYSTERECTOMY 1993 Dr. Gann UMBIL HERNIA REPAIR (REDUCIBLE) AGE 5+YR 06/22/2013 06/22/2013 at [facility], repair of umbilical hernia Dr. Up with assistant chief engineer Bon Jacobsen PA-C Review of patient's allergies indicates: Allergen Reactions Cefazolin Rash Vancomycin Rash Pt states Dr. Samuel Garcia @ [facility], discontinued this due to rash. Family History Problem Relation Name Age of Onset Hypertension Mother Hypertension Sister Heart Disorder Other Musculo-skeletal Disorder Daughter Muscular dystrophy Musculo-skeletal Disorder Son MD; Charcot Megan Tooth Neurological Disorder Brother Charcot Megan Tooth Neurological Disorder Brother Charcot Megan tooth Heart Disorder Brother CAD Family Status Relation Status Mo at age 89 HTN, arthritis Fa at age 80's Arthritis Sis Alive DM, mental problems Sis Alive Bro Alive MCT Bro Alive MCT Bro Alive MCT Son Alive Son Alive Megan Charcott Tooth Serene Alive MCT Sis (Not Specified) Other (Not Specified) Serene (Not Specified) Son (Not Specified) Bro (Not Specified) Bro (Not Specified) Bro (Not Specified) Social History Socioeconomic History Marital status: Spouse name: Ari Number of children: 3 Years of education: Not on file Highest education level: Not on file Occupational History 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 Ari from [place] age 64 Social Determinants of Health Financial [...] on file Housing Stability: Not on file Objective: BP 112/72 (BP Site: Left Arm, BP Position: Sitting, BP Cuff Size: Regular) | Pulse 71 | Temp 36.9 C (98.4 F) (Temporal Artery) | Resp 16 | Ht 1.549 m (5' 1") | Wt 63.6 kg (140 lb 3.2 oz) | SpO2 97% | BMI 26.49 kg/m | BSA 1.65 m Physical Exam Vitals and nursing note reviewed. Constitutional: General: She is not in acute distress. Appearance: She is normal weight. She is not ill-appearing or toxic-appearing. HENT: Head: Normocephalic and atraumatic. Jaw: There is normal jaw occlusion. Right Ear: Tympanic membrane and ear canal normal. Left Ear: Tympanic membrane and ear canal normal. Nose: Nose normal. Mouth/Throat: Lips: [place]. Mouth: Mucous membranes are moist. Pharynx: Oropharynx is clear. No oropharyngeal exudate or posterior oropharyngeal erythema. Eyes: General: No scleral icterus. Conjunctiva/sclera: Conjunctivae normal. Pupils: Pupils are equal, round, and reactive to light. Cardiovascular: Rate and Rhythm: Normal rate and regular rhythm. Pulses: Normal pulses. Heart sounds: No murmur heard. Pulmonary: Effort: Pulmonary effort is normal. Breath sounds: Examination of the right-lower field reveals rales. Examination of the left-lower field reveals rales. Rales present. No wheezing or rhonchi. Abdominal: General: Abdomen is flat. There is no distension. Palpations: Abdomen is soft. Tenderness: There is no abdominal tenderness. Musculoskeletal: General: No swelling or tenderness. Cervical back: Normal range of motion and neck supple. No rigidity. No muscular tenderness. Right lower leg: No edema. Left lower leg: No edema. Lymphadenopathy: Cervical: No cervical adenopathy. Skin: General: Skin is warm and dry. Capillary Refill: Capillary refill takes less than 2 seconds. Findings: No rash. Neurological: General: No focal deficit present. Mental Status: She is alert and oriented to person, place, and time. Psychiatric: Mood and Affect: Mood normal. ASSESSMENT: Hypertensive heart disease with heart failure (HCC) (Primary) - Metoprolol Tartrate 50 MG Oral Tablet (Lopressor); Take 1 Tablet by mouth in the morning and 1 Tablet before bedtime. - Furosemide 40 MG Oral Tablet (Lasix); Take 2 Tablets by mouth in the morning. Coronary artery disease involving soboba heart without angina pectoris, unspecified vessel or lesion type - Metoprolol Tartrate 50 MG Oral Tablet (Lopressor); Take 1 Tablet by mouth in the morning and 1 Tablet before bedtime. - Furosemide 40 MG Oral Tablet (Lasix); Take 2 Tablets by mouth in the morning. - Simvastatin 20 MG Oral Tablet (Zocor); Take 1 Tablet by mouth every night at bedtime. - Aspirin 81 MG Oral Tablet Chewable; Take 1 Tablet by mouth in the morning. Hyperparathyroidism (HCC) Trapezius muscle strain, left, initial encounter - Baclofen 10 MG Oral Tablet (Lioresal); Take 1 Tablet by mouth at bedtime for 15 days. 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 Gastroesophageal reflux disease without esophagitis Essential hypertension - amLODIPine Besylate 5 MG Oral Tablet (Norvasc); Take 1 Tablet by mouth in the morning. Presence of Watchman left atrial appendage closure device Paroxysmal atrial fibrillation (HCC) Presence of cardiac pacemaker Screening for depression Evidence of left trapezius muscle spasm, Rx Baclofen 10 mg at bedtime for 15 days. Advised to consider massage therapy. Treat cellulitis with doxycycline for 10 days. Patient also encouraged to restart simvastatin 20 mg daily which she has tolerated before. Appropriate medication use and potential medication side effects discussed with patient. Continue other medicines. Check fasting labs in 6 mo. Patient has been verbally educated on the need or importance of Immunizations: Shingles and patienthas declined topic(s). Follow Up: Return in about 6 months (around 09/04/2024), or if symptoms worsen or fail to improve, for schedule labs before next OV, f/u chronic problems. | For: schedule labs before next OV, f/u chronic problems Mauro Lau MD documented in this encounter Nursing Notes * Yessenia Lindsey LPN - 03/05/2024 10:56 AM EDT The patient has been properly identified by confirmation of name and date of . Chief Complaint Patient presents with Status Check Pt here for 6 month check up. Neck feels very stiff lately. Needs refills on meds. Declines Shingrix. documented in this encounter Plan of Treatment Upcoming Encounters Date Type Department Care Team (Late st Contact Info) Description 03/12/2024 9:00 AM EDT Cardiac Studies Cardiac Studies [facility] [address] [place] [address] [facility] [address] [place] [address] 03/16/2024 10:45 AM EDT Office Visit Podiatry [address] [phone] Bon Fontaine DPM [address] [place] [address] 04/16/2024 11:00 AM EDT Appointment Radiology, [facility] [address] [place] [address] 05/29/2024 11:30 AM EDT Office Visit Cardiology [address] [place] [phone] Scotty Parks CRNP [address] [place], [place] [id number] 09/05/2024 10:30 AM EST Office Visit [address] [phone] Mauro Alfredo MD [address] [place] [id number] Scheduled Orders Name Type Priority Associated Diagnoses Orde r Schedule CBC WITH WBC DIFFERENTIAL Lab Routine Coronary artery disease involving soboba heart without angina pectoris, unspecified vessel or lesion type Expected: 09/04/2024 (Approximate), Expires: 03/05/2025 COMPREHENSIVE METABOLIC PANEL Lab Routine Coronary artery disease involving soboba heart without angina pectoris, unspecified vessel or lesion type Expected: 09/04/2024 (Approximate), Expires: 03/05/2025 LIPID PANEL WITH DIRECT LDL IF TG IS HIGH Lab Routine Coronary artery disease involving soboba heart without angina pectoris, unspecified vessel or lesion type Expected: 09/04/2024, Expires: 03/05/2025 Health Maintenance Due Date Last Done Comments Zoster Vaccines (1 of 2) 1997 COVID-19 Vaccine ( season) 2023 02/26/2022, 09/01/2021, 01/21/2021, Additional history exists DXA Scan 04/19/2024 04/19/2022, 08/03, 06/11/2014, Additional history exists CKD PHOS USE SMARTSET 16732 05/16/202405/03, 05/31/2022, 05/06/2022, Additional history exists GFR 09/01/2024 03/01/2024, 05/03, 02/24/2023, Additional history exists Albumin/Creatinine Ratio 03/01/2025 024, 02/24/2023, 02/18/2022 CKD HGB USE SMARTSET 62756 03/01/202503/01, 03/01/2024, 02/24/2023, Additional history exists Depression Screening 03/05/2025 03/05/2024 DTaP,Tdap,and Td Vaccines (3 - Td or Tdap) 07/08/2032 07/08/2022, 04/10/2010 Colonoscopy Discontinued 05/19/2012, 05/19/2012 Colorectal Cancer Screening Discontinued Pneumococcal Vaccine: 65+ Years Completed 11/14/2017, 05/31/2013, 07/30/2005 Alpha-1 Antitrypsin Completed 08/23/2023 Influenza Vaccine (FLU shot) Completed 09/02/2023, 07/08/2022, 08/11/2021, Additional history exists VITAMIN D LEVEL ONCE IN A LIFETIME-USE SMARTSET# [id number] Completed 03/01/2024, 05/16/2023, 02/24/2023, Additional history exists [...] this encounter Medical Devices Implanted Type Area Intermodal Owner Operator Truck Driver Device Identifier Shelf Expiration Date Model / Serial / Lot Valve Aor Allan Ii 23mm T505 - [id number] Implanted:Qty : 1 on 06/10/2016 by Rodney Davis MD at OR [facility] Tissue - Non Human N/A: Heart [employer] : CARDIAC SURGERY 05/12/2018 23-T505 / [id number] / Sut Steel 6 M654g - [id number] Implanted:Qty : 4 on 06/10/2016 by Rodney Davis MD at OR [facility] JNJ : [employer] 03/02/2021 [id number] / / [id number] Ring Mitral 26mm [id number] - [id number] Implanted:Qty : 1 on 06/10/2016 by Rodney Davis MD at OR [facility] N/A: Heart HEARD [employer]ES 01/27/2021 [id number] / [id number] / documented as of this encounter Visit Diagnoses Diagnosis Hypertensive heart disease with heart failure (HCC)- Primary Unspecified hypertensive heart disease with heart failure Cellulitis of right leg Cellulitis and abscess of leg, except foot Coronary artery disease involving soboba heart without angina pectoris, unspecified vessel or lesion type Hyperparathyroidism (HCC) Hyperparathyroidism, unspecified Trapezius muscle strain, left, initial encounter Benign hypertensive heart and CKD, 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 Care Teams Associate Professor Of Radiology Relationship Specialty Start Date End Date Mauro Alfredo MD [address] [place] [address] PCP - General Family Medicine 02/18/22 documented as of this encounter
--- OUTSIDE RECORDS SUMMARY | 2024-05-04 17:11 | External Medical Summary | Summary of Care ---
Author Name Unknown Organization [facility] Address [address] [place] [address] Phone [phone] Care Team Providers Care Brake Coupler Dinkey Name Role Phone Mauro Alfredo MD Primary Care P rovider Reason for Visit * Reason Comments Outpatient Testing Encounter Details Date Type Department Care Team ([facility] st Contact Info) Description 03/01/2024 9:00 AM EDT [facility] [phone] [address] Hypertensive heart disease with heart failure (HCC); Hyperparathyroidism (HCC); Coronary artery disease involving [place] heart without angina pectoris, unspecified vessel or lesion type Allergies Active Allergy Reactions Criticality Noted Date Comments Cefazolin Rash 09/30/2018 Vancomycin Rash 10/25/[address] Samuel Garcia @ [facility], discontinued this due [...] pacemaker 09/08/2018 Coronary artery disease invo lving [place] heart without angina pectoris 11/14/2017 Heart failure, diastolic, chronic 06/26/2016 Overview: Will transition from IV lasix to home lasix 40 mg daily now that she is no longer in a flutter. 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 Pepcid 20mg daily Pstdiyb-Lxziy-Dfdie disease 06/21/2016 Primary osteoarthritis involving multiple joints [...] q8h on discharge Junctional rhythm 06/21/2016 06/28/2016 skilled nursing resident 06/21/20162018 Aortic valve stenosis 04/20/20162015 Mitral valve regurgitation 04/20/2016 0 06/26/2016 ADVANCE DIRECTIVE INFORMATION 03/06/2010 06/26/2016 Overview: Pt has a booklet at home, Generalized osteoarthritis 02/16/2008 0 02/18/2022 Polyneuropathy in other dise ases classified elsewhere 04/08/2004 08/11/2021 documented as of this encounter (statuses as of 03/01/2024) Immunizations Name Administration Dates Next Due COVID-19 mRNA, LNP-s, No Pre serve, 2-Dose Series ([employer]) 09/01/2021,01/21/2021,12/31/2020 COVID-19, LNP-s, No Preserve , Isra-sucrose, [...] Upcoming Encounters Date Type Department Care Team ([facility] st Contact Info) Description 03/01/2024 9:40 AM EDT Laboratory [facility], [address] [phone] [place], [facility] [place] [address] [place] [address] 03/05/2024 11:00 AM EDT Office Visit [address] [phone] Mauro Alfredo MD [address] [place] [address] 03/12/2024 9:00 AM EDT Cardiac Studies Cardiac Studies [facility] [place] [address] [place] [address] [place], E[place] [address] [place], [place] [phone] 03/16/2024 10:45 AM EDT Office Visit Podiatry [facility] [address] [place] [phone] Bon Fontaine, ANIRUDH [address] [place] [address] 04/16/2024 11:00 AM EDT Appointment Radiology, [place] [id number] [place] [address] 05/29/2024 11:30 AM EDT Office Visit Cardiology [facility] [address] [place] [phone] Scotty Parks CRNP [address] [place], [place] [phone] Pending Results Name Type Priority Associated Diagnoses Date /Time COMPREHENSIVE METABOLIC PANEL Lab Routine Hypertensive heart disease with heart failure ([facility]) 03/01/2024 9:16 AM EDT CBC WITH WBC DIFFERENTIAL AND ANEMIA REFLEX WORKUP Lab Routine Hypertensive heart disease with heart failure ([facility]) 03/01/2024 9:16 AM EDT 25-HYDROXY VITAMIN D Lab Routine Hyperparathyroidism ([facility]) 03/01/2024 9:16 AM EDT PTH Lab Routine Hyperparathyroidism ([facility]) 03/01/2024 9:16 AM EDT LIPID PANEL WITH DIRECT LDL IF TG IS HIGH Lab Routine Coronary artery disease involving [place] heart without angina pectoris, unspecified vessel or lesion type 03/01/2024 9:16 AM EDT ANEMIA CBC Lab Routine Hypertensive heart disease with heart failure ([facility]) 03/01/2024 9:16 AM EDT DIFFERENTIAL, AUTOMATED Lab Routine Hypertensive heart disease with heart failure ([facility]) 03/01/2024 9:16 AM EDT ANEMIA REFLEX CHEMISTRY HOLD Lab Routine Hypertensive heart disease with heart failure (HCC) 03/01/2024 9:16 AM EDT Health Maintenance Due Date Last Done Comments Zoster Vaccines (1 of 2) 1997 COVID-19 Vaccine ( - season) 2023 02/26/2022, 09/01/2021, 01/21/2021, Additional history exists GFR 11/16/2023 05/16/2023, 02/01, 05/31/2022, Additional history exists Albumin/Creatinine Ratio 02/25/2024 02/24/2023, 01/31 CKD HGB USE SMARTSET 60346 02/25/202402/24, 02/24/2023, 02/18/2022, Additional history exists Depression Screening 03/03/2024 03/03/2023 DXA Scan 04/19/2024 04/19/2022, 08/03, 06/11/2014, Additional history exists CKD PHOS USE SMARTSET 99401 05/16/202405/03, 05/31/2022, 05/06/2022, Additional history exists DTaP,Tdap,and Td Vaccines (3 - Td or Tdap) 07/08/2032 07/08/2022, 04/10/2010 Colonoscopy Discontinued 05/19/2012, 05/19/2012 Colorectal Cancer Screening Discontinued Pneumococcal Vaccine: 65+ Years Completed 11/14/2017, 05/31/2013, 07/30/2005 VITAMIN D LEVEL ONCE IN A LIFETIME-USE SMARTSET# 02158 Completed 05/16/2023, 02/24/2023, 05/31/2022, Additional history exists [...] this encounter Medical Devices Implanted Type Area Patent Chemist Device Identifier Shelf Expiration Date Model / Serial / Lot Valve Aor Allan Ii 23mm T505 - [id number] Implanted:Qty : 1 on 06/10/2016 by Rodney Davis MD at [place] [facility] Tissue - Non Human N/A: Heart [employer] : CARDIAC SURGERY 05/12/2018 23-T505 / [id number] / Sut Steel 6 M654g - [id number] Implanted:Qty : 4 on 06/10/2016 by Rodney Davis MD at [facility] JNJ : [employer] 03/02/2021 [id number] / / [id number] Ring Mitral 26mm [id number] - [id number] Implanted:Qty : 1 on 06/10/2016 by Rodney Davis MD at OR [facility] N/A: Heart HEARD REAVES 01/27/2021 [id number] / [id number] / documented as of this encounter Visit Diagnoses Diagnosis Hypertensive heart disease with heart failure (HCC) Unspecified hypertensive heart disease with heart failure Hyperparathyroidism (HCC) Hyperparathyroidism, unspecified Coronary artery disease involving [place] lions heart without angina pectoris, unspecified vessel or [...] and were consensually agreed upon. Care Teams Brake Coupler Dinkey Relationship Specialty Start Date End Date Mauro Alfredo MD [address] [place] [address] PCP - General Family Medicine 02/18/22 documented as of this encounter
--- OUTSIDE RECORDS SUMMARY | 2024-05-04 17:12 | External Medical Summary | Summary of Care ---
Author Name Unknown Organization [facility] Address [address] [place] [address] Phone [phone] Care Team Providers Care Plier Worker Name Role Phone Mauro Alfredo MD Primary Care P rovider Reason for Visit * Reason Comments Nail problem trim Encounter Details Date Type Department Care Team ([facility] Contact Info) Description 12/09/2023 10:45 AM EST Office Visit Podiatry [address] [place] [address] Bon Fontaine, DPM [address] [place] [address] PVD (peripheral vascular disease) ([facility])*; Onychomycosis; Corns and callosities; Pre-ulcerative calluses; Charcot Megan Tooth muscular atrophy Allergies Active Allergy Reactions Criticality Noted Date Comments Cefazolin Rash 09/30/2018 Vancomycin Rash 10/25/[address] Samuel Garcia @ [facility], discontinued this due to rash. documented as of this encounter (statuses as of 12/09/2023) Medications Medication Sig Dispensed Refills Start Date End Date Status Acetaminophen 325 MG Oral Tablet Take 1 Tablet by mouth every 6 hours as needed for Pain. 0 Active Aspirin 81 MG Oral Tablet Chewable [...] the morning. 90 Tablet 3 03/03/2023 Active Pantoprazole Sodium 40 MG Oral Tablet Delayed Release (Protonix)Indications :Gastroesophageal reflux disease without esophagitis Take 1 Tablet by mouth in the morning. 90 Tablet 1 03/03/2023 Active Alendronate Sodium 70 MG Oral Tablet (Fosamax)Indications: Age-related osteoporosis without current pathological fracture Take 1 Tablet by mouth once a week. 12 Tablet 3 03/03/2023 Active documented as of this encounter (statuses as of 12/09/2023) Active Problems Problem Noted Date Diagnosed Date [...] pacemaker 09/08/2018 Coronary artery disease invo lving [place] heart without angina pectoris 11/14/2017 Heart failure, diastolic, chronic 06/26/2016 Overview: Will transition from IV lasix to home lasix 40 mg daily now that she is no longer in a flutter. 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 Srkvaah-Ccnrs-Fnnju disease 06/21/2016 Primary osteoarthritis involving multiple joints [...] as of this encounter (statuses as of 12/09/2023) Resolved Problems Problem Noted Date Diagnosed Date [...] Overview: Moderate, from ADHF Generalized weakness 06/27/2016 09/26/2 016 HTN (hypertension) 06/26/2016 9 Overview: Metoprolol [...] as of this encounter (statuses as of 12/09/2023) Immunizations Name Administration Dates Next Due COVID-19 mRNA, LNP-s, No Pre serve, 2-Dose Series ([employer]) 09/01/2021,01/21/2021,12/31/2020 COVID-19, LNP-s, No Preserve , Isra-sucrose, [...] Refused),08/21/2007 TDAP (age 10 and older)(Boostrix) 07/08/2022 TDAP (age 11 and older)(Adacel) 04/10/20 10,12/18/2009(Deferred: Patient Refused - insurance issues) documented as [...] Progress Notes * Bon Fontaine, ANIRUDH - 12/09/2023 10:23 AM EST Subjective: Patient presents in office today for [...] BONE performed by Alton Davila MD at [facility] BONE DEBRIDEMENT, FIRST 20 CM2 Left 10/01/2018 DEBRIDEMENT SKIN SUBCUTANEOUS TISSUE MUSCLE AND BONE performed by Ari Moscoso Jr., MD at [facility] COLONOSCOPY, DIAGNOSTIC (RECTUM) 05/19/2012 COLONOSCOPY FLEXIBLE PROXIMAL DIAGNOSTIC performed by Kush Butterfield MD at ENDOSCOPY [facility] CORONARY ANGIOGRAPHY W/RIGHT+LEFT CATH 04/12/2016 CORONARY ANGIOGRAPHY W/RIGHT+LEFT CATH performed by Melania Carmen MD at [facility] FLUORO MISCELLANEOUS N/A 10/28/2017 FLUOROSCOPY EXAM MISC performed by Sherri Zayas IV, MD at CARDIAC [facility] HEART ELECTROCONVERSION, EXTERNAL 07/02/2016 DC CARDIOVERSION performed by Naveed Martinez MD at [facility] INFORMATION 1993 MMK with NEGRO in 1993 INSERT/REPLACE PACEMAKER,ATRIAL/VENTRICULAR 09/18/2018 NEW DDD PACEMAKER IMPLANT performed by Naveed Martinez MD at CARDIAC [facility] INSERT/REPLACE PACEMAKER,ATRIAL/VENTRICULAR Right 09/25/2018 NEW DDD PACEMAKER IMPLANT performed by Naveed Martinez MD at CARDIAC [facility] LAPAROSCOPY; CHOLECYSTECTOMY 06/22/2013 06/22/2013 at [facility], laparoscopic cholecystectomy Dr. Up with school office assistant Bon Jacobsen PA-C PERC CLOSURE TRANSCATH LEFT ATRIAL APPENDAGE W/ENDOCARDIAL IMPLANT Bilateral 10/27/2017 PERCUTANEOUS CLOSURE LEFT ATRIAL APPENDAGE IMPLANT performed by Sherri Zayas IV, MD at [facility] REMOVE PACEMAKER ELECTRODE, DUAL N/A 09/12/2018 2 OR MORE LEAD EXTRACTION performed by Naveed Martinez MD at [facility] REMOVE PACEMAKER ELECTRODE, DUAL N/A 09/12/2018 2 OR MORE LEAD EXTRACTION performed by Shashi Ulloa MD at [facility] REMOVE TONSILS & ADENOIDS, UNDER 12 T & A, age<12 REMOVE VERTEBRAL BODY, LOW BACK 1995 REPLACE MITRAL VALVE W/BYPASS 06/10/2016 REPLACEMENT MITRAL VALVE performed by Rodney Davis MD at [facility] REPLACEMENT AORTIC VALVE, BYPASS WITH PROSTHETIC VALVE N/A 06/10/2016 REPLACEMENT AORTIC VALVE performed by Rodney Davis MD at [facility] RIGHT HEART CATH W/ O2 SAT AND CO Right 07/01/2016 RIGHT HEART CATH W/ O2 SAT AND CO performed by Emir Carrizales MD at [facility] SHOULDER ARTHROSCOPY, DX Right 09/09/2018 ARTHROSCOPY SHOULDER DIAGNOSTIC performed by Alton Davila MD at OR [facility] TOTAL HYSTERECTOMY 1993 Dr. Gann UMBIL HERNIA REPAIR (REDUCIBLE) AGE 5+YR 06/22/2013 06/22/2013 at [facility], repair of umbilical hernia Dr. 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 Ari from [place] age 64 Social Determinants of Health Financial [...] every 6 hours as needed for Pain. Aspirin 81 MG Oral Tablet Chewable Take 1 Tablet by mouth in the morning. 34 Tablet 11 amLODIPine Besylate 5 MG Oral Tablet (Norvasc) Take 1 Tablet by mouth in the morning. 90 Tablet 3 D 1000 25 MCG (1000 UT) Oral Capsule (Cholecalciferol) Take 1 Capsule by mouth in the morning. 90 Capsule 3 Furosemide 40 MG Oral Tablet (Lasix) Take 2 Tablets by mouth in the morning. 180 Tablet 3 Metoprolol Tartrate 50 MG Oral Tablet (Lopressor) Take 1 Tablet by mouth in the morning and 1 Tablet before bedtime. 180 Tablet 3 Valsartan 80 MG Oral Tablet (Diovan) Take 1 Tablet by mouth in the morning. 90 Tablet 3 Pantoprazole Sodium 40 MG Oral Tablet Delayed Release (Protonix) Take 1 Tablet by mouth in the morning. 90 Tablet 1 Alendronate Sodium 70 MG Oral Tablet (Fosamax) Take 1 Tablet by mouth once a week. 12 Tablet 3 No current facility-administered medications for [...] encounter diagnosis was PVD (peripheral vascular disease) ([facility]). Diagnoses of Onychomycosis, Corns and callosities, Pre-ulcerative calluses, and Charcot Megan Tooth muscular atrophy were also pertinent to this visit. Plan: 1. Debridement of multiple mycotic nails x 10 2. Debridement of thick calluses sub met 5 bilateral documented in this encounter Nursing Notes * Kay Joe LPN - 12/09/2023 10:11 AM EST Trim nails documented in this encounter Plan of Treatment Upcoming Encounters Date Type Department Care Team (Late st Contact Info) Description 12/12/2023 9:00 AM EDT Cardiac Studies Cardiac Studies [facility] [place] [address] [place] [address] [place], Ekg [address] [place] [address] 03/01/2024 9:00 AM EDT Laboratory Laboratory [facility], [address] [phone] [address] 03/05/2024 11:00 AM EDT Office Visit Family [address] [phone] Mauro Alfredo MD [address] [place] [address] 03/12/2024 9:00 AM EDT Cardiac Studies Cardiac Studies [facility], [place] [address] [place], [place] [phone] [place], Ekg [address] [place], [place] [phone] 03/16/2024 10:45 AM EDT Office Visit Podiatry [address] [place] [phone] Bon Fontaine, DPXavier [address] [place] [address] 04/16/2024 11:00 AM EDT Appointment Radiology, [facility] [address] [place] [address] 05/29/2024 11:30 AM EDT Office Visit Cardiology [address] [place] [phone] Scotty Parks CRNP [address] [place], [place] [phone] Scheduled Orders Name Type Priority Associated Diagnoses Orde r Schedule DEBRIDEMENT OF NAILS 6 OR MORE Procedures Routine PVD (peripheral vascular disease) ([facility]) Onychomycosis Ordered: 12/09/2023 PARING/CUT BENIGN HYPERKERATOTIC LESION, 2-4 Procedures Routine PVD (peripheral vascular disease) ([facility]) Corns and callosities Pre-ulcerative calluses Ordered: 12/09/2023 Health Maintenance Due Date Last Done Comments Zoster Vaccines (1 of 2) 1997 COVID-19 Vaccine (2022- season) 2023 02/26/2022, 09/01/2021, 01/21/2021, Additional history exists GFR 11/16/2023 05/16/2023, 02/01, 05/31/2022, Additional history exists Albumin/Creatinine Ratio 02/25/2024 02/24/2023, 01/31 CKD HGB USE SMARTSET 84210 02/25/202402/24, 02/24/2023, 02/18/2022, Additional history exists Depression Screening 03/03/2024 03/03/2023 DXA Scan 04/19/2024 04/19/2022, 08/03, 06/11/2014, Additional history exists CKD PHOS USE SMARTSET 15100 05/16/202405/03, 05/31/2022, 05/06/2022, Additional history exists DTaP,Tdap,and Td Vaccines (3 - Td or Tdap) 07/08/2032 07/08/2022, 04/10/2010 Colonoscopy Discontinued 05/19/2012, 05/19/2012 Colorectal Cancer Screening Discontinued Pneumococcal Vaccine: 65+ Years Completed 11/14/2017, 05/31/2013, 07/30/2005 VITAMIN D LEVEL ONCE IN A LIFETIME-USE SMARTSET# 84330 Completed 05/16/2023, 02/24/2023, 05/31/2022, Additional history exists [...] this encounter Medical Devices Implanted Type Area Preschool Teacher Device Identifier Shelf Expiration Date Model / Serial / Lot Valve Aor Allan Ii 23mm T505 - [id number] Implanted:Qty : 1 on 06/10/2016 by Rodney Davis MD at [place] [facility] Tissue - Non Human N/A: Heart [employer] : CARDIAC SURGERY 05/12/2018 23-T505 / [id number] / Sut Steel 6 M654g - [id number] Implanted:Qty : 4 on 06/10/2016 by Rodney Davis MD at OR [facility] JNJ : [employer] 03/02/2021 M654G / / [id number] Ring Mitral 26mm [id number] - [id number] Implanted:Qty : 1 on 06/10/2016 by Rodney Davis MD at OR [facility] N/A: Heart HEARD REAVES 01/27/2021 [id number] / [id number] / documented as of this encounter Visit Diagnoses Diagnosis PVD (peripheral vascular disease) ([facility])- Primary Peripheral vascular disease, unspecified Onychomycosis Dermatophytosis of nail Corns and callosities Pre-ulcerative calluses Corns and callosities 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 Question Answer Comments Discussion of Advance Directives occurred with: Patient Code Status History Code Status Date Activated Date Inactivated Comments Full Code 06/26/2016 3:02 PM 07/03/2016 8:28 PM This order reflects the patients wishes and were consensually agreed upon. Question Answer Comments Discussion of Advance Directives occurred with: Patient Full Code 06/10/2016 2:44 PM 06/18/2016 8:02 PM This o rder reflects the patients wishes and were consensually agreed upon. Care Teams Plier Worker Relationship Specialty Start Date End Date Mauro Alfredo MD [address] [place] [address] PCP - General Family Medicine 02/18/22 documented as of this encounter
--- OUTSIDE RECORDS SUMMARY | 2024-05-04 17:12 | External Medical Summary ---
Author Name Unknown Address Unknown Organization [id number]:[facility] [place] - [address] [place] [address] Laboratory Report Ordering Provider Test Date Status JOSEFINA MCCLOUD 03/01/2024 09:16:30 Final Observation Date Value Abnormality Reference (Units ) Status Parathyrin.intact [Mass/volume] in Serum or Plasma 03/01/2024 09:16:30 111 Above high normal 15-65 (pg/mL) Final Performing Location [facility] [place] - [address] [place] [address]
--- OUTSIDE RECORDS SUMMARY | 2024-05-04 17:12 | External Medical Summary ---
Author Name Unknown Address Unknown Organization [id number]:[facility] [place] - [facility] [address] [facility] [address] Laboratory Report Ordering Provider Test Date Status JOSEFINA MCCLOUD 03/01/2024 11:47:40 Final Normal: <30 mg/g creatinine< br/>High: 30-300 mg/g creatinine
Very High: >300 mg/g creatinine
Nephrotic: >2200 mg/g creatinine Observation Date Value Abnormality Reference (Units ) Status Albumin, Urine 03/01/2024 11:47:40 5.48 (mg/dL) Final Creatinine, Urine 03/01/2024 11:47:40 157 (mg/dL) Final Albumin/Creatinine [Mass Ratio] in Urine 03/01/2024 11:47:40 35 Above high normal <30 (mg/g Creat) Final Performing Location [facility] [place] - [address] [facility] [address]
--- OUTSIDE RECORDS SUMMARY | 2024-05-04 17:12 | External Medical Summary | Summary of Care ---
Author Name Unknown Organization [facility] Address [address] [place] [address] Phone [phone] Care Team Providers Care Nut Packer Name Role Phone Mauro Alfredo MD Primary Care P rovider Reason for Visit * Reason Comments Cardiology Study Encounter Details Date Type Department Care Team (Latest Contact Info) Description 12/22/2023 9:00 AM EDT Cardiac Studies Cardiac Studies [facility] [address] [place], [place] [phone] [place], [facility] [address] [place], [place] [phone] Cardiac pacemaker in situ* Allergies Active Allergy Reactions Criticality Noted Date Comments Cefazolin Rash 09/30/2018 Vancomycin Rash 10/25/[address] Samuel Garcia [place] [facility], discontinued this due to rash. documented as of this encounter (statuses as of 12/22/2023) Medications Medication Sig Dispensed Refills Start Date [...] as of this encounter (statuses as of 12/22/2023) Active Problems Problem Noted Date Diagnosed Date [...] pacemaker 09/08/2018 Coronary artery disease invo lving picayune heart without angina pectoris 11/14/2017 Heart failure, diastolic, chronic 06/26/2016 Overview: Will transition from IV lasix to home lasix 40 mg daily now that she is no longer in a flutter. 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 20mg daily Rjvlnnx-Kmjet-Chrek disease 06/21/2016 Primary osteoarthritis involving multiple joints [...] as of this encounter (statuses as of 12/22/2023) Resolved Problems Problem Noted Date Diagnosed Date [...] q8h on discharge Junctional rhythm 06/21/2016 06/28/2016 jail resident 06/21/20162018 Aortic valve stenosis 04/20/20162015 Mitral valve regurgitation 04/20/2016 0 06/26/2016 ADVANCE DIRECTIVE INFORMATION 03/06/2010 06/26/2016 Overview: Pt has a booklet at home, Generalized osteoarthritis 02/16/2008 0 02/18/2022 Polyneuropathy in other dise ases classified elsewhere 04/08/2004 08/11/2021 documented as of this encounter (statuses as of 12/22/2023) Immunizations Name Administration Dates Next Due COVID-19 mRNA, LNP-s, No Pre serve, 2-Dose Series ([employer]ole[employer]) 09/01/2021,01/21/2021,12/31/2020 COVID-19, LNP-s, No Preserve , Isra-sucrose, [...] Upcoming Encounters Date Type Department Care Team ([facility] Contact Info) Description 03/01/2024 9:00 AM EDT Laboratory Laboratory Patient Service [address] [phone] [address] [address] 03/05/2024 11:00 AM EDT Office Visit [address] [phone] Mauro Alfredo MD [address] [place] [address] 03/12/2024 9:00 AM EDT Cardiac Studies [facility] Studies [facility] [place] [address] [place] [address] [place] [address] [place], [place] [phone] 03/16/2024 10:45 AM EDT Office Visit Podiatry [address] [place] [address] Bon Fontaine, ANIRUDH [address] [place] [address] 04/16/2024 11:00 AM EDT Appointment Radiology, [place] [id number] [place], [place] [phone] 05/29/2024 11:30 AM EDT Office Visit Cardiology [address] [place] [address] Scotty Parks CRNP [address] [place] [address] Health Maintenance Due Date Last Done Comments Zoster Vaccines (1 of 2) 1997 COVID-19 Vaccine (2022- season) 2023 02/26/2022, 09/01/2021, 01/21/2021, Additional history exists GFR 11/16/2023 05/16/2023, 02/01, 05/31/2022, Additional history exists Albumin/Creatinine Ratio 02/25/2024 02/24/2023, 01/31 CKD HGB USE SMARTSET 48508 02/25/202402/24, 02/24/2023, 02/18/2022, Additional history exists Depression Screening 03/03/2024 03/03/2023 DXA Scan 04/19/2024 04/19/2022, 08/03, 06/11/2014, Additional history exists CKD PHOS USE SMARTSET 72763 05/16/202405/03, 05/31/2022, 05/06/2022, Additional history exists DTaP,Tdap,and Td Vaccines (3 - Td or Tdap) 07/08/2032 07/08/2022, 04/10/2010 Colonoscopy Discontinued 05/19/2012, 05/19/2012 Colorectal Cancer Screening Discontinued Pneumococcal Vaccine: 65+ Years Completed 11/14/2017, 05/31/2013, 07/30/2005 VITAMIN D LEVEL ONCE IN A LIFETIME-USE SMARTSET# [id number] Completed 05/16/2023, 02/24/2023, 05/31/2022, Additional history exists [...] this encounter Medical Devices Implanted Type Area Paper Control Clerk Device Identifier Shelf Expiration Date Model / Serial / Lot Valve Aor Allan Ii 23mm T505 - [id number] Implanted:Qty : 1 on 06/10/2016 by Rodney Davis MD [place] [facility] [place] - Non Human N/A: Heart [employer] : CARDIAC SURGERY 05/12/2018 23-T505 / [id number] / Sut Steel 6 M654g - [id number] Implanted:Qty : 4 on 06/10/2016 by Rodney Davis MD at [place] [facility] [place] JNJ : [employer] 03/02/2021 [id number] / / [id number] Ring Mitral 26mm [id number] - [id number] Implanted:Qty : 1 on 06/10/2016 by Rodney Davis MD at [place] [facility] [place] N/A: Heart HEARD REAVES 01/27/2021 5200-26 / [id number] / documented as of this encounter Visit Diagnoses Diagnosis Cardiac pacemaker in situ- Primary documented in this encounter Advance Directives Latest [...] and were consensually agreed upon. Care Teams Nut Packer Relationship Specialty Start Date End Date Mauro Alfredo MD [address] [place] [phone] PCP - General Family Medicine 02/18/22 documented as of this encounter
--- OUTSIDE RECORDS SUMMARY | 2024-05-04 17:12 | External Medical Summary | Summary of Care ---
Author Name Unknown Organization [facility] Address [address] [place] [address] Phone [phone] Care Team Providers Care Nuclear Plant Instrument Technician Name Role Phone Mauro Lara MD Primary Care P rovider Reason for Visit * Reason Comments eRx-Medication Refill Encounter Details Date Type Department Care Team ([facility] Contact Info) Description 01/02/2024 Refill Family [address] [phone] Mauro Lara MD [address] [place] [phone] Gastroesophageal reflux disease without esophagitis Allergies Active Allergy Reactions Criticality Noted Date Comments Cefazolin Rash 09/30/2018 Vancomycin Rash 10/25/[address] Samuel Garcia @ [facility] [place] [facility], discontinued this due to rash. 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 90 Tablet 3 03/03/2023 Active Alendronate Sodium 70 MG Oral Tablet (Fosamax)Indicatio ns:Age-related osteoporosis without current pathological fracture Take 1 Tablet by mouth once a week. 12 Tablet 3 03/03/2023 Active Pantoprazole Sodium 40 MG Oral Tablet Delayed Release (Protonix)Indicati ons:Gastroesophage al reflux disease without esophagitis TAKE 1 TABLET BY MOUTH EVERY DAY IN THE MORNING 90 Tablet 2 01/03/2024 Active Pantoprazole Sodium 40 MG Oral Tablet Delayed Release (Protonix)Indicati ons:Gastroesophage al reflux disease without esophagitis Take 1 Tablet by mouth in the morning. 90 Tablet 1 03/03/2023 4 Discontinued documented as of this encounter (statuses as of 01/03/2024) Active Problems Problem Noted Date Diagnosed Date [...] pacemaker 09/08/2018 Coronary artery disease invo lving [place] heart without angina pectoris 11/14/2017 Heart failure, diastolic, chronic 06/26/2016 Overview: Will transition from IV lasix to home lasix 40 mg daily now that she is no longer in a flutter. 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 Xoqkyvj-Dnsea-Imczi disease 06/21/2016 Primary osteoarthritis involving multiple joints [...] as of this encounter (statuses as of 01/03/2024) Resolved Problems Problem Noted Date Diagnosed Date [...] q8h on discharge Junctional rhythm 06/21/2016 06/28/2016 care home resident 06/21/20162018 Aortic valve stenosis 04/20/20162015 Mitral valve regurgitation 04/20/2016 0 06/26/2016 ADVANCE DIRECTIVE INFORMATION 03/06/2010 06/26/2016 Overview: Pt has a booklet at home, Generalized osteoarthritis 02/16/2008 0 02/18/2022 Polyneuropathy in other dise ases classified elsewhere 04/08/2004 08/11/2021 documented as of this encounter (statuses as of 01/03/2024) Immunizations Name Administration Dates Next Due COVID-19 mRNA, LNP-s, No Pre serve, 2-Dose Series ([employer]) 09/01/2021,01/21/2021,12/31/2020 COVID-19, LNP-s, No Preserve , Isra-sucrose, Ages 12+ ([employer]) 02/26/2022 Pneumococcal Conjugate Vacc, 13 Valent (Prevnar) [...] No 09/22/2018 documented as of this encounter Miscellaneous Notes * Telephone Encounter - Brittany Antonio RPh - 01/03/2024 10:07 AM EDTSigned Prescriptions: Disp Refills Pantoprazole Sodium 40 MG Oral Tablet Gilda*90 Tab*2 Sig: TAKE 1 TABLET BY MOUTH EVERY DAY IN THE MORNINGAuthorizing Provider: MAURO LARA ORTimmyingUser: BRITTANY ANTONIO documented in this encounter Plan of Treatment Upcoming Encounters Date Type Department Care Team ([facility] st Contact Info) Description 03/01/2024 9:00 AM EDT Laboratory Laboratory [facility], [address] [phone] [address] 03/05/2024 11:00 AM EDT Office Visit [address] [phone] Mauro Lara MD [address] [place] [address] 03/12/2024 9:00 AM EDT Cardiac Studies Card[facility] Studies [facility] [place] [address] [place], [place] [phone] [place] [address] [place], [place] [phone] 03/16/2024 10:45 AM EDT Office Visit Podiatry [address] [place] [phone] Bon Fontaine, ANIRUDH [address] [place] [address] 04/16/2024 11:00 AM EDT Appointment Radiology, [facility] [address] [place] [address] 05/29/2024 11:30 AM EDT Office Visit Cardiology [address] [place] [phone] Scotty Parks CRNP [address] [place] [address] Health Maintenance Due Date Last Done Comments Zoster Vaccines (1 of 2) 1997 COVID-19 Vaccine (2022- season) 2023 02/26/2022, 09/01/2021, 01/21/2021, Additional history exists GFR 11/16/2023 05/16/2023, 02/01, 05/31/2022, Additional history exists Albumin/Creatinine Ratio 02/25/2024 02/24/2023, 01/31 CKD HGB USE SMARTSET 92823 02/25/202402/24, 02/24/2023, 02/18/2022, Additional history exists Depression Screening 03/03/2024 03/03/2023 DXA Scan 04/19/2024 04/19/2022, 08/03, 06/11/2014, Additional history exists CKD PHOS USE SMARTSET 91878 05/16/202405/03, 05/31/2022, 05/06/2022, Additional history exists DTaP,Tdap,and Td Vaccines (3 - Td or Tdap) 07/08/2032 07/08/2022, 04/10/2010 Colonoscopy Discontinued 05/19/2012, 05/19/2012 Colorectal Cancer Screening Discontinued Pneumococcal Vaccine: 65+ Years Completed 11/14/2017, 05/31/2013, 07/30/2005 VITAMIN D LEVEL ONCE IN A LIFETIME-USE SMARTSET# [id number] Completed 05/16/2023, 02/24/2023, 05/31/2022, Additional history exists [...] this encounter Medical Devices Implanted Type Area Entertainment & Media Correspondent Device Identifier Shelf Expiration Date Model / Serial / Lot Valve Aor Allan Ii 23mm T505 - [id number] Implanted:Qty : 1 on 06/10/2016 by Rodney Davis MD [place] [facility] [place] - Non Human N/A: Heart [employer] : CARDIAC SURGERY 05/12/2018 23-T505 / [id number] / Sut Steel 6 M654g - [id number] Implanted:Qty : 4 on 06/10/2016 by Rodney Davis MD at [place] [facility] [place] JNJ : [employer] 03/02/2021 M654G / / [id number] Ring Mitral 26mm [id number] - [id number] Implanted:Qty : 1 on 06/10/2016 by Rodney Davis MD at [place] [facility] [place] N/A: Heart HEARD REAVES 01/27/2021 5200-26 / [id number] / documented as of this encounter Visit Diagnoses Diagnosis Gastroesophageal reflux disease without esophagitis Esophageal reflux documented in this encounter Advance Directives Latest [...] and were consensually agreed upon. Care Teams Nuclear Plant Instrument Technician Relationship Specialty Start Date End Date Mauro Lara MD [address] [place] [phone] PCP - General Family Medicine 02/18/22 documented as of this encounter
--- OUTSIDE RECORDS SUMMARY | 2024-05-04 17:12 | External Medical Summary ---
Author Name Unknown Address Unknown Organization [id number]:LABORATORY [facility] [place] - [address] [facility] [address] Laboratory Report Ordering Provider Test Date Status JOSEFINA MCCLOUD 03/01/2024 09:16:30 Final Observation Date Value Abnormality Reference (Units ) Status SYNC LEUKOCYTES IN BLOOD BY AUTOMATED COUNT 03/01/2024 09:16:30 5.56 4.00-10.80 (K/uL) Final Segs 03/01/2024 09:16:30 59.1 40.0-75.0 (%) Final Lymphs % 03/01/2024 09:16:30 28.4 18.0-42.0 (%) Final Monos 03/01/2024 09:16:30 8.5 1.0-11.0 (%) Final Eosinophils 03/01/2024 09:16:30 2.7 0.0-6.0 (%) Final Basos 03/01/2024 09:16:30 1.1 0.0-2.0 (%) Final Immature Granulocyte, Percent 03/01/2024 09:16:30 0.2 0.0-2.0 (%) Final Absolute Segs 03/01/2024 09:16:30 3.29 1.80-7.70 (K/uL) Final Lymphs, absolute 03/01/2024 09:16:30 1.58 1.00-4.80 (K/ul) Final Monos, Abs 03/01/2024 09:16:30 0.47 0.00-1.10 (K/uL) Final Eos, Abs 03/01/2024 09:16:30 0.15 0.00-0.70 (K/uL) Final Basos, Abs 03/01/2024 09:16:30 0.06 0.00-0.20 (K/uL) Final Immature Granulocytes, Number 03/01/2024 09:16:30 0.01 0.00-0.20 (K/uL) Final Performing Location LABORATORY [facility] [place] - [address] [facility] [address]
--- OUTSIDE RECORDS SUMMARY | 2024-05-04 17:12 | External Medical Summary ---
Author Name Unknown Address Unknown Organization [id number][place] [facility] [place] [address] [address] Laboratory Report Ordering Provider Test Date Status JOSEFINA MCCLOUD 03/01/2024 09:16:30 Final Deficient: <20 ng/mL
Ins ufficient: 20-29 ng/mL
Recommended/Optimum:30-50 ng/mL

Vitamin D intoxication is rare. If suspicious of Vitamin D toxicity, evaluation of serum Calcium and PTH is recommended. Observation Date Value Abnormality Reference (Units ) Status 25-OH Vitamin D total 03/01/2024 09:16:30 28 >19 (ng/mL) Final Performing Location [facility] [place] [address] [place] [address]
--- OUTSIDE RECORDS SUMMARY | 2024-05-04 17:12 | External Medical Summary ---
Author Name Unknown Address Unknown Organization [id number]:LABORATORY [facility] [place] - [address] [facility] [place] [address] Laboratory Report Ordering Provider Test Date Status JOSEFINA MCCLOUD 03/01/2024 09:16:30 Final Observation Date Value Abnormality Reference (Units ) Status WBC, Total 03/01/2024 09:16:30 5.56 4.00-10.8 0 (K/uL) Final RBC 03/01/2024 09:16:30 4.46 3.85-5.15 (M/uL) Final Hemoglobin 03/01/2024 09:16:30 12.3 12.0-15.3 (g/dL) Final Anemia reflex testing trigge rs on a HGB < 12.0 for Females and HGB < 13.0 for Males in accordance with the WHO Anemia Guidelines
Anemia reflex testing triggers on a HGB < 12.0 for Females and HGB < 13.0 for Males in accordance with the WHO Anemia Guidelines HCT 03/01/2024 09:16:30 38.3 36.0-45.2 (%) Final MCV 03/01/2024 09:16:30 85.9 81.5-97.5 (fL) Final MCH 03/01/2024 09:16:30 27.6 27.0-34.0 (pg) Final MCHC 03/01/2024 09:16:30 32.1 32.0-36.0 (g/dL) Final RDW 03/01/2024 09:16:30 13.3 11.5-15.5 (%) Final Platelets 03/01/2024 09:16:30 213 140-400 (K /uL) Final MPV 03/01/2024 09:16:30 9.5 6.6-11.1 ( fL) Final Nucleated erythrocytes/100 leukocytes [Ratio] in Blood by Automated count 03/01/2024 09:16:30 0 <=0 (/100 WBCs) Fi [facility] Performing Location LABORATORY [facility] - [address] [facility] [address]
--- OUTSIDE RECORDS SUMMARY | 2024-05-04 17:12 | External Medical Summary ---
Author Name Unknown Address Unknown Organization K01:[place] [place] 100 [place] [address] Laboratory Report Ordering Provider Test Date Status JOSEFINA MCCLOUD 03/01/2024 09:16:30 Final Observation Date Value Abnormality Reference (Units ) Status BUN 03/01/2024 09:16:30 17 6-20 (mg/dL) Final Creatinine 03/01/2024 09:16:30 0.7 0.5-1.0 (mg/dL) Final Glomerular filtration rate/1.73 sq M.predicted [Volume Rate/Area] in Serum, Plasma or Blood by Creatinine-based formula (CKD-EPI) 03/01/2024 09:16:30 >90 >=60 (mL/min) Final eGFR is calculated based on the CKD-EPI 2020 equation Sodium 03/01/2024 09:16:30 140 135-146 (m mol/L) Final Potassium 03/01/2024 09:16:30 4.3 3.5-5.1 (m mol/L) Final Cl 03/01/2024 09:16:30 105 98-107 (mm ol/L) Final CO2 03/01/2024 09:16:30 25 22-32 (mmo l/L) Final Anion gap 03/01/2024 09:16:30 10 7-15 (mmol /L) Final Glucose 03/01/2024 09:16:30 91 70-120 (mg /dL) Final Albumin 03/01/2024 09:16:30 4.4 3.8-5.0 (g /dL) Final AST (Aspartate aminotransferase) 03/01/2024 09:16:30 24 10-35 (U/L) Final Alk Phos 03/01/2024 09:16:30 53 35-130 (U/ L) Final Bilirubin, Total 03/01/2024 09:16:30 0.5 <=1 .2 (mg/dL) Final Calcium 03/01/2024 09:16:30 9.4 8.4-10.2 ( mg/dL) Final Protein 03/01/2024 09:16:30 6.6 6.0-8.3 (g /dL) Final ALT (Alanine aminotransferase) 03/01/2024 09:16:30 15 10-35 (U/L) Final Performing Location [facility] [place] [address] [facility] [address]
--- OUTSIDE RECORDS SUMMARY | 2024-05-04 17:12 | External Medical Summary ---
Author Name Unknown Address Unknown Organization K01:[facility] [place] [address] [facility] [place] [address] Laboratory Report Ordering Provider Test Date Status JOSEFINA MCCLOUD 03/01/2024 09:16:30 Final Observation Date Value Abnormality Reference (Units ) Status Triglyceride 03/01/2024 09:16:30 56 <=174 ( mg/dL) Final Triglyceride Reference Range s (mg/dL):
<150 Acceptable
150-174 Borderline high
175-499 High
>=500 Very high Cholesterol 03/01/2024 09:16:30 214 Above high normal <200 (mg/dL) Final Total Cholesterol Reference Ranges (mg/dL):
<200 Desirable
200-239 Borderline high
>=240 High HDL 03/01/2024 09:16:30 67 >49 (mg/dL ) Final HDL Cholesterol Reference Ra nges (mg/dL):
>=60 High (Desirable)
<50 Low (Undesirable) For Females
<40 Low (Undesirable) For Males NON-HDL CHOLESTEROL 03/01/2024 09:16:30 147 <=159 (mg/dL) Final Non-HDL Cholesterol Referenc e Range (mg/dL):
<100 Target level for high risk ASCVD patient
<130 Optimal for general population
130-159 Near optimal for general population
160-189 Borderline High
190-219 High
>=220 Very High LDL, (calculated) 03/01/2024 09:16:30 136 Above high n ormal <=129 (mg/dL) Final LDL Cholesterol Reference Ra nges (mg/dL):
<70 Target level for high risk ASCVD patient
<100 Optimal for general population
100-129 Near optimal for general population
130-159 Borderline high
160-189 High
>=190 Very high Performing Location LABOR[facility]ORY [facility] [place] - [address] [facility] [address]
[2024-05-04] MEDS ORDERED: LEVALBUTEROL 1.25 MG/3 ML NEB NEB PRN (17:59)
[2024-05-04] MEDS ORDERED: POLYETHYLENE (MIRALAX) 17 GM PACK PO PRN (17:59)
[2024-05-04] MEDS ORDERED: ONDANSETRON INJ 2 MG/ML 2 ML VIAL IV PRN (17:59)
[2024-05-04] MEDS: ENOXAPARIN INJ 40 MG/0.4 ML SYR SQ SCH (18:50)
[2024-05-04] MEDS: FLUTICASONE PROPIONATE NA SPR 16 GM BTL SCH (18:50)
[2024-05-04] MEDS: guaiFENesin 600 MG TABCR PO SCH (20:01)
[2024-05-04] MEDS: SIMVASTATIN 20 MG TAB PO SCH (20:01)
[2024-05-04] MEDS: METOPROLOL TARTRATE 50 MG TAB PO SCH (20:02)
[2024-05-04] MEDS: COUGH DROP (SUGAR FREE) LOZ 24 LOZ/1 BOX BUCCAL PRN (21:18)
--- NOTE | 2024-05-04 22:29 | Electrocardiogram Report ---
Test Reason : Blood Pressure : / mmHG Vent. Rate : 065 BPM Atrial Rate : 065 BPM P-R Int : 320 ms QRS Dur : 154 ms QT Int : 442 ms P-R-T Axes : 000 052 190 degrees QTc Int : 459 ms Atrial-paced rhythm with prolonged AV conduction Left bundle branch block Abnormal ECG When compared with ECG of 25-MAR-2023 16:19, No significant change was found Confirmed by Ran Rucker ([id number]) on 05/04/2024 10:28:59 PM Referred By: Confirmed By:Ran Rucker
[2024-05-05 07:41] LABS: Hematocrit (blood only) 32.9 % (37.0-47.0); Hemoglobin 10.8 g/dl (12.0-16.0); Mean Corpuscular Hemoglobin 27.5 pg (25.0-34.0); Mean Corpuscular Hgb Conc 32.8 g/dL (32.0-36.0); Mean Corpuscular Volume 83.7 fL (80.0-100.0); Mean Platelet Volume 9.1 fL (9.4-12.4); Platelet Count 132 K/uL (130-400); RDW Coefficient of Variation 13.8 % (11.5-14.5); RDW Standard Deviation 42.7 fL (36.4-46.3); Red Blood Count 3.93 M/uL (4.20-5.40); White Blood Count 4.91 K/ul (4.8-10.8)
[2024-05-05 08:00] LABS: BUN Creatinine Ratio 27.9 (10-20); Calcium 8.7 mg/dl (8.6-10.3); Creatinine Clr Calc Pharmacy 68.6 ml/min; Est GFR (African American) 102.1 ml/min; Est GFR (Non-African American) 88.1 ml/min; Potassium 3.8 mmol/L (3.5-5.1)
--- NOTE | 2024-05-05 09:01 | Hospitalist Progress Note ---
Date of Service May 05, 2024 Assessment & Plan (1) COVID: (2) Ambulatory dysfunction: (3) SOB (shortness of breath): Plan: Patient is 78-year-old female with PMH Paroxysmal atrial fibrillation s/p Watchman procedure, HTN, history of mitral valve repair, history aortic valve bioprosthetic replacement, HFpEF, sick sinus syndrome s/p pacemaker, LBBB, GERD presented to ER with complaint of shortness of breath and cough sore throat nasal congestion x 3 days. Generalized weakness ambulatory dysfunction Afebrile, Not hypoxic in ER, no leukocytosis. Positive SARS-CoV-2 PCR CXR: Cardiomegaly CTA chest: No PE, stable mild cardiomegaly, chronic thrombus noted in left atrial appendage closure device this remains unchanged. No focal lung consolidations Soft tissue neck CT: No acute abnormality seen Troponin: 45--> 43-->41. C Flonase, Mucinex, throat drops for symptomatic relief Airborne isolation Supplemental oxygen prn neb if needed Incentive spirometry, flutter valve Fall precautions Suspect worsening ambulatory dysfunction secondary to underlying illness with COVID-19 PT/OT eval (4) Chronic heart failure with preserved ejection fraction (HFpEF): (5) S/P AVR (aortic valve replacement): (6) S/P MVR (mitral valve repair): Plan: Echo 05/06/2023: EF: 55-59%, normal LV wall motion, left atrium severely enlarged, presence of left atrial appendage watchman closure device, aortic valve prosthesis present with mild aortic valve prosthesis stenosis, moderate valvular aortic valve prosthesis regurgitation, evidence of prior mitral valve repair, mild mitral regurgitation, moderate-severe tricuspid regurgitation, pacemaker wire present in right ventricle, mild pulmonary regurgitation Appears euvolemic continue Lasix (7) HTN (hypertension): Plan: Continue amlodipine, metoprolol tartrate, valsartan (8) PAF (paroxysmal atrial fibrillation): Plan: S/p Watchman procedure Not on anticoagulation. Continue daily aspirin, metoprolol tartrate (9) SSS (sick sinus syndrome): Plan: S/p pacemaker Pacemaker interrogation (10) HLD (hyperlipidemia): Plan: Continue simvastatin DVT Prophylaxis Lovenox SQ Admit med/tele Full code Follows with Dr Lau for routine care Please note the above document was generated using voice recognition software. It may contain grammatical, syntax or spelling errors. Any formal questions or concerns about the content, text or information contained within the body of this dictation should be directly addressed to the provider for clarification Admission and Anticipated Discharge Date Admission Date: May 04, 2024 Subjective Patient seen and examined at bedside. Comfortable; not in distress. Denies fever, chills, chest pain, shortness of breath, abdominal pain or urinary symptoms. No significant overnight events Currently saturating on room air Review of Systems Review of Systems: All systems reviewed & are unremarkable except as noted in Subjective Physical Exam Physical Exam: General: no distress acute distress, non-toxic appearing, WDWN Head: normocephalic, atraumatic Eyes: conjunctiva non-injected, anicteric ENT: normal inspection external ears, nose, mucous membranes moist, pharynx without erythema or edema, uvula midline Neck: supple, trachea midline, non-tender Lungs: clear, no respiratory distress, no wheezing/rhonchi/rales CV: RRR, no pretibial edema Abd: normal BS, soft, non-tender Ext: no cyanosis, no calf tenderness Neuro: A&O x 3, no focal deficits noted, normal affect Skin: warm, dry Results & Data Results & Data Vital Signs (Past 12 Hours) Vital Signs Temp Pulse Pulse Resp BP BP Pulse Ox 05/05/24 07:59 37.0 C 64 18 146/72 H 92 05/05/24 03:40 37.1 C 60 18 133/61 97 05/04/24 23:21 37.0 C 64 18 127/71 98 05/04/24 21:58 05/04/24 21:52 60 O2 Del Method O2 Flow Rate 05/05/24 07:59 Room Air 05/05/24 03:40 Nasal Cannula 1 05/04/24 23:21 Nasal Cannula 1 05/04/24 21:58 Nasal Cannula 2 05/04/24 21:52
[2024-05-05] MEDS: amLODIPine BESYLATE 5 MG TAB PO SCH (09:52)
[2024-05-05] MEDS: ASPIRIN 81 MG CHEW PO SCH (09:52)
[2024-05-05] MEDS: CHOLECALCIFEROL 25 MCG (1000 UNITS) TAB PO SCH (09:52)
[2024-05-05] MEDS: VALSARTAN 80 MG TAB PO SCH (09:53)
[2024-05-05] MEDS: FUROSEMIDE 80 MG TAB PO SCH (09:53)
--- NOTE | 2024-05-05 10:47 | Electrocardiogram Report ---
Test Reason : Blood Pressure : / mmHG Vent. Rate : 060 BPM Atrial Rate : 053 BPM P-R Int : 000 ms QRS Dur : 154 ms QT Int : 480 ms P-R-T Axes : 000 060 195 degrees QTc Int : 480 ms Atrial-paced rhythm Left bundle branch block Abnormal ECG When compared with ECG of 04-MAY-2024 12:36, No significant change was found Confirmed by Flaco Yancey ([id number]) on 05/05/2024 10:46:46 AM Referred By: Mauro Lau Confirmed By:Pranav Yancey
[2024-05-06] MEDS: ACETAMINOPHEN 325 MG TAB PO PRN (02:28)
--- NOTE | 2024-05-06 08:51 | Hospitalist Progress Note ---
Date of Service May 06, 2024 Assessment & Plan (1) COVID: (2) Ambulatory dysfunction: (3) SOB (shortness of breath): Plan: Patient is 78-year-old female with PMH Paroxysmal atrial fibrillation s/p Watchman procedure, HTN, history of mitral valve repair, history aortic valve bioprosthetic replacement, HFpEF, sick sinus syndrome s/p pacemaker, LBBB, GERD presented to ER with complaint of shortness of breath and cough sore throat nasal congestion x 3 days. Generalized weakness ambulatory dysfunction Afebrile, Not hypoxic in ER, no leukocytosis. Positive SARS-CoV-2 PCR CXR: Cardiomegaly CTA chest: No PE, stable mild cardiomegaly, chronic thrombus noted in left atrial appendage closure device this remains unchanged. No focal lung consolidations Soft tissue neck CT: No acute abnormality seen Troponin: 45--> 43-->41. C Flonase, Mucinex, throat drops for symptomatic relief Airborne isolation Supplemental oxygen prn neb if needed Incentive spirometry, flutter valve Fall precautions Suspect worsening ambulatory dysfunction secondary to underlying illness with COVID-19 PT/OT eval (4) Chronic heart failure with preserved ejection fraction (HFpEF): (5) S/P AVR (aortic valve replacement): (6) S/P MVR (mitral valve repair): Plan: Echo 05/06/2023: EF: 55-59%, normal LV wall motion, left atrium severely enlarged, presence of left atrial appendage watchman closure device, aortic valve prosthesis present with mild aortic valve prosthesis stenosis, moderate valvular aortic valve prosthesis regurgitation, evidence of prior mitral valve repair, mild mitral regurgitation, moderate-severe tricuspid regurgitation, pacemaker wire present in right ventricle, mild pulmonary regurgitation Appears euvolemic continue Lasix (7) HTN (hypertension): Plan: Continue amlodipine, metoprolol tartrate, valsartan (8) PAF (paroxysmal atrial fibrillation): Plan: S/p Watchman procedure Not on anticoagulation. Continue daily aspirin, metoprolol tartrate (9) SSS (sick sinus syndrome): Plan: S/p pacemaker Pacemaker interrogation (10) HLD (hyperlipidemia): Plan: Continue simvastatin DVT Prophylaxis Lovenox SQ Admit med/tele. PT OT eval pending Full code Follows with Dr Lau for routine care Please note the above document was generated using voice recognition software. It may contain grammatical, syntax or spelling errors. Any formal questions or concerns about the content, text or information contained within the body of this dictation should be directly addressed to the provider for clarification Admission and Anticipated Discharge Date Admission Date: May 04, 2024 Subjective Patient seen and examined at bedside. No significant overnight events Currently saturating on room air Periods of paroxysmal A-fib; converted to paced rhythm after metoprolol dose. Reports left arm cramping since last evening. Denies any weakness/numbness of any body part Review of Systems Review of Systems: All systems reviewed & are unremarkable except as noted in Subjective Physical Exam Physical Exam: General: no distress acute distress, non-toxic appearing, WDWN Head: normocephalic, atraumatic Eyes: conjunctiva non-injected, anicteric ENT: normal inspection external ears, nose, mucous membranes moist, pharynx without erythema or edema, uvula midline Neck: supple, trachea midline, non-tender Lungs: clear, no respiratory distress, no wheezing/rhonchi/rales CV: RRR, no pretibial edema Abd: normal BS, soft, non-tender Ext: no cyanosis, no calf tenderness Neuro: A&O x 3, no focal deficits noted, normal affect Skin: warm, dry Results & Data Results & Data Vital Signs (Past 12 Hours) Vital Signs Temp Pulse Pulse Resp BP BP Pulse Ox 05/06/24 08:22 61 05/06/24 08:05 36.8 C 62 18 138/69 94 05/06/24 03:52 36.7 C 60 16 113/54 L 95 05/05/24 23:25 37.1 C 59 L 16 151/74 H 98 05/05/24 21:50 60 O2 Del Method 05/06/24 08:22 05/06/24 08:05 Room Air 05/06/24 03:52 Room Air 05/05/24 23:25 Room Air 05/05/24 21:50
--- NOTE | 2024-05-06 09:45 | Electrocardiogram Report ---
Test Reason : Blood Pressure : / mmHG Vent. Rate : 061 BPM Atrial Rate : 063 BPM P-R Int : 000 ms QRS Dur : 164 ms QT Int : 460 ms P-R-T Axes : 000 052 212 degrees QTc Int : 463 ms A-paced V-sensed rhythm Left bundle branch block Abnormal ECG Confirmed by Flaco Yancey ([id number]) on 05/06/2024 9:45:23 AM Referred By: Mauro Lau Confirmed By:Pranav Yancey
[2024-05-06] MEDS: MAGNESIUM SULFATE / D5W 1 GM/100 ML BAG IV SCH (10:59)
[2024-05-06] MEDS: POTASSIUM CHLORIDE PWD 20 MEQ PACK PO SCH (14:38)
[2024-05-07 06:30] LABS: Basophils # (auto) 0.03 K/uL (0.00-0.20); Basophils % (auto) 0.6 %; Eosinophils # (auto) 0.16 K/uL (0.00-0.50); Eosinophils % (auto) 3.4 %; Hematocrit (blood only) 34.8 % (37.0-47.0); Hemoglobin 11.3 g/dl (12.0-16.0); Lymphocytes # (auto) 1.83 K/uL (1.20-3.40); Lymphocytes % (auto) 38.9 %; Mean Corpuscular Hemoglobin 27.2 pg (25.0-34.0); Mean Corpuscular Hgb Conc 32.5 g/dL (32.0-36.0); Mean Corpuscular Volume 83.7 fL (80.0-100.0); Mean Platelet Volume 9.2 fL (9.4-12.4); Monocytes # (auto) 0.58 K/uL (0.11-0.59); Monocytes % (auto) 12.3 %; Neutrophils % (auto) 44.8 %; Platelet Count 161 K/uL (130-400); RDW Coefficient of Variation 13.5 % (11.5-14.5); RDW Standard Deviation 41.7 fL (36.4-46.3); Red Blood Count 4.16 M/uL (4.20-5.40)
[2024-05-07 06:49] LABS: Calcium 8.7 mg/dl (8.6-10.3); Creatinine Clr Calc Pharmacy 56.9 ml/min; Est GFR (African American) 95.9 ml/min; Est GFR (Non-African American) 82.7 ml/min; Potassium 4.2 mmol/L (3.5-5.1)
--- NOTE | 2024-05-07 09:04 | Hospitalist Progress Note ---
Date of Service May 07, 2024 Assessment & Plan (1) COVID: (2) Ambulatory dysfunction: (3) SOB (shortness of breath): Plan: Patient is 78-year-old female with PMH Paroxysmal atrial fibrillation s/p Watchman procedure, HTN, history of mitral valve repair, history aortic valve bioprosthetic replacement, HFpEF, sick sinus syndrome s/p pacemaker, LBBB, GERD presented to ER with complaint of shortness of breath and cough sore throat nasal congestion x 3 days. Generalized weakness ambulatory dysfunction Afebrile, Not hypoxic in ER, no leukocytosis. Positive SARS-CoV-2 PCR CXR: Cardiomegaly CTA chest: No PE, stable mild cardiomegaly, chronic thrombus noted in left atrial appendage closure device this remains unchanged. No focal lung consolidations Soft tissue neck CT: No acute abnormality seen Troponin: 45--> 43-->41. C Flonase, Mucinex, throat drops for symptomatic relief Airborne isolation Supplemental oxygen prn neb if needed Incentive spirometry, flutter valve Fall precautions Suspect worsening ambulatory dysfunction secondary to underlying illness with COVID-19 PT/OT eval pending (4) Chronic heart failure with preserved ejection fraction (HFpEF): (5) S/P AVR (aortic valve replacement): (6) S/P MVR (mitral valve repair): Plan: Echo 05/06/2023: EF: 55-59%, normal LV wall motion, left atrium severely enlarged, presence of left atrial appendage watchman closure device, aortic valve prosthesis present with mild aortic valve prosthesis stenosis, moderate valvular aortic valve prosthesis regurgitation, evidence of prior mitral valve repair, mild mitral regurgitation, moderate-severe tricuspid regurgitation, pacemaker wire present in right ventricle, mild pulmonary regurgitation Appears euvolemic continue Lasix (7) HTN (hypertension): Plan: Continue amlodipine, metoprolol tartrate, valsartan (8) PAF (paroxysmal atrial fibrillation): Plan: S/p Watchman procedure Not on anticoagulation. Continue daily aspirin, metoprolol tartrate (9) SSS (sick sinus syndrome): Plan: S/p pacemaker monitor on telemetry (10) HLD (hyperlipidemia): Plan: Continue simvastatin DVT Prophylaxis Lovenox SQ Admit med/tele. PT OT eval pending Full code Follows with Dr Lau for routine care Please note the above document was generated using voice recognition software. It may contain grammatical, syntax or spelling errors. Any formal questions or concerns about the content, text or information contained within the body of this dictation should be directly addressed to the provider for clarification Admission and Anticipated Discharge Date Admission Date: May 04, 2024 Subjective Patient seen and examined at bedside. Comfortable; not in distress. Denies fever, chills, chest pain, shortness of breath, abdominal pain or urinary symptoms. No significant overnight events Review of Systems Review of Systems: All systems reviewed & are unremarkable except as noted in Subjective Physical Exam Physical Exam: General: no distress acute distress, non-toxic appearing, WDWN Head: normocephalic, atraumatic Eyes: conjunctiva non-injected, anicteric ENT: normal inspection external ears, nose, mucous membranes moist, pharynx without erythema or edema, uvula midline Neck: supple, trachea midline, non-tender Lungs: clear, no respiratory distress, no wheezing/rhonchi/rales CV: RRR, no pretibial edema Abd: normal BS, soft, non-tender Ext: no cyanosis, no calf tenderness Neuro: A&O x 3, no focal deficits noted, normal affect Skin: warm, dry Results & Data Results & Data Vital Signs (Past 12 Hours) Vital Signs Temp Pulse Pulse Resp BP BP Pulse Ox 05/07/24 08:59 36.8 C 61 17 119/71 97 05/07/24 03:28 36.4 C L 61 18 114/60 95 05/06/24 23:55 60 05/06/24 23:45 36.5 C 67 18 138/68 93 O2 Del Method 05/07/24 08:59 Room Air 05/07/24 03:28 Room Air 05/06/24 23:55 05/06/24 23:45 Room Air
--- NOTE | 2024-05-07 13:51 | Discharge Summary ---
Date of Service May 07, 2024 Admission HPI Per Admitting Provider Patient is 78-year-old female with PMH Paroxysmal atrial fibrillation s/p Watchman procedure, HTN, history of mitral valve repair, history aortic valve bioprosthetic replacement, HFpEF, sick sinus syndrome s/p pacemaker, LBBB, GERD and others listed below presented to ER with complaint of shortness of breath and cough today. States 3 days ago started with sore throat. States throat feels scratchy and sore and feels like something scratchy in throat with swallowing. Is able to eat and drink and swallow secretions. Denies known food bolus or choking. States also having nasal congestion. Past 2 days FINN, fatigue, ge neralized weakness. Walks with walker. Denies falls but states feeling unsteady with walking past day. Today had 2 coughing episodes that caused her to have SOB and some chest aching after coughing. States hasn't had coughing episodes since and denies any SOB or CP currently. Unaware of any fever/chills, ill contacts. Denies known fever/chills, diaphoresis, N/V/D/C, dizziness, syncope, vision trejo ges, neck pain, orthopnea, palpitations, hemoptysis, choking, abdominal pain, paresthesias, extremity edema, rashes, urinary symptoms. Admission Exam Per Admitting Provider General: no distress acute distress, non-toxic appearing, WDWN Head: normocephalic, atraumatic Eyes: conjunctiva non-injected, anicteric ENT: normal inspection external ears, nose, mucous membranes moist, pharynx without erythema or edema, uvula midline Neck: supple, trachea midline, non-tender Lungs: clear, no respiratory distress, no wheezing/rhonchi/rales CV: RRR, no pretibial edema Abd: normal BS, soft, non-tender Ext: no cyanosis, no calf tenderness Neuro: A&O x 3, no focal deficits noted, normal affect Skin: warm, dry Principal Diagnosis COVID-19 infection Discharge Exam General: no distress acute distress, non-toxic appearing, WDWN Head: normocephalic, atraumatic Eyes: conjunctiva non-injected, anicteric ENT: normal inspection external ears, nose, mucous membranes moist, pharynx without erythema or edema, uvula midline Neck: supple, trachea midline, non-tender Lungs: clear, no respiratory distress, no wheezing/rhonchi/rales CV: RRR, no pretibial edema Abd: normal BS, soft, non-tender Ext: no cyanosis, no calf tenderness Neuro: A&O x 3, no focal deficits noted, normal affect Skin: warm, dry Discharge Data Allergies Allergy/AdvReac Type Severity Reaction Status Date / Time vancomycin Allergy Severe rash, Verified 05/04/24 15:39 shortness of breath cefazolin Allergy Intermediate rash Verified 05/04/24 15:39 Ordered Studies 05/04/24 13:30 CT angio chest PE protocol Stat CT neck soft tissues [CT soft tissue neck w con] Stat Hospital Course (1) COVID: (2) Ambulatory dysfunction: (3) SOB (shortness of breath): (4) Chronic heart failure with preserved ejection fraction (HFpEF): (5) S/P AVR (aortic valve replacement): (6) S/P MVR (mitral valve repair): (7) HTN (hypertension): (8) PAF (paroxysmal atrial fibrillation): (9) SSS (sick sinus syndrome): (10) HLD (hyperlipidemia): Patient is 78-year-old female with PMH Paroxysmal atrial fibrillation s/p Watchman procedure, HTN, history of mitral valve repair, history aortic valve bioprosthetic replacement, HFpEF, sick sinus syndrome s/p pacemaker, LBBB, GERD presented to ER with complaint of shortness of breath and cough sore throat nasal congestion x 3 days and Generalized weakness ambulatory dysfunction. On presentation, she was Afebrile, saturating well in RA, Found to have Positive SARS-CoV-2 PCR CXR: Cardiomegaly, no pneumonia. CTA chest: No PE, stable mild cardiomegaly, chronic thrombus noted in left atrial appendage closure device this remains unchanged. No focal lung consolidations Soft tissue neck CT: No acute abnormality seen During the hospitalization, patient was provided symptomatic care with Flonase, Mucinex and throat drops. Her oxygen level was monitored during the hospitalization; she continued to saturate well in room air. She had a period Of atrial fibrillation with RVR during the hospitalization which resolved with oral metoprolol. At the time of the discharge, she was feeling much better. She underwent PT OT evaluation who recommended home. Patient was discharged home with her son. Please note the above document was generated using voice recognition software. It may contain grammatical, syntax or spelling errors. Any formal questions or concerns about the content, text or information contained within the body of this dictation should be directly addressed to the provider for clarification Total Time Total Time Spent Total Time Spent (In Minutes): 34 Total Time Includes: Examination of the Patient, Discharge Planning, Medication Reconciliation, Communication With Other Providers and Other Discharge Plan Discharge Items Patient Disposition: Home - Self-Care Reason For Visit: SOB, COVID Discharge Diagnosis: Covid 19 Infection Activity: Resume your previous activity Non-emergency contact: Primary Care Provider Call non-emergency contact if: you have any medication questions and your symptoms worsen Follow-up/Referrals: Mauro Lau MD [Primary Care Provider] - Diet: Regular Addtl Attending Provider Instructions: You were admitted to the hospital with Covid 19 infection. Chest Xray didn't show pneumonia. Please continue to wear mask for 5 more days around other people Pending Studies at Discharge: No Stand-Alone Forms: [employer], Smoking Cessation Medications and DC Order Prescriptions: Continued valsartan 80 mg tablet 80 mg PO QAM metoprolol tartrate 50 mg tablet 50 mg PO BID amlodipine 5 mg tablet 5 mg PO QAM acetaminophen [Tylenol Extra Strength] 500 mg Tablet 500 mg PO Q6H PRN (Reason: Pain) cholecalciferol (vitamin D3) [Vitamin D3] 25 mcg (1,000 unit) Capsule 25 mcg PO DAILY furosemide 40 mg tablet 80 mg PO QAM simvastatin 20 mg tablet 20 mg PO HS aspirin 81 mg tablet,chewable 81 mg PO QAM Discharge Orders: Discharge Order (Routine); Ordered 05/07/24 Ordered By: Jhon King Admission Data Admit Date/Time: 05/04/24 15:34 Attending Provider: Jhon King Admit Provider: Lauri Rivera Primary Care Provider: Mauro Lau
== END 2024-05-07 16:17 | disposition home or self-care (01) | DRG 178 ==
LOC: ED 12:20 → 2S 15:34 → SUATTDRO 15:34 → 2S 17:22